=== PATIENT | female | born 1975 | race Caucasian/White ===

== ENCOUNTER 2017-12-19 16:06 | Emergency (ER) | payer OTHER ==
[~2017-12-19] VITALS: Ht 170.2 cm; Wt 167.8 kg
[2017-12-19] MEDS ORDERED: METF500C PO (17:10)
[2017-12-19] MEDS ORDERED: Humalog100 UNIT/3 SC (17:11)
[2017-12-19] MEDS ORDERED: PREG200 PO (17:14)
[2017-12-19] MEDS ORDERED: LORA.5 PO (17:15)
[2017-12-19] MEDS ORDERED: DULO30 PO (17:15)
[2017-12-19] MEDS ORDERED: METO100ER PO (17:15)
[2017-12-19] MEDS ORDERED: ONDA8 PO (17:16)
[2017-12-19] MEDS ORDERED: METO5A PO (17:16)
[2017-12-19] MEDS ORDERED: BASAGLAR K100 UNIT/1 SC (17:18)
[2017-12-19] MEDS ORDERED: ABAT250V (17:18)
[2017-12-19] MEDS ORDERED: Percocet 7.5-31 EACH PO (18:53)
[2017-12-19 19:36] LABS: BASOPHILS ABSOLUTE AUTO 0.06 K/mm3 (0.00-0.23); BASOPHILS PERCENT AUTO 1 % (0-2); EOSINOPHILS ABSOLUTE AUTO 0.08 K/mm3 (0.00-0.68); EOSINOPHILS PERCENT AUTO 1 % (0-6); Hematocrit 40.4 % (33.0-51.0); Hemoglobin 12.8 g/dL (11.5-16.0); IMMATURE GRAN ABSOLUTE AUTO 0.04 K/mm3 (0.00-0.10); IMMATURE GRAN PERCENT AUTO 1 % (0-1); LYMPHOCYTES ABSOLUTE AUTO 1.74 K/mm3 (0.84-5.20); LYMPHOCYTES PERCENT AUTO 22 % (21-46); MONOCYTES ABSOLUTE AUTO 0.41 K/mm3 (0.16-1.47); MONOCYTES PERCENT AUTO 5 % (4-13); Mean Corpuscular HGB 23.7 pg (26.0-34.0); Mean Corpuscular HGB Conc 31.7 g/dL (31.5-36.5); Mean Corpuscular Volume 75 fL (80-100); NEUTROPHILS ABSOLUTE AUTO 5.65 K/mm3 (1.96-9.15); NEUTROPHILS PERCENT AUTO 71 % (41-73); Platelet Count 294 K/mm3 (150-400); RDW Coefficient Variation 16.3 % (11.7-14.2); RDW Standard Deviation 43.8 fL (35.1-46.3); White Blood Cell Count 7.98 K/mm3 (4.00-11.30)
[2017-12-19 19:50] LABS: International Normalized Ratio 0.97
[2017-12-19 19:58] LABS: Anion Gap 10 mmol/L (6-16); Blood Urea Nitrogen 12 mg/dL (8-24); Bun/Creatinine Ratio 22.2 (12.0-20.0); CO2, Blood 26 mmol/L (21-32); Calcium, Blood 8.8 mg/dL (8.5-10.1); Chloride, Blood 100 mmol/L (98-108); Creatinine, Blood 0.54 mg/dL (0.40-1.00); Glomerular Filtration Rate >60 (60-); Glucose, Blood 407 mg/dL (70-99); Potassium, Blood 4.2 mmol/L (3.5-5.5); Sodium, Blood 136 mmol/L (136-145)
== END 2017-12-19 21:15 | disposition home or self-care (01) ==
LOC: ER 16:06
PROVIDERS: Emergency Medicine
DX: I82.411 Acute embolism and thrombosis of right femoral vein (principal); I82.431 Acute embolism and thrombosis of right popliteal vein; I82.441 Acute embolism and thrombosis of right tibial vein; E11.9 Type 2 diabetes mellitus without complications; F41.9 Anxiety disorder, unspecified; F32.9 Major depressive disorder, single episode, unspecified; Z88.8 Allergy status to other drugs, medicaments and biological substances; Z88.5 Allergy status to narcotic agent; Z88.2 Allergy status to sulfonamides; Z88.1 Allergy status to other antibiotic agents; Z79.4 Long term (current) use of insulin; Z79.899 Other long term (current) drug therapy; Z86.711 Personal history of pulmonary embolism
CPT/HCPCS: 36415; 80048; 85025; 85610; 85730; 93971; 96372; 99284-25; J1170

== ENCOUNTER → 2018-02-28 | Outpatient (CLI) | payer OTHER ==
[~2018-02-28] MED LIST: ABAT250V; BASAGLAR K100 UNIT/1 SC; DULO30 PO; ELIQUIS5 MG PO; Humalog100 UNIT/3 SC; LORA.5 PO; METF500C PO; METO100ER PO; METO5A PO; ONDA8 PO; PREG200 PO; Percocet 7.5-31 EACH PO; Roxicodone5 MG PO
[2018-02-28 15:06] LABS: BASOPHILS ABSOLUTE AUTO 0.04 K/mm3 (0.00-0.23); BASOPHILS PERCENT AUTO 1 % (0-2); EOSINOPHILS PERCENT AUTO 0 % (0-6); Hematocrit 43.5 % (33.0-51.0); Hemoglobin 13.7 g/dL (11.5-16.0); IMMATURE GRAN ABSOLUTE AUTO 0.03 K/mm3 (0.00-0.10); IMMATURE GRAN PERCENT AUTO 1 % (0-1); LYMPHOCYTES ABSOLUTE AUTO 0.63 K/mm3 (0.84-5.20); LYMPHOCYTES PERCENT AUTO 14 % (21-46); MONOCYTES ABSOLUTE AUTO 0.21 K/mm3 (0.16-1.47); MONOCYTES PERCENT AUTO 5 % (4-13); Mean Corpuscular HGB Conc 31.5 g/dL (31.5-36.5); Mean Corpuscular Volume 76 fL (80-100); Mean Platelet Volume 10.4 fL (9.1-12.4); NEUTROPHILS PERCENT AUTO 79 % (41-73); Platelet Count 247 K/mm3 (150-400); RDW Coefficient Variation 14.3 % (11.7-14.2); RDW Standard Deviation 38.5 fL (35.1-46.3); Red Blood Cell Count 5.71 M/mm3 (3.80-5.20); White Blood Cell Count 4.41 K/mm3 (4.00-11.30)
[2018-02-28 15:22] LABS: Alanine Aminotransfer (ALT/SGP 26 U/L (12-78); Albumin, Blood 2.9 g/dL (3.4-5.0); Albumin/Globulin Ratio 0.6 (0.8-1.8); Alk Phos 91 U/L (40-126); Anion Gap 7 mmol/L (6-16); Aspartate Aminotrans (AST/SGOT 24 U/L (12-37); Bilirubin, Total 0.4 mg/dL (0.1-1.0); Blood Urea Nitrogen 10 mg/dL (8-24); Bun/Creatinine Ratio 11.8 (12.0-20.0); CO2, Blood 27 mmol/L (21-32); Calcium, Blood 8.6 mg/dL (8.5-10.1); Chloride, Blood 98 mmol/L (98-108); Creatinine, Blood 0.85 mg/dL (0.40-1.00); Globulin, Blood 4.9 g/dL (2.2-4.0); Glomerular Filtration Rate >60 (60-); Glucose, Blood 297 mg/dL (70-99); Potassium, Blood 4.5 mmol/L (3.5-5.5); Sodium, Blood 132 mmol/L (136-145); Total Protein, Blood 7.8 g/dL (6.4-8.2)
== END | disposition home or self-care (01) ==
LOC: LAB SHORT 15:02 → LAB EV 15:02
PROVIDERS: General Practice
DX: E11.65 Type 2 diabetes mellitus with hyperglycemia (principal); A41.9 Sepsis, unspecified organism; N39.0 Urinary tract infection, site not specified
CPT/HCPCS: 80053; 85025; 87077; 87086; 87186

== ENCOUNTER → 2018-04-16 | Outpatient (CLI) | payer OTHER ==
[2018-04-16 13:13] LABS: BASOPHILS ABSOLUTE AUTO 0.04 K/mm3 (0.00-0.23); BASOPHILS PERCENT AUTO 1 % (0-2); EOSINOPHILS ABSOLUTE AUTO 0.11 K/mm3 (0.00-0.68); EOSINOPHILS PERCENT AUTO 2 % (0-6); Hematocrit 40.9 % (33.0-51.0); Hemoglobin 13.1 g/dL (11.5-16.0); IMMATURE GRAN ABSOLUTE AUTO 0.02 K/mm3 (0.00-0.10); IMMATURE GRAN PERCENT AUTO 0 % (0-1); LYMPHOCYTES ABSOLUTE AUTO 1.82 K/mm3 (0.84-5.20); LYMPHOCYTES PERCENT AUTO 31 % (21-46); MONOCYTES ABSOLUTE AUTO 0.33 K/mm3 (0.16-1.47); MONOCYTES PERCENT AUTO 6 % (4-13); Mean Corpuscular HGB 23.9 pg (26.0-34.0); Mean Corpuscular Volume 75 fL (80-100); Mean Platelet Volume 10.7 fL (9.1-12.4); NEUTROPHILS ABSOLUTE AUTO 3.54 K/mm3 (1.96-9.15); NEUTROPHILS PERCENT AUTO 60 % (41-73); Platelet Count 280 K/mm3 (150-400); RDW Coefficient Variation 15.9 % (11.7-14.2); RDW Standard Deviation 42.5 fL (35.1-46.3); Red Blood Cell Count 5.48 M/mm3 (3.80-5.20); White Blood Cell Count 5.86 K/mm3 (4.00-11.30)
[2018-04-16 13:16] LABS: Anion Gap 9 mmol/L (6-16); Blood Urea Nitrogen 11 mg/dL (8-24); Bun/Creatinine Ratio 13.4 (12.0-20.0); CO2, Blood 28 mmol/L (21-32); Calcium, Blood 8.7 mg/dL (8.5-10.1); Chloride, Blood 99 mmol/L (98-108); Creatinine, Blood 0.82 mg/dL (0.40-1.00); Glomerular Filtration Rate >60 (60-); Glucose, Blood 332 mg/dL (70-99); Potassium, Blood 4.2 mmol/L (3.5-5.5); Sodium, Blood 136 mmol/L (136-145)
== END | disposition home or self-care (01) ==
LOC: LAB EV 13:07 → LAB SHORT 13:07
PROVIDERS: Physician Assistant Surgical
DX: L03.115 Cellulitis of right lower limb (principal)
CPT/HCPCS: 80048; 85025

== ENCOUNTER → 2018-06-04 | Outpatient (CLI) | payer OTHER ==
[2018-06-04 13:07] LABS: BASOPHILS ABSOLUTE AUTO 0.05 K/mm3 (0.00-0.23); BASOPHILS PERCENT AUTO 1 % (0-2); EOSINOPHILS ABSOLUTE AUTO 0.13 K/mm3 (0.00-0.68); EOSINOPHILS PERCENT AUTO 2 % (0-6); IMMATURE GRAN ABSOLUTE AUTO 0.04 K/mm3 (0.00-0.10); IMMATURE GRAN PERCENT AUTO 1 % (0-1); LYMPHOCYTES ABSOLUTE AUTO 2.38 K/mm3 (0.84-5.20); LYMPHOCYTES PERCENT AUTO 37 % (21-46); MONOCYTES ABSOLUTE AUTO 0.29 K/mm3 (0.16-1.47); MONOCYTES PERCENT AUTO 5 % (4-13); Mean Corpuscular HGB 24.4 pg (26.0-34.0); Mean Corpuscular HGB Conc 32.5 g/dL (31.5-36.5); Mean Corpuscular Volume 75 fL (80-100); Mean Platelet Volume 10.3 fL (9.1-12.4); NEUTROPHILS ABSOLUTE AUTO 3.59 K/mm3 (1.96-9.15); NEUTROPHILS PERCENT AUTO 55 % (41-73); Platelet Count 320 K/mm3 (150-400); RDW Coefficient Variation 15.9 % (11.7-14.2); RDW Standard Deviation 42.9 fL (35.1-46.3); Red Blood Cell Count 5.32 M/mm3 (3.80-5.20); White Blood Cell Count 6.48 K/mm3 (4.00-11.30)
[2018-06-04 13:20] LABS: Anion Gap 9 mmol/L (6-16); Blood Urea Nitrogen 16 mg/dL (8-24); Bun/Creatinine Ratio 21.1 (12.0-20.0); CO2, Blood 27 mmol/L (21-32); Calcium, Blood 9.2 mg/dL (8.5-10.1); Chloride, Blood 100 mmol/L (98-108); Creatinine, Blood 0.76 mg/dL (0.40-1.00); Glomerular Filtration Rate >60 (60-); Glucose, Blood 258 mg/dL (70-99); Potassium, Blood 4.5 mmol/L (3.5-5.5); Sodium, Blood 136 mmol/L (136-145); Thyroid Stimulating Hormone 2.803 uIU/mL (0.360-4.800)
== END | disposition home or self-care (01) ==
LOC: LAB SHORT 12:56 → LAB EV 12:56
PROVIDERS: Physician Assistant Surgical
DX: I10 Essential (primary) hypertension (principal); R53.83 Other fatigue
CPT/HCPCS: 80048; 84443; 85025

== ENCOUNTER → 2018-06-16 | Outpatient (CLI) | payer OTHER ==
[2018-06-17 15:06] LABS: HPV 16 Negative (Negative); HPV 18 Negative (Negative); HPV OTHER HR TYPES Negative (Negative)
== END | disposition home or self-care (01) ==
LOC: LAB 11:07 → LAB SHORT 11:07
PROVIDERS: Obstetrics & Gynecology
DX: Z01.419 Encounter for gynecological examination (general) (routine) without abnormal findings (principal)
CPT/HCPCS: 87624; G0123

== ENCOUNTER → 2018-10-12 | Outpatient (CLI) | payer OTHER ==
[~2018-10-12] MED LIST changes: +CEPH500 PO
== END ==
LOC: LAB SHORT 08:01 → LAB EV 08:01
DX: R35.0 Frequency of micturition (principal)
CPT/HCPCS: 87077; 87086; 87186

== ENCOUNTER → 2018-11-25 | Outpatient (CLI) | payer OTHER | END | disposition home or self-care (01) | LOC: LAB EV 16:59 → LAB SHORT 16:59 | DX: R30.9 Painful micturition, unspecified (principal) | CPT/HCPCS: 87077; 87086; 87186 ==

== ENCOUNTER 2019-01-13 20:30 | Inpatient (IN) | payer OTHER ==
[~2019-01-13] VITALS: Ht 170.2 cm; Wt 169.2 kg
[~2019-01-13 20:30] MED LIST changes: -ATORVASTATIN CA20 MG PO; -CLON.1 PO; -Chewable-Vite1 EAC1 PO; -Cipro500 MG PO; -DULO60 PO; -FUROSEMIDE20 MG PO; -OMEPRAZOLE20 MG PO; -SENN187 PO; -Tylenol325 MG PO
[2019-01-13 21:08] LABS: Source, Urine Clean Catch
[2019-01-13 21:12] LABS: BASOPHILS ABSOLUTE AUTO 0.03 K/mm3 (0.00-0.23); BASOPHILS PERCENT AUTO 1 % (0-2); EOSINOPHILS ABSOLUTE AUTO 0.06 K/mm3 (0.00-0.68); EOSINOPHILS PERCENT AUTO 1 % (0-6); Hematocrit 43.2 % (33.0-51.0); Hemoglobin 13.6 g/dL (11.5-16.0); IMMATURE GRAN ABSOLUTE AUTO 0.03 K/mm3 (0.00-0.10); IMMATURE GRAN PERCENT AUTO 1 % (0-1); LYMPHOCYTES ABSOLUTE AUTO 1.25 K/mm3 (0.84-5.20); LYMPHOCYTES PERCENT AUTO 21 % (21-46); MONOCYTES ABSOLUTE AUTO 0.56 K/mm3 (0.16-1.47); MONOCYTES PERCENT AUTO 10 % (4-13); Mean Corpuscular HGB 25.5 pg (26.0-34.0); Mean Corpuscular HGB Conc 31.5 g/dL (31.5-36.5); Mean Corpuscular Volume 81 fL (80-100); Mean Platelet Volume 9.8 fL (9.1-12.4); NEUTROPHILS ABSOLUTE AUTO 3.96 K/mm3 (1.96-9.15); NEUTROPHILS PERCENT AUTO 67 % (41-73); Platelet Count 229 K/mm3 (150-400); RDW Coefficient Variation 13.7 % (11.7-14.2); Red Blood Cell Count 5.33 M/mm3 (3.80-5.20); White Blood Cell Count 5.89 K/mm3 (4.00-11.30)
[2019-01-13 21:12] LABS: Bilirubin, Urine Neg (Neg); Blood, Urine 1+ (Neg); Glucose Qualitative, Urine 3+ (Neg); Ketones, Urine Neg (Neg); Leukocyte Esterase, Urine 1+ (Neg); Nitrite, Urine Neg (Neg); Protein, Urine Neg (Neg); Specific Gravity, Urine 1.005 (1.003-1.022); Urobilinogen, Urine NORM (Normal)
[2019-01-13 21:13] LABS: Appearance, Urine Clear (Clear); Color, Urine Pale Yellow (P-Yellow)
[2019-01-13 21:18] LABS: Red Blood Cells, Urine 0-2 /hpf (0-2); Squamous Epithelial Cells Few /hpf (Few)
[2019-01-13 21:19] LABS: Bacteria Rare /hpf
[2019-01-13 21:37] LABS: Alanine Aminotransfer (ALT/SGP 40 U/L (12-78); Albumin, Blood 3.3 g/dL (3.4-5.0); Albumin/Globulin Ratio 0.8 (0.8-1.8); Alk Phos 83 U/L (50-136); Anion Gap 8 mmol/L (6-16); Aspartate Aminotrans (AST/SGOT 27 U/L (12-37); Bilirubin, Total 0.4 mg/dL (0.1-1.0); Blood Urea Nitrogen 14 mg/dL (8-24); Bun/Creatinine Ratio 14.8 (12.0-20.0); CO2, Blood 28 mmol/L (21-32); Chloride, Blood 103 mmol/L (98-108); Creatinine, Blood 0.95 mg/dL (0.40-1.00); Globulin, Blood 4.2 g/dL (2.2-4.0); Glomerular Filtration Rate >60 (60-); Glucose, Blood 312 mg/dL (70-99); Potassium, Blood 3.9 mmol/L (3.5-5.5); Sodium, Blood 139 mmol/L (136-145); Total Protein, Blood 7.5 g/dL (6.4-8.2)
[2019-01-13] MEDS ORDERED: Cipro500 MG PO (21:42)
[2019-01-13] MEDS ORDERED: CLON.1 PO (21:43)
[2019-01-13] MEDS ORDERED: ATORVASTATIN CA20 MG PO (21:45)
[2019-01-13] MEDS ORDERED: DULO60 PO (21:45)
[2019-01-13] MEDS ORDERED: FUROSEMIDE20 MG PO (21:45)
[2019-01-14] MEDS ORDERED: Chewable-Vite1 EAC1 PO (01:08)
[2019-01-14] MEDS ORDERED: OMEPRAZOLE20 MG PO (01:09)
[2019-01-14] MEDS ORDERED: Tylenol325 MG PO (01:10)
--- NOTE | 2019-01-14 01:56 | NUR ---
IV L AC 18G PATENT, SITE WNL
--- NOTE | 2019-01-14 01:57 | NUR ---
0030 PT ARRIVED TO ROOM FROM ER VIA GURNEY IN STABLE CONDTITION. PT REPORTS SLIGHT NAUSEA, PAIN IN THE L FLANK OF 6/10 THAT IS SHARP AND STABBING. N/T IN LE'S THAT IS NOT NEW, HISTORY OF NEUROPATHY. NO OTHER APPARENT SIGNS OF DISTRESS. WILL MEDICATE AND EVAL PER ORDERS. CALL LIGHT IS IN REACH.
--- NOTE | 2019-01-14 03:08 | NUR ---
0230 PT LYING IN BED, USING PHONE, REPORTS PAIN WENT DOWN TO A 2/10 WITH THE PAIN MEDICATION. THE NAUSEA IS GONE. NO OTHER APPARENT SIGNS OF DISTRESS. CALL LIGHT IS IN REACH.
--- NOTE | 2019-01-14 04:50 | NUR ---
PT IS AAO, INDEPENDANT, ON RA. LAST BS WAS 285. TELE NSR. PT REPORTS L FLANK PAIN, GOT DILAUDED IN ER AND X 1 SINCE ARRIVING TO ROOM. PT REPORTED SLIGHT NAUSEA, GOT ZOFRAN X 1.
--- NOTE | 2019-01-14 04:50 | NUR ---
PT LYING IN BED, EYES CLOSED, APPEARS TO BE RESTING. BREATHING IS EVEN, UNLABORED. NO APPARENT SIGNS OF DISTRESS. CALL LIGHT IS IN REACH.
[2019-01-14 05:22] LABS: BASOPHILS ABSOLUTE AUTO 0.04 K/mm3 (0.00-0.23); BASOPHILS PERCENT AUTO 1 % (0-2); EOSINOPHILS ABSOLUTE AUTO 0.04 K/mm3 (0.00-0.68); EOSINOPHILS PERCENT AUTO 1 % (0-6); Hematocrit 38.4 % (33.0-51.0); Hemoglobin 12.2 g/dL (11.5-16.0); IMMATURE GRAN ABSOLUTE AUTO 0.02 K/mm3 (0.00-0.10); IMMATURE GRAN PERCENT AUTO 0 % (0-1); LYMPHOCYTES ABSOLUTE AUTO 1.56 K/mm3 (0.84-5.20); LYMPHOCYTES PERCENT AUTO 32 % (21-46); MONOCYTES ABSOLUTE AUTO 0.65 K/mm3 (0.16-1.47); MONOCYTES PERCENT AUTO 13 % (4-13); Mean Corpuscular HGB 25.6 pg (26.0-34.0); Mean Corpuscular HGB Conc 31.8 g/dL (31.5-36.5); Mean Corpuscular Volume 81 fL (80-100); Mean Platelet Volume 10.1 fL (9.1-12.4); NEUTROPHILS ABSOLUTE AUTO 2.57 K/mm3 (1.96-9.15); NEUTROPHILS PERCENT AUTO 53 % (41-73); Platelet Count 189 K/mm3 (150-400); RDW Coefficient Variation 13.8 % (11.7-14.2); RDW Standard Deviation 40.5 fL (35.1-46.3); Red Blood Cell Count 4.77 M/mm3 (3.80-5.20); White Blood Cell Count 4.88 K/mm3 (4.00-11.30)
[2019-01-14 05:41] LABS: Anion Gap 6 mmol/L (6-16); Blood Urea Nitrogen 14 mg/dL (8-24); Bun/Creatinine Ratio 15.1 (12.0-20.0); CO2, Blood 27 mmol/L (21-32); Calcium, Blood 8.4 mg/dL (8.5-10.1); Chloride, Blood 107 mmol/L (98-108); Creatinine, Blood 0.93 mg/dL (0.40-1.00); Glomerular Filtration Rate >60 (60-); Glucose, Blood 266 mg/dL (70-99); Potassium, Blood 4.2 mmol/L (3.5-5.5); Sodium, Blood 140 mmol/L (136-145)
--- NOTE | 2019-01-14 06:01 | NUR ---
PT LYING IN BED, EYES CLOSED, APPEARS TO BE RESTING. BREATHING IS EVEN, UNLABORED. NO APPARENT SIGNS OF DISTRESS. CALL LIGHT IS IN REACH. NO OTHER CHANGES THIS SHIFT.
[2019-01-14 11:38] LABS: U Amphetamine Screen Not Detected; U Barbituate Screen Not Detected; U Benzodiazapine Screen Not Detected; U Buprenorphine Screen Not Detected; U Cannabinoids Screen DETECTED; U Cocaine Screen Not Detected; U Methadone Screen Not Detected; U Methamphetamine Screen Not Detected; U Opiates Screen DETECTED; U Oxycodone Screen Not Detected; U Phencyclidine Screen Not Detected; U Propoxyphene Screen Not Detected
--- NOTE | 2019-01-14 17:47 | NUR ---
SHIFT SUMMARY PT AXO, PLEASANT AND COOPERATIVE WITH CARE. PT COMPLAINED OF RIGHT LOWER BACK PAIN, MEDICATED PER EMAR. PT STATES THAT SHE IS IN PAIN NOW BUT WANTS TO "HOLD OFF ON MEDICATION FOR NOW." PT HAS HAD POOR APPETITE, REFUSING EACH MEAL TRAY THROUGHOUT THE DAY STATING THAT SHE "CAN'T STAND FOOD RIGHT NOW." FLUID INTAKE FOR TODAY HAS BEEN 380ML ORALLY. VSS. PT UP INDEPENDENTLY THIS SHIFT TO BATHROOM. BED IN LOW POSITION, CALL LIGHT WITHIN REACH.
--- NOTE | 2019-01-14 21:00 | NUR ---
BLOOD SUGARS PT'S BLOOD SUGAR AT HS WAS 134. PT HAS 85 UNITS OF LANTUS ORDERED AT BEDTIME. BLOOD SUGARS HAVE BEEN TRENDING DOWN DURING THE DAY, FROM 237 TO 151 TO 134. PT HAS HAD NO APPETITE THROUGHOUT THE DAY, DENIED ANY SNACKS, JUICE OR SODA. SPOKE TO HOSPITALIST CHRISTIE NINO, AND SHE ORDERED A ONE TIME DOSE OF LANTUS AT 40 UNITS INSTEAD OF 85 UNITS.
[2019-01-15 05:18] LABS: BASOPHILS ABSOLUTE AUTO 0.03 K/mm3 (0.00-0.23); BASOPHILS PERCENT AUTO 1 % (0-2); EOSINOPHILS ABSOLUTE AUTO 0.14 K/mm3 (0.00-0.68); EOSINOPHILS PERCENT AUTO 3 % (0-6); Hematocrit 37.4 % (33.0-51.0); Hemoglobin 11.7 g/dL (11.5-16.0); IMMATURE GRAN ABSOLUTE AUTO 0.03 K/mm3 (0.00-0.10); IMMATURE GRAN PERCENT AUTO 1 % (0-1); LYMPHOCYTES ABSOLUTE AUTO 2.06 K/mm3 (0.84-5.20); LYMPHOCYTES PERCENT AUTO 39 % (21-46); MONOCYTES ABSOLUTE AUTO 0.49 K/mm3 (0.16-1.47); MONOCYTES PERCENT AUTO 9 % (4-13); Mean Corpuscular HGB 25.5 pg (26.0-34.0); Mean Corpuscular HGB Conc 31.3 g/dL (31.5-36.5); Mean Corpuscular Volume 82 fL (80-100); NEUTROPHILS PERCENT AUTO 48 % (41-73); Platelet Count 204 K/mm3 (150-400); RDW Coefficient Variation 14.1 % (11.7-14.2); RDW Standard Deviation 41.1 fL (35.1-46.3); Red Blood Cell Count 4.59 M/mm3 (3.80-5.20); White Blood Cell Count 5.25 K/mm3 (4.00-11.30)
[2019-01-15 05:52] LABS: Anion Gap 7 mmol/L (6-16); Blood Urea Nitrogen 13 mg/dL (8-24); Bun/Creatinine Ratio 16.1 (12.0-20.0); CO2, Blood 30 mmol/L (21-32); Calcium, Blood 8.7 mg/dL (8.5-10.1); Chloride, Blood 106 mmol/L (98-108); Creatinine, Blood 0.81 mg/dL (0.40-1.00); Glomerular Filtration Rate >60 (60-); Glucose, Blood 107 mg/dL (70-99); Potassium, Blood 3.6 mmol/L (3.5-5.5); Sodium, Blood 143 mmol/L (136-145)
--- NOTE | 2019-01-15 06:20 | NUR ---
SHIFT SUMMARY PT IS A 43 Y/O FEMALE, ADMITTED FOR PYELONEPHRITIS. SHE IS A&O X 4, AND INDEPENDENT IN THE ROOM. SHE WAS MEDICATED X2 WITH PRN OXYCODONE FOR BACK PAIN. SHE WAS ALSO MEDICATED ONCE WITH TYLENOL PER HER REQUEST DUE TO AN INCREASING TEMPERATURE AT 99.6 AND CHILLS. ALL OTHER VITALS REMAINED STABLE. PT'S EVENING LANTUS WAS DECREASED TO 40 DUE TO HER BLOOD SUGAR AND LACK OF APETITE (SEE PREVIOUS NOTE). NO OTHER ACUTE CHANGES IN PT CONDITION NOTED. WILL CONTINUE TO MONITOR AND TREAT PER EMAR UNTIL HAND OFF TO DAY SHIFT RN.
--- NOTE | 2019-01-15 12:25 | NUR ---
POOR APPETITE DR. MERIDA CALLED & UPDATED ON PT LACK OF APPETITE. PT STATES THE SMELL OF FOOD MAKES HER SICK. PT TOLERATING FLUIDS WELL. DR. MERIDA PLANS TO DC PT & MAKE CHANGES TO INSULINS DUE TO LACK OF PO INTAKE. WILL CONTINUE TO MONITOR.
[2019-01-15] MEDS ORDERED: SENN187 PO (13:47)
--- NOTE | 2019-01-15 14:29 | NUR ---
PT DISCHARGED PT DISCHARGED AT 1429. PT IN STABLE CONDITION WITH VSS. PT & SPOUSE EDUCATED ON DC INSTRUCTIONS & FOLLOW UP APPOINTMENTS. PT REFUSED WHEELCHAIR RIDE OUT OF HOSPITAL. PT ESCORTED OUT BY . DC INSTRUCTIONS SENT WITH PT.
== END 2019-01-15 14:30 | disposition home or self-care (01) | DRG 872 ==
LOC: ER 20:30 → MEDS 23:43
PROVIDERS: Family Medicine; Nurse Practitioner Acute Care; Physician Assistant; ADMIT Internal Medicine
DX: A41.9 Sepsis, unspecified organism (principal); N12 Tubulo-interstitial nephritis, not specified as acute or chronic; Z79.4 Long term (current) use of insulin; Z86.718 Personal history of other venous thrombosis and embolism; E11.40 Type 2 diabetes mellitus with diabetic neuropathy, unspecified; E66.01 Morbid (severe) obesity due to excess calories; I11.0 Hypertensive heart disease with heart failure; I50.9 Heart failure, unspecified; Z85.42 Personal history of malignant neoplasm of other parts of uterus; E11.65 Type 2 diabetes mellitus with hyperglycemia; G47.33 Obstructive sleep apnea (adult) (pediatric); Z87.440 Personal history of urinary (tract) infections; F39 Unspecified mood [affective] disorder
CPT/HCPCS: 36415; 74177; 80048; 80053; 81001; 82947; 83605; 83690; 83880; 85025; 87040; 87086; 93005; 93010; 96361; 96365-59; 96367; 96375; 99285-25; A9270; A9270-GY; G0480; J0696; J0744; J1170; J2405; J7120; Q9967

== ENCOUNTER → 2019-01-13 | Outpatient (CLI) | payer OTHER ==
[~2019-01-13] MED LIST changes: +ATORVASTATIN CA20 MG PO; +CLON.1 PO; +Chewable-Vite1 EAC1 PO; +Cipro500 MG PO; +DULO60 PO; +FUROSEMIDE20 MG PO; +Humalog Mi100 UNIT/4 SC; -Humalog100 UNIT/3 SC; +OMEPRAZOLE20 MG PO; +SENN187 PO; +Tylenol325 MG PO
== END | disposition home or self-care (01) ==
LOC: LAB SHORT 10:57 → LAB 10:57
DX: R30.0 Dysuria (principal); R10.84 Generalized abdominal pain
CPT/HCPCS: 87086

== ENCOUNTER → 2019-01-31 | Outpatient (CLI) | payer OTHER ==
[~2019-01-31] MED LIST changes: +ATORVASTATIN CA20 MG PO; +CLON.1 PO; +Chewable-Vite1 EAC1 PO; +Cipro500 MG PO; +DULO60 PO; +FUROSEMIDE20 MG PO; +OMEPRAZOLE20 MG PO; +SENN187 PO; +Tylenol325 MG PO
[2019-02-02 15:07] LABS: HPV 16 Negative (Negative); HPV 18 Negative (Negative); HPV OTHER HR TYPES Negative (Negative)
== END ==
LOC: LAB 16:28 → LAB SHORT 16:28
PROVIDERS: Advanced Practice Midwife
DX: N93.9 Abnormal uterine and vaginal bleeding, unspecified (principal)
CPT/HCPCS: 87624; G0123

== ENCOUNTER → 2019-02-21 | Outpatient (CLI) | payer OTHER | LOC: LAB EV 18:53 → LAB SHORT 18:53 | DX: N39.0 Urinary tract infection, site not specified (principal) | CPT/HCPCS: 87077; 87086; 87186 ==

== ENCOUNTER 2019-05-03 16:26 | Emergency (ER) | payer OTHER ==
[~2019-05-03] VITALS: Ht 170.2 cm; Wt 158.8 kg
[2019-05-03 17:42] LABS: BASOPHILS ABSOLUTE AUTO 0.07 K/mm3 (0.00-0.23); BASOPHILS PERCENT AUTO 1 % (0-2); EOSINOPHILS ABSOLUTE AUTO 0.06 K/mm3 (0.00-0.68); EOSINOPHILS PERCENT AUTO 1 % (0-6); Hematocrit 43.1 % (33.0-51.0); Hemoglobin 13.8 g/dL (11.5-16.0); IMMATURE GRAN ABSOLUTE AUTO 0.03 K/mm3 (0.00-0.10); IMMATURE GRAN PERCENT AUTO 0 % (0-1); LYMPHOCYTES PERCENT AUTO 20 % (21-46); MONOCYTES ABSOLUTE AUTO 0.37 K/mm3 (0.16-1.47); MONOCYTES PERCENT AUTO 5 % (4-13); Mean Corpuscular HGB 25.4 pg (26.0-34.0); Mean Corpuscular Volume 79 fL (80-100); Mean Platelet Volume 10.4 fL (9.1-12.4); NEUTROPHILS ABSOLUTE AUTO 5.09 K/mm3 (1.96-9.15); NEUTROPHILS PERCENT AUTO 73 % (41-73); Platelet Count 290 K/mm3 (150-400); RDW Coefficient Variation 14.3 % (11.7-14.2); RDW Standard Deviation 41.1 fL (35.1-46.3); Red Blood Cell Count 5.44 M/mm3 (3.80-5.20); White Blood Cell Count 7.02 K/mm3 (4.00-11.30)
[2019-05-03 18:03] LABS: Alanine Aminotransfer (ALT/SGP 57 U/L (12-78); Albumin, Blood 3.4 g/dL (3.4-5.0); Albumin/Globulin Ratio 0.8 (0.8-1.8); Alk Phos 86 U/L (50-136); Anion Gap 4 mmol/L (6-16); Aspartate Aminotrans (AST/SGOT 38 U/L (12-37); Bilirubin, Total 0.4 mg/dL (0.1-1.0); Blood Urea Nitrogen 15 mg/dL (8-24); CO2, Blood 30 mmol/L (21-32); Calcium, Blood 9.4 mg/dL (8.5-10.1); Chloride, Blood 104 mmol/L (98-108); Creatinine, Blood 0.54 mg/dL (0.40-1.00); Globulin, Blood 4.1 g/dL (2.2-4.0); Glomerular Filtration Rate >60 (60-); Glucose, Blood 251 mg/dL (70-99); Potassium, Blood 3.8 mmol/L (3.5-5.5); Sodium, Blood 138 mmol/L (136-145); Total Protein, Blood 7.5 g/dL (6.4-8.2); Troponin I <0.015 ng/mL (0.000-0.040)
== END 2019-05-03 19:08 | disposition home or self-care (01) ==
LOC: ER 16:26
PROVIDERS: Nurse Practitioner
DX: R07.9 Chest pain, unspecified (principal); Z95.1 Presence of aortocoronary bypass graft; Z88.2 Allergy status to sulfonamides; Z88.5 Allergy status to narcotic agent; Z88.8 Allergy status to other drugs, medicaments and biological substances; Z79.899 Other long term (current) drug therapy; Z79.4 Long term (current) use of insulin; E11.9 Type 2 diabetes mellitus without complications; F41.9 Anxiety disorder, unspecified; F32.9 Major depressive disorder, single episode, unspecified; I50.9 Heart failure, unspecified; Z86.711 Personal history of pulmonary embolism; Z86.718 Personal history of other venous thrombosis and embolism
CPT/HCPCS: 36415; 71046; 80053; 83880; 84484; 85025; 93005; 93010; 96374; 99285-25; J2405

== ENCOUNTER → 2019-05-27 | Outpatient (CLI) | payer OTHER | END | disposition home or self-care (01) | LOC: LAB 15:02 → LAB SHORT 15:02 | DX: R30.0 Dysuria (principal); R82.998 Other abnormal findings in urine; R30.9 Painful micturition, unspecified | CPT/HCPCS: 87077; 87086; 87186 ==

== ENCOUNTER → 2019-06-28 | Outpatient (CLI) | payer OTHER | END | disposition home or self-care (01) | LOC: LAB SHORT 18:25 → LAB 18:25 | DX: N39.0 Urinary tract infection, site not specified (principal) | CPT/HCPCS: 87086 ==

== ENCOUNTER → 2019-08-10 | Outpatient (CLI) | payer OTHER | END | disposition home or self-care (01) | LOC: LAB 18:33 → LAB SHORT 18:33 | DX: N30.01 Acute cystitis with hematuria (principal) | CPT/HCPCS: 87077; 87086; 87186 ==

== ENCOUNTER → 2019-11-22 | Outpatient (CLI) | payer OTHER ==
[~2019-11-22] MED LIST changes: +ANAS1 PO; +HUMALOG100 UNIT/1 SC; +LENVIMA1 EA10 PO; +LOSA50 PO; +PROC5 PO; +TRAM50 PO; +XARELTO15 MG PO
== END | disposition home or self-care (01) ==
LOC: LAB SHORT 18:50 → LAB 18:50
DX: R35.0 Frequency of micturition (principal)
CPT/HCPCS: 87077; 87086; 87186

== ENCOUNTER → 2019-12-15 | Outpatient (CLI) | payer OTHER | END | disposition home or self-care (01) | LOC: LAB 15:37 → LAB SHORT 15:37 | DX: R30.9 Painful micturition, unspecified (principal) | CPT/HCPCS: 87077; 87086; 87186 ==

== ENCOUNTER → 2019-12-27 | Outpatient (CLI) | payer OTHER | END | disposition home or self-care (01) | LOC: LAB 17:10 → LAB SHORT 17:10 | DX: R30.0 Dysuria (principal) | CPT/HCPCS: 87077; 87086; 87186 ==

== ENCOUNTER 2020-01-20 01:23 | Emergency (ER) | payer OTHER ==
[~2020-01-20] VITALS: Ht 170.2 cm; Wt 157.4 kg
[2020-01-20 02:07] LABS: BASOPHILS ABSOLUTE AUTO 0.07 K/mm3 (0.00-0.23); BASOPHILS PERCENT AUTO 1 % (0-2); EOSINOPHILS ABSOLUTE AUTO 0.17 K/mm3 (0.00-0.68); EOSINOPHILS PERCENT AUTO 2 % (0-6); Hematocrit 41.9 % (33.0-51.0); Hemoglobin 13.7 g/dL (11.5-16.0); IMMATURE GRAN ABSOLUTE AUTO 0.07 K/mm3 (0.00-0.10); IMMATURE GRAN PERCENT AUTO 1 % (0-1); LYMPHOCYTES ABSOLUTE AUTO 2.02 K/mm3 (0.84-5.20); LYMPHOCYTES PERCENT AUTO 26 % (21-46); MONOCYTES ABSOLUTE AUTO 0.55 K/mm3 (0.16-1.47); MONOCYTES PERCENT AUTO 7 % (4-13); Mean Corpuscular HGB 26.1 pg (26.0-34.0); Mean Corpuscular HGB Conc 32.7 g/dL (31.5-36.5); Mean Corpuscular Volume 80 fL (80-100); Mean Platelet Volume 10.6 fL (9.1-12.4); NEUTROPHILS ABSOLUTE AUTO 4.95 K/mm3 (1.96-9.15); NEUTROPHILS PERCENT AUTO 63 % (41-73); Platelet Count 240 K/mm3 (150-400); Red Blood Cell Count 5.25 M/mm3 (3.80-5.20); White Blood Cell Count 7.83 K/mm3 (4.00-11.30)
[2020-01-20 02:18] LABS: International Normalized Ratio 0.93
[2020-01-20 02:28] LABS: Alanine Aminotransfer (ALT/SGP 45 U/L (12-78); Albumin/Globulin Ratio 0.8 (0.8-1.8); Alk Phos 98 U/L (50-136); Anion Gap 7 mmol/L (6-16); Aspartate Aminotrans (AST/SGOT 21 U/L (12-37); Bilirubin, Total 0.2 mg/dL (0.1-1.0); Blood Urea Nitrogen 14 mg/dL (8-24); Bun/Creatinine Ratio 23.1 (12.0-20.0); CO2, Blood 27 mmol/L (21-32); Calcium, Blood 9.3 mg/dL (8.5-10.1); Chloride, Blood 102 mmol/L (98-108); Creatinine, Blood 0.61 mg/dL (0.40-1.00); Globulin, Blood 3.8 g/dL (2.2-4.0); Glomerular Filtration Rate >60 (60-); Glucose, Blood 419 mg/dL (70-99); Potassium, Blood 3.9 mmol/L (3.5-5.5); Sodium, Blood 136 mmol/L (136-145); Total Protein, Blood 6.8 g/dL (6.4-8.2); Troponin I <0.015 ng/mL (0.000-0.040)
[2020-01-20 02:44] LABS: Magnesium, Blood 1.6 mg/dL (1.6-2.4)
[2020-01-20 03:11] LABS: Free Thyroxine 1.02 ng/dL (0.70-1.60)
== END 2020-01-20 05:47 | disposition home or self-care (01) ==
LOC: ER 01:23
PROVIDERS: Emergency Medicine
DX: R07.9 Chest pain, unspecified (principal); R06.00 Dyspnea, unspecified; R00.0 Tachycardia, unspecified; I50.9 Heart failure, unspecified; E11.65 Type 2 diabetes mellitus with hyperglycemia; F32.9 Major depressive disorder, single episode, unspecified; Z86.718 Personal history of other venous thrombosis and embolism; Z88.8 Allergy status to other drugs, medicaments and biological substances; Z88.5 Allergy status to narcotic agent; Z88.2 Allergy status to sulfonamides; Z88.1 Allergy status to other antibiotic agents; Z79.4 Long term (current) use of insulin; Z95.1 Presence of aortocoronary bypass graft; Z79.899 Other long term (current) drug therapy
CPT/HCPCS: 71046; 80053; 83735; 84439; 84443; 84484; 85025; 85610; 85730; 93005; 93010; 96361; 96374; 99285-25; J1642; J2060; J7120

== ENCOUNTER → 2020-02-09 | Outpatient (CLI) | payer OTHER ==
[~2020-02-09] MED LIST changes: +ONDA4ODT MM; +PRED20 PO
== END | disposition home or self-care (01) ==
LOC: LAB SHORT 15:51
DX: N30.00 Acute cystitis without hematuria (principal)
CPT/HCPCS: 87077; 87086; 87186

== ENCOUNTER 2020-02-23 21:47 | Emergency (ER) | payer OTHER ==
[~2020-02-23] VITALS: Ht 170.2 cm; Wt 158.3 kg
[~2020-02-23 21:47] MED LIST changes: -ONDA4ODT MM; -PRED20 PO
[2020-02-23 22:20] LABS: BASOPHILS ABSOLUTE AUTO 0.04 K/mm3 (0.00-0.23); BASOPHILS PERCENT AUTO 0 % (0-2); EOSINOPHILS ABSOLUTE AUTO 0.09 K/mm3 (0.00-0.68); EOSINOPHILS PERCENT AUTO 1 % (0-6); Hematocrit 49.1 % (33.0-51.0); Hemoglobin 15.9 g/dL (11.5-16.0); IMMATURE GRAN ABSOLUTE AUTO 0.03 K/mm3 (0.00-0.10); IMMATURE GRAN PERCENT AUTO 0 % (0-1); LYMPHOCYTES ABSOLUTE AUTO 2.37 K/mm3 (0.84-5.20); LYMPHOCYTES PERCENT AUTO 25 % (21-46); MONOCYTES ABSOLUTE AUTO 0.39 K/mm3 (0.16-1.47); MONOCYTES PERCENT AUTO 4 % (4-13); Mean Corpuscular HGB 25.9 pg (26.0-34.0); Mean Corpuscular HGB Conc 32.4 g/dL (31.5-36.5); Mean Corpuscular Volume 80 fL (80-100); Mean Platelet Volume 10.2 fL (9.1-12.4); NEUTROPHILS ABSOLUTE AUTO 6.76 K/mm3 (1.96-9.15); NEUTROPHILS PERCENT AUTO 70 % (41-73); Platelet Count 262 K/mm3 (150-400); RDW Coefficient Variation 14.8 % (11.7-14.2); RDW Standard Deviation 42.4 fL (35.1-46.3); Red Blood Cell Count 6.13 M/mm3 (3.80-5.20); White Blood Cell Count 9.68 K/mm3 (4.00-11.30)
[2020-02-23 23:34] LABS: Alanine Aminotransfer (ALT/SGP 49 U/L (12-78); Albumin, Blood 3.5 g/dL (3.4-5.0); Albumin/Globulin Ratio 0.8 (0.8-1.8); Alk Phos 87 U/L (50-136); Anion Gap 10 mmol/L (6-16); Aspartate Aminotrans (AST/SGOT 32 U/L (12-37); Bilirubin, Total 0.4 mg/dL (0.1-1.0); Blood Urea Nitrogen 13 mg/dL (8-24); CO2, Blood 26 mmol/L (21-32); Calcium, Blood 9.6 mg/dL (8.5-10.1); Chloride, Blood 102 mmol/L (98-108); Creatinine, Blood 0.57 mg/dL (0.40-1.00); Globulin, Blood 4.4 g/dL (2.2-4.0); Glomerular Filtration Rate >60 (60-); Glucose, Blood 254 mg/dL (70-99); Potassium, Blood 4.1 mmol/L (3.5-5.5); Sodium, Blood 138 mmol/L (136-145); Total Protein, Blood 7.9 g/dL (6.4-8.2)
[2020-02-24] MEDS ORDERED: ONDA4ODT MM (03:20)
[2020-02-24 03:45] LABS: Source, Urine Clean Catch
[2020-02-24 03:47] LABS: Bilirubin, Urine Neg (Neg); Blood, Urine 2+ (Neg); Glucose Qualitative, Urine 4+ (Neg); Ketones, Urine Neg (Neg); Leukocyte Esterase, Urine 3+ (Neg); Nitrite, Urine Neg (Neg); Protein, Urine 3+ (Neg); Specific Gravity, Urine 1.025 (1.003-1.022); Urobilinogen, Urine NORM (Normal)
[2020-02-24 03:51] LABS: Appearance, Urine Hazy (Clear); Color, Urine Yellow (P-Yellow)
[2020-02-24 04:01] LABS: Amorphous Mod (0-Heavy); Bacteria Few /hpf; Mucus Light (0-Heavy); Red Blood Cells, Urine 0-2 /hpf (0-2); Squamous Epithelial Cells Few /hpf (Few)
[2020-02-24] MEDS ORDERED: Cipro500 MG PO (05:30)
== END 2020-02-24 04:15 | disposition home or self-care (01) ==
LOC: ER 21:47
PROVIDERS: Emergency Medicine
DX: N39.0 Urinary tract infection, site not specified (principal); E11.9 Type 2 diabetes mellitus without complications; I50.9 Heart failure, unspecified; Z86.718 Personal history of other venous thrombosis and embolism; Z79.899 Other long term (current) drug therapy; Z79.01 Long term (current) use of anticoagulants; Z79.4 Long term (current) use of insulin; Z88.8 Allergy status to other drugs, medicaments and biological substances; Z88.5 Allergy status to narcotic agent; Z88.1 Allergy status to other antibiotic agents
CPT/HCPCS: 36415; 71045; 74176; 80053; 81001; 83605; 83690; 85025; 87040; 87077; 87086; 87186; 93005; 93010; 96361; 96374; 96375; 99284-25; A9270; J1630; J2405; J2550; J3010; J7030

== ENCOUNTER → 2020-06-05 | Outpatient (CLI) | payer OTHER ==
[~2020-06-05] MED LIST changes: +ONDA4ODT MM
[2020-06-05 20:16] LABS: Candida species (DNA Probe) Negative (NEGATIVE); G. vaginalis (DNA Probe) Negative (NEGATIVE); T. vaginalis (DNA Probe) Negative (NEGATIVE)
== END | disposition home or self-care (01) ==
LOC: LAB 18:57 → LAB SHORT 18:57
PROVIDERS: Nurse Practitioner Family
DX: N89.8 Other specified noninflammatory disorders of vagina (principal); R30.0 Dysuria
CPT/HCPCS: 87070; 87086; 87205; 87480; 87510; 87660

== ENCOUNTER 2020-07-07 20:48 | Emergency (ER) | payer OTHER ==
[~2020-07-07] VITALS: Ht 170.2 cm; Wt 160.6 kg
[2020-07-07 21:22] LABS: BASOPHILS ABSOLUTE AUTO 0.07 K/mm3 (0.00-0.23); BASOPHILS PERCENT AUTO 1 % (0-2); EOSINOPHILS ABSOLUTE AUTO 0.16 K/mm3 (0.00-0.68); EOSINOPHILS PERCENT AUTO 2 % (0-6); Hematocrit 43.6 % (33.0-51.0); Hemoglobin 14.3 g/dL (11.5-16.0); IMMATURE GRAN ABSOLUTE AUTO 0.05 K/mm3 (0.00-0.10); IMMATURE GRAN PERCENT AUTO 1 % (0-1); LYMPHOCYTES ABSOLUTE AUTO 2.51 K/mm3 (0.84-5.20); LYMPHOCYTES PERCENT AUTO 34 % (21-46); MONOCYTES ABSOLUTE AUTO 0.37 K/mm3 (0.16-1.47); MONOCYTES PERCENT AUTO 5 % (4-13); Mean Corpuscular HGB 26.2 pg (26.0-34.0); Mean Corpuscular HGB Conc 32.8 g/dL (31.5-36.5); Mean Corpuscular Volume 80 fL (80-100); NEUTROPHILS ABSOLUTE AUTO 4.17 K/mm3 (1.96-9.15); NEUTROPHILS PERCENT AUTO 57 % (41-73); Platelet Count 272 K/mm3 (150-400); RDW Coefficient Variation 14.2 % (11.7-14.2); RDW Standard Deviation 41.1 fL (35.1-46.3); Red Blood Cell Count 5.46 M/mm3 (3.80-5.20); White Blood Cell Count 7.33 K/mm3 (4.00-11.30)
[2020-07-07 21:43] LABS: Alanine Aminotransfer (ALT/SGP 43 U/L (12-78); Albumin, Blood 3.3 g/dL (3.4-5.0); Albumin/Globulin Ratio 0.7 (0.8-1.8); Alk Phos 90 U/L (50-136); Anion Gap 4 mmol/L (6-16); Aspartate Aminotrans (AST/SGOT 29 U/L (12-37); Bilirubin, Total 0.3 mg/dL (0.1-1.0); Blood Urea Nitrogen 10 mg/dL (8-24); Bun/Creatinine Ratio 15.4 (12.0-20.0); CO2, Blood 31 mmol/L (21-32); Calcium, Blood 9.2 mg/dL (8.5-10.1); Chloride, Blood 101 mmol/L (98-108); Creatinine, Blood 0.65 mg/dL (0.40-1.00); Globulin, Blood 4.5 g/dL (2.2-4.0); Glomerular Filtration Rate >60 (60-); Glucose, Blood 286 mg/dL (70-99); Sodium, Blood 136 mmol/L (136-145); Total Protein, Blood 7.8 g/dL (6.4-8.2); Troponin I <0.015 ng/mL (0.000-0.040)
[2020-07-07] MEDS ORDERED: PRED20 PO (23:04)
== END 2020-07-08 00:35 | disposition home or self-care (01) ==
LOC: ER 20:48
PROVIDERS: Physician Assistant
DX: J18.9 Pneumonia, unspecified organism (principal); E11.9 Type 2 diabetes mellitus without complications; I11.0 Hypertensive heart disease with heart failure; I25.2 Old myocardial infarction; I50.9 Heart failure, unspecified; Z88.8 Allergy status to other drugs, medicaments and biological substances; Z88.5 Allergy status to narcotic agent; Z88.2 Allergy status to sulfonamides; Z79.899 Other long term (current) drug therapy
CPT/HCPCS: 71260; 80053; 83880; 84484; 85025; 93005; 93010; 99285-25; A9270; Q9967

== ENCOUNTER → 2020-07-28 | Outpatient (CLI) | payer OTHER ==
[~2020-07-28] MED LIST changes: +PRED20 PO
== END | disposition home or self-care (01) ==
LOC: LAB 11:30 → LAB SHORT 11:30
DX: N39.0 Urinary tract infection, site not specified (principal)
CPT/HCPCS: 87086

== ENCOUNTER → 2020-09-06 | Outpatient (CLI) | payer OTHER | END | disposition home or self-care (01) | LOC: LAB 18:21 → LAB SHORT 18:21 | DX: R30.9 Painful micturition, unspecified (principal) | CPT/HCPCS: 87086 ==

== ENCOUNTER → 2020-09-29 | Outpatient (CLI) | payer OTHER | END | disposition home or self-care (01) | LOC: LAB SHORT 12:45 → LAB 12:45 | DX: N39.0 Urinary tract infection, site not specified (principal) | CPT/HCPCS: 87077; 87086; 87186 ==

== ENCOUNTER 2020-10-30 02:21 | Day surgery (SDC) | payer OTHER | END 2020-10-30 22:50 | disposition home or self-care (01) | LOC: WOUND 02:21 | DX: E11.621 Type 2 diabetes mellitus with foot ulcer (principal); L97.512 Non-pressure chronic ulcer of other part of right foot with fat layer exposed; L97.422 Non-pressure chronic ulcer of left heel and midfoot with fat layer exposed; I87.2 Venous insufficiency (chronic) (peripheral); S81.809D Unspecified open wound, unspecified lower leg, subsequent encounter; E11.51 Type 2 diabetes mellitus with diabetic peripheral angiopathy without gangrene; C54.1 Malignant neoplasm of endometrium; I25.10 Atherosclerotic heart disease of native coronary artery without angina pectoris; I10 Essential (primary) hypertension; Z79.01 Long term (current) use of anticoagulants; Z86.718 Personal history of other venous thrombosis and embolism; Z88.2 Allergy status to sulfonamides; Z88.5 Allergy status to narcotic agent; Z88.8 Allergy status to other drugs, medicaments and biological substances; Z95.1 Presence of aortocoronary bypass graft; Z79.4 Long term (current) use of insulin | CPT/HCPCS: A9270; G0463 ==

== ENCOUNTER 2020-11-02 21:01 | Emergency (ER) | payer OTHER ==
[~2020-11-02] VITALS: Ht 170.2 cm; Wt 158.8 kg
[2020-11-02 22:06] LABS: BASOPHILS ABSOLUTE AUTO 0.06 K/mm3 (0.00-0.23); BASOPHILS PERCENT AUTO 1 % (0-2); EOSINOPHILS ABSOLUTE AUTO 0.14 K/mm3 (0.00-0.68); EOSINOPHILS PERCENT AUTO 1 % (0-6); Hematocrit 37.4 % (33.0-51.0); Hemoglobin 12.5 g/dL (11.5-16.0); IMMATURE GRAN ABSOLUTE AUTO 0.05 K/mm3 (0.00-0.10); IMMATURE GRAN PERCENT AUTO 1 % (0-1); LYMPHOCYTES ABSOLUTE AUTO 1.67 K/mm3 (0.84-5.20); LYMPHOCYTES PERCENT AUTO 17 % (21-46); MONOCYTES ABSOLUTE AUTO 0.63 K/mm3 (0.16-1.47); MONOCYTES PERCENT AUTO 6 % (4-13); Mean Corpuscular HGB 27.4 pg (26.0-34.0); Mean Corpuscular HGB Conc 33.4 g/dL (31.5-36.5); Mean Corpuscular Volume 82 fL (80-100); Mean Platelet Volume 10.6 fL (9.1-12.4); NEUTROPHILS ABSOLUTE AUTO 7.31 K/mm3 (1.96-9.15); NEUTROPHILS PERCENT AUTO 74 % (41-73); Platelet Count 350 K/mm3 (150-400); RDW Coefficient Variation 13.9 % (11.7-14.2); RDW Standard Deviation 41.1 fL (35.1-46.3); Red Blood Cell Count 4.57 M/mm3 (3.80-5.20); White Blood Cell Count 9.86 K/mm3 (4.00-11.30)
[2020-11-02 22:21] LABS: International Normalized Ratio 0.96; Prothrombin Time Results 10.4 Sec (9.7-11.5)
[2020-11-02 22:23] LABS: Alanine Aminotransfer (ALT/SGP 34 U/L (12-78); Albumin, Blood 3.3 g/dL (3.4-5.0); Albumin/Globulin Ratio 0.7 (0.8-1.8); Alk Phos 96 U/L (50-136); Anion Gap 8 mmol/L (6-16); Aspartate Aminotrans (AST/SGOT 21 U/L (12-37); Bilirubin, Total 0.3 mg/dL (0.1-1.0); Blood Urea Nitrogen 16 mg/dL (8-24); CO2, Blood 27 mmol/L (21-32); Calcium, Blood 9.2 mg/dL (8.5-10.1); Chloride, Blood 101 mmol/L (98-108); Creatinine, Blood 0.76 mg/dL (0.40-1.00); Globulin, Blood 4.8 g/dL (2.2-4.0); Glomerular Filtration Rate >60 (60-); Glucose, Blood 336 mg/dL (70-99); Potassium, Blood 4.1 mmol/L (3.5-5.5); Sodium, Blood 136 mmol/L (136-145); Total Protein, Blood 8.1 g/dL (6.4-8.2)
[2020-11-02 23:17] LABS: SARS-Cov-2 (COVID-19) PCR, MMC NEGATIVE (NEGATIVE)
[2020-11-02 23:40] LABS: Source, Urine Clean Catch
[2020-11-02 23:42] LABS: Bilirubin, Urine Neg (Neg); Blood, Urine 5+ (Neg); Glucose Qualitative, Urine 4+ (Neg); Ketones, Urine 1+ (Neg); Leukocyte Esterase, Urine Neg (Neg); Nitrite, Urine Neg (Neg); Protein, Urine 2+ (Neg); Urobilinogen, Urine NORM (Normal)
[2020-11-02 23:45] LABS: Appearance, Urine Clear (Clear); Color, Urine Yellow (P-Yellow)
[2020-11-02 23:52] LABS: Bacteria Mod /hpf; Red Blood Cells, Urine 50-100 /hpf (0-2); Squamous Epithelial Cells Few /hpf (Few)
[2020-11-03] MEDS ORDERED: Vibramycin100 MG PO (02:07)
== END 2020-11-03 02:24 | disposition home or self-care (01) ==
LOC: ER 21:01
PROVIDERS: Physician Assistant; Student in an Organized Health Care Education/Training Program
DX: A41.9 Sepsis, unspecified organism (principal); L03.116 Cellulitis of left lower limb; E11.621 Type 2 diabetes mellitus with foot ulcer; L97.529 Non-pressure chronic ulcer of other part of left foot with unspecified severity; E11.9 Type 2 diabetes mellitus without complications; I11.0 Hypertensive heart disease with heart failure; I50.9 Heart failure, unspecified; I25.2 Old myocardial infarction; Z88.8 Allergy status to other drugs, medicaments and biological substances; Z88.5 Allergy status to narcotic agent; Z88.2 Allergy status to sulfonamides; Z79.899 Other long term (current) drug therapy; Z79.4 Long term (current) use of insulin; Z79.01 Long term (current) use of anticoagulants; Z86.711 Personal history of pulmonary embolism; Z86.718 Personal history of other venous thrombosis and embolism
CPT/HCPCS: 36415; 80053; 81001; 83605; 84145; 85025; 85610; 85730; 93971; A9270; J1885; J7030; U0004

== ENCOUNTER 2020-11-05 02:35 | Day surgery (SDC) | payer OTHER ==
[~2020-11-05 02:35] MED LIST changes: +Vibramycin100 MG PO
[2020-11-06] MEDS ORDERED: METO50 PO (00:19)
[2020-11-06] MEDS ORDERED: ELIQUIS5 M2 PO (00:19)
[2020-11-06] MEDS ORDERED: CLON.1 PO (00:20)
[2020-11-06] MEDS ORDERED: DULO30 PO (00:21)
[2020-11-06] MEDS ORDERED: GLUCOPHAGE1000 M1 PO (00:21)
[2020-11-06] MEDS ORDERED: GABA300 PO (00:22)
[2020-11-06] MEDS ORDERED: LEVSOD137 PO (00:23)
[2020-11-06] MEDS ORDERED: BASAGLAR K100 UNIT/1 SC (00:24)
[2020-11-06] MEDS ORDERED: HUMALOG KW100 UNIT/1 SC (00:24)
[2020-11-06] MEDS ORDERED: Ondansetron4 MG/2 ML IV (00:28)
== END 2020-11-05 23:01 | disposition home or self-care (01) ==
LOC: WOUND 02:35
DX: E11.621 Type 2 diabetes mellitus with foot ulcer (principal); L97.422 Non-pressure chronic ulcer of left heel and midfoot with fat layer exposed; I87.2 Venous insufficiency (chronic) (peripheral); S81.809D Unspecified open wound, unspecified lower leg, subsequent encounter; X58.XXXD Exposure to other specified factors, subsequent encounter; E11.51 Type 2 diabetes mellitus with diabetic peripheral angiopathy without gangrene; C54.1 Malignant neoplasm of endometrium
CPT/HCPCS: A9270

== ENCOUNTER 2020-11-05 19:50 | Inpatient (IN) | payer OTHER ==
[~2020-11-05] VITALS: Ht 170.2 cm; Wt 171.1 kg
[2020-11-05 20:53] LABS: BASOPHILS ABSOLUTE AUTO 0.07 K/mm3 (0.00-0.23); BASOPHILS PERCENT AUTO 1 % (0-2); EOSINOPHILS ABSOLUTE AUTO 0.09 K/mm3 (0.00-0.68); EOSINOPHILS PERCENT AUTO 1 % (0-6); Hematocrit 34.2 % (33.0-51.0); Hemoglobin 11.2 g/dL (11.5-16.0); IMMATURE GRAN ABSOLUTE AUTO 0.07 K/mm3 (0.00-0.10); IMMATURE GRAN PERCENT AUTO 1 % (0-1); LYMPHOCYTES ABSOLUTE AUTO 2.14 K/mm3 (0.84-5.20); LYMPHOCYTES PERCENT AUTO 21 % (21-46); MONOCYTES ABSOLUTE AUTO 0.96 K/mm3 (0.16-1.47); MONOCYTES PERCENT AUTO 9 % (4-13); Mean Corpuscular HGB 27.3 pg (26.0-34.0); Mean Corpuscular HGB Conc 32.7 g/dL (31.5-36.5); Mean Corpuscular Volume 83 fL (80-100); Mean Platelet Volume 10.3 fL (9.1-12.4); NEUTROPHILS PERCENT AUTO 68 % (41-73); Platelet Count 367 K/mm3 (150-400); RDW Standard Deviation 42.8 fL (35.1-46.3); Red Blood Cell Count 4.11 M/mm3 (3.80-5.20); White Blood Cell Count 10.43 K/mm3 (4.00-11.30)
[2020-11-05 21:11] LABS: Alanine Aminotransfer (ALT/SGP 24 U/L (12-78); Albumin, Blood 2.8 g/dL (3.4-5.0); Albumin/Globulin Ratio 0.6 (0.8-1.8); Alk Phos 74 U/L (50-136); Anion Gap 9 mmol/L (6-16); Aspartate Aminotrans (AST/SGOT 13 U/L (12-37); Bilirubin, Total 0.5 mg/dL (0.1-1.0); Blood Urea Nitrogen 18 mg/dL (8-24); Bun/Creatinine Ratio 22.9 (12.0-20.0); CO2, Blood 27 mmol/L (21-32); Chloride, Blood 100 mmol/L (98-108); Creatinine, Blood 0.79 mg/dL (0.40-1.00); Globulin, Blood 4.5 g/dL (2.2-4.0); Glomerular Filtration Rate >60 (60-); Glucose, Blood 283 mg/dL (70-99); Potassium, Blood 4.1 mmol/L (3.5-5.5); Sodium, Blood 136 mmol/L (136-145); Total Protein, Blood 7.3 g/dL (6.4-8.2)
[2020-11-06] MEDS ORDERED: METO50 PO (00:19)
[2020-11-06] MEDS ORDERED: ELIQUIS5 M2 PO (00:19)
[2020-11-06] MEDS ORDERED: CLON.1 PO (00:20)
[2020-11-06] MEDS ORDERED: GLUCOPHAGE1000 M1 PO (00:21)
[2020-11-06] MEDS ORDERED: DULO30 PO (00:21)
[2020-11-06] MEDS ORDERED: GABA300 PO (00:22)
[2020-11-06] MEDS ORDERED: LEVSOD137 PO (00:23)
[2020-11-06] MEDS ORDERED: HUMALOG KW100 UNIT/1 SC (00:24)
[2020-11-06] MEDS ORDERED: BASAGLAR K100 UNIT/1 SC (00:24)
[2020-11-06] MEDS ORDERED: Ondansetron4 MG/2 ML IV (00:28)
[2020-11-06 04:36] LABS: BASOPHILS ABSOLUTE AUTO 0.07 K/mm3 (0.00-0.23); BASOPHILS PERCENT AUTO 1 % (0-2); EOSINOPHILS PERCENT AUTO 1 % (0-6); Hematocrit 35.7 % (33.0-51.0); Hemoglobin 11.3 g/dL (11.5-16.0); IMMATURE GRAN ABSOLUTE AUTO 0.05 K/mm3 (0.00-0.10); IMMATURE GRAN PERCENT AUTO 1 % (0-1); LYMPHOCYTES ABSOLUTE AUTO 2.02 K/mm3 (0.84-5.20); LYMPHOCYTES PERCENT AUTO 24 % (21-46); MONOCYTES PERCENT AUTO 12 % (4-13); Mean Corpuscular HGB 26.6 pg (26.0-34.0); Mean Corpuscular HGB Conc 31.7 g/dL (31.5-36.5); Mean Corpuscular Volume 84 fL (80-100); Mean Platelet Volume 10.3 fL (9.1-12.4); NEUTROPHILS ABSOLUTE AUTO 5.32 K/mm3 (1.96-9.15); NEUTROPHILS PERCENT AUTO 62 % (41-73); Platelet Count 342 K/mm3 (150-400); RDW Coefficient Variation 13.9 % (11.7-14.2); RDW Standard Deviation 42.8 fL (35.1-46.3); Red Blood Cell Count 4.25 M/mm3 (3.80-5.20); White Blood Cell Count 8.56 K/mm3 (4.00-11.30)
[2020-11-06 05:23] LABS: Alanine Aminotransfer (ALT/SGP 20 U/L (12-78); Albumin, Blood 2.7 g/dL (3.4-5.0); Albumin/Globulin Ratio 0.6 (0.8-1.8); Alk Phos 72 U/L (50-136); Anion Gap 8 mmol/L (6-16); Aspartate Aminotrans (AST/SGOT 17 U/L (12-37); Bilirubin, Total 0.6 mg/dL (0.1-1.0); Blood Urea Nitrogen 15 mg/dL (8-24); Bun/Creatinine Ratio 17.4 (12.0-20.0); CO2, Blood 28 mmol/L (21-32); Calcium, Blood 8.9 mg/dL (8.5-10.1); Chloride, Blood 103 mmol/L (98-108); Creatinine, Blood 0.86 mg/dL (0.40-1.00); Globulin, Blood 4.4 g/dL (2.2-4.0); Glomerular Filtration Rate >60 (60-); Glucose, Blood 172 mg/dL (70-99); Potassium, Blood 3.9 mmol/L (3.5-5.5); Sodium, Blood 139 mmol/L (136-145); Total Protein, Blood 7.1 g/dL (6.4-8.2)
--- NOTE | 2020-11-06 07:21 | NUR ---
SHIFT SUMMARY PT NEW ADMIT THIS SHIFT. AAOX4. DISCOMFORT TO LLE CONTROLLED WITH 50mcg FENTANYL X1 THIS AM. NO NAUSEA/EMESIS. ULCER TO LLE GRAZYNA, SMALL AMOUNT FOUL EXUDE, WOUND DOCUMENTATION ON CHART. PT ORIENTED TO ROOM + CALL LIGHT USE. IVF + ABX PER CHELSEY. ORESTESPORT ACCESSED VIA ED. PT UP TO RESTROOM SBA, TOLERATED WELL. CURRENTLY PT IS RESTING IN BED WITH CALL LIGHT IN REACH.
--- NOTE | 2020-11-06 17:48 | NUR ---
SHIFT SUMMARY CELLULITIS TO LLE, BEING TREATED WITH IV ANTIBIOTICS. LITTLE PAIN REPORTED TODAY. PT TREATED FOR NAUSEA THIS AM, DRY HEAVED BUT NO VOMITING. TREATED PER EMAR WITH ZOFRAN, NO IMPROVEMENT SO CALLED MD AND GOT ORDER FOR PHENERGAN, WHICH HELPED A LOT. PT REPORTED NO N/V REST OF THE SHIFT. PT INDEPENDENT IN THE ROOM. LLE ELEVATED ON TWO PILLOWS ALL DAY. PT DENIED SOME OF HER INSULIN TODAY DUE TO NOT WANTING TO EAT DUE TO NAUSEA. WILL REPORT TO ONCOMING RN.
--- NOTE | 2020-11-06 18:17 | NUR ---
NEW DRESSING APPLIED TO LEFT FOOT. CLEANSED WITH WOUND CLEANSER. NON ADHERANT DRESSING PLACED OVER WITH GAUZE. KERLEX AND COBAN PLACED OVER TO KEEP IN PLACE.
[2020-11-06 20:04] LABS: Vancomycin, Trough 15.4 ug/mL (5.0-10.0)
--- NOTE | 2020-11-07 09:06 | NUR ---
DR. COWAN'S OFFICE NOTIFIED OF CONSULT, OFFICE STATES THEY NEVER RECEIVED CONSULT THAT WAS CALLED IN 11/06 AT 0340.
--- NOTE | 2020-11-07 09:34 | NUR ---
CONSULT PHONE CALL FROM CONSULTED ORTHO REQUESTING CONSULT BE PLACED TO PODIATRY. MESSAGE SENT TO DR TORRES
--- NOTE | 2020-11-07 19:07 | NUR ---
PATIENT HAD A GOOD DAY TODAY. DEBRIDEMENT AT BEDSIDE WITH DR TORRES, TOLERATED WELL. CALL LIGHT IN REACH
--- NOTE | 2020-11-08 16:46 | NUR ---
CARE ASSUMED AT 1600. PT RESTING IN BED WAITING FOR DR. TORRES TO ROUND. WILL CONTINUE TO MONITOR.
--- NOTE | 2020-11-08 17:33 | NUR ---
SHIFT SUMMARY PT REMAINS IN THE HOSPITAL FOR L FOOT WOUND. PT HAS BEEN ALERT AND ORIENTED T/O THE DAY. BLOOD GLUCOSE LOW FOR MUCH OF THE SHIFT. THIS EVENING HER BLOOD GLUCOSE IS NORMAL. WILL MONITOR UNTIL REPORT TO YVES MOSER.
--- NOTE | 2020-11-09 06:17 | NUR ---
PATIENT WAS MEDICATED X1. PATIENT WAS PLACED ON CONTACT ISOLATION BECAUSE OF MRSA IN THE LEFT FOOT WOUND THAT WAS CULTURED. PATIENT CONTINUES ON IV VANCOMYCIN. WILL CONTINUE TO MONITOR PATIENT.
[2020-11-09] MEDS ORDERED: INSULANPEN SC (09:49)
[2020-11-09] MEDS ORDERED: HUMALOG KW100 UNIT/1 SC (09:50)
[2020-11-09] MEDS ORDERED: MULVITA PO (09:52)
[2020-11-09] MEDS ORDERED: LINE600 PO (09:54)
[2020-11-09 11:39] LABS: Vancomycin, Trough 19.7 ug/mL (5.0-10.0)
--- NOTE | 2020-11-09 17:17 | NUR ---
HYPOGLYCEMIA PT HYPOGLYCEMIC AT 66 THIS AM. CALLED PHYSICIAN AND OBTAINED NEW ORDERS. PT HAD A CRITICALLY LOW BLOOD GLUCOSE OF 46 AT AROUND 1440 AND WAS EXPERIENCING HOT FLASHES. GAVE PT ORANGE JUICE AND MARIBEL CRACKERS AND HER GLUCOSE CAME UP TO 67. GAVE PT ANOTHER SNACK AND HER LAST BLOOD GLUCOSE WAS IN THE 80'S. OBTAINED ORDERS AND INSULIN ADJUSTED PER PROVIDER.
--- NOTE | 2020-11-09 17:22 | NUR ---
SHIFT SUMMARY PT POD #1 FOR 1&D TO HER LEFT FOOT. PT WORKED WITH PHYSICAL THERAPY CHALLENGES REGARDING NON-WEIGHT BEARING STATUS ON THAT L FOOT WERE BROUGHT UP. PT'S HOME IS UNABLE TO ACCOMODATE A WHEEL CHAIR. IT WAS RECOMMENDED THAT THE PT USE A KNEE SCOOTER. PT TO ALSO USE POST OP SHOE. PT HAD INSTANCE OF HYPOGLYCEMIA (SEE NOTES). VSS. MEDIPORT DEACCESSED. WILL DC HOME TODAY.
--- NOTE | 2020-11-09 18:22 | NUR ---
DISCHARGE SUMMARY PT DC HOME WITH . GIVEN POST OP BOOT TO WEAR ON HER LEFT FOOT. PT STATED THAT THEY WOULD BE GETTING A KNEE SCOOTER IN ORDER TO AMBULATE AT HOME. EDUCATED PT ON WOUND CARE AND INSTRUCTED HER TO FOLLOW UP WITH HER PCP AND CAR CHASER. BLOOD GLUCOSE 85. VSS.
== END 2020-11-09 18:09 | disposition home or self-care (01) | DRG 854 ==
LOC: ER 19:50 → SURS 23:59
PROVIDERS: Physician Assistant; ADMIT Hospitalist
PROC: 0JBR0ZZ Excision of Left Foot Subcutaneous Tissue and Fascia, Open Approach (ICD-10-PCS; principal; 2020-11-07)
DX: A41.02 Sepsis due to Methicillin resistant Staphylococcus aureus (principal); Z68.43 Body mass index [BMI] 50.0-59.9, adult; L03.116 Cellulitis of left lower limb; E87.2 Acidosis; L02.612 Cutaneous abscess of left foot; R65.20 Severe sepsis without septic shock; I11.0 Hypertensive heart disease with heart failure; I50.9 Heart failure, unspecified; E11.621 Type 2 diabetes mellitus with foot ulcer; L97.529 Non-pressure chronic ulcer of other part of left foot with unspecified severity; F41.9 Anxiety disorder, unspecified; C54.1 Malignant neoplasm of endometrium; E03.9 Hypothyroidism, unspecified; I89.0 Lymphedema, not elsewhere classified; E66.01 Morbid (severe) obesity due to excess calories; Z88.5 Allergy status to narcotic agent; Z88.2 Allergy status to sulfonamides; Z88.1 Allergy status to other antibiotic agents; Z88.8 Allergy status to other drugs, medicaments and biological substances; Z86.718 Personal history of other venous thrombosis and embolism; Z86.711 Personal history of pulmonary embolism; I25.2 Old myocardial infarction; Z87.440 Personal history of urinary (tract) infections; Z95.1 Presence of aortocoronary bypass graft; Z90.710 Acquired absence of both cervix and uterus; Z98.890 Other specified postprocedural states; Z95.828 Presence of other vascular implants and grafts; Z92.21 Personal history of antineoplastic chemotherapy; Z79.52 Long term (current) use of systemic steroids; Z79.4 Long term (current) use of insulin; Z79.899 Other long term (current) drug therapy; Z79.01 Long term (current) use of anticoagulants
CPT/HCPCS: 36415; 73700; 80053; 80202; 82947; 83605; 84145; 85025; 87040; 87070; 87075; 87076; 87077; 87147; 87185; 87186; 87205; 96365; 96375; 97116; 97162; 97530; 99285-25; A9270; J1642; J1815; J2405; J2543; J2550; J3010; J3370; J7030; J7050

== ENCOUNTER 2020-11-13 02:45 | Day surgery (SDC) | payer OTHER ==
[~2020-11-13 02:45] MED LIST changes: +ELIQUIS5 M2 PO; +GABA300 PO; +GLUCOPHAGE1000 M1 PO; +HUMALOG KW100 UNIT/1 SC; +INSULANPEN SC; +LEVSOD137 PO; +LINE600 PO; +METO50 PO; +MULVITA PO; +Ondansetron4 MG/2 ML IV
== END 2020-11-13 22:44 | disposition home or self-care (01) ==
LOC: WOUND 02:45
DX: E11.621 Type 2 diabetes mellitus with foot ulcer (principal); L97.425 Non-pressure chronic ulcer of left heel and midfoot with muscle involvement without evidence of necrosis; I87.2 Venous insufficiency (chronic) (peripheral); S81.809A Unspecified open wound, unspecified lower leg, initial encounter; X58.XXXA Exposure to other specified factors, initial encounter; E11.51 Type 2 diabetes mellitus with diabetic peripheral angiopathy without gangrene; C54.1 Malignant neoplasm of endometrium
CPT/HCPCS: A9270; G0463

== ENCOUNTER → 2020-11-16 | Outpatient (CLI) | payer OTHER | END | disposition home or self-care (01) | LOC: LAB 17:31 → LAB SHORT 17:31 | DX: R31.9 Hematuria, unspecified (principal) | CPT/HCPCS: 87086 ==

== ENCOUNTER 2020-11-20 01:04 | Day surgery (SDC) | payer OTHER | END 2020-11-20 23:29 | disposition home or self-care (01) | LOC: WOUND 01:04 | DX: E11.621 Type 2 diabetes mellitus with foot ulcer (principal); L97.525 Non-pressure chronic ulcer of other part of left foot with muscle involvement without evidence of necrosis; I87.2 Venous insufficiency (chronic) (peripheral); C54.1 Malignant neoplasm of endometrium; Z88.1 Allergy status to other antibiotic agents; Z88.5 Allergy status to narcotic agent; Z88.8 Allergy status to other drugs, medicaments and biological substances | CPT/HCPCS: A9270 ==

== ENCOUNTER 2020-11-27 01:15 | Day surgery (SDC) | payer OTHER | END 2020-11-27 23:04 | disposition home or self-care (01) | LOC: WOUND 01:15 | DX: E11.621 Type 2 diabetes mellitus with foot ulcer (principal); L97.425 Non-pressure chronic ulcer of left heel and midfoot with muscle involvement without evidence of necrosis; I87.2 Venous insufficiency (chronic) (peripheral); C54.1 Malignant neoplasm of endometrium | CPT/HCPCS: A9270 ==

== ENCOUNTER 2020-12-04 02:51 | Day surgery (SDC) | payer OTHER | END 2020-12-04 12:00 | disposition home or self-care (01) | LOC: WOUND 02:51 | DX: E11.621 Type 2 diabetes mellitus with foot ulcer (principal); L97.525 Non-pressure chronic ulcer of other part of left foot with muscle involvement without evidence of necrosis; E11.40 Type 2 diabetes mellitus with diabetic neuropathy, unspecified; I87.2 Venous insufficiency (chronic) (peripheral) | CPT/HCPCS: A9270; G0463 ==

== ENCOUNTER → 2020-12-06 | Outpatient (CLI) | payer OTHER | END | disposition home or self-care (01) | LOC: LAB SHORT 15:14 → LAB 15:14 | DX: N39.9 Disorder of urinary system, unspecified (principal) | CPT/HCPCS: 87077; 87086; 87186 ==

== ENCOUNTER 2020-12-11 08:00 | Day surgery (SDC) | payer OTHER ==
[2020-12-12] MEDS ORDERED: CIPR500 PO (10:39)
[2020-12-12] MEDS ORDERED: NITR100CA PO (10:40)
== END 2020-12-11 23:59 | disposition home or self-care (01) ==
LOC: WOUND 08:00
DX: E11.621 Type 2 diabetes mellitus with foot ulcer (principal); L97.525 Non-pressure chronic ulcer of other part of left foot with muscle involvement without evidence of necrosis; E11.8 Type 2 diabetes mellitus with unspecified complications; I87.2 Venous insufficiency (chronic) (peripheral); C54.1 Malignant neoplasm of endometrium; L03.116 Cellulitis of left lower limb; Z88.5 Allergy status to narcotic agent; Z88.1 Allergy status to other antibiotic agents; Z88.8 Allergy status to other drugs, medicaments and biological substances
CPT/HCPCS: 87070; 87075; 87077; 87147; 87186; 87205; G0463

== ENCOUNTER 2020-12-13 00:35 | Day surgery (SDC) | payer OTHER ==
[~2020-12-13 00:35] MED LIST changes: +CIPR500 PO; +NITR100CA PO
== END 2020-12-13 09:11 | disposition home or self-care (01) ==
LOC: ATC 00:35
DX: E11.621 Type 2 diabetes mellitus with foot ulcer (principal); L97.522 Non-pressure chronic ulcer of other part of left foot with fat layer exposed; L03.116 Cellulitis of left lower limb; E11.8 Type 2 diabetes mellitus with unspecified complications; I87.2 Venous insufficiency (chronic) (peripheral); C54.1 Malignant neoplasm of endometrium
CPT/HCPCS: 96365; J0878; J1642

== ENCOUNTER 2020-12-14 05:10 | Day surgery (SDC) | payer OTHER | END 2020-12-14 10:52 | disposition home or self-care (01) | LOC: ATC 05:10 | DX: L03.116 Cellulitis of left lower limb (principal); E11.621 Type 2 diabetes mellitus with foot ulcer; L97.522 Non-pressure chronic ulcer of other part of left foot with fat layer exposed; E11.8 Type 2 diabetes mellitus with unspecified complications; I87.2 Venous insufficiency (chronic) (peripheral); C54.1 Malignant neoplasm of endometrium; Z88.5 Allergy status to narcotic agent; Z88.8 Allergy status to other drugs, medicaments and biological substances; Z79.4 Long term (current) use of insulin; Z79.899 Other long term (current) drug therapy | CPT/HCPCS: 96365; J0878; J1642 ==

== ENCOUNTER 2020-12-15 10:23 | Day surgery (SDC) | payer OTHER | END 2020-12-15 10:51 | disposition home or self-care (01) | LOC: ATC 10:23 | DX: L03.116 Cellulitis of left lower limb (principal); E11.621 Type 2 diabetes mellitus with foot ulcer; L97.522 Non-pressure chronic ulcer of other part of left foot with fat layer exposed; E11.8 Type 2 diabetes mellitus with unspecified complications; I87.2 Venous insufficiency (chronic) (peripheral); C54.1 Malignant neoplasm of endometrium; Z88.8 Allergy status to other drugs, medicaments and biological substances; Z88.5 Allergy status to narcotic agent; Z79.899 Other long term (current) drug therapy | CPT/HCPCS: 96365; J0878; J1642 ==

== ENCOUNTER 2020-12-16 10:20 | Day surgery (SDC) | payer OTHER | END 2020-12-16 10:46 | disposition home or self-care (01) | LOC: ATC 10:20 | DX: L03.116 Cellulitis of left lower limb (principal); E11.621 Type 2 diabetes mellitus with foot ulcer; L97.522 Non-pressure chronic ulcer of other part of left foot with fat layer exposed; E11.8 Type 2 diabetes mellitus with unspecified complications; I87.2 Venous insufficiency (chronic) (peripheral); C54.1 Malignant neoplasm of endometrium; Z88.5 Allergy status to narcotic agent; Z88.8 Allergy status to other drugs, medicaments and biological substances; Z79.899 Other long term (current) drug therapy | CPT/HCPCS: 96365; J0878; J1642 ==

== ENCOUNTER 2020-12-17 05:40 | Day surgery (SDC) | payer OTHER | END 2020-12-17 10:24 | disposition home or self-care (01) | LOC: ATC 05:40 | DX: L03.116 Cellulitis of left lower limb (principal); E11.621 Type 2 diabetes mellitus with foot ulcer; L97.522 Non-pressure chronic ulcer of other part of left foot with fat layer exposed; E11.8 Type 2 diabetes mellitus with unspecified complications; I87.2 Venous insufficiency (chronic) (peripheral); C54.1 Malignant neoplasm of endometrium; Z88.5 Allergy status to narcotic agent; Z88.8 Allergy status to other drugs, medicaments and biological substances; Z79.899 Other long term (current) drug therapy | CPT/HCPCS: 96365; J0878; J1642 ==

== ENCOUNTER 2020-12-18 01:28 | Day surgery (SDC) | payer OTHER | END 2020-12-18 23:00 | disposition home or self-care (01) | LOC: WOUND 01:28 | DX: E11.621 Type 2 diabetes mellitus with foot ulcer (principal); L97.522 Non-pressure chronic ulcer of other part of left foot with fat layer exposed; E11.8 Type 2 diabetes mellitus with unspecified complications; I87.2 Venous insufficiency (chronic) (peripheral); C54.1 Malignant neoplasm of endometrium; L03.116 Cellulitis of left lower limb; Z88.5 Allergy status to narcotic agent; Z88.1 Allergy status to other antibiotic agents; Z88.8 Allergy status to other drugs, medicaments and biological substances | CPT/HCPCS: A9270 ==

== ENCOUNTER 2020-12-18 01:56 | Day surgery (SDC) | payer OTHER ==
[2020-12-18 10:41] LABS: BASOPHILS ABSOLUTE AUTO 0.08 K/mm3 (0.00-0.23); BASOPHILS PERCENT AUTO 1 % (0-2); EOSINOPHILS ABSOLUTE AUTO 0.17 K/mm3 (0.00-0.68); EOSINOPHILS PERCENT AUTO 2 % (0-6); Hematocrit 36.4 % (33.0-51.0); Hemoglobin 11.6 g/dL (11.5-16.0); IMMATURE GRAN ABSOLUTE AUTO 0.06 K/mm3 (0.00-0.10); IMMATURE GRAN PERCENT AUTO 1 % (0-1); LYMPHOCYTES ABSOLUTE AUTO 1.78 K/mm3 (0.84-5.20); LYMPHOCYTES PERCENT AUTO 24 % (21-46); MONOCYTES ABSOLUTE AUTO 0.64 K/mm3 (0.16-1.47); MONOCYTES PERCENT AUTO 9 % (4-13); Mean Corpuscular HGB 25.5 pg (26.0-34.0); Mean Corpuscular HGB Conc 31.9 g/dL (31.5-36.5); Mean Corpuscular Volume 80 fL (80-100); Mean Platelet Volume 10.2 fL (9.1-12.4); NEUTROPHILS PERCENT AUTO 63 % (41-73); Platelet Count 385 K/mm3 (150-400); RDW Standard Deviation 43.7 fL (35.1-46.3); Red Blood Cell Count 4.55 M/mm3 (3.80-5.20); White Blood Cell Count 7.43 K/mm3 (4.00-11.30)
[2020-12-18 11:20] LABS: Alanine Aminotransfer (ALT/SGP 29 U/L (12-78); Albumin, Blood 2.8 g/dL (3.4-5.0); Albumin/Globulin Ratio 0.6 (0.8-1.8); Alk Phos 87 U/L (50-136); Anion Gap 5 mmol/L (6-16); Aspartate Aminotrans (AST/SGOT 20 U/L (12-37); Bilirubin, Total 0.4 mg/dL (0.1-1.0); Blood Urea Nitrogen 16 mg/dL (8-24); Bun/Creatinine Ratio 27.2 (12.0-20.0); CO2, Blood 29 mmol/L (21-32); Chloride, Blood 100 mmol/L (98-108); Creatinine, Blood 0.59 mg/dL (0.40-1.00); Globulin, Blood 4.4 g/dL (2.2-4.0); Glomerular Filtration Rate >60 (60-); Glucose, Blood 462 mg/dL (70-99); Potassium, Blood 4.3 mmol/L (3.5-5.5); Sodium, Blood 134 mmol/L (136-145); Total Protein, Blood 7.2 g/dL (6.4-8.2)
== END 2020-12-18 10:47 | disposition home or self-care (01) ==
LOC: ATC 01:56
PROVIDERS: Nurse Practitioner Family
DX: E11.621 Type 2 diabetes mellitus with foot ulcer (principal); L97.522 Non-pressure chronic ulcer of other part of left foot with fat layer exposed; L03.116 Cellulitis of left lower limb; E11.8 Type 2 diabetes mellitus with unspecified complications; I87.2 Venous insufficiency (chronic) (peripheral); C54.1 Malignant neoplasm of endometrium
CPT/HCPCS: 80053; 85025; 85651; 86140; 96365; J0878; J1642

== ENCOUNTER 2020-12-19 02:19 | Day surgery (SDC) | payer OTHER | END 2020-12-19 10:38 | disposition home or self-care (01) | LOC: ATC 02:19 | DX: L03.116 Cellulitis of left lower limb (principal); E11.621 Type 2 diabetes mellitus with foot ulcer; L97.522 Non-pressure chronic ulcer of other part of left foot with fat layer exposed; I87.2 Venous insufficiency (chronic) (peripheral); C54.1 Malignant neoplasm of endometrium | CPT/HCPCS: 96365; J0878; J1642 ==

== ENCOUNTER 2020-12-20 07:47 | Day surgery (SDC) | payer OTHER | END 2020-12-20 08:35 | disposition home or self-care (01) | LOC: ATC 07:47 | DX: L03.116 Cellulitis of left lower limb (principal); E11.621 Type 2 diabetes mellitus with foot ulcer; L97.522 Non-pressure chronic ulcer of other part of left foot with fat layer exposed; E11.8 Type 2 diabetes mellitus with unspecified complications; I87.2 Venous insufficiency (chronic) (peripheral); C54.1 Malignant neoplasm of endometrium | CPT/HCPCS: 96365; J0878; J1642 ==

== ENCOUNTER 2020-12-21 05:46 | Day surgery (SDC) | payer OTHER | END 2020-12-21 17:09 | disposition home or self-care (01) | LOC: ATC 05:46 | DX: L03.116 Cellulitis of left lower limb (principal); E11.621 Type 2 diabetes mellitus with foot ulcer; L97.522 Non-pressure chronic ulcer of other part of left foot with fat layer exposed; I87.2 Venous insufficiency (chronic) (peripheral); C54.1 Malignant neoplasm of endometrium | CPT/HCPCS: 96365; J0878; J1642 ==

== ENCOUNTER 2020-12-22 10:17 | Day surgery (SDC) | payer OTHER | END 2020-12-22 10:57 | disposition home or self-care (01) | LOC: ATC 10:17 | DX: L03.116 Cellulitis of left lower limb (principal); E11.621 Type 2 diabetes mellitus with foot ulcer; L97.522 Non-pressure chronic ulcer of other part of left foot with fat layer exposed; E11.8 Type 2 diabetes mellitus with unspecified complications; I87.2 Venous insufficiency (chronic) (peripheral); C54.1 Malignant neoplasm of endometrium | CPT/HCPCS: 96365; J0878; J1642 ==

== ENCOUNTER 2020-12-23 05:16 | Day surgery (SDC) | payer OTHER | END 2020-12-23 12:06 | disposition home or self-care (01) | LOC: ATC 05:16 | DX: L03.116 Cellulitis of left lower limb (principal); E11.621 Type 2 diabetes mellitus with foot ulcer; L97.522 Non-pressure chronic ulcer of other part of left foot with fat layer exposed; E11.8 Type 2 diabetes mellitus with unspecified complications; I87.2 Venous insufficiency (chronic) (peripheral); C54.1 Malignant neoplasm of endometrium | CPT/HCPCS: 96365; J0878; J1642 ==

== ENCOUNTER 2020-12-24 04:30 | Day surgery (SDC) | payer OTHER | END 2020-12-24 17:36 | disposition home or self-care (01) | LOC: ATC 04:30 | DX: L03.116 Cellulitis of left lower limb (principal); E11.621 Type 2 diabetes mellitus with foot ulcer; L97.522 Non-pressure chronic ulcer of other part of left foot with fat layer exposed; E11.8 Type 2 diabetes mellitus with unspecified complications; I87.2 Venous insufficiency (chronic) (peripheral); C54.1 Malignant neoplasm of endometrium; Z88.5 Allergy status to narcotic agent; Z88.8 Allergy status to other drugs, medicaments and biological substances; Z79.899 Other long term (current) drug therapy | CPT/HCPCS: 96365; J0878; J1642 ==

== ENCOUNTER 2020-12-25 01:09 | Day surgery (SDC) | payer OTHER | END 2020-12-25 09:57 | disposition home or self-care (01) | LOC: ATC 01:09 | DX: L03.116 Cellulitis of left lower limb (principal); E11.621 Type 2 diabetes mellitus with foot ulcer; L97.522 Non-pressure chronic ulcer of other part of left foot with fat layer exposed; E11.8 Type 2 diabetes mellitus with unspecified complications; I87.2 Venous insufficiency (chronic) (peripheral); C54.1 Malignant neoplasm of endometrium; Z88.5 Allergy status to narcotic agent; Z88.8 Allergy status to other drugs, medicaments and biological substances; Z79.899 Other long term (current) drug therapy | CPT/HCPCS: 96365; J0878; J1642 ==

== ENCOUNTER 2020-12-25 01:30 | Day surgery (SDC) | payer OTHER | END 2020-12-25 22:44 | disposition home or self-care (01) | LOC: WOUND 01:30 | DX: E11.621 Type 2 diabetes mellitus with foot ulcer (principal); L97.425 Non-pressure chronic ulcer of left heel and midfoot with muscle involvement without evidence of necrosis; I87.2 Venous insufficiency (chronic) (peripheral); C54.1 Malignant neoplasm of endometrium; L03.116 Cellulitis of left lower limb | CPT/HCPCS: A9270; G0463 ==

== ENCOUNTER 2021-01-01 03:19 | Day surgery (SDC) | payer OTHER | END 2021-01-01 23:38 | disposition home or self-care (01) | LOC: WOUND 03:19 | DX: E11.621 Type 2 diabetes mellitus with foot ulcer (principal); L97.425 Non-pressure chronic ulcer of left heel and midfoot with muscle involvement without evidence of necrosis; E11.69 Type 2 diabetes mellitus with other specified complication; M86.672 Other chronic osteomyelitis, left ankle and foot; I87.2 Venous insufficiency (chronic) (peripheral); L03.116 Cellulitis of left lower limb | CPT/HCPCS: A9270; G0463 ==

== ENCOUNTER 2021-01-08 04:33 | Day surgery (SDC) | payer OTHER | END 2021-01-08 22:49 | disposition home or self-care (01) | LOC: WOUND 04:33 | DX: E11.621 Type 2 diabetes mellitus with foot ulcer (principal); L97.528 Non-pressure chronic ulcer of other part of left foot with other specified severity; E11.8 Type 2 diabetes mellitus with unspecified complications; I87.2 Venous insufficiency (chronic) (peripheral); C54.1 Malignant neoplasm of endometrium; L03.116 Cellulitis of left lower limb; M86.672 Other chronic osteomyelitis, left ankle and foot; E11.51 Type 2 diabetes mellitus with diabetic peripheral angiopathy without gangrene | CPT/HCPCS: A9270; G0463 ==

== ENCOUNTER 2021-01-15 02:58 | Day surgery (SDC) | payer OTHER | END 2021-01-15 22:56 | disposition home or self-care (01) | LOC: WOUND 02:58 | DX: E11.621 Type 2 diabetes mellitus with foot ulcer (principal); L97.425 Non-pressure chronic ulcer of left heel and midfoot with muscle involvement without evidence of necrosis; I87.2 Venous insufficiency (chronic) (peripheral); E11.51 Type 2 diabetes mellitus with diabetic peripheral angiopathy without gangrene; C54.1 Malignant neoplasm of endometrium; L03.116 Cellulitis of left lower limb; M86.672 Other chronic osteomyelitis, left ankle and foot | CPT/HCPCS: A9270; G0463 ==

== ENCOUNTER 2021-01-21 04:10 | Day surgery (SDC) | payer OTHER | END 2021-01-21 12:00 | disposition home or self-care (01) | LOC: WOUND 04:10 | DX: E11.621 Type 2 diabetes mellitus with foot ulcer (principal); L97.528 Non-pressure chronic ulcer of other part of left foot with other specified severity; I87.2 Venous insufficiency (chronic) (peripheral); E11.51 Type 2 diabetes mellitus with diabetic peripheral angiopathy without gangrene; C54.1 Malignant neoplasm of endometrium; L03.116 Cellulitis of left lower limb; M86.672 Other chronic osteomyelitis, left ankle and foot | CPT/HCPCS: A9270 ==

== ENCOUNTER → 2021-01-28 | Outpatient (CLI) | payer OTHER | LOC: LAB SHORT 17:00 | DX: N13.0 Hydronephrosis with ureteropelvic junction obstruction (principal); Z87.440 Personal history of urinary (tract) infections | CPT/HCPCS: 87077; 87086; 87186 ==

== ENCOUNTER 2021-01-30 02:47 | Day surgery (SDC) | payer OTHER | END 2021-01-30 23:06 | disposition home or self-care (01) | LOC: WOUND 02:47 | DX: E11.621 Type 2 diabetes mellitus with foot ulcer (principal); L97.425 Non-pressure chronic ulcer of left heel and midfoot with muscle involvement without evidence of necrosis; E11.69 Type 2 diabetes mellitus with other specified complication; M86.672 Other chronic osteomyelitis, left ankle and foot; E11.51 Type 2 diabetes mellitus with diabetic peripheral angiopathy without gangrene; I87.2 Venous insufficiency (chronic) (peripheral); L03.116 Cellulitis of left lower limb; C54.1 Malignant neoplasm of endometrium | CPT/HCPCS: A9270; G0463 ==

== ENCOUNTER 2021-02-01 08:38 | Day surgery (SDC) | payer OTHER ==
[~2021-02-01] VITALS: Ht 170.2 cm; Wt 158.1 kg
--- NOTE | 2021-02-01 09:00 | NUR ---
Ambulatory in Day Surgery. FIRST THING WE DID WAS CHECK CBG BECAUSE LAB DRAW WAS 470'S AND IF IT WAS THAT HIGH THIS AM, WE MAY NOT DO SURGERY. BUT IT WAS 222, SO WE WILL PROCEED. History, Chart, Medications and Allergies reviewed before start of procedure. Lungs clear T/O to Auscultation. Patient confirms NPO status and agrees with scheduled surgery. Pre-Op teaching done. Pt verbalizes understanding. Patient States Post-Procedure ride home has been arranged.
--- NOTE | 2021-02-01 12:07 | NUR ---
Discharge instructions reviewed with patient. Patient verbalizes understanding. Copy given to patient to take home. Dressing to procedure site clean, dry, intact with no visible drainage, swelling, erythema or bruising noted. Patient States Post-Procedure ride home has been arranged. Discharged via wheelchair to private car for ride home. PT CIRCULATION REMAINS INTACT. HUSBANDF AT BEDSIDE HELPING PT GET DRESSED. PROTECTIVE BOOT PLACED PRIOR TO DISCHARGE.
--- NOTE | 2021-02-01 12:21 | NUR ---
PT GETTING DRESSED NOTICED RIGHT FOOT WAS BLEEDING ONTO FLOOR, REINFORCED DRESSING, RE ELEVATED. WILL REASSES IN 15 MINUTES.
--- NOTE | 2021-02-01 13:31 | NUR ---
LE KEPT PT FOR 30 MINUTES AFTER REINFORCED DRESSING TO L FOOT. NO FURTHER BLEEDING NOTED. PT CIRCULATION REMAINED INTACT. VERBALIZED IMPORTANCE OF MONITORING BLEEDING, ELEVATION, AND CIRCULATION TO AND PATIENT
== END 2021-02-01 13:00 | disposition home or self-care (01) ==
LOC: ORSCMMR 08:38 → ORD 10:00 → ORSCMMR 13:00
PROVIDERS: Podiatrist Foot & Ankle Surgery
PROC: 0Y6N0ZF Detachment at Left Foot, Partial 5th Ray, Open Approach (ICD-10-PCS; principal; 2021-02-01 10:00)
DX: M86.172 Other acute osteomyelitis, left ankle and foot (principal); I10 Essential (primary) hypertension; I25.10 Atherosclerotic heart disease of native coronary artery without angina pectoris; K21.9 Gastro-esophageal reflux disease without esophagitis; E11.9 Type 2 diabetes mellitus without complications; E66.01 Morbid (severe) obesity due to excess calories; Z68.43 Body mass index [BMI] 50.0-59.9, adult; E78.5 Hyperlipidemia, unspecified; Z79.01 Long term (current) use of anticoagulants; Z79.899 Other long term (current) drug therapy
CPT/HCPCS: 82947; 88305; 88311; A9270; J0690; J2001; J2250; J2370; J2405; J2550; J2704; J2765; J3010; J7120

== ENCOUNTER 2021-03-04 02:55 | Day surgery (SDC) | payer OTHER ==
[~2021-03-04 02:55] MED LIST changes: +ALOGLIPTIN25 M1 PO; +ANASPAZ0.125 MG PO; +ATOR40TA PO; +CATAPRES0.1 MG PO; +CLIN150 PO; +DICLOFENAC SOD100 G1; +FURO40 PO; +INSULANI SC; +KEYTRUDA100 MG/41 IV; +LEVSOD112 PO; +LINEZOLID PO; +METFORMIN ER1000 M2 PO; +METO100 PO; +NOVOLOG MI100 UNIT/2 SC; +Norco 10-325 T1 EACH PO; +OXAYDO5 M1 PO; +SILVADENE20 G1 TOP; +TIZA4 PO
== END 2021-03-04 22:43 | disposition home or self-care (01) ==
LOC: WOUND 02:55
DX: E11.621 Type 2 diabetes mellitus with foot ulcer (principal); L97.422 Non-pressure chronic ulcer of left heel and midfoot with fat layer exposed; L97.528 Non-pressure chronic ulcer of other part of left foot with other specified severity; I87.2 Venous insufficiency (chronic) (peripheral); E11.51 Type 2 diabetes mellitus with diabetic peripheral angiopathy without gangrene; C54.1 Malignant neoplasm of endometrium; L03.116 Cellulitis of left lower limb; E11.69 Type 2 diabetes mellitus with other specified complication; M86.672 Other chronic osteomyelitis, left ankle and foot
CPT/HCPCS: A9270

== ENCOUNTER 2021-03-11 03:17 | Day surgery (SDC) | payer OTHER | END 2021-03-11 23:30 | disposition home or self-care (01) | LOC: WOUND 03:17 | DX: E11.621 Type 2 diabetes mellitus with foot ulcer (principal); L97.422 Non-pressure chronic ulcer of left heel and midfoot with fat layer exposed; L97.522 Non-pressure chronic ulcer of other part of left foot with fat layer exposed; I87.2 Venous insufficiency (chronic) (peripheral); E11.51 Type 2 diabetes mellitus with diabetic peripheral angiopathy without gangrene; C54.1 Malignant neoplasm of endometrium; L03.116 Cellulitis of left lower limb; E11.69 Type 2 diabetes mellitus with other specified complication; M86.672 Other chronic osteomyelitis, left ankle and foot | CPT/HCPCS: A9270 ==

== ENCOUNTER 2021-03-25 03:00 | Day surgery (SDC) | payer OTHER | END 2021-03-25 23:27 | disposition home or self-care (01) | LOC: WOUND 03:00 | DX: E11.621 Type 2 diabetes mellitus with foot ulcer (principal); L97.528 Non-pressure chronic ulcer of other part of left foot with other specified severity; I87.2 Venous insufficiency (chronic) (peripheral); E11.51 Type 2 diabetes mellitus with diabetic peripheral angiopathy without gangrene; C54.1 Malignant neoplasm of endometrium; L03.116 Cellulitis of left lower limb; E11.69 Type 2 diabetes mellitus with other specified complication; M86.672 Other chronic osteomyelitis, left ankle and foot; Z79.01 Long term (current) use of anticoagulants; Z86.31 Personal history of diabetic foot ulcer | CPT/HCPCS: A9270; G0463 ==

== ENCOUNTER → 2021-05-18 | Outpatient (CLI) | payer OTHER | END | disposition home or self-care (01) | LOC: LAB 14:00 → LAB SHORT 14:00 | DX: R35.0 Frequency of micturition (principal) | CPT/HCPCS: 87086 ==

== ENCOUNTER 2021-06-09 21:50 | Inpatient (IN) | payer OTHER ==
[~2021-06-09] VITALS: Ht 170.2 cm; Wt 150.9 kg
[2021-06-10 00:47] LABS: BASOPHILS ABSOLUTE AUTO 0.03 K/mm3 (0.00-0.23); BASOPHILS PERCENT AUTO 1 % (0-2); EOSINOPHILS ABSOLUTE AUTO 0.11 K/mm3 (0.00-0.68); EOSINOPHILS PERCENT AUTO 3 % (0-6); Hematocrit 32.1 % (33.0-51.0); Hemoglobin 10.2 g/dL (11.5-16.0); IMMATURE GRAN ABSOLUTE AUTO 0.02 K/mm3 (0.00-0.10); IMMATURE GRAN PERCENT AUTO 1 % (0-1); LYMPHOCYTES ABSOLUTE AUTO 1.27 K/mm3 (0.84-5.20); LYMPHOCYTES PERCENT AUTO 37 % (21-46); MONOCYTES ABSOLUTE AUTO 0.17 K/mm3 (0.16-1.47); MONOCYTES PERCENT AUTO 5 % (4-13); Mean Corpuscular HGB 25.3 pg (26.0-34.0); Mean Corpuscular HGB Conc 31.8 g/dL (31.5-36.5); Mean Corpuscular Volume 80 fL (80-100); Mean Platelet Volume 9.7 fL (9.1-12.4); NEUTROPHILS ABSOLUTE AUTO 1.86 K/mm3 (1.96-9.15); NEUTROPHILS PERCENT AUTO 54 % (41-73); Platelet Count 268 K/mm3 (150-400); RDW Coefficient Variation 16.1 % (11.7-14.2); RDW Standard Deviation 45.2 fL (35.1-46.3); Red Blood Cell Count 4.03 M/mm3 (3.80-5.20); White Blood Cell Count 3.46 K/mm3 (4.00-11.30)
[2021-06-10 01:01] LABS: Source, Urine Clean Catch
[2021-06-10 01:03] LABS: Bilirubin, Urine Neg (Neg); Blood, Urine 3+ (Neg); Glucose Qualitative, Urine 4+ (Neg); Ketones, Urine Neg (Neg); Leukocyte Esterase, Urine 2+ (Neg); Nitrite, Urine Neg (Neg); Protein, Urine 1+ (Neg); Specific Gravity, Urine 1.015 (1.003-1.022); Urobilinogen, Urine NORM (Normal)
[2021-06-10 01:05] LABS: Alanine Aminotransfer (ALT/SGP 30 U/L (12-78); Albumin, Blood 2.9 g/dL (3.4-5.0); Albumin/Globulin Ratio 0.7 (0.8-1.8); Alk Phos 77 U/L (50-136); Anion Gap 8 mmol/L (6-16); Aspartate Aminotrans (AST/SGOT 21 U/L (12-37); Bilirubin, Total 0.4 mg/dL (0.1-1.0); Blood Urea Nitrogen 15 mg/dL (8-24); Bun/Creatinine Ratio 24.8 (12.0-20.0); CO2, Blood 28 mmol/L (21-32); Calcium, Blood 8.8 mg/dL (8.5-10.1); Chloride, Blood 97 mmol/L (98-108); Creatinine, Blood 0.61 mg/dL (0.40-1.00); Globulin, Blood 3.9 g/dL (2.2-4.0); Glomerular Filtration Rate >60 (60-); Glucose, Blood 386 mg/dL (70-99); Potassium, Blood 4.3 mmol/L (3.5-5.5); Sodium, Blood 133 mmol/L (136-145); Total Protein, Blood 6.8 g/dL (6.4-8.2)
[2021-06-10 01:16] LABS: Appearance, Urine Hazy (Clear); Color, Urine Yellow (P-Yellow)
[2021-06-10 01:39] LABS: Bacteria Mod /hpf; Squamous Epithelial Cells Few /hpf (Few); Yeast/Fungi Urine Few /hpf
[2021-06-10 02:42] LABS: Influenza A, PCR NEGATIVE (NEGATIVE); Influenza B, PCR NEGATIVE (NEGATIVE); Resp Syncytial Virus, PCR NEGATIVE (NEGATIVE); SARS-Cov-2 (COVID-19) PCR, MMC NEGATIVE (NEGATIVE)
--- NOTE | 2021-06-10 07:24 | NUR ---
SHIFT SUMMARY: SHERWIN IS A&OX4. VSS, NO ACUTE EVENTS SINCE ADMISSION THIS AM. SHE IS INDEPENDENT IN THE ROOM, TOLERATING PO INTAKE WELL, URINATING WITHOUT DIFFICULTY, AND USES THE CALL LIGHT APPROPRIATELY. IV TO LEFT AC PATENT. SHE IS LYING IN BED WITH THE CALL LIGHT IN REACH. WILL REPORT TO DAY SHIFT RN.
--- NOTE | 2021-06-10 18:03 | NUR ---
SHIFT SUMMARY: A&OX4. IND AMB. TEN PO INTAKE ON ADA DIET. VOIDING. EPISODE LOOSE STOOL X4 TODAY REPORTEDLY D/T CHEMO. C/O COUGH; SOME RELIEF WITH PRN BENZONATE. PRN ATIVAN AVAILABLE FOR DYSPNEA. IV L AC PATENT BUT OCCLUDES EASILY; ADVISED PROP ON PILLOW TO AVOID BEND IN ARM WHILE INFUSING. C/O PAIN R/T ENDOMETRIAL CANCER RELIEVED WITH PRN OXYCODONE. WILL REPORT TO ONCOMING NOC SHIFT RN.
--- NOTE | 2021-06-11 04:16 | NUR ---
SHIFT SUMMARY NO ACUTE CHANGES. PT INDEP IN ROOM. PT REPORTS HER PRIMARY COMPLAINT IS HER PRODUCTIVE COUGH. COUGH MEDICATION PER ORDERS HAS BEEN EFFECTIVE. 1 OXYCODONE FOR PELVIC PAIN PRN. USES CALL LIGHT APPROPRIATELY.
[2021-06-11 05:32] LABS: BASOPHILS ABSOLUTE AUTO 0.03 K/mm3 (0.00-0.23); BASOPHILS PERCENT AUTO 1 % (0-2); EOSINOPHILS PERCENT AUTO 4 % (0-6); IMMATURE GRAN ABSOLUTE AUTO 0.03 K/mm3 (0.00-0.10); IMMATURE GRAN PERCENT AUTO 1 % (0-1); LYMPHOCYTES PERCENT AUTO 56 % (21-46); MONOCYTES ABSOLUTE AUTO 0.26 K/mm3 (0.16-1.47); MONOCYTES PERCENT AUTO 10 % (4-13); Mean Corpuscular HGB Conc 31.3 g/dL (31.5-36.5); Mean Corpuscular Volume 80 fL (80-100); Mean Platelet Volume 9.9 fL (9.1-12.4); NEUTROPHILS PERCENT AUTO 28 % (41-73); Platelet Count 257 K/mm3 (150-400); RDW Coefficient Variation 16.2 % (11.7-14.2); RDW Standard Deviation 45.2 fL (35.1-46.3); White Blood Cell Count 2.52 K/mm3 (4.00-11.30)
[2021-06-11 06:05] LABS: Anion Gap 8 mmol/L (6-16); Blood Urea Nitrogen 16 mg/dL (8-24); Bun/Creatinine Ratio 27.4 (12.0-20.0); CO2, Blood 28 mmol/L (21-32); Calcium, Blood 8.8 mg/dL (8.5-10.1); Chloride, Blood 102 mmol/L (98-108); Creatinine, Blood 0.58 mg/dL (0.40-1.00); Glomerular Filtration Rate >60 (60-); Glucose, Blood 284 mg/dL (70-99); Potassium, Blood 3.4 mmol/L (3.5-5.5); Sodium, Blood 138 mmol/L (136-145)
--- NOTE | 2021-06-11 08:22 | NUR ---
TELEPHONE CALL TO HOSPITALIST DR HERNANDEZ REP BLOOD CULTURE GRAM POSITIVE COCCI CLUSTERS, NO NEW ORDERS RECEIVED. DR STATED HE WILL REVIEW CHART.
--- NOTE | 2021-06-11 14:10 | NUR ---
telephone call with roosevelt choudhury confirmed rate is acceptable to prevent rk syndrome in patient.
--- NOTE | 2021-06-11 16:03 | NUR ---
SHIFT SUMMARY: SLEEPY, BUT ALERT AND AROUSABLE. ORIENTED TO SELF AND FAMILY. WEAK GAIT REQUIRING 1-2 PERSON ASSIST W/GB. LOW PO INTAKE, ENC FLUIDS. VOIDING. NO BM REPORTED. PRN APAP GIVEN PER EMR C/O NECK PAIN. SISTER @ BEDSIDE MUCH OF DAY; OFFERED TO COME IN THIS EVENING TO SIT WITH PT IF SHE BECOMES DISORIENTED OR AGITATED. DAUGHTER WORKING ON PERMANENT PLACEMENT. REPORT GIVEN TO ONCOMING NOC NURSE.
--- NOTE | 2021-06-11 16:54 | NUR ---
SHIFT SUMMARY: A&Ox4. IND IN ADLS. VOIDING AND STOOLING W/O DIFFICULTY. TEN PO INTAKE. 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 IV L AC REMOVED AFTER ADMIN D/T LEAKING DURING FLUSH. C/O PAIN R/T CANCER TX PRN OXY PER EMR. CONT BENZONATE Q4H PER EMR. URVASHI @ 1600. SEEN BY RT, GIVEN BREATHING TX. TELE DC'D. REPORT RELAYED TO ONCOMING FINE JEWELRY SALES ASSOCIATE NURSE.
--- NOTE | 2021-06-12 04:44 | NUR ---
CO TEACHER SUMMARY NO ACUTE CHANGES THIS SHIFT. PT AAOX4 AND INDEPENDENT IN ROOM. MEDICATED FOR PAIN AT START OF SHIFT, PT ABLE TO SLEEP MOST OF THE NIGHT. DRY HACKING COUGH AT TIMES. CONTINUED IV ABX. VSS, WILL CONTINUE TO MONITOR.
[2021-06-12] MEDS ORDERED: Tessalon200 MG PO ×2 (12:19)
[2021-06-12] MEDS ORDERED: GABA300 PO ×2 (12:20)
[2021-06-12] MEDS ORDERED: LOSA50 PO ×2 (12:21)
[2021-06-12] MEDS ORDERED: DOXY100 PO ×2 (12:21)
[2021-06-12] MEDS ORDERED: GUAI600T33 PO ×2 (12:22)
--- NOTE | 2021-06-12 14:47 | NUR ---
DISCHARGE SUMMARY A/OX4, VSS, TOLERATING PO, INDEPENDENT IN HER ROOM THOUGH SHE REPORTS GETTING SOB c EXERTION. DISCUSSED DISCHARGE INFORMATION WITH HER INCLUDING CONTACT INFORMATION SHOULD QUESTIONS OR CONCERNS COME UP, MEDICATION CHANGES, HOME CARE, AND FOLLOW UP WITH HER PRIMARY CARE PROVIDER AT HER EARLIEST OPPORTUNITY. PATIENT REPORTS HAVING NO QUESTIONS AT THIS TIME. POWERGLIDE REMOVED FROM DHRUV WITH TIP INTACT. PT ESCORTED OUT TO HER TO GO HOME VIA PRIVATE AUTO.
== END 2021-06-12 14:00 | disposition home or self-care (01) | DRG 872 ==
LOC: ER 21:50 → SURS 06-10 02:50
PROVIDERS: Internal Medicine; Student in an Organized Health Care Education/Training Program; ADMIT Internal Medicine
DX: A41.9 Sepsis, unspecified organism (principal); N39.0 Urinary tract infection, site not specified; E87.1 Hypo-osmolality and hyponatremia; Z68.43 Body mass index [BMI] 50.0-59.9, adult; J20.9 Acute bronchitis, unspecified; J06.9 Acute upper respiratory infection, unspecified; Z20.822 Contact with and (suspected) exposure to COVID-19; R65.20 Severe sepsis without septic shock; E03.9 Hypothyroidism, unspecified; E66.01 Morbid (severe) obesity due to excess calories; E11.9 Type 2 diabetes mellitus without complications; E87.6 Hypokalemia; F41.9 Anxiety disorder, unspecified; I11.0 Hypertensive heart disease with heart failure; C54.1 Malignant neoplasm of endometrium; I50.9 Heart failure, unspecified; I25.10 Atherosclerotic heart disease of native coronary artery without angina pectoris; Z91.09 Other allergy status, other than to drugs and biological substances; Z86.14 Personal history of Methicillin resistant Staphylococcus aureus infection; Z79.890 Hormone replacement therapy; Z86.718 Personal history of other venous thrombosis and embolism; I25.2 Old myocardial infarction; Z95.1 Presence of aortocoronary bypass graft; Z90.710 Acquired absence of both cervix and uterus; Z89.432 Acquired absence of left foot; Z98.890 Other specified postprocedural states; Z87.440 Personal history of urinary (tract) infections; Z88.2 Allergy status to sulfonamides; Z88.5 Allergy status to narcotic agent; Z91.018 Allergy to other foods; Z79.4 Long term (current) use of insulin; Z79.899 Other long term (current) drug therapy
CPT/HCPCS: 0241U; 36415; 71046; 80048; 80053; 81001; 82947; 83605; 84145; 85025; 87040; 87086; 93005; 93010; 94640; 94664; 94760; 96374; 96375; 99284-25; A9270; J0696; J1650; J1815; J2405; J3370; J7030; J7060

== ENCOUNTER → 2021-06-28 | Outpatient (CLI) | payer OTHER ==
[~2021-06-28] MED LIST changes: +DOXY100 PO; +GUAI600T33 PO; +Tessalon200 MG PO
== END | disposition home or self-care (01) ==
LOC: LAB 15:31 → LAB SHORT 15:31
DX: R35.0 Frequency of micturition (principal)
CPT/HCPCS: 87077; 87086; 87186

== ENCOUNTER → 2021-07-25 | Outpatient (CLI) | payer OTHER | LOC: LAB SHORT 12:00 | DX: L97.509 Non-pressure chronic ulcer of other part of unspecified foot with unspecified severity (principal) | CPT/HCPCS: 87070; 87077; 87147; 87186; 87205 ==

== ENCOUNTER 2021-07-28 11:58 | Emergency (ER) | payer OTHER ==
[~2021-07-28] VITALS: Ht 170.2 cm; Wt 160.1 kg
[2021-07-28 14:16] LABS: BASOPHILS ABSOLUTE AUTO 0.05 K/mm3 (0.00-0.23); BASOPHILS PERCENT AUTO 1 % (0-2); EOSINOPHILS ABSOLUTE AUTO 0.12 K/mm3 (0.00-0.68); EOSINOPHILS PERCENT AUTO 2 % (0-6); Hematocrit 33.6 % (33.0-51.0); Hemoglobin 10.2 g/dL (11.5-16.0); IMMATURE GRAN ABSOLUTE AUTO 0.04 K/mm3 (0.00-0.10); IMMATURE GRAN PERCENT AUTO 1 % (0-1); LYMPHOCYTES ABSOLUTE AUTO 2.17 K/mm3 (0.84-5.20); LYMPHOCYTES PERCENT AUTO 39 % (21-46); MONOCYTES ABSOLUTE AUTO 0.49 K/mm3 (0.16-1.47); MONOCYTES PERCENT AUTO 9 % (4-13); Mean Corpuscular HGB 25.7 pg (26.0-34.0); Mean Corpuscular HGB Conc 30.4 g/dL (31.5-36.5); Mean Corpuscular Volume 85 fL (80-100); Mean Platelet Volume 9.5 fL (9.1-12.4); NEUTROPHILS ABSOLUTE AUTO 2.68 K/mm3 (1.96-9.15); NEUTROPHILS PERCENT AUTO 48 % (41-73); Platelet Count 378 K/mm3 (150-400); RDW Coefficient Variation 17.4 % (11.7-14.2); RDW Standard Deviation 54.2 fL (35.1-46.3); Red Blood Cell Count 3.97 M/mm3 (3.80-5.20); White Blood Cell Count 5.55 K/mm3 (4.00-11.30)
[2021-07-28 14:37] LABS: Albumin, Blood 2.9 g/dL (3.4-5.0); Albumin/Globulin Ratio 0.7 (0.8-1.8); Bilirubin, Total 0.4 mg/dL (0.1-1.0); Bun/Creatinine Ratio 33.9 (12.0-20.0); Calcium, Blood 9.1 mg/dL (8.5-10.1); Creatinine, Blood 0.56 mg/dL (0.40-1.00); Globulin, Blood 4.2 g/dL (2.2-4.0); Potassium, Blood 4.1 mmol/L (3.5-5.5); Total Protein, Blood 7.1 g/dL (6.4-8.2)
== END 2021-07-28 16:28 | disposition home or self-care (01) ==
LOC: ER 11:58
PROVIDERS: Physician Assistant
DX: I82.411 Acute embolism and thrombosis of right femoral vein (principal); I82.431 Acute embolism and thrombosis of right popliteal vein; G89.29 Other chronic pain; I11.0 Hypertensive heart disease with heart failure; I50.9 Heart failure, unspecified; I25.10 Atherosclerotic heart disease of native coronary artery without angina pectoris; E11.9 Type 2 diabetes mellitus without complications; Z79.4 Long term (current) use of insulin; Z79.01 Long term (current) use of anticoagulants; Z86.711 Personal history of pulmonary embolism; Z88.5 Allergy status to narcotic agent; Z88.2 Allergy status to sulfonamides; Z88.1 Allergy status to other antibiotic agents; Z88.8 Allergy status to other drugs, medicaments and biological substances; Z79.899 Other long term (current) drug therapy; Z95.1 Presence of aortocoronary bypass graft
CPT/HCPCS: 36415; 73630; 80053; 83690; 85025; 86141; 93971; A9270

== ENCOUNTER → 2021-07-29 | Outpatient (CLI) | payer OTHER | END | disposition home or self-care (01) | LOC: LAB SHORT 15:04 → LAB 15:04 | DX: N39.0 Urinary tract infection, site not specified (principal) | CPT/HCPCS: 87086 ==

== ENCOUNTER 2021-08-06 03:29 | Day surgery (SDC) | payer OTHER | END 2021-08-06 22:42 | disposition home or self-care (01) | LOC: WOUND 03:29 | DX: E11.621 Type 2 diabetes mellitus with foot ulcer (principal); L97.512 Non-pressure chronic ulcer of other part of right foot with fat layer exposed; E11.42 Type 2 diabetes mellitus with diabetic polyneuropathy; C54.1 Malignant neoplasm of endometrium; I80.203 Phlebitis and thrombophlebitis of unspecified deep vessels of lower extremities, bilateral; S91.104S Unspecified open wound of right lesser toe(s) without damage to nail, sequela; I11.0 Hypertensive heart disease with heart failure; I50.9 Heart failure, unspecified; I25.10 Atherosclerotic heart disease of native coronary artery without angina pectoris; E11.51 Type 2 diabetes mellitus with diabetic peripheral angiopathy without gangrene; Z95.1 Presence of aortocoronary bypass graft; Z88.1 Allergy status to other antibiotic agents | CPT/HCPCS: A9270; G0463 ==

== ENCOUNTER 2021-08-13 05:18 | Day surgery (SDC) | payer OTHER | END 2021-08-13 23:00 | disposition home or self-care (01) | LOC: WOUND 05:18 | DX: E11.621 Type 2 diabetes mellitus with foot ulcer (principal); L97.512 Non-pressure chronic ulcer of other part of right foot with fat layer exposed; L03.031 Cellulitis of right toe; E11.42 Type 2 diabetes mellitus with diabetic polyneuropathy; C54.1 Malignant neoplasm of endometrium; I80.203 Phlebitis and thrombophlebitis of unspecified deep vessels of lower extremities, bilateral; S91.104S Unspecified open wound of right lesser toe(s) without damage to nail, sequela; X58.XXXS Exposure to other specified factors, sequela | CPT/HCPCS: A9270; G0463 ==

== ENCOUNTER 2021-08-20 01:16 | Day surgery (SDC) | payer OTHER | END 2021-08-20 23:00 | disposition home or self-care (01) | LOC: WOUND 01:16 | DX: E11.621 Type 2 diabetes mellitus with foot ulcer (principal); L97.512 Non-pressure chronic ulcer of other part of right foot with fat layer exposed; E11.42 Type 2 diabetes mellitus with diabetic polyneuropathy; C54.1 Malignant neoplasm of endometrium; I80.203 Phlebitis and thrombophlebitis of unspecified deep vessels of lower extremities, bilateral; S91.104S Unspecified open wound of right lesser toe(s) without damage to nail, sequela; X58.XXXS Exposure to other specified factors, sequela; L03.031 Cellulitis of right toe | CPT/HCPCS: A9270; G0463 ==

== ENCOUNTER → 2021-09-02 | Outpatient (CLI) | payer OTHER | END | disposition home or self-care (01) | LOC: LAB SHORT 10:00 → LAB 10:00 | DX: R21 Rash and other nonspecific skin eruption (principal) | CPT/HCPCS: 87070; 87077; 87147; 87186; 87205 ==

== ENCOUNTER → 2021-09-03 | Day surgery (SDC) | payer OTHER | LOC: WOUND 03:12 | DX: E11.621 Type 2 diabetes mellitus with foot ulcer (principal); L97.512 Non-pressure chronic ulcer of other part of right foot with fat layer exposed; E11.42 Type 2 diabetes mellitus with diabetic polyneuropathy; C54.1 Malignant neoplasm of endometrium; I80.203 Phlebitis and thrombophlebitis of unspecified deep vessels of lower extremities, bilateral; S91.104S Unspecified open wound of right lesser toe(s) without damage to nail, sequela; L03.031 Cellulitis of right toe | CPT/HCPCS: A9270; G0463 ==

== ENCOUNTER 2021-09-04 01:25 | Emergency (ER) | payer OTHER ==
[~2021-09-04] VITALS: Ht 170.2 cm; Wt 154.2 kg
[2021-09-04 03:19] LABS: BASOPHILS ABSOLUTE AUTO 0.03 K/mm3 (0.00-0.23); BASOPHILS PERCENT AUTO 1 % (0-2); EOSINOPHILS ABSOLUTE AUTO 0.11 K/mm3 (0.00-0.68); EOSINOPHILS PERCENT AUTO 2 % (0-6); Hemoglobin 9.6 g/dL (11.5-16.0); IMMATURE GRAN ABSOLUTE AUTO 0.06 K/mm3 (0.00-0.10); IMMATURE GRAN PERCENT AUTO 1 % (0-1); LYMPHOCYTES PERCENT AUTO 38 % (21-46); MONOCYTES PERCENT AUTO 12 % (4-13); Mean Corpuscular HGB 26.2 pg (26.0-34.0); Mean Corpuscular Volume 82 fL (80-100); Mean Platelet Volume 9.7 fL (9.1-12.4); NEUTROPHILS ABSOLUTE AUTO 2.33 K/mm3 (1.96-9.15); NEUTROPHILS PERCENT AUTO 46 % (41-73); Platelet Count 337 K/mm3 (150-400); RDW Coefficient Variation 16.8 % (11.7-14.2); RDW Standard Deviation 50.2 fL (35.1-46.3); Red Blood Cell Count 3.66 M/mm3 (3.80-5.20); White Blood Cell Count 5.03 K/mm3 (4.00-11.30)
[2021-09-04 03:39] LABS: Albumin, Blood 2.8 g/dL (3.4-5.0); Albumin/Globulin Ratio 0.7 (0.8-1.8); Bilirubin, Total 0.2 mg/dL (0.1-1.0); Bun/Creatinine Ratio 34.1 (12.0-20.0); C-REACTIVE PROTEIN, EXT RANGE 13.6 mg/dL (0.000-0.300); Creatinine, Blood 0.73 mg/dL (0.40-1.00); Globulin, Blood 4.2 g/dL (2.2-4.0); Potassium, Blood 3.9 mmol/L (3.5-5.5)
== END 2021-09-04 06:15 | disposition home or self-care (01) ==
LOC: ER 01:25
PROVIDERS: Emergency Medicine
DX: L73.2 Hidradenitis suppurativa (principal); E11.9 Type 2 diabetes mellitus without complications; I25.2 Old myocardial infarction; I11.0 Hypertensive heart disease with heart failure; I50.9 Heart failure, unspecified; Z88.5 Allergy status to narcotic agent; Z88.8 Allergy status to other drugs, medicaments and biological substances; Z79.4 Long term (current) use of insulin; Z79.899 Other long term (current) drug therapy
CPT/HCPCS: 36415; 71260; 80053; 85025; 86140; 90714; A9270; J1642; Q9967

== ENCOUNTER 2021-09-09 05:09 | Day surgery (SDC) | payer OTHER | END 2021-09-09 23:30 | disposition home or self-care (01) | LOC: WOUND 05:09 | DX: L03.031 Cellulitis of right toe (principal); E11.621 Type 2 diabetes mellitus with foot ulcer; E11.42 Type 2 diabetes mellitus with diabetic polyneuropathy; L97.512 Non-pressure chronic ulcer of other part of right foot with fat layer exposed; C54.1 Malignant neoplasm of endometrium; I80.203 Phlebitis and thrombophlebitis of unspecified deep vessels of lower extremities, bilateral | CPT/HCPCS: A9270; G0463 ==

== ENCOUNTER 2021-09-23 01:07 | Day surgery (SDC) | payer OTHER | END 2021-09-23 23:51 | disposition home or self-care (01) | LOC: WOUND 01:07 | DX: E11.621 Type 2 diabetes mellitus with foot ulcer (principal); L97.512 Non-pressure chronic ulcer of other part of right foot with fat layer exposed; E11.42 Type 2 diabetes mellitus with diabetic polyneuropathy; C54.1 Malignant neoplasm of endometrium; L03.031 Cellulitis of right toe; I80.203 Phlebitis and thrombophlebitis of unspecified deep vessels of lower extremities, bilateral; L89.899 Pressure ulcer of other site, unspecified stage | CPT/HCPCS: G0463 ==

== ENCOUNTER 2021-10-07 00:19 | Day surgery (SDC) | payer OTHER | END 2021-10-08 00:50 | disposition home or self-care (01) | LOC: WOUND 00:19 | DX: E11.621 Type 2 diabetes mellitus with foot ulcer (principal); L97.512 Non-pressure chronic ulcer of other part of right foot with fat layer exposed; E11.42 Type 2 diabetes mellitus with diabetic polyneuropathy; L03.031 Cellulitis of right toe; I80.203 Phlebitis and thrombophlebitis of unspecified deep vessels of lower extremities, bilateral; C54.1 Malignant neoplasm of endometrium; Z79.01 Long term (current) use of anticoagulants; Z79.899 Other long term (current) drug therapy | CPT/HCPCS: G0463 ==

== ENCOUNTER 2021-10-16 06:02 | Inpatient (IN) | payer OTHER ==
[~2021-10-16] VITALS: Ht 170.2 cm; Wt 156.0 kg
[2021-10-16 06:55] LABS: Hematocrit 31.4 % (33.0-51.0); Hemoglobin 10.1 g/dL (11.5-16.0); Mean Corpuscular HGB 25.3 pg (26.0-34.0); Mean Corpuscular HGB Conc 32.2 g/dL (31.5-36.5); Mean Corpuscular Volume 79 fL (80-100); Mean Platelet Volume 9.7 fL (9.1-12.4); NRBC ABSOLUTE 0.02 K/mm3 (0.00-0.02); NRBC Auto 0.8 /100 WBC (0.0-0.2); Platelet Count 321 K/mm3 (150-400); RDW Coefficient Variation 17.9 % (11.7-14.2); RDW Standard Deviation 49.2 fL (35.1-46.3); Red Blood Cell Count 3.99 M/mm3 (3.80-5.20); White Blood Cell Count 2.64 K/mm3 (4.00-11.30)
[2021-10-16 07:15] LABS: Albumin, Blood 3.1 g/dL (3.4-5.0); Albumin/Globulin Ratio 0.7 (0.8-1.8); Bilirubin, Total 0.3 mg/dL (0.1-1.0); Bun/Creatinine Ratio 28.4 (12.0-20.0); Calcium, Blood 8.9 mg/dL (8.5-10.1); Creatinine, Blood 0.63 mg/dL (0.40-1.00); Globulin, Blood 4.2 g/dL (2.2-4.0); Potassium, Blood 4.2 mmol/L (3.5-5.5); Total Protein, Blood 7.3 g/dL (6.4-8.2)
[2021-10-16 07:32] LABS: Source, Urine Clean Catch
[2021-10-16 07:40] LABS: Bilirubin, Urine Neg (Neg); Blood, Urine 5+ (Neg); Glucose Qualitative, Urine 4+ (Neg); Ketones, Urine 1+ (Neg); Leukocyte Esterase, Urine Neg (Neg); Nitrite, Urine Neg (Neg); Protein, Urine 2+ (Neg); Urobilinogen, Urine NORM (Normal)
[2021-10-16 07:42] LABS: BAND PERCENT MAN 9 % (0-8); BASOPHILS ABSOLUTE MAN 0.02 K/mm3 (0.00-0.23); BASOPHILS PERCENT MAN 1 % (0-2); EOSINOPHILS ABSOLUTE MAN 0.02 K/mm3 (0.00-0.68); EOSINOPHILS PERCENT MAN 1 % (0-6); LYMPHOCYTES ABSOLUTE MAN 0.87 K/mm3 (0.84-5.20); LYMPHOCYTES PERCENT MAN 33 % (21-46); MONOCYTES ABSOLUTE MAN 0.21 K/mm3 (0.16-1.47); MONOCYTES PERCENT MAN 8 % (4-13); MYELOCYTE ABSOLUTE MAN 0.02 K/mm3 (0.00-0.00); MYELOCYTE PERCENT MAN 1 % (0-0); NEUTROPHILS ABSOLUTE MAN 1.47 K/mm3 (1.96-9.15); SEG NEUTROPHILS PERCENT MAN 47 % (41-73); TOTAL CELLS COUNTED 100
[2021-10-16 07:48] LABS: Appearance, Urine Hazy (Clear); Color, Urine Yellow (P-Yellow)
[2021-10-16 07:53] LABS: Influenza A, PCR NEGATIVE (NEGATIVE); Influenza B, PCR NEGATIVE (NEGATIVE); Resp Syncytial Virus, PCR NEGATIVE (NEGATIVE); SARS-Cov-2 (COVID-19) PCR, MMC NEGATIVE (NEGATIVE)
[2021-10-16 07:53] LABS: Squamous Epithelial Cells Rare /hpf (Few); White Blood Cells, Urine 0-2 /hpf (0-5)
[2021-10-16 07:54] LABS: Bacteria Mod /hpf
[2021-10-16 07:55] LABS: Hyaline Casts 0-2 /lpf (0-2)
[2021-10-16] MEDS ORDERED: Lovenox120 MG/0.8 SC (15:17)
[2021-10-16 15:25] LABS: Adenovirus F 40/41 Not Detected (NOT DETECT); Astrovirus Not Detected (NOT DETECT); Campylobacter Sp Not Detected (NOT DETECT); Cryptosporidium Not Detected (NOT DETECT); Cyclospora Cayetanensis Not Detected (NOT DETECT); E. Coli O157 Not Detected (NOT DETECT); Entamoeba Histolytica Not Detected (NOT DETECT); Enteroaggregative E. coli-EAEC Not Detected (NOT DETECT); Enteropathogenic E. coli-EPEC Not Detected (NOT DETECT); Enterotoxigenic E. coli-ETEC Not Detected (NOT DETECT); Giardia Lamblia Not Detected (NOT DETECT); Norovirus GI/GII Not Detected (NOT DETECT); Plesiomonas Shigelloides Not Detected (NOT DETECT); Rotavirus A Not Detected (NOT DETECT); Salmonella Sp Not Detected (NOT DETECT); Sapovirus Not Detected (NOT DETECT); Shiga Toxin-prod E. coli-STEC Not Detected (NOT DETECT); Shigella/Enteroin E. coli-EIEC Not Detected (NOT DETECT); Vibrio Cholerae Not Detected (NOT DETECT); Vibrio Sp Not Detected (NOT DETECT); Yersinia Enterocolitica Not Detected (NOT DETECT)
--- NOTE | 2021-10-16 18:27 | NUR ---
SHIFT SUMMARY PT A&OX 4 AND IN PLEASENT MOOD SINCE ARRIVAL FROM ED. PT IND. NS @ 100 ML/HR VIA MEDIPORT. NAUSEA MEDICATED PER EMAR, REPORTS WATERY STOOL CONTINUING. CALL LIGHT W/IN REACH. VSS.
--- NOTE | 2021-10-17 03:46 | NUR ---
WATER PUMP ASSEMBLER SUMMARY HAS BEEN RESTING QUIETLY WITH FEW INTERRUPTIONS SINCE HS. AFFECT CHEERFUL. NO C/O EMESIS, BUT VOICED SOME NAUSEA AND "DIARRHEA" AT THIS TIME. SEE MAR FOR MEDICATIONS GIVEN. CALL LIGHT IN REACH. ISOLATION PRECAUTIONS MAINTAINED. VSS OTHERWISE.
[2021-10-17 05:27] LABS: Hematocrit 30.3 % (33.0-51.0); Hemoglobin 9.6 g/dL (11.5-16.0); Mean Corpuscular HGB 25.2 pg (26.0-34.0); Mean Corpuscular HGB Conc 31.7 g/dL (31.5-36.5); Mean Corpuscular Volume 80 fL (80-100); Mean Platelet Volume 9.8 fL (9.1-12.4); NRBC ABSOLUTE 0.02 K/mm3 (0.00-0.02); NRBC Auto 0.5 /100 WBC (0.0-0.2); Platelet Count 316 K/mm3 (150-400); RDW Coefficient Variation 18.2 % (11.7-14.2); RDW Standard Deviation 51.7 fL (35.1-46.3); Red Blood Cell Count 3.81 M/mm3 (3.80-5.20); White Blood Cell Count 4.44 K/mm3 (4.00-11.30)
[2021-10-17 05:57] LABS: Bun/Creatinine Ratio 18.7 (12.0-20.0); Creatinine, Blood 0.7 mg/dL (0.40-1.00); Magnesium, Blood 1.4 mg/dL (1.6-2.4); Potassium, Blood 3.4 mmol/L (3.5-5.5)
--- NOTE | 2021-10-17 17:25 | NUR ---
SHIFT SUMMARY NO ACUTE CHANGES DURING SHIFT. PT ALERT AND ORIENTED, INDEPENDENT IN ROOM. IV FLUIDS INFUSING, ELECTROLYTE REPLACEMENT COMPLETED. PRN PAIN MEDICATION ADMINISTERED X 1. - CDIFF RESULTS, DIARRHEA IMPROVING. CALL LIGHT WITHIN REACH.
--- NOTE | 2021-10-18 03:38 | NUR ---
RADIO FREQUENCY TECHNICIAN SUMMARY HAS BEEN RESTING QUIETLY WITH FEW INTERRUPTIONS SINCE HS. VSS. IVF OF NS INFUSING AT 100 ML/HR. REQUESTED AND RECEIVED ANLAGESICS AND ANTIEMETICS FOR COMFORT. SEE MAR FOR DETAILS. CALL LIGHT IN REACH. UP AD ADITHYA. ISOLATION PRECAUTIONS MAINTAINED.
[2021-10-18 08:24] LABS: Albumin, Blood 2.6 g/dL (3.4-5.0); Anion Gap 5 mmol/L (6-16); Blood Urea Nitrogen 10 mg/dL (8-24); Bun/Creatinine Ratio 13.8 (12.0-20.0); CO2, Blood 25 mmol/L (21-32); Calcium, Blood 7.8 mg/dL (8.5-10.1); Chloride, Blood 114 mmol/L (98-108); Creatinine, Blood 0.72 mg/dL (0.40-1.00); Glomerular Filtration Rate 105 (60-); Glucose, Blood 165 mg/dL (70-99); Magnesium, Blood 2.1 mg/dL (1.6-2.4); Phosphorus, Blood 4.1 mg/dL (2.5-4.9); Potassium, Blood 3.7 mmol/L (3.5-5.5); Sodium, Blood 144 mmol/L (136-145)
[2021-10-18] MEDS ORDERED: LOPERAMIDE2 M3 PO (12:26)
[2021-10-18] MEDS ORDERED: ONDA4ODT MM (12:26)
== END 2021-10-18 17:20 | disposition home or self-care (01) | DRG 392 ==
LOC: ER 06:02 → MEDS 06:03 → ICUW 06:03 → MEDS 14:50
PROVIDERS: Emergency Medicine; Internal Medicine; Nurse Practitioner Acute Care; ADMIT Internal Medicine
DX: R11.2 Nausea with vomiting, unspecified (principal); Z68.43 Body mass index [BMI] 50.0-59.9, adult; E11.9 Type 2 diabetes mellitus without complications; Z20.822 Contact with and (suspected) exposure to COVID-19; E86.0 Dehydration; D70.1 Agranulocytosis secondary to cancer chemotherapy; T45.1X5A Adverse effect of antineoplastic and immunosuppressive drugs, initial encounter; E66.01 Morbid (severe) obesity due to excess calories; I89.0 Lymphedema, not elsewhere classified; I50.9 Heart failure, unspecified; I11.0 Hypertensive heart disease with heart failure; L73.2 Hidradenitis suppurativa; C54.1 Malignant neoplasm of endometrium; E03.9 Hypothyroidism, unspecified; E87.6 Hypokalemia; E83.42 Hypomagnesemia; F41.9 Anxiety disorder, unspecified; Z86.711 Personal history of pulmonary embolism; Z87.440 Personal history of urinary (tract) infections; I25.2 Old myocardial infarction; Z86.14 Personal history of Methicillin resistant Staphylococcus aureus infection; Z95.1 Presence of aortocoronary bypass graft; Z90.710 Acquired absence of both cervix and uterus; Z89.432 Acquired absence of left foot; Z98.890 Other specified postprocedural states; Z86.718 Personal history of other venous thrombosis and embolism; Z88.2 Allergy status to sulfonamides; Z88.6 Allergy status to analgesic agent; Z88.8 Allergy status to other drugs, medicaments and biological substances; Z79.4 Long term (current) use of insulin; Z79.891 Long term (current) use of opiate analgesic; Z79.899 Other long term (current) drug therapy
CPT/HCPCS: 0241U; 36415; 80048; 80053; 80069; 81001; 82947; 83690; 83735; 85025; 85027; 87086; 87507; 93005; 93010; 96361; 96365; 96366; 96372; 96374; 96375; 96376; 99285-25; A9270; G0378; J1642; J1650; J1790; J1815; J2405; J2550; J2765; J3475; J3480; J7030

== ENCOUNTER 2021-10-28 01:13 | Day surgery (SDC) | payer OTHER ==
[~2021-10-28 01:13] MED LIST changes: +LOPERAMIDE2 M3 PO; +Lovenox120 MG/0.8 SC
[2021-10-29] MEDS ORDERED: NOVOLOG FL100 UNIT/3 SC (15:37)
[2021-10-29] MEDS ORDERED: PROC5 PO (15:40)
== END 2021-10-28 22:00 | disposition home or self-care (01) ==
LOC: WOUND 01:13
DX: E11.621 Type 2 diabetes mellitus with foot ulcer (principal); E11.42 Type 2 diabetes mellitus with diabetic polyneuropathy; L97.512 Non-pressure chronic ulcer of other part of right foot with fat layer exposed; C54.1 Malignant neoplasm of endometrium; I80.203 Phlebitis and thrombophlebitis of unspecified deep vessels of lower extremities, bilateral; S91.104S Unspecified open wound of right lesser toe(s) without damage to nail, sequela; L03.031 Cellulitis of right toe
CPT/HCPCS: G0463

== ENCOUNTER 2021-11-18 00:54 | Day surgery (SDC) | payer OTHER ==
[~2021-11-18 00:54] MED LIST changes: +Acetaminophen650 M1 PO; +BASAGLAR K100 UNIT/8 SC; +FAMO20 PO; +HUMULIN R100 UNIT/2 SC; +LOVENOX150 MG/1 M SC; +NOVOLOG FL100 UNIT/3 SC; +POTA20LUD PO; +Senna-Extra17.2 MG PO; +VISBIOME 112.51 EACH PO
[2021-11-29] MEDS ORDERED: NOVOLOG FL100 UNIT/3 SC (15:38)
[2021-11-29] MEDS ORDERED: CEFD300 PO (15:45)
== END 2021-11-18 23:01 | disposition home or self-care (01) ==
LOC: WOUND 00:54
DX: E11.621 Type 2 diabetes mellitus with foot ulcer (principal); L97.512 Non-pressure chronic ulcer of other part of right foot with fat layer exposed; L03.031 Cellulitis of right toe; E11.42 Type 2 diabetes mellitus with diabetic polyneuropathy; C54.1 Malignant neoplasm of endometrium; I80.203 Phlebitis and thrombophlebitis of unspecified deep vessels of lower extremities, bilateral; S91.104S Unspecified open wound of right lesser toe(s) without damage to nail, sequela; I82.409 Acute embolism and thrombosis of unspecified deep veins of unspecified lower extremity; Z79.01 Long term (current) use of anticoagulants
CPT/HCPCS: A9270

== ENCOUNTER 2021-11-27 18:34 | Inpatient (IN) | payer OTHER ==
[~2021-11-27] VITALS: Ht 170.2 cm; Wt 158.5 kg
[2021-11-27 19:48] LABS: BASOPHILS ABSOLUTE AUTO 0.01 K/mm3 (0.00-0.23); BASOPHILS PERCENT AUTO 0 % (0-2); EOSINOPHILS ABSOLUTE AUTO 0.12 K/mm3 (0.00-0.68); EOSINOPHILS PERCENT AUTO 5 % (0-6); Hematocrit 27.7 % (33.0-51.0); Hemoglobin 8.8 g/dL (11.5-16.0); IMMATURE GRAN ABSOLUTE AUTO 0.02 K/mm3 (0.00-0.10); IMMATURE GRAN PERCENT AUTO 1 % (0-1); LYMPHOCYTES ABSOLUTE AUTO 1.19 K/mm3 (0.84-5.20); LYMPHOCYTES PERCENT AUTO 48 % (21-46); MONOCYTES ABSOLUTE AUTO 0.25 K/mm3 (0.16-1.47); MONOCYTES PERCENT AUTO 10 % (4-13); Mean Corpuscular HGB 25.1 pg (26.0-34.0); Mean Corpuscular HGB Conc 31.8 g/dL (31.5-36.5); Mean Corpuscular Volume 79 fL (80-100); Mean Platelet Volume 9.6 fL (9.1-12.4); NEUTROPHILS ABSOLUTE AUTO 0.89 K/mm3 (1.96-9.15); NEUTROPHILS PERCENT AUTO 36 % (41-73); NRBC ABSOLUTE 0.02 K/mm3 (0.00-0.02); NRBC Auto 0.8 /100 WBC (0.0-0.2); Platelet Count 317 K/mm3 (150-400); RDW Coefficient Variation 18.8 % (11.7-14.2); RDW Standard Deviation 53.2 fL (35.1-46.3); Red Blood Cell Count 3.51 M/mm3 (3.80-5.20); White Blood Cell Count 2.48 K/mm3 (4.00-11.30)
[2021-11-27 20:14] LABS: Albumin, Blood 3.1 g/dL (3.4-5.0); Albumin/Globulin Ratio 0.8 (0.8-1.8); Bilirubin, Total 0.8 mg/dL (0.1-1.0); Bun/Creatinine Ratio 20.9 (12.0-20.0); Calcium, Blood 8.8 mg/dL (8.5-10.1); Creatinine, Blood 0.58 mg/dL (0.40-1.00); Globulin, Blood 3.8 g/dL (2.2-4.0); Potassium, Blood 3.8 mmol/L (3.5-5.5); Total Protein, Blood 6.9 g/dL (6.4-8.2)
[2021-11-27 21:38] LABS: Source, Urine Clean Catch
[2021-11-27 21:42] LABS: Appearance, Urine Hazy (Clear); Bilirubin, Urine Neg (Neg); Blood, Urine 4+ (Neg); Color, Urine Yellow (P-Yellow); Glucose Qualitative, Urine 2+ (Neg); Ketones, Urine Neg (Neg); Leukocyte Esterase, Urine 3+ (Neg); Nitrite, Urine Pos (Neg); Protein, Urine 3+ (Neg); Specific Gravity, Urine 1.015 (1.003-1.022); Urobilinogen, Urine NORM (Normal)
[2021-11-27 21:50] LABS: White Blood Cells, Urine 50-100 /hpf (0-5)
[2021-11-27 21:51] LABS: Bacteria Many /hpf
[2021-11-27 21:52] LABS: Renal Epithelial Few /hpf (0-Rare)
[2021-11-27 21:53] LABS: Squamous Epithelial Cells Few /hpf (Few)
[2021-11-27 22:26] LABS: Influenza A, PCR NEGATIVE (NEGATIVE); Influenza B, PCR NEGATIVE (NEGATIVE); Resp Syncytial Virus, PCR NEGATIVE (NEGATIVE); SARS-Cov-2 (COVID-19) PCR, MMC NEGATIVE (NEGATIVE)
--- NOTE | 2021-11-28 04:29 | NUR ---
SUMMARY: PATIENT ADMITTED FROM ER [facility] FOR UTI, RT TOE INFECTION. LACTIC ELEVATED TRENDING DOWN, PATIENT STARTED ON CONT FLUIDS. ADMISSION MED REC COMPLETED. CALLED PROVIDER TO NOTIFY HIM AND GET PATIENT PAIN MEDS AND NAUSEA MEDS RESTARTED. PATIENT BP ELEVATED. GAVE IV APRESOLINE ALONG WITH PAIN AND NAUSEA MEDS. PROVIDED PATIENT WITH HEATING PAD FOR BACK PAIN. TOOK PICTURE OF PATIENT WOUND AND PLACED IN CHART. CLEANSED WOUND AND APPLIED CLEAN DRESSING. PLAN FOR CT THIS MORINING PER MD. PATIENT PALCED ON TELE RUNNING NORMAL SINUS. PATIENT NOW RESTING COMFORTABLY IN BED.
[2021-11-28 05:25] LABS: BASOPHILS ABSOLUTE AUTO 0.01 K/mm3 (0.00-0.23); BASOPHILS PERCENT AUTO 1 % (0-2); EOSINOPHILS ABSOLUTE AUTO 0.05 K/mm3 (0.00-0.68); EOSINOPHILS PERCENT AUTO 3 % (0-6); Hematocrit 25.9 % (33.0-51.0); Hemoglobin 8.5 g/dL (11.5-16.0); IMMATURE GRAN ABSOLUTE AUTO 0.01 K/mm3 (0.00-0.10); IMMATURE GRAN PERCENT AUTO 1 % (0-1); LYMPHOCYTES ABSOLUTE AUTO 0.87 K/mm3 (0.84-5.20); LYMPHOCYTES PERCENT AUTO 58 % (21-46); MONOCYTES ABSOLUTE AUTO 0.23 K/mm3 (0.16-1.47); MONOCYTES PERCENT AUTO 15 % (4-13); Mean Corpuscular HGB 25.6 pg (26.0-34.0); Mean Corpuscular HGB Conc 32.8 g/dL (31.5-36.5); Mean Corpuscular Volume 78 fL (80-100); Mean Platelet Volume 9.9 fL (9.1-12.4); NEUTROPHILS ABSOLUTE AUTO 0.34 K/mm3 (1.96-9.15); NEUTROPHILS PERCENT AUTO 23 % (41-73); Platelet Count 331 K/mm3 (150-400); RDW Coefficient Variation 18.8 % (11.7-14.2); RDW Standard Deviation 52.8 fL (35.1-46.3); Red Blood Cell Count 3.32 M/mm3 (3.80-5.20); White Blood Cell Count 1.51 K/mm3 (4.00-11.30)
[2021-11-28 05:56] LABS: Albumin, Blood 2.9 g/dL (3.4-5.0); Albumin/Globulin Ratio 0.8 (0.8-1.8); Bilirubin, Total 1.5 mg/dL (0.1-1.0); Bun/Creatinine Ratio 15.4 (12.0-20.0); Calcium, Blood 8.6 mg/dL (8.5-10.1); Creatinine, Blood 0.58 mg/dL (0.40-1.00); Globulin, Blood 3.5 g/dL (2.2-4.0); Potassium, Blood 3.4 mmol/L (3.5-5.5); Total Protein, Blood 6.4 g/dL (6.4-8.2)
--- NOTE | 2021-11-28 13:52 | NUR ---
Upon receiving a referral for spiritual care, I visit pt. Pt is tearful when I walk in the . [facility] is established from prior hospitalizations, so pt immediately shares her concerns. She tells me about how emotionally exhausted she is from feeling so sick and tired for so long and now to be in the hospital again. She states that her and her Pedro moved out of her [id number]'s house last week and that took a toll on her as well for several different reasons but she feels like having their own place will be very good for her peace of mind. I encourage self-care, remind her of all that she has accomplished so far, listen empathically and provide anxiety containment, gentle dormitory counselor and prayer. Pt responds well and shows signs of a decrease in stress and new resolve for her new challenges. listening
--- NOTE | 2021-11-28 16:33 | NUR ---
SHIFT SUMMARY; PATIENT REMAINS ON BEDREST TODAY ONLY GETTING UP TO USE RESTROOM. PER PATIENT SHE IS INCONTINENT OF URINE. SHE IS ABLE TO CHANGE HER OWN ATTENDS PULLUPS. SHE USES HER CALL LIGHT APPROPRIATELY AND IS ABLE TO MAKE HER NEEDS KNOWN. ETHAN IS HYPERTENSIVE DURING DAY AND RECEIVED HER NORMAL HOME DOSE OF CATAPRESS AND METORPROLOL FOR HTN. HER CHEM BG ARE ELEVATED AT LUNCH AND DINNER AT >300 AND RECEIVED APPROPRIATE INSULIN. HAND OFF TO MAGO MOSER
--- NOTE | 2021-11-28 17:01 | NUR ---
ASSUME CARE OF PATIENT AROUND 1620 FROM LAMAR DIEZ RN. PATIENT BS TAKEN AROUND AT 1621 WAS 315. RECIEVED BS COVERAGE PER EMAR. AMBULATES IN ROOM INDEPENDENTLY. USES CALL LIGHT APPROPRIATELY AND ABLE TO ADVOCATE FO HER NEEDS. PATIENT DANGLING ON THE EOB AT THIS TIME. BED IN LOWEST POSITION, LOCKED, ICE WATER AND CALL LIGHT WITHIN PATIENT REACH.
--- NOTE | 2021-11-29 04:36 | NUR ---
SHIFT SUMMARY 46 YR F ADMITTED ON 11/28/21 FOR SEPSIS. FULL CODE. NO ACUTE CHANGES THIS SHIFT. PT IS INDEPENDANT IN THE ROOM AND KEEPS HERSELF ENTERTAINED BY WATCHING HER PHONE OR TALKING ON THE PHONE. SHE IS PLEASANT AND COOPERATIVE WITH CARE. SHE C/O BACK PAIN AND WAS GIVEN PAIN MEDS PER EMAR. SHE CALLS APPROPRIATELY BUT HAS KEPT TO HERSELF FOR MOST OF THIS SHIFT. EVENING GLUCODE WAS 282 AND 50 UNITS OF LANTIS WAS GIVEN PER EMAR.
[2021-11-29 05:32] LABS: BASOPHILS ABSOLUTE AUTO 0.03 K/mm3 (0.00-0.23); BASOPHILS PERCENT AUTO 1 % (0-2); EOSINOPHILS ABSOLUTE AUTO 0.13 K/mm3 (0.00-0.68); EOSINOPHILS PERCENT AUTO 4 % (0-6); Hematocrit 28.3 % (33.0-51.0); Hemoglobin 8.6 g/dL (11.5-16.0); IMMATURE GRAN ABSOLUTE AUTO 0.03 K/mm3 (0.00-0.10); IMMATURE GRAN PERCENT AUTO 1 % (0-1); LYMPHOCYTES ABSOLUTE AUTO 1.68 K/mm3 (0.84-5.20); LYMPHOCYTES PERCENT AUTO 49 % (21-46); MONOCYTES ABSOLUTE AUTO 0.31 K/mm3 (0.16-1.47); MONOCYTES PERCENT AUTO 9 % (4-13); Mean Corpuscular HGB 24.4 pg (26.0-34.0); Mean Corpuscular HGB Conc 30.4 g/dL (31.5-36.5); Mean Corpuscular Volume 80 fL (80-100); Mean Platelet Volume 9.7 fL (9.1-12.4); NEUTROPHILS ABSOLUTE AUTO 1.22 K/mm3 (1.96-9.15); NEUTROPHILS PERCENT AUTO 36 % (41-73); NRBC ABSOLUTE 0.02 K/mm3 (0.00-0.02); NRBC Auto 0.6 /100 WBC (0.0-0.2); Platelet Count 327 K/mm3 (150-400); RDW Coefficient Variation 19.3 % (11.7-14.2); RDW Standard Deviation 55.4 fL (35.1-46.3); Red Blood Cell Count 3.52 M/mm3 (3.80-5.20)
[2021-11-29 06:01] LABS: Albumin, Blood 2.8 g/dL (3.4-5.0); Albumin/Globulin Ratio 0.7 (0.8-1.8); Bilirubin, Total 0.5 mg/dL (0.1-1.0); Bun/Creatinine Ratio 11.5 (12.0-20.0); Calcium, Blood 8.6 mg/dL (8.5-10.1); Creatinine, Blood 0.78 mg/dL (0.40-1.00); Magnesium, Blood 1.8 mg/dL (1.6-2.4); Phosphorus, Blood 4.2 mg/dL (2.5-4.9); Potassium, Blood 3.5 mmol/L (3.5-5.5); Total Protein, Blood 6.8 g/dL (6.4-8.2)
[2021-11-29] MEDS ORDERED: NOVOLOG FL100 UNIT/3 SC ×2 (15:38)
[2021-11-29] MEDS ORDERED: CEFD300 PO ×2 (15:45)
== END 2021-11-29 17:32 | disposition home or self-care (01) | DRG 872 ==
LOC: ER 18:34 → MEDS 11-28 00:15
PROVIDERS: Family Medicine; Physician Assistant; ADMIT Internal Medicine
DX: A41.4 Sepsis due to anaerobes (principal); N39.0 Urinary tract infection, site not specified; I50.32 Chronic diastolic (congestive) heart failure; Z68.43 Body mass index [BMI] 50.0-59.9, adult; E87.20 Acidosis, unspecified; Z20.822 Contact with and (suspected) exposure to COVID-19; E66.9 Obesity, unspecified; R65.20 Severe sepsis without septic shock; C54.1 Malignant neoplasm of endometrium; E11.65 Type 2 diabetes mellitus with hyperglycemia; I11.0 Hypertensive heart disease with heart failure; B96.1 Klebsiella pneumoniae [K. pneumoniae] as the cause of diseases classified elsewhere; K76.0 Fatty (change of) liver, not elsewhere classified; Z86.711 Personal history of pulmonary embolism; Z86.718 Personal history of other venous thrombosis and embolism; Z87.440 Personal history of urinary (tract) infections; I25.2 Old myocardial infarction; Z88.2 Allergy status to sulfonamides; Z88.6 Allergy status to analgesic agent; Z88.8 Allergy status to other drugs, medicaments and biological substances; Z95.1 Presence of aortocoronary bypass graft; Z90.710 Acquired absence of both cervix and uterus; Z98.890 Other specified postprocedural states
CPT/HCPCS: 0241U; 36415; 71046; 74176; 76700; 76857; 80053; 81001; 82947; 83605; 83690; 83735; 84100; 85025; 87040; 87077; 87086; 87186; 93005; 93010; 96365; 96366; 96375; 99285-25; A9270; J0360; J0696; J1650; J1815; J2405; J2543; J2765; J3010; J7030

== ENCOUNTER 2021-12-02 02:07 | Day surgery (SDC) | payer OTHER ==
[~2021-12-02 02:07] MED LIST changes: +CEFD300 PO
== END 2021-12-02 23:26 | disposition home or self-care (01) ==
LOC: WOUND 02:07
DX: E11.621 Type 2 diabetes mellitus with foot ulcer (principal); E11.42 Type 2 diabetes mellitus with diabetic polyneuropathy; L97.512 Non-pressure chronic ulcer of other part of right foot with fat layer exposed; L97.522 Non-pressure chronic ulcer of other part of left foot with fat layer exposed; C54.1 Malignant neoplasm of endometrium; I80.203 Phlebitis and thrombophlebitis of unspecified deep vessels of lower extremities, bilateral; L03.031 Cellulitis of right toe; S91.104S Unspecified open wound of right lesser toe(s) without damage to nail, sequela
CPT/HCPCS: A9270; G0463

== ENCOUNTER 2021-12-09 02:39 | Day surgery (SDC) | payer OTHER | END 2021-12-09 23:16 | disposition home or self-care (01) | LOC: WOUND 02:39 | DX: E11.621 Type 2 diabetes mellitus with foot ulcer (principal); L97.512 Non-pressure chronic ulcer of other part of right foot with fat layer exposed; L97.522 Non-pressure chronic ulcer of other part of left foot with fat layer exposed; L97.412 Non-pressure chronic ulcer of right heel and midfoot with fat layer exposed; E11.42 Type 2 diabetes mellitus with diabetic polyneuropathy; C54.1 Malignant neoplasm of endometrium; I80.203 Phlebitis and thrombophlebitis of unspecified deep vessels of lower extremities, bilateral; S91.104S Unspecified open wound of right lesser toe(s) without damage to nail, sequela; L03.031 Cellulitis of right toe; Z86.718 Personal history of other venous thrombosis and embolism; Z79.01 Long term (current) use of anticoagulants | CPT/HCPCS: A9270; G0463 ==

== ENCOUNTER 2021-12-16 00:18 | Day surgery (SDC) | payer OTHER | END 2021-12-16 22:50 | disposition home or self-care (01) | LOC: WOUND 00:18 | DX: E11.621 Type 2 diabetes mellitus with foot ulcer (principal); L97.512 Non-pressure chronic ulcer of other part of right foot with fat layer exposed; L97.522 Non-pressure chronic ulcer of other part of left foot with fat layer exposed; E11.42 Type 2 diabetes mellitus with diabetic polyneuropathy; C54.1 Malignant neoplasm of endometrium; I80.203 Phlebitis and thrombophlebitis of unspecified deep vessels of lower extremities, bilateral; S91.104S Unspecified open wound of right lesser toe(s) without damage to nail, sequela; L03.031 Cellulitis of right toe; Z86.718 Personal history of other venous thrombosis and embolism; Z79.01 Long term (current) use of anticoagulants | CPT/HCPCS: G0463 ==

== ENCOUNTER → 2021-12-17 | Outpatient (CLI) | payer OTHER | END | disposition home or self-care (01) | LOC: LAB 13:35 → LAB SHORT 13:35 | DX: B95.62 Methicillin resistant Staphylococcus aureus infection as the cause of diseases classified elsewhere (principal) | CPT/HCPCS: 87070; 87077; 87186; 87205 ==

== ENCOUNTER 2021-12-23 02:58 | Day surgery (SDC) | payer OTHER | END 2021-12-23 23:36 | disposition home or self-care (01) | LOC: WOUND 02:58 | DX: E11.621 Type 2 diabetes mellitus with foot ulcer (principal); L97.512 Non-pressure chronic ulcer of other part of right foot with fat layer exposed; L97.522 Non-pressure chronic ulcer of other part of left foot with fat layer exposed; E11.42 Type 2 diabetes mellitus with diabetic polyneuropathy; C54.1 Malignant neoplasm of endometrium; I80.203 Phlebitis and thrombophlebitis of unspecified deep vessels of lower extremities, bilateral; S91.104S Unspecified open wound of right lesser toe(s) without damage to nail, sequela; L03.031 Cellulitis of right toe; E11.69 Type 2 diabetes mellitus with other specified complication; M86.671 Other chronic osteomyelitis, right ankle and foot; Z86.718 Personal history of other venous thrombosis and embolism; Z79.01 Long term (current) use of anticoagulants | CPT/HCPCS: G0463 ==

== ENCOUNTER 2021-12-30 01:40 | Day surgery (SDC) | payer OTHER | END 2021-12-30 23:38 | disposition home or self-care (01) | LOC: WOUND 01:40 | DX: E11.621 Type 2 diabetes mellitus with foot ulcer (principal); L97.512 Non-pressure chronic ulcer of other part of right foot with fat layer exposed; L97.522 Non-pressure chronic ulcer of other part of left foot with fat layer exposed; E11.42 Type 2 diabetes mellitus with diabetic polyneuropathy; C54.1 Malignant neoplasm of endometrium; I80.203 Phlebitis and thrombophlebitis of unspecified deep vessels of lower extremities, bilateral; L03.031 Cellulitis of right toe | CPT/HCPCS: G0463 ==

== ENCOUNTER → 2022-01-02 | Outpatient (CLI) | payer OTHER | LOC: LAB 11:30 → LAB SHORT 11:30 | DX: N39.0 Urinary tract infection, site not specified (principal) | CPT/HCPCS: 87077; 87086; 87186 ==

== ENCOUNTER 2022-01-06 01:47 | Day surgery (SDC) | payer OTHER | END 2022-01-06 23:30 | disposition home or self-care (01) | LOC: WOUND 01:47 | DX: E11.621 Type 2 diabetes mellitus with foot ulcer (principal); L97.512 Non-pressure chronic ulcer of other part of right foot with fat layer exposed; L03.031 Cellulitis of right toe; E11.42 Type 2 diabetes mellitus with diabetic polyneuropathy; C54.1 Malignant neoplasm of endometrium; I80.203 Phlebitis and thrombophlebitis of unspecified deep vessels of lower extremities, bilateral; M86.671 Other chronic osteomyelitis, right ankle and foot | CPT/HCPCS: A9270; G0463 ==

== ENCOUNTER 2022-01-13 01:16 | Day surgery (SDC) | payer OTHER | END 2022-01-13 23:37 | disposition home or self-care (01) | DX: E11.621 Type 2 diabetes mellitus with foot ulcer (principal); L97.512 Non-pressure chronic ulcer of other part of right foot with fat layer exposed; L97.522 Non-pressure chronic ulcer of other part of left foot with fat layer exposed; C54.1 Malignant neoplasm of endometrium; Z79.01 Long term (current) use of anticoagulants; E11.42 Type 2 diabetes mellitus with diabetic polyneuropathy; I80.203 Phlebitis and thrombophlebitis of unspecified deep vessels of lower extremities, bilateral; L03.031 Cellulitis of right toe; M86.671 Other chronic osteomyelitis, right ankle and foot; E11.69 Type 2 diabetes mellitus with other specified complication ==

== ENCOUNTER 2022-01-20 01:07 | Day surgery (SDC) | payer OTHER | END 2022-01-20 23:01 | disposition home or self-care (01) | LOC: WOUND 01:07 | DX: E11.622 Type 2 diabetes mellitus with other skin ulcer (principal); L97.522 Non-pressure chronic ulcer of other part of left foot with fat layer exposed; E11.42 Type 2 diabetes mellitus with diabetic polyneuropathy; C54.1 Malignant neoplasm of endometrium; I80.203 Phlebitis and thrombophlebitis of unspecified deep vessels of lower extremities, bilateral; L03.031 Cellulitis of right toe; M86.671 Other chronic osteomyelitis, right ankle and foot; E11.69 Type 2 diabetes mellitus with other specified complication | CPT/HCPCS: A9270; G0463 ==

== ENCOUNTER → 2022-01-28 | Outpatient (CLI) | payer OTHER | END | disposition home or self-care (01) | LOC: LAB SHORT 10:00 → LAB 10:00 | DX: R35.0 Frequency of micturition (principal); R30.0 Dysuria | CPT/HCPCS: 87077; 87086; 87186 ==

== ENCOUNTER 2022-02-03 01:13 | Day surgery (SDC) | payer OTHER | END 2022-02-03 22:59 | disposition home or self-care (01) | LOC: WOUND 01:13 | DX: E11.621 Type 2 diabetes mellitus with foot ulcer (principal); L97.512 Non-pressure chronic ulcer of other part of right foot with fat layer exposed; E11.69 Type 2 diabetes mellitus with other specified complication; M86.671 Other chronic osteomyelitis, right ankle and foot; L03.031 Cellulitis of right toe; E11.42 Type 2 diabetes mellitus with diabetic polyneuropathy; C54.1 Malignant neoplasm of endometrium; I80.203 Phlebitis and thrombophlebitis of unspecified deep vessels of lower extremities, bilateral; L97.522 Non-pressure chronic ulcer of other part of left foot with fat layer exposed | CPT/HCPCS: A9270; G0463 ==

== ENCOUNTER → 2022-02-03 | Outpatient (CLI) | payer OTHER ==
[2022-02-03 16:37] LABS: Influenza A, PCR NEGATIVE (NEGATIVE); Influenza B, PCR NEGATIVE (NEGATIVE); Resp Syncytial Virus, PCR NEGATIVE (NEGATIVE)
[2022-02-03 16:47] LABS: SARS-Cov-2 (COVID-19) PCR, MMC POSITIVE (NEGATIVE)
== END | disposition home or self-care (01) ==
LOC: LAB 15:13 → LAB SHORT 15:13
PROVIDERS: Family Medicine
DX: U07.1 COVID-19 (principal)
CPT/HCPCS: 0241U

== ENCOUNTER → 2022-03-03 | Outpatient (CLI) | payer OTHER | LOC: LAB SHORT 09:30 → LAB 09:30 | DX: C54.1 Malignant neoplasm of endometrium (principal); C79.11 Secondary malignant neoplasm of bladder; R31.9 Hematuria, unspecified; Z87.440 Personal history of urinary (tract) infections | CPT/HCPCS: 87077; 87086; 87186 ==

== ENCOUNTER → 2022-03-19 | Outpatient (CLI) | payer OTHER | END | disposition home or self-care (01) | LOC: LAB SHORT 14:00 → LAB 14:00 | DX: R35.0 Frequency of micturition (principal); R30.9 Painful micturition, unspecified | CPT/HCPCS: 87086 ==

== ENCOUNTER → 2022-05-09 | Outpatient (CLI) | payer OTHER | END | disposition home or self-care (01) | LOC: LAB 15:48 → LAB SHORT 15:48 | DX: M54.50 Low back pain, unspecified (principal); R31.0 Gross hematuria | CPT/HCPCS: 87086 ==

== ENCOUNTER 2022-10-21 08:48 | Day surgery (SDC) | payer OTHER ==
[~2022-10-21] VITALS: Ht 170.2 cm; Wt 160.0 kg
[~2022-10-21 08:48] MED LIST changes: +AMOCLA500 PO; +CEFP200 PO; +FLUC200 PO; +LACT10SY PO; +METO10 PO; +NOVOLIN N100 UNIT/2 SQ; +OLAN2.5 PO; +PROM25 PO; +TAMS.4ER PO; +[UNRECOGNIZED DRUG - OTHER]
[2022-10-21 09:16] VITALS: BP 149/64
[2022-10-21] MEDS ORDERED: INSULANI (09:18)
[2022-10-21 11:21] VITALS: BP 132/70
[2022-10-21 11:30] VITALS: BP 154/85
[2022-10-21 11:45] VITALS: BP 130/63
[2022-10-21 12:00] VITALS: BP 148/90
[2022-10-21 12:30] VITALS: BP 112/70
--- NOTE | 2022-10-21 13:23 | NUR ---
PT AND VERBALIZED UNDERSTANDING OF WRITTEN AND VERBAL D/C INST. 200ML CLEAR REDISH URINE OUT OF R NEPHROSTOMY TUBE. R FLANK PAIN 3/10 ON D/C. MEDAPORT D/C AND FLUSHED /C 5ML 1OO UNITS PER ML. PT TAKEN OUT OF THE HRT CENTER VIA W/C.
== END 2022-10-21 13:30 | disposition home or self-care (01) ==
LOC: MHTC 08:48
DX: N13.30 Unspecified hydronephrosis (principal); I87.1 Compression of vein; C54.1 Malignant neoplasm of endometrium; F41.9 Anxiety disorder, unspecified; K21.9 Gastro-esophageal reflux disease without esophagitis; I25.2 Old myocardial infarction; E11.40 Type 2 diabetes mellitus with diabetic neuropathy, unspecified; I10 Essential (primary) hypertension; Z88.5 Allergy status to narcotic agent; Z88.2 Allergy status to sulfonamides; Z88.8 Allergy status to other drugs, medicaments and biological substances; Z79.4 Long term (current) use of insulin; I82.723 Chronic embolism and thrombosis of deep veins of upper extremity, bilateral; Z79.01 Long term (current) use of anticoagulants
CPT/HCPCS: 50432; 76937; 99152; 99153; A9270; C1769; C1894; J1642; J2250; J3010; J7030; J7050; Q9967

== ENCOUNTER → 2022-10-28 | Outpatient (CLI) | payer OTHER ==
[~2022-10-28] MED LIST changes: +INSULANI
== END ==
LOC: LAB SHORT 15:39 → LAB 15:39
DX: N39.0 Urinary tract infection, site not specified (principal)
CPT/HCPCS: 87086

== ENCOUNTER 2022-10-31 08:56 | Day surgery (SDC) | payer OTHER | END 2022-10-31 22:45 | disposition home or self-care (01) | LOC: WOUND 08:56 | DX: E11.621 Type 2 diabetes mellitus with foot ulcer (principal); L97.512 Non-pressure chronic ulcer of other part of right foot with fat layer exposed; E11.42 Type 2 diabetes mellitus with diabetic polyneuropathy; Z79.4 Long term (current) use of insulin | CPT/HCPCS: G0463 ==

== ENCOUNTER 2022-11-05 04:46 | Day surgery (SDC) | payer OTHER | END 2022-11-05 22:58 | disposition home or self-care (01) | LOC: WOUND 04:46 | DX: E11.621 Type 2 diabetes mellitus with foot ulcer (principal); L97.412 Non-pressure chronic ulcer of right heel and midfoot with fat layer exposed; E11.42 Type 2 diabetes mellitus with diabetic polyneuropathy; Z79.4 Long term (current) use of insulin; Z89.422 Acquired absence of other left toe(s) | CPT/HCPCS: G0463 ==

== ENCOUNTER 2022-11-20 08:00 | Day surgery (SDC) | payer OTHER | END 2022-11-20 23:59 | disposition home or self-care (01) | LOC: WOUND 08:00 | DX: Z09 Encounter for follow-up examination after completed treatment for conditions other than malignant neoplasm (principal); E11.42 Type 2 diabetes mellitus with diabetic polyneuropathy; Z79.4 Long term (current) use of insulin | CPT/HCPCS: G0463 ==

== ENCOUNTER 2022-12-06 06:31 | Inpatient (IN) | payer OTHER ==
[~2022-12-06] VITALS: Ht 170.2 cm; Wt 158.1 kg
[2022-12-06 07:47] LABS: BASOPHILS ABSOLUTE AUTO 0.07 K/mm3 (0.00-0.23); BASOPHILS PERCENT AUTO 1 % (0-2); EOSINOPHILS ABSOLUTE AUTO 0.04 K/mm3 (0.00-0.68); EOSINOPHILS PERCENT AUTO 0 % (0-6); Hematocrit 32.6 % (33.0-51.0); Hemoglobin 10.4 g/dL (11.5-16.0); IMMATURE GRAN ABSOLUTE AUTO 0.06 K/mm3 (0.00-0.10); IMMATURE GRAN PERCENT AUTO 1 % (0-1); LYMPHOCYTES ABSOLUTE AUTO 1.59 K/mm3 (0.84-5.20); LYMPHOCYTES PERCENT AUTO 12 % (21-46); MONOCYTES ABSOLUTE AUTO 0.51 K/mm3 (0.16-1.47); MONOCYTES PERCENT AUTO 4 % (4-13); Mean Corpuscular HGB 24.1 pg (26.0-34.0); Mean Corpuscular HGB Conc 31.9 g/dL (31.5-36.5); Mean Corpuscular Volume 76 fL (80-100); Mean Platelet Volume 10.2 fL (9.1-12.4); NEUTROPHILS PERCENT AUTO 82 % (41-73); Platelet Count 342 K/mm3 (150-400); RDW Coefficient Variation 17.4 % (11.7-14.2); RDW Standard Deviation 46.7 fL (35.1-46.3); Red Blood Cell Count 4.32 M/mm3 (3.80-5.20); White Blood Cell Count 12.87 K/mm3 (4.00-11.30)
[2022-12-06 08:07] LABS: Albumin, Blood 2.9 g/dL (3.4-5.0); Albumin/Globulin Ratio 0.7 (0.8-1.8); Bilirubin, Total 0.4 mg/dL (0.1-1.0); Bun/Creatinine Ratio 23.9 (12.0-20.0); Calcium, Blood 8.7 mg/dL (8.5-10.1); Creatinine, Blood 0.92 mg/dL (0.40-1.00); Globulin, Blood 4.1 g/dL (2.2-4.0); Magnesium, Blood 1.5 mg/dL (1.6-2.4); Potassium, Blood 4.3 mmol/L (3.5-5.5)
[2022-12-06 08:52] LABS: Source, Urine Voided
[2022-12-06 09:06] LABS: Appearance, Urine Turbid (Clear); Bilirubin, Urine Neg (Neg); Blood, Urine 4+ (Neg); Color, Urine Yellow (P-Yellow); Glucose Qualitative, Urine Neg (Neg); Ketones, Urine Neg (Neg); Leukocyte Esterase, Urine 3+ (Neg); Nitrite, Urine Pos (Neg); Protein, Urine 3+ (Neg); Urobilinogen, Urine NORM (Normal); pH, Urine 6.5 (5.0-8.0)
[2022-12-06 09:13] LABS: Bacteria Many /hpf; White Blood Cells, Urine TNTC /hpf (0-5)
[2022-12-06 09:16] LABS: Squamous Epithelial Cells Rare /hpf (Few)
[2022-12-06 12:00] VITALS: BP 154/77
[2022-12-06] MEDS ORDERED: OXYC10TA19 PO (12:33)
[2022-12-06] MEDS ORDERED: MIRALAX1714 PO (12:34)
--- NOTE | 2022-12-06 15:31 | NUR ---
Spoke with Primary RN Kaye prior to visiting with Pt. Kaye reports discussing AD/POLST and code status with Pt when she arrived to her room. Pt is still wanting to be a full code. Pt resting in bed and is A&OX4. Pt reports pain is managed with current pain regimen. She also reports nausea is managed with current regimen. Pt reports living at home with her . She reports no biological children but did foster a couple children and was guardian for some additional, all whom live in [place]. She reports moving to [place] with her to be closer to 's family. Pt reports her parents are and has no sibblings. Pt reports adequate support from . Pt reports her oncologist team has spoken several times regarding "". Pt confirms understanding her cancer is spreading and current treatment isn't as beneficial as she hoped. She reports currently being on a "clinical trial" and is hopefull there may be aditional treatment options. Continued supportive visit. Pt is agreeable for continued PC visits. Palliative Care will remain available
[2022-12-06 15:46] VITALS: BP 143/88
--- NOTE | 2022-12-06 16:09 | NUR ---
SHIFT SUMMARY PATIENT ADMITTED TO FLOOR THIS SHIFT, PORT ACCESSED IN ED. DRAWS RED BLOOD, FLUSHES EASILY. C/O NAUSEA AND PAIN THIS SHIFT, CONTACTED DR VILLALPANDO TO INCREASE OXY DOSE TO STATED HOME DOSE, HE STATED HE WOULD CHANGE THE ORDER. PATIENT NOT TOLERATING SOLID FOOD BUT ABLE TO CONSUME WATER. C/O CHILLS, PRESENTING WITH LOW GRADE ELEVATED TEMP. SKIN IN GOOD CONDITION. NEPHROSTOMY TUBE IN PLACE DRAINING NAOMI URINE, DRESSING CHANGED. C/O BURNING AND PAIN WHEN URINATING. STATED LAST CHEMO TREATMENT TO HAVE BEEN 12/03 WITH ONE MORE DOSE TO COME BEFORE RESPITE WEEK. ABLE TO AMBULATE INDEPENDENTLY IN ROOM, AO X4. WILL CONTINUE TO MONITOR
[2022-12-06 20:27] VITALS: BP 146/76
[2022-12-07 04:28] VITALS: BP 143/76
[2022-12-07 06:05] LABS: BASOPHILS ABSOLUTE AUTO 0.07 K/mm3 (0.00-0.23); BASOPHILS PERCENT AUTO 1 % (0-2); EOSINOPHILS PERCENT AUTO 0 % (0-6); Hematocrit 30.3 % (33.0-51.0); Hemoglobin 9.9 g/dL (11.5-16.0); IMMATURE GRAN ABSOLUTE AUTO 0.08 K/mm3 (0.00-0.10); IMMATURE GRAN PERCENT AUTO 1 % (0-1); LYMPHOCYTES ABSOLUTE AUTO 1.68 K/mm3 (0.84-5.20); LYMPHOCYTES PERCENT AUTO 16 % (21-46); MONOCYTES ABSOLUTE AUTO 0.43 K/mm3 (0.16-1.47); MONOCYTES PERCENT AUTO 4 % (4-13); Mean Corpuscular HGB 24.3 pg (26.0-34.0); Mean Corpuscular HGB Conc 32.7 g/dL (31.5-36.5); Mean Corpuscular Volume 74 fL (80-100); Mean Platelet Volume 9.9 fL (9.1-12.4); NEUTROPHILS ABSOLUTE AUTO 8.14 K/mm3 (1.96-9.15); NEUTROPHILS PERCENT AUTO 78 % (41-73); Platelet Count 267 K/mm3 (150-400); RDW Coefficient Variation 17.2 % (11.7-14.2); RDW Standard Deviation 46.1 fL (35.1-46.3); Red Blood Cell Count 4.08 M/mm3 (3.80-5.20)
[2022-12-07 06:35] LABS: Albumin, Blood 2.6 g/dL (3.4-5.0); Albumin/Globulin Ratio 0.6 (0.8-1.8); Bilirubin, Total 0.5 mg/dL (0.1-1.0); Calcium, Blood 8.1 mg/dL (8.5-10.1); Creatinine, Blood 1.1 mg/dL (0.40-1.00); Globulin, Blood 4.2 g/dL (2.2-4.0); Potassium, Blood 3.8 mmol/L (3.5-5.5); Total Protein, Blood 6.8 g/dL (6.4-8.2)
[2022-12-07 07:21] VITALS: BP 132/64
--- NOTE | 2022-12-07 07:27 | NUR ---
END OF SHIFT SUMMARY PT A&O x4, VSS, AFEBRILE. PT CALM AND COOPERATIVE WITH CARE PROVIDED. PT SLEPT ON AND OFF THROUGHOUT THE NIGHT. PT C/O PAIN TO LOWER BACK THAT RADIATED TOWARDS BUTTOCKS. PAIN MANAGED WITH PRN OXYCODONE, NAUSEA CONTROLLED WITH PRN ZOFRAN AND REGLAN. BLOOD SUGAR ON NOC SHIFT WAS 275, FOLLOWING ORDERS PER EMAR FOR COVERAGE. BLOOD CULTURE CAME BACK POSITIVE FOR GRAM (-) BACILLI. PT ABLE TO MAKE NEEDS KNOWN. CALL LIGHT WITHIN REACH, WCTM.
[2022-12-07 16:08] VITALS: BP 140/51
--- NOTE | 2022-12-07 18:41 | NUR ---
ASSUMED CARE OF PT @ 1700.
[2022-12-07 19:36] VITALS: BP 132/88
[2022-12-08 03:15] VITALS: BP 136/71
[2022-12-08 07:10] VITALS: BP 136/67
[2022-12-08 07:55] LABS: Hematocrit 28.3 % (33.0-51.0)
[2022-12-08 08:21] LABS: Bun/Creatinine Ratio 16.7 (12.0-20.0); Calcium, Blood 8.1 mg/dL (8.5-10.1); Creatinine, Blood 1.14 mg/dL (0.40-1.00); Potassium, Blood 3.7 mmol/L (3.5-5.5)
--- NOTE | 2022-12-08 08:40 | NUR ---
END OF SHIFT SUMMARY PT UP ALL NIGHT, DIDN'T GET MUCH SLEEP. PT RAN A TEMP OF 102.1 AT 0315. APAP WAS GIVEN AND EFFECTIVE, TEMP RE-CHECK WAS 99.5 AT 0655. PT A&O x4. PT CALM AND COOPERATIVE WITH CARE PROVIDED. PAIN AND NAUSEA MANAGED THROUGHOUT THE SHIFT. PT ABLE TO MAKE NEEDS KNOWN. CALL LIGHT WITHIN REACH, WCTM.
[2022-12-08 20:24] VITALS: BP 143/79
--- NOTE | 2022-12-09 03:34 | NUR ---
SHIFT SUMMARY. SHIFT HAS BEEN MOSTLY UNREMARKABLE THUS FAR. PT AOX4, PLEASANT, COOPERATIVE WITH CARE. INDEPENDENT WITHIN ROOM, CALLS APPROPRIATELY FOR ASSISTANCE. PT HAD A MILD TEMP EARLY IN SHIFT WHICH HAS BEEN MANAGED VIA PRN TYLENOL. PAIN MANAGED VIA EMAR. NAUSEA MANAGED VIA EMAR. PT COMPLAINED OF FEELING OF URINARY RETENTION EARLY THIS MORNING. BLADDER SCAN PERFORMED AFTER VOIDING AND REVEALED <30ML OF URINE LEFT IN BLADDER. NEPH TUBE DRAINING WITHOUT DIFFICULTY, OUTPUT CHARTED. TKO RUNNING THROUGH CENTRAL PORT THROUGHOUT SHIFT. BED LOCKED IN LOWEST POSITION. CALL LIGHT LEFT WITHIN REACH.
[2022-12-09 04:19] VITALS: BP 147/67
[2022-12-09 04:53] LABS: BASOPHILS ABSOLUTE AUTO 0.05 K/mm3 (0.00-0.23); BASOPHILS PERCENT AUTO 1 % (0-2); EOSINOPHILS ABSOLUTE AUTO 0.02 K/mm3 (0.00-0.68); EOSINOPHILS PERCENT AUTO 1 % (0-6); Hematocrit 27.7 % (33.0-51.0); Hemoglobin 8.9 g/dL (11.5-16.0); IMMATURE GRAN ABSOLUTE AUTO 0.17 K/mm3 (0.00-0.10); IMMATURE GRAN PERCENT AUTO 4 % (0-1); LYMPHOCYTES PERCENT AUTO 28 % (21-46); MONOCYTES ABSOLUTE AUTO 0.51 K/mm3 (0.16-1.47); MONOCYTES PERCENT AUTO 12 % (4-13); Mean Corpuscular HGB 24.1 pg (26.0-34.0); Mean Corpuscular HGB Conc 32.1 g/dL (31.5-36.5); Mean Corpuscular Volume 75 fL (80-100); Mean Platelet Volume 10.4 fL (9.1-12.4); NEUTROPHILS ABSOLUTE AUTO 2.29 K/mm3 (1.96-9.15); NEUTROPHILS PERCENT AUTO 54 % (41-73); Platelet Count 288 K/mm3 (150-400); RDW Coefficient Variation 17.1 % (11.7-14.2); Red Blood Cell Count 3.69 M/mm3 (3.80-5.20); White Blood Cell Count 4.24 K/mm3 (4.00-11.30)
[2022-12-09 05:22] LABS: Albumin, Blood 2.3 g/dL (3.4-5.0); Albumin/Globulin Ratio 0.6 (0.8-1.8); Bilirubin, Total 0.3 mg/dL (0.1-1.0); Bun/Creatinine Ratio 18.3 (12.0-20.0); Calcium, Blood 7.7 mg/dL (8.5-10.1); Creatinine, Blood 1.15 mg/dL (0.40-1.00); Globulin, Blood 4.1 g/dL (2.2-4.0); Potassium, Blood 3.7 mmol/L (3.5-5.5); Total Protein, Blood 6.4 g/dL (6.4-8.2)
[2022-12-09 07:08] VITALS: BP 123/59
[2022-12-09 15:27] VITALS: BP 125/60
--- NOTE | 2022-12-09 16:41 | NUR ---
SUMMARY- PT A/O X4, INDEPENDANT IN ROOM. TOLERATING 25-50% OF MEALS. INTERMITTANT NAUSEA CONTROLLED WITH ORAL PHENERGAN AND IV ZOFRAN ALTERNATING. LOW BACK CONTROLLED WITH OXYCODONE. GIVING IVF TODAY NS AT 100ML/HR VIA MEDIPORT. PT VOIDING VERY LITTLE, MOST OF URINE COMING OUT FROM R NEPHROSTOMY. MED YELLOW, A BIT CONCENTRATED, BUT LIGHTENING UP SINCE FLUIDS. NO BM FOR 3 DAYS. STARTED ON MIRILAX AND SENAKOT THIS PM 1600. NEPH TUBE DRESSING CHANGED TODAY 1330 BECAUSE GAUZE WAS SATRUATED, PT STATES SHE WAS SWEATY ON/OFF. SITE APPEARS WITHOUT SS OF INFECTION. ABD GROIN REDNESS, CLEANSED APPLIED MICONAZOLE POWDER. WILL REPORT TO YVSE MOSER
[2022-12-09 19:33] VITALS: BP 118/71
--- NOTE | 2022-12-10 04:29 | NUR ---
SHIFT SUMMARY. SHIFT HAS BEEN MOSTLY UNREMARKABLE. PT IS AOX4, PLEASANT, COOPERATIVE WITH CARE. INDEPENDENT WITHIN ROOM. PT HAS BEEN EMPTYING NEPH TUBE ON HER OWN AND REPORTING OUTPUT. MINIMAL URINE OUTPUT MOST OUTPUT IS THROUGH NEPH TUBE. SOME PAIN REPORTED EARLY IN SHIFT THAT HAS BEEN WELL MANAGED VIA PRN PAIN MEDICATIONS. PT HAS SLEPT THROUGH MOST OF THIS MORNING. CALLS APPROPRIATELY FOR ASSISTANCE AND IS ABLE TO MAKE NEEDS KNOWN. BED LOCKED IN LOWEST POSITION. CALL LIGHT LEFT WITHIN REACH.
[2022-12-10 04:35] VITALS: BP 115/61
[2022-12-10 05:21] LABS: BASOPHILS ABSOLUTE AUTO 0.05 K/mm3 (0.00-0.23); BASOPHILS PERCENT AUTO 1 % (0-2); EOSINOPHILS ABSOLUTE AUTO 0.19 K/mm3 (0.00-0.68); EOSINOPHILS PERCENT AUTO 4 % (0-6); Hematocrit 27.1 % (33.0-51.0); Hemoglobin 8.6 g/dL (11.5-16.0); IMMATURE GRAN ABSOLUTE AUTO 0.14 K/mm3 (0.00-0.10); IMMATURE GRAN PERCENT AUTO 3 % (0-1); LYMPHOCYTES ABSOLUTE AUTO 1.98 K/mm3 (0.84-5.20); LYMPHOCYTES PERCENT AUTO 38 % (21-46); MONOCYTES PERCENT AUTO 15 % (4-13); Mean Corpuscular HGB 24.1 pg (26.0-34.0); Mean Corpuscular HGB Conc 31.7 g/dL (31.5-36.5); Mean Corpuscular Volume 76 fL (80-100); Mean Platelet Volume 10.9 fL (9.1-12.4); NEUTROPHILS ABSOLUTE AUTO 2.07 K/mm3 (1.96-9.15); NEUTROPHILS PERCENT AUTO 40 % (41-73); Platelet Count 317 K/mm3 (150-400); RDW Coefficient Variation 17.3 % (11.7-14.2); RDW Standard Deviation 47.5 fL (35.1-46.3); Red Blood Cell Count 3.57 M/mm3 (3.80-5.20); White Blood Cell Count 5.23 K/mm3 (4.00-11.30)
[2022-12-10 05:58] LABS: Albumin, Blood 2.2 g/dL (3.4-5.0); Albumin/Globulin Ratio 0.6 (0.8-1.8); Bilirubin, Total 0.2 mg/dL (0.1-1.0); Bun/Creatinine Ratio 21.3 (12.0-20.0); Calcium, Blood 8.2 mg/dL (8.5-10.1); Creatinine, Blood 0.94 mg/dL (0.40-1.00); Potassium, Blood 3.6 mmol/L (3.5-5.5); Total Protein, Blood 6.2 g/dL (6.4-8.2)
[2022-12-10 07:42] VITALS: BP 114/62
[2022-12-10] MEDS ORDERED: CEFP200 PO (14:16)
[2022-12-10] MEDS ORDERED: VISBIOME 112.51 EACH PO (14:18)
[2022-12-10] MEDS ORDERED: MICONAZOLE NITR85 GM TOP (14:21)
--- NOTE | 2022-12-10 15:56 | NUR ---
SHIFT SUMMARY PT VSS. NO ACUTE EVENTS AT THIS TIME. PT CLEARED FOR DISCHARGE. MEDICATIONS SENT TO PHARMACY. MEDIPORT DEACCESSED PER GUIDELINES. PT LEFT VIA W/C WITH SIGNIFICANT OTHER TO HOME. ALL BELONGINGS OUT OF ROOM AND WITH PT.
== END 2022-12-10 15:43 | disposition home or self-care (01) | DRG 872 ==
LOC: ER 06:31 → MEDS 10:05 → ENPENDDIS 12-10 13:26 → MEDS 12-10 15:43
PROVIDERS: Family Medicine; Student in an Organized Health Care Education/Training Program; ADMIT Hospitalist
DX: A41.9 Sepsis, unspecified organism (principal); N39.0 Urinary tract infection, site not specified; D84.9 Immunodeficiency, unspecified; I50.32 Chronic diastolic (congestive) heart failure; N17.9 Acute kidney failure, unspecified; Z68.43 Body mass index [BMI] 50.0-59.9, adult; E11.9 Type 2 diabetes mellitus without complications; E66.9 Obesity, unspecified; C54.1 Malignant neoplasm of endometrium; E03.9 Hypothyroidism, unspecified; K59.00 Constipation, unspecified; B37.2 Candidiasis of skin and nail; E83.42 Hypomagnesemia; R65.20 Severe sepsis without septic shock; D63.8 Anemia in other chronic diseases classified elsewhere; B96.20 Unspecified Escherichia coli [E. coli] as the cause of diseases classified elsewhere; B96.89 Other specified bacterial agents as the cause of diseases classified elsewhere; Z95.1 Presence of aortocoronary bypass graft; Z86.711 Personal history of pulmonary embolism; Z90.710 Acquired absence of both cervix and uterus; I25.2 Old myocardial infarction; Z86.718 Personal history of other venous thrombosis and embolism; Z87.440 Personal history of urinary (tract) infections; Z98.890 Other specified postprocedural states; Z88.2 Allergy status to sulfonamides; Z88.8 Allergy status to other drugs, medicaments and biological substances; Z88.5 Allergy status to narcotic agent; Z79.899 Other long term (current) drug therapy; Z79.2 Long term (current) use of antibiotics; Z79.01 Long term (current) use of anticoagulants; Z79.4 Long term (current) use of insulin; Z79.890 Hormone replacement therapy; Z79.891 Long term (current) use of opiate analgesic
CPT/HCPCS: 36415; 74177; 80048; 80053; 81001; 82947; 83605; 83735; 84145; 85014; 85018; 85025; 87040; 87077; 87086; 87186; 96365; 96366; 96367; 96375; 99284-25; A9270; J0692; J0696; J1642; J1650; J1815; J1885; J1956; J2185; J2405; J2765; J3010; J3370; J3475; J7030; J7050; J7120; Q9967

== ENCOUNTER 2022-12-19 18:41 | Emergency (ER) | payer OTHER ==
[~2022-12-19] VITALS: Ht 170.2 cm; Wt 158.8 kg
[~2022-12-19 18:41] MED LIST changes: +MICONAZOLE NITR85 GM TOP; +MIRALAX1714 PO; +OXYC10TA19 PO
[2022-12-19 18:46] VITALS: BP 155/84
== END 2022-12-19 20:07 | disposition home or self-care (01) ==
LOC: ER 18:41
DX: S01.01XA Laceration without foreign body of scalp, initial encounter (principal); E11.9 Type 2 diabetes mellitus without complications; I25.2 Old myocardial infarction; I50.32 Chronic diastolic (congestive) heart failure; W18.09XA Striking against other object with subsequent fall, initial encounter; Z88.5 Allergy status to narcotic agent; Z88.8 Allergy status to other drugs, medicaments and biological substances; Z79.890 Hormone replacement therapy; Z79.899 Other long term (current) drug therapy; Z79.4 Long term (current) use of insulin; Z95.1 Presence of aortocoronary bypass graft; Z93.6 Other artificial openings of urinary tract status
CPT/HCPCS: 12002; 70450; 99283-25

== ENCOUNTER 2022-12-28 05:07 | Inpatient (IN) | payer OTHER ==
[~2022-12-28] VITALS: Ht 170.2 cm; Wt 157.8 kg
[2022-12-28] MEDS ORDERED: LORAZEPAM0.5 MG PO (05:47)
[2022-12-28] MEDS ORDERED: AMOX-CLAV 500-1 EAC5 (05:47)
[2022-12-28] MEDS ORDERED: Phenergan25 M1 (05:48)
[2022-12-28 06:14] LABS: Source, Urine Nephrostomy
[2022-12-28 06:27] LABS: BASOPHILS ABSOLUTE AUTO 0.05 K/mm3 (0.00-0.23); BASOPHILS PERCENT AUTO 1 % (0-2); EOSINOPHILS ABSOLUTE AUTO 0.07 K/mm3 (0.00-0.68); EOSINOPHILS PERCENT AUTO 1 % (0-6); Hematocrit 30.8 % (33.0-51.0); Hemoglobin 9.9 g/dL (11.5-16.0); IMMATURE GRAN ABSOLUTE AUTO 0.04 K/mm3 (0.00-0.10); IMMATURE GRAN PERCENT AUTO 0 % (0-1); LYMPHOCYTES ABSOLUTE AUTO 1.59 K/mm3 (0.84-5.20); LYMPHOCYTES PERCENT AUTO 17 % (21-46); MONOCYTES ABSOLUTE AUTO 0.24 K/mm3 (0.16-1.47); MONOCYTES PERCENT AUTO 3 % (4-13); Mean Corpuscular HGB 24.3 pg (26.0-34.0); Mean Corpuscular HGB Conc 32.1 g/dL (31.5-36.5); Mean Corpuscular Volume 76 fL (80-100); Mean Platelet Volume 10.2 fL (9.1-12.4); NEUTROPHILS ABSOLUTE AUTO 7.33 K/mm3 (1.96-9.15); NEUTROPHILS PERCENT AUTO 79 % (41-73); Platelet Count 360 K/mm3 (150-400); RDW Coefficient Variation 16.9 % (11.7-14.2); RDW Standard Deviation 45.6 fL (35.1-46.3); Red Blood Cell Count 4.08 M/mm3 (3.80-5.20); White Blood Cell Count 9.32 K/mm3 (4.00-11.30)
[2022-12-28 06:29] LABS: Bilirubin, Urine Neg (Neg); Blood, Urine 5+ (Neg); Glucose Qualitative, Urine 4+ (Neg); Ketones, Urine Neg (Neg); Leukocyte Esterase, Urine 3+ (Neg); Nitrite, Urine Pos (Neg); Protein, Urine 4+ (Neg); Specific Gravity, Urine 1.015 (1.003-1.022); Urobilinogen, Urine NORM (Normal)
[2022-12-28 06:34] LABS: Appearance, Urine Turbid (Clear); Color, Urine Pale Yellow (P-Yellow)
[2022-12-28 06:35] LABS: Bacteria Many /hpf; Squamous Epithelial Cells Not Seen /hpf (Few); White Blood Cells, Urine TNTC /hpf (0-5)
[2022-12-28 06:54] LABS: Albumin/Globulin Ratio 0.7 (0.8-1.8); Bilirubin, Total 0.4 mg/dL (0.1-1.0); Bun/Creatinine Ratio 27.1 (12.0-20.0); Calcium, Blood 8.9 mg/dL (8.5-10.1); Creatinine, Blood 0.78 mg/dL (0.40-1.00); Globulin, Blood 4.4 g/dL (2.2-4.0); Potassium, Blood 4.4 mmol/L (3.5-5.5); Total Protein, Blood 7.4 g/dL (6.4-8.2)
--- NOTE | 2022-12-28 09:19 | NUR ---
CALLED ER FOR REPORT AWAITING A CALL BACK.
[2022-12-28 10:00] LABS: Influenza A, PCR NEGATIVE (NEGATIVE); Influenza B, PCR NEGATIVE (NEGATIVE); Resp Syncytial Virus, PCR NEGATIVE (NEGATIVE); SARS-Cov-2 (COVID-19) PCR, MMC NEGATIVE (NEGATIVE)
[2022-12-28 11:19] VITALS: BP 174/98
--- NOTE | 2022-12-28 15:09 | NUR ---
SPOKE TO DR PICHARDO- PT MEDIPORT WAS ACCESSED IN THE ED AND FLUID BOLUS RAN THERE. DR MAIRA SAVAGE THE PT HAD A PERIPHERAL IV, PERIPHERAL WAS PLACED WITH THE USE OF ULTRASOUND, BUT NOT ABLE TO BE FULLY ADVANCED. THE PERIPHERAL WAS DIFFICULT TO GET AND MAY NOT LAST VERY LONG. PER PT AND HER SPOUSE THEIR ONCOLOGIST (DR Gramajo IN [place]) HAS TOLD THEM IN THE PAST TO JUST HAVE THE HOSPITAL USE THE PORT. WITH THE PT PREFERENCE AND THE NEED FOR ACCESS RECIEVED AN ORDER, OK TO ACCESS MEDIPORT AND USE FOR ABX AND FLUID INFUSION.
[2022-12-28 15:24] VITALS: BP 178/83
--- NOTE | 2022-12-28 18:25 | NUR ---
SHIFT SUMMARY- PT ALERT AD ORIENTED. D/T PERIPHERAL NEUROPATHY AND RECENT Hx OF FALLS PT IS A 1P ASSIST WITH TRANSFERS AND AMBULATION. PT IS AWARE OF THE NEED TO CALL, SHE CAN USE THE CALL LIGHT APPROPRIATELY. PT HAS CHRONIC PAIN MANAGEMENT MEDS ORDERED. AT HOME SHE TAKES 10MG OXY Q4-6 HOWEVER HER STATES SHE GETS "LOOPY" IF SHE RECIEVES IT EVERY 4 HOURS. MEDICATING EVERY SIX HOURS USUALLY MANAGES HER PAIN. PT STATES SHE HAS A BASELINE PAIN 5/10 THAT IS MANAGEABLE. PAIN WAS 10/10 WHEN SHE ARRIVED ON THE UNIT. MEDICATED TWICE SINCE ADMIT WITH PO OXY. SPOKE TO PALLIATIVE CARE RN MARKUS WHO RECOMENDED MEDICATING WITH PHENEGREN REGULARLY, SHE HAS IT ORDERED PO Q6. MEDICATED 2 TIMES WITH THAT FOR NAUSEA. PT HAS A MEDIPORT THAT DOES NOT DRAW, IT WAS ACCESSED IN THE ED, WHERE THEY TRIED AT LENGTH TO GET IT TO DRAW. PT STATES THIS IS A CHRONIC PROBLEM ALTHOUGH IT WAS ABLE TO BE DRAWN FROM LAST WEEK FOR SOME REASON. SHE HAD AN IV PLACED IN THE [facility] THAT WAS ABLE TO BE DRAWN FROM, IT IS A LONGER CATHETER IV THAT WAS PLACED WITH ULTRASOUND. SPOKE TO DIGITAL FORENSICS EXAMINER WE USUALLY DO NOT DRAW FROM A PERIPHERAL IV, WHEN THE THIRD MUNITIONS WORKER ARRIVED TO ATTEMPT TO DRAW BLOOD, IT WAS OK'D TO ATTEMPT THE DRAW FROM THE IV. IT BOBBY WELL, CAP WAS CHANGED AND THE LINE FLUSHED AND SL AT THAT TIME. TKO FLUIDS CONNECTED TO MEDIPORT AT 20ML/HR. PT HAS A RIGHT NEPHROSTOMY TUBE DRAINING DARK YELLOW URINE WITH SEDIMENT. IN GOOD VOLUME. PT HAD HER LAST CHEMO Tx ON THURSDAY OF LAST WEEK, SPOUSE STATES THURSDAY IS HER WORST DAY POST TREATMENT. PT IS CURRENTLY IN BED, CALL LIGHT IN REACH NO S&S OF DISTRESS, MEDICATED FOR PAIN PRIOR TO SHIFT CHANGE. IV VANCO INFUSING INTO MEDIPORT. STARTED AT 1830 THE PT RECIEVED HER LOADING DOSE LATER THAN SCANNED D/T ACCESS ISSUES.
--- NOTE | 2022-12-28 19:11 | NUR ---
Pt resting between bouts of nausea. they are having diffculty with access for labs. pt states on clincial trial. asked who is oncolgist and what is the medication. Reviewed with pharmacy. there are certain medication she cannot take during trial. Will get list from oncology. Review of medication details printed and put on chart. Faluvaccine held for now discussed with pharmacy and physican. brief theraputic visit with patient will have chaplian see her and will spend time on her eight domains.
[2022-12-28 20:16] VITALS: BP 140/58
[2022-12-29 01:32] LABS: BASOPHILS ABSOLUTE AUTO 0.06 K/mm3 (0.00-0.23); BASOPHILS PERCENT AUTO 1 % (0-2); EOSINOPHILS PERCENT AUTO 3 % (0-6); Hematocrit 26.6 % (33.0-51.0); Hemoglobin 8.4 g/dL (11.5-16.0); IMMATURE GRAN ABSOLUTE AUTO 0.03 K/mm3 (0.00-0.10); IMMATURE GRAN PERCENT AUTO 0 % (0-1); LYMPHOCYTES ABSOLUTE AUTO 2.66 K/mm3 (0.84-5.20); LYMPHOCYTES PERCENT AUTO 34 % (21-46); MONOCYTES ABSOLUTE AUTO 0.43 K/mm3 (0.16-1.47); MONOCYTES PERCENT AUTO 5 % (4-13); Mean Corpuscular HGB 24.1 pg (26.0-34.0); Mean Corpuscular HGB Conc 31.6 g/dL (31.5-36.5); Mean Corpuscular Volume 76 fL (80-100); NEUTROPHILS ABSOLUTE AUTO 4.51 K/mm3 (1.96-9.15); NEUTROPHILS PERCENT AUTO 57 % (41-73); Platelet Count 299 K/mm3 (150-400); RDW Coefficient Variation 16.8 % (11.7-14.2); RDW Standard Deviation 46.5 fL (35.1-46.3); Red Blood Cell Count 3.49 M/mm3 (3.80-5.20); White Blood Cell Count 7.89 K/mm3 (4.00-11.30)
[2022-12-29 01:52] LABS: Albumin, Blood 2.5 g/dL (3.4-5.0); Albumin/Globulin Ratio 0.6 (0.8-1.8); Bilirubin, Total 0.3 mg/dL (0.1-1.0); Bun/Creatinine Ratio 18.4 (12.0-20.0); Calcium, Blood 8.2 mg/dL (8.5-10.1); Creatinine, Blood 1.03 mg/dL (0.40-1.00); Potassium, Blood 3.9 mmol/L (3.5-5.5); Total Protein, Blood 6.5 g/dL (6.4-8.2)
[2022-12-29 03:04] VITALS: BP 132/65
--- NOTE | 2022-12-29 04:30 | NUR ---
SHIFT SUMMARY PATIENT HAD NO ACUTE CHANGES. AXO X 4 AND BEDREST. PIVS REMAIN INTACT. MEDIPORT INFUSING 20 mL/HR KVO. IV ABX INFUSED. REPORTED BACK PAIN X ONE AND OXYCODONE 10 MG GIVEN PER EMAR. PO PHENERGAN 25 MG GIVEN X ONE FOR NAUSEA. RIGHT NEPHROSTOMY TUBE DRAINING CLOUDY YELLOW URINE WITH SEDIMENT. CBG 242. DENIES CHEST PAIN, SOB, AND N/V. VSS/AFEBRILE. BANDAID COVERING RUY ON HEAD FROM PREVIOUS GLF. CALL LIGHT IN REACH. BED IN LOWEST POSITION. WILL CONTINUE TO MONITOR UNTIL DAY SHIFT NURSE ASSUMES CARE.
[2022-12-29 08:17] VITALS: BP 119/61
[2022-12-29 08:54] LABS: Vancomycin, Trough 22.3 ug/mL (5.0-10.0)
[2022-12-29 15:37] VITALS: BP 145/86
--- NOTE | 2022-12-29 18:24 | NUR ---
SHIFT SUMMARY- PT IS A/O, PLESANT AND COOPERATIVE. SHE HAD A SHOWER THIS SHIFT. SHE IS EATING AND DRINKING WELL. NEPHROSTOMY IS PATIENT AND DRAINING. HER BED IS IN THE LOW POSITION AND CALL LIGHT IS WITIN REACH.
[2022-12-29 20:50] VITALS: BP 158/85
[2022-12-30 04:37] VITALS: BP 137/66
[2022-12-30 06:00] LABS: BASOPHILS ABSOLUTE AUTO 0.05 K/mm3 (0.00-0.23); BASOPHILS PERCENT AUTO 1 % (0-2); EOSINOPHILS ABSOLUTE AUTO 0.24 K/mm3 (0.00-0.68); EOSINOPHILS PERCENT AUTO 5 % (0-6); Hematocrit 26.9 % (33.0-51.0); Hemoglobin 8.6 g/dL (11.5-16.0); IMMATURE GRAN ABSOLUTE AUTO 0.06 K/mm3 (0.00-0.10); IMMATURE GRAN PERCENT AUTO 1 % (0-1); LYMPHOCYTES ABSOLUTE AUTO 1.97 K/mm3 (0.84-5.20); LYMPHOCYTES PERCENT AUTO 38 % (21-46); MONOCYTES ABSOLUTE AUTO 0.42 K/mm3 (0.16-1.47); MONOCYTES PERCENT AUTO 8 % (4-13); Mean Corpuscular HGB 24.3 pg (26.0-34.0); Mean Corpuscular Volume 76 fL (80-100); Mean Platelet Volume 10.1 fL (9.1-12.4); NEUTROPHILS ABSOLUTE AUTO 2.39 K/mm3 (1.96-9.15); NEUTROPHILS PERCENT AUTO 47 % (41-73); Platelet Count 307 K/mm3 (150-400); RDW Coefficient Variation 16.5 % (11.7-14.2); RDW Standard Deviation 45.4 fL (35.1-46.3); Red Blood Cell Count 3.54 M/mm3 (3.80-5.20); White Blood Cell Count 5.13 K/mm3 (4.00-11.30)
[2022-12-30 06:30] LABS: Albumin, Blood 2.3 g/dL (3.4-5.0); Albumin/Globulin Ratio 0.5 (0.8-1.8); Bilirubin, Total 0.2 mg/dL (0.1-1.0); Bun/Creatinine Ratio 23.6 (12.0-20.0); Calcium, Blood 8.3 mg/dL (8.5-10.1); Creatinine, Blood 0.97 mg/dL (0.40-1.00); Globulin, Blood 4.3 g/dL (2.2-4.0); Potassium, Blood 3.7 mmol/L (3.5-5.5); Total Protein, Blood 6.6 g/dL (6.4-8.2)
--- NOTE | 2022-12-30 07:20 | NUR ---
ASSUMED CARE: PT RESTING QUIETLY AT THIS TIME. NO ACUTE DISTRESS OR CONCERNS IDENTIFIED.
[2022-12-30 08:24] VITALS: BP 124/70
--- NOTE | 2022-12-30 10:36 | NUR ---
RECORDS FAXED TO ONCOLOGY OFFICE REQUESTED AND WITH PT'S APPROVAL
--- NOTE | 2022-12-30 13:38 | NUR ---
DR INSTRUCTED FOR RUY TO BE REMOVED FROM FOREHEAD. WOUND SITE LEFT OPEN TO AIR. DRESSING CHANGED TO UROSTOMY SITE WELL. PT DENIES FURTHER NEEDS OR CONCERNS AT THIS TIME
--- NOTE | 2022-12-30 16:05 | NUR ---
Spiritual care visit conducted. Patient is sitting on a chair and alert. She talks her disappointment about the growth of her cancer and the challenges of infections and falls in the setting of the cancer. She is tearful at times as she shares about and dying and feelings of defeat. We explore sources hope, meaning and purpose. She shares about her foster children and their struggles. I reinforce her helpful attitudes and perspectives, normalize her feelings and fears and provide therapeutic listening and prayer. Patient responded well and stated that the conversation was very uplifting. I will continue to remain available to patient and family.
--- NOTE | 2022-12-30 17:40 | NUR ---
DISCHARGE: [facility] PT GIVEN INSTRUCTIONS IN REGARDS TO FOLLOW UP APPOINTMENTS, MEDICATIONS AND PHONE NUMBERS IF SHE HAS FURTHER QUESTIONS. DRESSING TO UROSTOMY CHANGED AND RUY TO FOREHEAD REMOVED PRIOR TO DC. ESCORTED OUT VIA WHEEL CHAIR BY HOSPITAL STAFF.
[2022-12-31] MEDS ORDERED: ONDA4 PO (15:17)
== END 2022-12-30 17:37 | disposition home or self-care (01) | DRG 872 ==
LOC: ER 05:07 → MEDS 07:46
PROVIDERS: Emergency Medicine; Student in an Organized Health Care Education/Training Program; ADMIT Hospitalist
DX: A41.50 Gram-negative sepsis, unspecified (principal); I50.32 Chronic diastolic (congestive) heart failure; D84.9 Immunodeficiency, unspecified; Z68.43 Body mass index [BMI] 50.0-59.9, adult; N13.6 Pyonephrosis; E87.20 Acidosis, unspecified; C79.9 Secondary malignant neoplasm of unspecified site; R65.20 Severe sepsis without septic shock; D63.8 Anemia in other chronic diseases classified elsewhere; E11.9 Type 2 diabetes mellitus without complications; E03.9 Hypothyroidism, unspecified; E66.01 Morbid (severe) obesity due to excess calories; C54.1 Malignant neoplasm of endometrium; Z86.718 Personal history of other venous thrombosis and embolism; I25.2 Old myocardial infarction; Z86.711 Personal history of pulmonary embolism; Z93.6 Other artificial openings of urinary tract status; Z95.1 Presence of aortocoronary bypass graft; Z88.5 Allergy status to narcotic agent; Z88.8 Allergy status to other drugs, medicaments and biological substances; Z79.2 Long term (current) use of antibiotics; Z79.4 Long term (current) use of insulin; Z79.891 Long term (current) use of opiate analgesic; Z79.899 Other long term (current) drug therapy; Z86.14 Personal history of Methicillin resistant Staphylococcus aureus infection; Z86.19 Personal history of other infectious and parasitic diseases; Z11.52 Encounter for screening for COVID-19
CPT/HCPCS: 0241U; 36415; 76770; 80053; 80202; 81001; 82947; 83605; 85025; 87040; 87077; 87086; 87186; 96361; 96365; 96366; 96368; 96375; 99284-25; A9270; J0696; J1170; J1642; J1650; J1815; J2405; J3370; J7030; J7040; J7050

== ENCOUNTER 2023-01-01 14:30 | Day surgery (SDC) | payer OTHER ==
[~2023-01-01] VITALS: Ht 170.2 cm; Wt 164.2 kg
[~2023-01-01 14:30] MED LIST changes: +AMOX-CLAV 500-1 EAC5; +LORAZEPAM0.5 MG PO; +ONDA4 PO; +Phenergan25 M1
[2023-01-01 17:17] VITALS: BP 128/74
--- NOTE | 2023-01-01 17:18 | NUR ---
PT ARRIVES BACK FROM LAB. NEW NEPHTUBE IN PLACE WITH NEW BAG. PT PROVIDED WITH EXTRA BAG PER REQUEST. DRAINING CLEAR PINK URINE. VSS UPON ARRIVAL NADN AT THIS TIME. CALL LIGHT IN REACH.
[2023-01-01 17:30] VITALS: BP 116/71
[2023-01-01 17:45] VITALS: BP 131/71
--- NOTE | 2023-01-01 17:57 | NUR ---
DR. DOMINGUEZ IN TO TALK [place] PT. PLANS TO DC TO HOME AT THIS TIME. MEDIPORT DEACCESSED, HEP LOCKED PRIOR TO DC PER DR. BAY. PT. VSS UPON DISCHARGE.
--- NOTE | 2023-01-01 18:03 | NUR ---
DISCHARGE INSTRUCTIONS REVIEWED, NO QUESTIONS. PT DISCHARGE TO HOME VIA WHEEL CHAIR, PT TO DRIVE PT HOME.
== END 2023-01-01 18:04 | disposition home or self-care (01) ==
LOC: MHTC 14:30
DX: Z43.6 Encounter for attention to other artificial openings of urinary tract (principal); N13.5 Crossing vessel and stricture of ureter without hydronephrosis; C54.1 Malignant neoplasm of endometrium; I11.0 Hypertensive heart disease with heart failure; I50.9 Heart failure, unspecified; K21.9 Gastro-esophageal reflux disease without esophagitis; E11.40 Type 2 diabetes mellitus with diabetic neuropathy, unspecified; Z88.5 Allergy status to narcotic agent; Z88.8 Allergy status to other drugs, medicaments and biological substances; Z88.1 Allergy status to other antibiotic agents; Z79.890 Hormone replacement therapy; Z79.4 Long term (current) use of insulin; Z79.899 Other long term (current) drug therapy
CPT/HCPCS: 50384; 50435; 99152; 99153; C1729; C1769; C1773; C1887; C1894; J1642; J2250; J3010; J7040; Q9967

== ENCOUNTER 2023-01-07 02:12 | Day surgery (SDC) | payer OTHER ==
[2023-01-07 15:31] VITALS: BP 157/90
== END 2023-01-07 15:35 | disposition home or self-care (01) ==
LOC: ATC 02:12
DX: Z43.6 Encounter for attention to other artificial openings of urinary tract (principal); E11.9 Type 2 diabetes mellitus without complications; I25.2 Old myocardial infarction; I50.32 Chronic diastolic (congestive) heart failure; E03.9 Hypothyroidism, unspecified; Z88.5 Allergy status to narcotic agent; E66.01 Morbid (severe) obesity due to excess calories; Z68.43 Body mass index [BMI] 50.0-59.9, adult; C54.1 Malignant neoplasm of endometrium
CPT/HCPCS: 99212

== ENCOUNTER 2023-01-09 10:51 | Day surgery (SDC) | payer OTHER ==
[2023-01-09 14:30] VITALS: BP 163/75
== END 2023-01-09 14:45 | disposition home or self-care (01) ==
LOC: ATC 10:51
DX: Z43.6 Encounter for attention to other artificial openings of urinary tract (principal); C54.1 Malignant neoplasm of endometrium; D63.8 Anemia in other chronic diseases classified elsewhere; E11.9 Type 2 diabetes mellitus without complications; I50.32 Chronic diastolic (congestive) heart failure; E03.9 Hypothyroidism, unspecified; E66.01 Morbid (severe) obesity due to excess calories; Z68.43 Body mass index [BMI] 50.0-59.9, adult
CPT/HCPCS: 99212

== ENCOUNTER 2023-01-12 02:27 | Day surgery (SDC) | payer OTHER ==
[2023-01-12 14:00] VITALS: BP 163/85
== END 2023-01-12 15:00 | disposition home or self-care (01) ==
LOC: ATC 02:27
DX: Z43.6 Encounter for attention to other artificial openings of urinary tract (principal); A41.9 Sepsis, unspecified organism; N13.30 Unspecified hydronephrosis; C54.1 Malignant neoplasm of endometrium; E11.9 Type 2 diabetes mellitus without complications; I25.2 Old myocardial infarction; E03.9 Hypothyroidism, unspecified; I50.32 Chronic diastolic (congestive) heart failure; E66.01 Morbid (severe) obesity due to excess calories
CPT/HCPCS: 99211

== ENCOUNTER 2023-01-20 03:02 | Day surgery (SDC) | payer OTHER ==
[2023-01-20 12:01] VITALS: BP 128/98
[2023-01-20] MEDS ORDERED: Cipro500 MG PO (12:11)
== END 2023-01-20 11:55 | disposition home or self-care (01) ==
LOC: ATC 03:02
DX: Z43.6 Encounter for attention to other artificial openings of urinary tract (principal); N13.30 Unspecified hydronephrosis; E66.01 Morbid (severe) obesity due to excess calories; I25.2 Old myocardial infarction; I50.32 Chronic diastolic (congestive) heart failure; E03.9 Hypothyroidism, unspecified; E11.9 Type 2 diabetes mellitus without complications; Z95.1 Presence of aortocoronary bypass graft; Z88.8 Allergy status to other drugs, medicaments and biological substances; Z88.2 Allergy status to sulfonamides; Z79.4 Long term (current) use of insulin; Z79.899 Other long term (current) drug therapy
CPT/HCPCS: 99211

== ENCOUNTER 2023-01-22 00:58 | Day surgery (SDC) | payer OTHER ==
[2023-01-22 10:50] VITALS: BP 158/97
== END 2023-01-22 11:03 | disposition home or self-care (01) ==
LOC: ATC 00:58
DX: Z43.6 Encounter for attention to other artificial openings of urinary tract (principal); N13.30 Unspecified hydronephrosis; E66.01 Morbid (severe) obesity due to excess calories; I25.2 Old myocardial infarction; E03.9 Hypothyroidism, unspecified; I50.32 Chronic diastolic (congestive) heart failure; E11.9 Type 2 diabetes mellitus without complications; Z79.4 Long term (current) use of insulin; Z79.899 Other long term (current) drug therapy
CPT/HCPCS: 99212

== ENCOUNTER 2023-01-24 02:33 | Day surgery (SDC) | payer OTHER ==
[2023-01-24 09:05] VITALS: BP 156/87
== END 2023-01-24 09:15 | disposition home or self-care (01) ==
LOC: ATC 02:33
DX: Z43.6 Encounter for attention to other artificial openings of urinary tract (principal); N13.30 Unspecified hydronephrosis; E66.01 Morbid (severe) obesity due to excess calories; I50.32 Chronic diastolic (congestive) heart failure; I25.2 Old myocardial infarction; E03.9 Hypothyroidism, unspecified; E11.9 Type 2 diabetes mellitus without complications; Z79.899 Other long term (current) drug therapy; Z79.4 Long term (current) use of insulin; Z88.8 Allergy status to other drugs, medicaments and biological substances; Z88.2 Allergy status to sulfonamides
CPT/HCPCS: 99211

== ENCOUNTER 2023-01-27 04:07 | Day surgery (SDC) | payer OTHER ==
[2023-01-27 16:10] VITALS: BP 123/83
== END 2023-01-27 16:45 | disposition home or self-care (01) ==
LOC: ATC 04:07
DX: Z43.6 Encounter for attention to other artificial openings of urinary tract (principal); N13.30 Unspecified hydronephrosis; I50.32 Chronic diastolic (congestive) heart failure; I25.2 Old myocardial infarction; C54.1 Malignant neoplasm of endometrium; E11.9 Type 2 diabetes mellitus without complications; D63.8 Anemia in other chronic diseases classified elsewhere; E03.9 Hypothyroidism, unspecified; E66.01 Morbid (severe) obesity due to excess calories; Z68.43 Body mass index [BMI] 50.0-59.9, adult; Z95.1 Presence of aortocoronary bypass graft; Z88.5 Allergy status to narcotic agent; Z88.8 Allergy status to other drugs, medicaments and biological substances; Z79.890 Hormone replacement therapy; Z79.4 Long term (current) use of insulin; Z79.899 Other long term (current) drug therapy
CPT/HCPCS: 99211

== ENCOUNTER 2023-01-29 09:42 | Emergency (ER) | payer OTHER ==
[~2023-01-29] VITALS: Ht 170.2 cm; Wt 113.4 kg
[2023-01-29 13:09] LABS: Source, Urine Clean Catch
[2023-01-29 13:29] LABS: BASOPHILS PERCENT AUTO 1 % (0-2); EOSINOPHILS ABSOLUTE AUTO 0.27 K/mm3 (0.00-0.68); EOSINOPHILS PERCENT AUTO 3 % (0-6); Hematocrit 29.7 % (33.0-51.0); Hemoglobin 9.1 g/dL (11.5-16.0); IMMATURE GRAN ABSOLUTE AUTO 0.04 K/mm3 (0.00-0.10); IMMATURE GRAN PERCENT AUTO 0 % (0-1); LYMPHOCYTES ABSOLUTE AUTO 2.68 K/mm3 (0.84-5.20); LYMPHOCYTES PERCENT AUTO 29 % (21-46); MONOCYTES ABSOLUTE AUTO 0.61 K/mm3 (0.16-1.47); MONOCYTES PERCENT AUTO 7 % (4-13); Mean Corpuscular HGB 23.7 pg (26.0-34.0); Mean Corpuscular HGB Conc 30.6 g/dL (31.5-36.5); Mean Corpuscular Volume 77 fL (80-100); Mean Platelet Volume 10.4 fL (9.1-12.4); NEUTROPHILS ABSOLUTE AUTO 5.66 K/mm3 (1.96-9.15); NEUTROPHILS PERCENT AUTO 61 % (41-73); Platelet Count 343 K/mm3 (150-400); RDW Coefficient Variation 17.1 % (11.7-14.2); RDW Standard Deviation 47.3 fL (35.1-46.3); Red Blood Cell Count 3.84 M/mm3 (3.80-5.20); White Blood Cell Count 9.36 K/mm3 (4.00-11.30)
[2023-01-29 13:43] LABS: Appearance, Urine Hazy (Clear); Bilirubin, Urine Neg (Neg); Blood, Urine 5+ (Neg); Glucose Qualitative, Urine Neg (Neg); Ketones, Urine Neg (Neg); Leukocyte Esterase, Urine 3+ (Neg); Nitrite, Urine Neg (Neg); Protein, Urine 3+ (Neg); Specific Gravity, Urine 1.015 (1.003-1.022); Urobilinogen, Urine NORM (Normal)
[2023-01-29 13:47] LABS: Albumin, Blood 3.1 g/dL (3.4-5.0); Albumin/Globulin Ratio 0.7 (0.8-1.8); Bilirubin, Total 0.2 mg/dL (0.1-1.0); Bun/Creatinine Ratio 24.7 (12.0-20.0); Calcium, Blood 8.7 mg/dL (8.5-10.1); Creatinine, Blood 1.58 mg/dL (0.40-1.00); Globulin, Blood 4.3 g/dL (2.2-4.0); Potassium, Blood 4.3 mmol/L (3.5-5.5); Total Protein, Blood 7.4 g/dL (6.4-8.2)
[2023-01-29 14:05] LABS: Color, Urine Pale Yellow (P-Yellow)
[2023-01-29 14:06] LABS: Red Blood Cells, Urine TNTC /hpf (0-2); Squamous Epithelial Cells Mod /hpf (Few); White Blood Cells, Urine 25-50 /hpf (0-5)
[2023-01-29 14:07] LABS: Amorphous Light (0-Heavy); Bacteria Many /hpf; Mucus Light (0-Heavy); Transitional Epithelial Cells Rare /hpf (0-Rare)
[2023-01-29 16:48] VITALS: BP 136/74
[2023-01-29 17:00] VITALS: BP 125/67
[2023-01-29 17:13] VITALS: BP 127/87
--- NOTE | 2023-01-29 17:20 | NUR ---
PT VERBALIZE D/C INSTRUCTIONS. MEDIPORT FLUSHED WITH HEPARINIZED SALINE AND DEACCESSED. PT TOLERATED WELL. PT GETTING DRESSED AND SPOUSE WAITING OUTSIDE. PT TO BE WHEELED OUT TO .
== END 2023-01-29 16:03 | disposition home or self-care (01) ==
LOC: ER 09:42
PROVIDERS: Student in an Organized Health Care Education/Training Program
DX: N99.528 Other complication of incontinent external stoma of urinary tract (principal); N13.30 Unspecified hydronephrosis; N17.9 Acute kidney failure, unspecified; C54.1 Malignant neoplasm of endometrium; E11.9 Type 2 diabetes mellitus without complications; I25.2 Old myocardial infarction; I50.32 Chronic diastolic (congestive) heart failure; Z95.1 Presence of aortocoronary bypass graft; Z79.899 Other long term (current) drug therapy; Z79.4 Long term (current) use of insulin; Z88.8 Allergy status to other drugs, medicaments and biological substances; Z88.5 Allergy status to narcotic agent; Z88.2 Allergy status to sulfonamides; Z79.01 Long term (current) use of anticoagulants; Z86.718 Personal history of other venous thrombosis and embolism; Z86.711 Personal history of pulmonary embolism; Z87.440 Personal history of urinary (tract) infections
CPT/HCPCS: 50435; 74177; 80053; 81001; 85025; 87077; 87086; 87186; 96361; 96374-59; 99152; 99284-25; C1729; C1769; J1170; J1642; J2250; J3010; J7030; J7050; Q9967

== ENCOUNTER 2023-02-02 00:28 | Day surgery (SDC) | payer OTHER ==
[2023-02-02 15:44] VITALS: BP 173/82
[2023-02-02] MEDS ORDERED: Amoxicillin875 MG PO (16:07)
== END 2023-02-02 15:52 | disposition home or self-care (01) ==
LOC: ATC 00:28
DX: N13.30 Unspecified hydronephrosis (principal); I25.2 Old myocardial infarction; E03.9 Hypothyroidism, unspecified; C54.1 Malignant neoplasm of endometrium; E11.9 Type 2 diabetes mellitus without complications; E66.01 Morbid (severe) obesity due to excess calories; I50.32 Chronic diastolic (congestive) heart failure; Z88.2 Allergy status to sulfonamides; Z88.8 Allergy status to other drugs, medicaments and biological substances; Z79.899 Other long term (current) drug therapy
CPT/HCPCS: 99211

== ENCOUNTER 2023-02-05 04:09 | Day surgery (SDC) | payer OTHER ==
[~2023-02-05 04:09] MED LIST changes: +Amoxicillin875 MG PO
[2023-02-05 15:30] VITALS: BP 131/84
== END 2023-02-05 15:38 | disposition home or self-care (01) ==
LOC: ATC 04:09
DX: N13.30 Unspecified hydronephrosis (principal); E11.9 Type 2 diabetes mellitus without complications; I25.2 Old myocardial infarction; I50.32 Chronic diastolic (congestive) heart failure; E03.9 Hypothyroidism, unspecified; C54.1 Malignant neoplasm of endometrium; E66.01 Morbid (severe) obesity due to excess calories; Z68.43 Body mass index [BMI] 50.0-59.9, adult
CPT/HCPCS: 99211

== ENCOUNTER 2023-02-08 04:45 | Day surgery (SDC) | payer OTHER ==
[2023-02-08 09:45] VITALS: BP 149/69
== END 2023-02-08 09:57 | disposition home or self-care (01) ==
LOC: ATC 04:45
DX: N13.30 Unspecified hydronephrosis (principal); E11.9 Type 2 diabetes mellitus without complications; I25.2 Old myocardial infarction; I50.32 Chronic diastolic (congestive) heart failure; E03.9 Hypothyroidism, unspecified; Z72.0 Tobacco use; Z88.2 Allergy status to sulfonamides; C54.1 Malignant neoplasm of endometrium
CPT/HCPCS: 99212

== ENCOUNTER 2023-02-12 14:49 | Day surgery (SDC) | payer OTHER ==
[2023-02-12 14:53] VITALS: BP 155/70
[2023-02-12] MEDS ORDERED: NITR100CA PO (16:06)
== END 2023-02-12 15:07 | disposition home or self-care (01) ==
LOC: ATC 14:49
DX: Z43.6 Encounter for attention to other artificial openings of urinary tract (principal); N13.30 Unspecified hydronephrosis; E66.01 Morbid (severe) obesity due to excess calories; C54.1 Malignant neoplasm of endometrium; I50.32 Chronic diastolic (congestive) heart failure; E11.9 Type 2 diabetes mellitus without complications; E03.9 Hypothyroidism, unspecified; I25.2 Old myocardial infarction; Z95.1 Presence of aortocoronary bypass graft; Z88.2 Allergy status to sulfonamides; Z88.8 Allergy status to other drugs, medicaments and biological substances; Z79.4 Long term (current) use of insulin; Z79.899 Other long term (current) drug therapy
CPT/HCPCS: 99212

== ENCOUNTER 2023-02-17 02:45 | Day surgery (SDC) | payer OTHER ==
[2023-02-17 14:45] VITALS: BP 127/86
[2023-02-17] MEDS ORDERED: Nitrofurantoin100 M1 PO (16:53)
== END 2023-02-17 14:48 | disposition home or self-care (01) ==
LOC: ATC 02:45
DX: Z43.6 Encounter for attention to other artificial openings of urinary tract (principal); N13.30 Unspecified hydronephrosis; Z86.19 Personal history of other infectious and parasitic diseases; C54.1 Malignant neoplasm of endometrium; D63.8 Anemia in other chronic diseases classified elsewhere; I50.32 Chronic diastolic (congestive) heart failure; E11.9 Type 2 diabetes mellitus without complications; E03.9 Hypothyroidism, unspecified; I25.2 Old myocardial infarction; E66.01 Morbid (severe) obesity due to excess calories; Z68.43 Body mass index [BMI] 50.0-59.9, adult; Z86.718 Personal history of other venous thrombosis and embolism; Z86.711 Personal history of pulmonary embolism; Z88.5 Allergy status to narcotic agent; Z88.2 Allergy status to sulfonamides; Z88.8 Allergy status to other drugs, medicaments and biological substances; Z79.4 Long term (current) use of insulin; Z79.890 Hormone replacement therapy; Z79.899 Other long term (current) drug therapy
CPT/HCPCS: 99211

== ENCOUNTER 2023-02-20 03:12 | Day surgery (SDC) | payer OTHER ==
[~2023-02-20 03:12] MED LIST changes: +Nitrofurantoin100 M1 PO
[2023-02-20 14:35] VITALS: BP 147/68
== END 2023-02-20 14:46 | disposition home or self-care (01) ==
LOC: ATC 03:12
DX: N13.30 Unspecified hydronephrosis (principal); A41.9 Sepsis, unspecified organism; E11.9 Type 2 diabetes mellitus without complications; I25.2 Old myocardial infarction; I50.32 Chronic diastolic (congestive) heart failure; E03.9 Hypothyroidism, unspecified; Z88.2 Allergy status to sulfonamides; Z88.8 Allergy status to other drugs, medicaments and biological substances; Z79.899 Other long term (current) drug therapy; Z79.4 Long term (current) use of insulin; E66.01 Morbid (severe) obesity due to excess calories
CPT/HCPCS: 99211

== ENCOUNTER 2023-02-22 20:38 | Inpatient (IN) | payer OTHER ==
[~2023-02-22] VITALS: Ht 170.2 cm; Wt 167.5 kg
[2023-02-22 22:32] LABS: Source, Urine Urostomy Bag
[2023-02-22 22:34] LABS: BASOPHILS ABSOLUTE AUTO 0.05 K/mm3 (0.00-0.23); BASOPHILS PERCENT AUTO 1 % (0-2); EOSINOPHILS PERCENT AUTO 1 % (0-6); Hematocrit 29.6 % (33.0-51.0); Hemoglobin 9.2 g/dL (11.5-16.0); IMMATURE GRAN ABSOLUTE AUTO 0.16 K/mm3 (0.00-0.10); IMMATURE GRAN PERCENT AUTO 2 % (0-1); LYMPHOCYTES ABSOLUTE AUTO 1.46 K/mm3 (0.84-5.20); LYMPHOCYTES PERCENT AUTO 17 % (21-46); MONOCYTES ABSOLUTE AUTO 0.63 K/mm3 (0.16-1.47); MONOCYTES PERCENT AUTO 7 % (4-13); Mean Corpuscular HGB 23.6 pg (26.0-34.0); Mean Corpuscular HGB Conc 31.1 g/dL (31.5-36.5); Mean Corpuscular Volume 76 fL (80-100); NEUTROPHILS ABSOLUTE AUTO 6.38 K/mm3 (1.96-9.15); NEUTROPHILS PERCENT AUTO 73 % (41-73); NRBC ABSOLUTE 0.02 K/mm3 (0.00-0.02); NRBC Auto 0.2 /100 WBC (0.0-0.2); Platelet Count 343 K/mm3 (150-400); RDW Coefficient Variation 16.2 % (11.7-14.2); RDW Standard Deviation 43.8 fL (35.1-46.3); White Blood Cell Count 8.78 K/mm3 (4.00-11.30)
[2023-02-22 22:53] LABS: Albumin, Blood 2.8 g/dL (3.4-5.0); Albumin/Globulin Ratio 0.7 (0.8-1.8); Bilirubin, Total 0.2 mg/dL (0.1-1.0); Calcium, Blood 8.4 mg/dL (8.5-10.1); Globulin, Blood 4.3 g/dL (2.2-4.0); Potassium, Blood 4.3 mmol/L (3.5-5.5); Total Protein, Blood 7.1 g/dL (6.4-8.2)
[2023-02-22 22:55] LABS: Bilirubin, Urine Neg (Neg); Blood, Urine 5+ (Neg); Glucose Qualitative, Urine Neg (Neg); Ketones, Urine Neg (Neg); Leukocyte Esterase, Urine 3+ (Neg); Nitrite, Urine Neg (Neg); Protein, Urine 3+ (Neg); Urobilinogen, Urine NORM (Normal)
[2023-02-22 23:04] LABS: Appearance, Urine Cloudy (Clear); Color, Urine Yellow (P-Yellow)
[2023-02-22 23:05] LABS: Amorphous Heavy (0-Heavy); Bacteria Mod /hpf; Red Blood Cells, Urine TNTC /hpf (0-2); Squamous Epithelial Cells Rare /hpf (Few); White Blood Cells, Urine 25-50 /hpf (0-5)
[2023-02-23 00:14] LABS: Influenza A, PCR NEGATIVE (NEGATIVE); Influenza B, PCR NEGATIVE (NEGATIVE); Resp Syncytial Virus, PCR NEGATIVE (NEGATIVE); SARS-Cov-2 (COVID-19) PCR, MMC NEGATIVE (NEGATIVE)
[2023-02-23] MEDS ORDERED: AMLODIPINE BESYL5 MG PO (01:30)
[2023-02-23] MEDS ORDERED: CONSTULOSE10 GM/155 PO (01:31)
[2023-02-23 07:33] LABS: BASOPHILS ABSOLUTE AUTO 0.03 K/mm3 (0.00-0.23); BASOPHILS PERCENT AUTO 0 % (0-2); EOSINOPHILS ABSOLUTE AUTO 0.07 K/mm3 (0.00-0.68); EOSINOPHILS PERCENT AUTO 1 % (0-6); Hematocrit 26.6 % (33.0-51.0); Hemoglobin 8.3 g/dL (11.5-16.0); IMMATURE GRAN ABSOLUTE AUTO 0.13 K/mm3 (0.00-0.10); IMMATURE GRAN PERCENT AUTO 2 % (0-1); LYMPHOCYTES ABSOLUTE AUTO 2.09 K/mm3 (0.84-5.20); LYMPHOCYTES PERCENT AUTO 26 % (21-46); MONOCYTES ABSOLUTE AUTO 0.81 K/mm3 (0.16-1.47); MONOCYTES PERCENT AUTO 10 % (4-13); Mean Corpuscular HGB 23.9 pg (26.0-34.0); Mean Corpuscular HGB Conc 31.2 g/dL (31.5-36.5); Mean Corpuscular Volume 76 fL (80-100); Mean Platelet Volume 9.9 fL (9.1-12.4); NEUTROPHILS ABSOLUTE AUTO 4.99 K/mm3 (1.96-9.15); NEUTROPHILS PERCENT AUTO 61 % (41-73); Platelet Count 288 K/mm3 (150-400); RDW Coefficient Variation 16.1 % (11.7-14.2); RDW Standard Deviation 44.1 fL (35.1-46.3); Red Blood Cell Count 3.48 M/mm3 (3.80-5.20); White Blood Cell Count 8.12 K/mm3 (4.00-11.30)
[2023-02-23 07:48] VITALS: BP 150/71
[2023-02-23 08:04] LABS: Bun/Creatinine Ratio 16.9 (12.0-20.0); Calcium, Blood 8.1 mg/dL (8.5-10.1); Creatinine, Blood 0.89 mg/dL (0.40-1.00); Potassium, Blood 4.1 mmol/L (3.5-5.5)
--- NOTE | 2023-02-23 09:04 | NUR ---
SHIFT SUMMARY NOC. PT ARRIVED FROM ER TO SURGICAL ROOM 209 AT 0410. VSS. PT ABLE TO AMBULATE TO BED WITH SBA. PT MEDICATED FOR NAUSEA X1, DENIES VOMITING. PT DENIES SOB/CP. PT HAS AN ACCESSED MEDIPORT IN HER RIGHT UPPER CHEST. PT RESTED WITH EYES CLOSED AND CALL LIGHT IN REACH.
--- NOTE | 2023-02-23 13:02 | NUR ---
Spiritual care visit conducted. Patient is lying in bed and alert. We have an extensive conversation about the ups and downs of going through therapies and and their side effects. We discuss and dying and her absolute resolve to live while she is alive and as long as she is managing symptoms with a degree of success she wants ever medication, technology or therapy available to fight and to live another day. We also discuss the emotional and mental aspects of living in her body. We discuss the power of how we frame things and the advantages of having her sanjuana. She speaks about her foster dtr Kaye, who lives in [place] but with whom she talks to daily. I provide therapeutic listening, emotional support, gentle drug and alcohol counsellor and prayer. Patient responded well and showed signs of increased peace. I will continue to remain available to patient and family. ans sjhowed signs of
[2023-02-23 14:17] VITALS: BP 156/94
--- NOTE | 2023-02-23 18:51 | NUR ---
SHIFT SUMMARY S/P FEVER WITH SEPSIS, A/OX4, VSS, TOLERATING PO, AMBULATING INDEPENDENTLY IN THE ROOM. WOUND ON L LATERAL FOOT NEAR PREVIOUSLY AMPUTATED TOE DRAINING AND WAS DRESSED WITH A MEDIPORE THEN CHANGED 1X TODAY, MD AWARE. PT HAS VOICED CONCERN RELATING TO THE WOUND ON HER FOOT STATING SHE HAS A HX OF MRSA, MD UPDATED WITH NO ADDITIONAL ORDERS AT THIS TIME. NEPHROSTOMY DRAINING INTO COLLECTION BAG, PT REPORTS IT HAS BEEN IN PLACE SINCE . NO ACUTE EVENTS THIS SHIFT, CALL LIGHT IN REACH.
[2023-02-23 19:18] VITALS: BP 110/78
--- NOTE | 2023-02-24 04:00 | NUR ---
SHIFT SUMMARY NO ACUTE CHANGES. PT COMPLAINS OF LEFT FOOT PAIN AND SWELLING. DRESSING TO LEFT FOOT REMAINS CDI. PEDAL PULSES PRESENT AND STRONG. ENCOURAGING ELEVATION ON PILLOWS. ORAL OXYCODONE FOR PAIN MANAGEMENT. PT INDEP EMPTYING NEPHROSTOMY BAG. ATTENDS CHANGED PRN FOR URINARY INCONTINENCE. IVF INFUSING PER ORDERS. PT INDEP IN ROOM. VSS. USES CALL LIGHT APPROPRIATELY.
[2023-02-24 04:29] VITALS: BP 146/59
[2023-02-24 07:14] VITALS: BP 141/63
[2023-02-24 14:37] VITALS: BP 143/68
--- NOTE | 2023-02-24 18:47 | NUR ---
SHIFT SUMMARY S/P SEPSIS, A/OX4, VSS, TOLERATING PO, INDEPENDENT IN THE ROOM, PODIETRY CONSULTED AND ASSESSED HER WOUND ON HER FOOT (SEE CONSULT NOTE), PAIN MANAGED PER EMAR. PT BECAME NAUSEATED AFTER STARTING ANCEF ORDERED TO START TODAY, MD UPDATED AND CHANGED BACK TO ROCEPHIN. NO OTHER EVENTS THIS SHIFT, CALL LIGHT IN REACH.
[2023-02-24 19:25] VITALS: BP 171/74
[2023-02-24 22:07] LABS: HEMOGLOBIN A1C 11.1 % (4.8-5.6)
[2023-02-25 04:08] VITALS: BP 149/76
--- NOTE | 2023-02-25 04:40 | NUR ---
SHIFT SUMMARY NO ACUTE CHANGES THIS SHIFT. DRESSING TO LEFT FOOT REMAINS CDI. PT REPORTS MINIMAL PAIN. 2 OXYCODONE FOR CHRONIC PAIN MANAGEMENT. IV ABX PER ORDERS. INDEP TO RESTROOM. EMPTIES NEPHROSTOMY INDEP. HAS RESTED WELL T/O NOC. USES CALL LIGHT APPROPRIATELY.
[2023-02-25 05:18] LABS: BASOPHILS ABSOLUTE AUTO 0.05 K/mm3 (0.00-0.23); BASOPHILS PERCENT AUTO 1 % (0-2); EOSINOPHILS ABSOLUTE AUTO 0.17 K/mm3 (0.00-0.68); EOSINOPHILS PERCENT AUTO 2 % (0-6); Hematocrit 23.6 % (33.0-51.0); Hemoglobin 7.5 g/dL (11.5-16.0); IMMATURE GRAN ABSOLUTE AUTO 0.08 K/mm3 (0.00-0.10); IMMATURE GRAN PERCENT AUTO 1 % (0-1); LYMPHOCYTES PERCENT AUTO 31 % (21-46); MONOCYTES ABSOLUTE AUTO 0.59 K/mm3 (0.16-1.47); MONOCYTES PERCENT AUTO 8 % (4-13); Mean Corpuscular HGB Conc 31.8 g/dL (31.5-36.5); Mean Corpuscular Volume 75 fL (80-100); Mean Platelet Volume 10.2 fL (9.1-12.4); NEUTROPHILS ABSOLUTE AUTO 4.09 K/mm3 (1.96-9.15); NEUTROPHILS PERCENT AUTO 57 % (41-73); Platelet Count 278 K/mm3 (150-400); RDW Standard Deviation 43.8 fL (35.1-46.3); Red Blood Cell Count 3.13 M/mm3 (3.80-5.20); White Blood Cell Count 7.18 K/mm3 (4.00-11.30)
[2023-02-25 05:52] LABS: Bun/Creatinine Ratio 17.5 (12.0-20.0); Calcium, Blood 8.5 mg/dL (8.5-10.1); Creatinine, Blood 0.86 mg/dL (0.40-1.00); Potassium, Blood 3.5 mmol/L (3.5-5.5)
[2023-02-25 07:09] VITALS: BP 146/74
[2023-02-25] MEDS ORDERED: AMLO5 PO (10:39)
[2023-02-25] MEDS ORDERED: CLIN300 PO (10:41)
[2023-02-25] MEDS ORDERED: LINE600 PO (10:42)
[2023-02-25] MEDS ORDERED: VISBIOME 112.51 EACH PO (10:43)
--- NOTE | 2023-02-25 14:32 | NUR ---
PATIENT TO BE DISCHARGED, PODIATRY ROUNDED, NEW BANDAGE TO LEFT FOOT, FOLLOW UP WITH WOUND CARE ALREADY SET UP, DEACCESSED MEDIPORT, PATIENT TOLERATED WITH EASE. DISCHARGE INSTRUCTIONS TO PATIENT AND SPOUSE, BOTH STATED UNDERSTANDING AND DENIED FURTHER QUESTIONS
--- NOTE | 2023-02-25 15:08 | NUR ---
Spiritual care visit conducted. Patient is sitting on the EOB and alert. Spouse, Ramos is bedside. Patient tells me that they yoana D/C home and are in the process of gathering her belongings. Ramos tells me again about his belief in the pegan [place] gods and about the patient's Gnosticist beliefs and how they co-exist together. Lora voices her excitement about going home and about and appreciation for the care received. I provide blessings as they go.
== END 2023-02-25 15:15 | disposition home or self-care (01) | DRG 872 ==
LOC: ER 20:38 → MEDS 02-23 02:51 → SURS 02-23 02:51
PROVIDERS: Emergency Medicine; Internal Medicine; Student in an Organized Health Care Education/Training Program; ADMIT Internal Medicine
PROC: 3E03329 Introduction of Other Anti-infective into Peripheral Vein, Percutaneous Approach (ICD-10-PCS; principal; 2023-02-23)
PROC: 0HDNXZZ Extraction of Left Foot Skin, External Approach (ICD-10-PCS; 2023-02-24)
DX: A41.9 Sepsis, unspecified organism (principal); I50.32 Chronic diastolic (congestive) heart failure; Z68.43 Body mass index [BMI] 50.0-59.9, adult; L02.612 Cutaneous abscess of left foot; C54.1 Malignant neoplasm of endometrium; E11.40 Type 2 diabetes mellitus with diabetic neuropathy, unspecified; I89.0 Lymphedema, not elsewhere classified; I11.0 Hypertensive heart disease with heart failure; E03.9 Hypothyroidism, unspecified; E66.01 Morbid (severe) obesity due to excess calories; Z93.6 Other artificial openings of urinary tract status; Z11.52 Encounter for screening for COVID-19; Z79.4 Long term (current) use of insulin; Z86.718 Personal history of other venous thrombosis and embolism; Z86.711 Personal history of pulmonary embolism; Z79.01 Long term (current) use of anticoagulants; Z86.14 Personal history of Methicillin resistant Staphylococcus aureus infection; I25.2 Old myocardial infarction; Z95.1 Presence of aortocoronary bypass graft; Z79.890 Hormone replacement therapy; Z87.440 Personal history of urinary (tract) infections
CPT/HCPCS: 0241U; 36415; 71045; 80048; 80053; 81001; 82947; 83036; 83605; 83690; 84145; 85025; 87040; 87086; 96361; 96365; 96375; 96376; 99284-25; A9270; J0690; J0696; J1170; J1642; J1650; J1815; J2405; J7030; Q2036

== ENCOUNTER 2023-02-27 02:05 | Day surgery (SDC) | payer OTHER ==
[~2023-02-27 02:05] MED LIST changes: +AMLO5 PO; +AMLODIPINE BESYL5 MG PO; +CLIN300 PO; +CONSTULOSE10 GM/155 PO
[2023-02-27 15:40] VITALS: BP 145/95
== END 2023-02-27 16:00 | disposition home or self-care (01) ==
LOC: ATC 02:05
DX: N13.30 Unspecified hydronephrosis (principal); Z72.0 Tobacco use; Z88.2 Allergy status to sulfonamides; Z88.5 Allergy status to narcotic agent; E11.9 Type 2 diabetes mellitus without complications; I50.32 Chronic diastolic (congestive) heart failure; E66.01 Morbid (severe) obesity due to excess calories; Z68.43 Body mass index [BMI] 50.0-59.9, adult
CPT/HCPCS: 99211

== ENCOUNTER 2023-03-03 03:35 | Day surgery (SDC) | payer OTHER ==
[2023-03-03 15:30] VITALS: BP 182/97
== END 2023-03-03 15:40 | disposition home or self-care (01) ==
LOC: ATC 03:35
DX: N13.30 Unspecified hydronephrosis (principal); I50.32 Chronic diastolic (congestive) heart failure; E11.9 Type 2 diabetes mellitus without complications; E03.9 Hypothyroidism, unspecified; E66.01 Morbid (severe) obesity due to excess calories; I25.2 Old myocardial infarction; Z86.718 Personal history of other venous thrombosis and embolism; Z86.711 Personal history of pulmonary embolism; Z95.1 Presence of aortocoronary bypass graft; Z88.8 Allergy status to other drugs, medicaments and biological substances; Z88.5 Allergy status to narcotic agent; Z88.2 Allergy status to sulfonamides; Z79.4 Long term (current) use of insulin; Z79.890 Hormone replacement therapy; Z79.899 Other long term (current) drug therapy; Z68.43 Body mass index [BMI] 50.0-59.9, adult
CPT/HCPCS: 99211

== ENCOUNTER 2023-03-05 00:06 | Day surgery (SDC) | payer OTHER ==
[2023-03-05 12:00] VITALS: BP 179/83
== END 2023-03-05 12:00 | disposition home or self-care (01) ==
LOC: ATC 00:06
DX: Z43.6 Encounter for attention to other artificial openings of urinary tract (principal); N13.30 Unspecified hydronephrosis; A41.9 Sepsis, unspecified organism; C54.1 Malignant neoplasm of endometrium; I25.2 Old myocardial infarction; I50.32 Chronic diastolic (congestive) heart failure; E03.9 Hypothyroidism, unspecified; E11.9 Type 2 diabetes mellitus without complications; E66.01 Morbid (severe) obesity due to excess calories; Z95.1 Presence of aortocoronary bypass graft; Z88.2 Allergy status to sulfonamides; Z88.8 Allergy status to other drugs, medicaments and biological substances; Z79.4 Long term (current) use of insulin; Z79.899 Other long term (current) drug therapy
CPT/HCPCS: 99211

== ENCOUNTER 2023-03-05 02:09 | Day surgery (SDC) | payer OTHER | END 2023-03-05 23:00 | disposition home or self-care (01) | LOC: WOUND 02:09 | DX: E11.621 Type 2 diabetes mellitus with foot ulcer (principal); L97.529 Non-pressure chronic ulcer of other part of left foot with unspecified severity; Z86.31 Personal history of diabetic foot ulcer; Z88.1 Allergy status to other antibiotic agents; Z88.5 Allergy status to narcotic agent; Z88.8 Allergy status to other drugs, medicaments and biological substances | CPT/HCPCS: G0463 ==

== ENCOUNTER 2023-03-10 02:28 | Day surgery (SDC) | payer OTHER ==
[2023-03-10 15:00] VITALS: BP 139/87
== END 2023-03-10 15:08 | disposition home or self-care (01) ==
LOC: ATC 02:28
DX: Z43.6 Encounter for attention to other artificial openings of urinary tract (principal); N13.30 Unspecified hydronephrosis; E66.01 Morbid (severe) obesity due to excess calories; C54.1 Malignant neoplasm of endometrium; I50.32 Chronic diastolic (congestive) heart failure; I25.2 Old myocardial infarction; E03.9 Hypothyroidism, unspecified; E11.9 Type 2 diabetes mellitus without complications; Z95.1 Presence of aortocoronary bypass graft; Z88.2 Allergy status to sulfonamides; Z88.5 Allergy status to narcotic agent; Z88.8 Allergy status to other drugs, medicaments and biological substances; Z79.4 Long term (current) use of insulin; Z79.899 Other long term (current) drug therapy
CPT/HCPCS: 99211

== ENCOUNTER 2023-03-13 04:00 | Day surgery (SDC) | payer OTHER | END 2023-03-14 00:05 | disposition home or self-care (01) | LOC: WOUND 04:00 | DX: E11.621 Type 2 diabetes mellitus with foot ulcer (principal); L97.522 Non-pressure chronic ulcer of other part of left foot with fat layer exposed; I87.2 Venous insufficiency (chronic) (peripheral); E11.65 Type 2 diabetes mellitus with hyperglycemia; Z79.01 Long term (current) use of anticoagulants; C54.1 Malignant neoplasm of endometrium | CPT/HCPCS: G0463 ==

== ENCOUNTER 2023-03-16 02:41 | Day surgery (SDC) | payer OTHER ==
[2023-03-16 14:21] VITALS: BP 153/76
== END 2023-03-16 14:33 | disposition home or self-care (01) ==
LOC: ATC 02:41
DX: Z43.6 Encounter for attention to other artificial openings of urinary tract (principal); N13.30 Unspecified hydronephrosis; A41.9 Sepsis, unspecified organism; C54.1 Malignant neoplasm of endometrium; E11.9 Type 2 diabetes mellitus without complications; I25.2 Old myocardial infarction; E03.9 Hypothyroidism, unspecified; I50.32 Chronic diastolic (congestive) heart failure; E66.01 Morbid (severe) obesity due to excess calories; Z79.899 Other long term (current) drug therapy; Z79.4 Long term (current) use of insulin; Z88.2 Allergy status to sulfonamides; Z88.5 Allergy status to narcotic agent; Z88.8 Allergy status to other drugs, medicaments and biological substances; Z95.1 Presence of aortocoronary bypass graft
CPT/HCPCS: 99211

== ENCOUNTER → 2023-03-16 | Outpatient (CLI) | payer OTHER ==
[2023-03-16 15:49] LABS: Source, Urine Voided
[2023-03-16 16:34] LABS: Appearance, Urine Bloody (Clear); Bilirubin, Urine Neg (Neg); Blood, Urine 5+ (Neg); Color, Urine Red (P-Yellow); Glucose Qualitative, Urine 2+ (Neg); Ketones, Urine 1+ (Neg); Leukocyte Esterase, Urine 3+ (Neg); Nitrite, Urine Neg (Neg); Protein, Urine 4+ (Neg); Urobilinogen, Urine NORM (Normal); pH, Urine 6.5 (5.0-8.0)
[2023-03-16 16:48] LABS: Red Blood Cells, Urine TNTC /hpf (0-2); White Blood Cells, Urine TNTC /hpf (0-5)
[2023-03-16 16:49] LABS: Bacteria Many /hpf; Granular Casts 0-2 /lpf (0); Squamous Epithelial Cells Few /hpf (Few); Transitional Epithelial Cells Few /hpf (0-Rare)
== END | disposition home or self-care (01) ==
LOC: LAB SHORT 15:47
PROVIDERS: Physician Assistant
DX: N39.0 Urinary tract infection, site not specified (principal); R10.2 Pelvic and perineal pain
CPT/HCPCS: 81001; 87077; 87086; 87186

== ENCOUNTER 2023-03-20 01:27 | Day surgery (SDC) | payer OTHER | END 2023-03-20 22:54 | disposition home or self-care (01) | LOC: WOUND 01:27 | DX: E11.621 Type 2 diabetes mellitus with foot ulcer (principal); L97.522 Non-pressure chronic ulcer of other part of left foot with fat layer exposed; E11.65 Type 2 diabetes mellitus with hyperglycemia; C54.1 Malignant neoplasm of endometrium; Z86.31 Personal history of diabetic foot ulcer | CPT/HCPCS: G0463 ==

== ENCOUNTER 2023-03-24 01:39 | Day surgery (SDC) | payer OTHER ==
--- NOTE | 2023-03-19 14:23 | NUR ---
PATIENT CALLED AND CANCELLED
[2023-03-24 16:48] VITALS: BP 143/77
[2023-03-24] MEDS ORDERED: Nitrofurantoin100 M1 PO (16:51)
== END 2023-03-24 16:52 | disposition home or self-care (01) ==
LOC: ATC 01:39
DX: N13.30 Unspecified hydronephrosis (principal); E11.9 Type 2 diabetes mellitus without complications; I25.2 Old myocardial infarction; I50.32 Chronic diastolic (congestive) heart failure; E03.9 Hypothyroidism, unspecified; Z88.5 Allergy status to narcotic agent; Z88.2 Allergy status to sulfonamides; E66.01 Morbid (severe) obesity due to excess calories; Z68.43 Body mass index [BMI] 50.0-59.9, adult
CPT/HCPCS: 99211

== ENCOUNTER 2023-03-25 00:24 | Inpatient (IN) | payer OTHER ==
[~2023-03-25] VITALS: Ht 170.2 cm; Wt 165.4 kg
[2023-03-25] MEDS ORDERED: NS 1,000 ML IV SCH ×2 (01:15→03:55)
[2023-03-25 01:16] LABS: BASOPHILS ABSOLUTE AUTO 0.03 K/mm3 (0.00-0.23); BASOPHILS PERCENT AUTO 1 % (0-2); EOSINOPHILS ABSOLUTE AUTO 0.19 K/mm3 (0.00-0.68); EOSINOPHILS PERCENT AUTO 4 % (0-6); Hematocrit 25.4 % (33.0-51.0); IMMATURE GRAN ABSOLUTE AUTO 0.03 K/mm3 (0.00-0.10); IMMATURE GRAN PERCENT AUTO 1 % (0-1); LYMPHOCYTES ABSOLUTE AUTO 1.79 K/mm3 (0.84-5.20); LYMPHOCYTES PERCENT AUTO 41 % (21-46); MONOCYTES ABSOLUTE AUTO 0.54 K/mm3 (0.16-1.47); MONOCYTES PERCENT AUTO 12 % (4-13); Mean Corpuscular HGB 23.3 pg (26.0-34.0); Mean Corpuscular HGB Conc 31.5 g/dL (31.5-36.5); Mean Corpuscular Volume 74 fL (80-100); Mean Platelet Volume 9.8 fL (9.1-12.4); NEUTROPHILS ABSOLUTE AUTO 1.79 K/mm3 (1.96-9.15); NEUTROPHILS PERCENT AUTO 41 % (41-73); Platelet Count 376 K/mm3 (150-400); RDW Coefficient Variation 16.6 % (11.7-14.2); Red Blood Cell Count 3.44 M/mm3 (3.80-5.20); White Blood Cell Count 4.37 K/mm3 (4.00-11.30)
[2023-03-25 01:36] LABS: Source, Urine Clean Catch
[2023-03-25 01:37] LABS: Magnesium, Blood 1.5 mg/dL (1.6-2.4); Thyroid Stimulating Hormone 6.38 uIU/mL (0.360-4.800)
[2023-03-25 01:38] LABS: Albumin, Blood 2.8 g/dL (3.4-5.0); Albumin/Globulin Ratio 0.7 (0.8-1.8); Bilirubin, Total 0.2 mg/dL (0.1-1.0); Bun/Creatinine Ratio 22.5 (12.0-20.0); Calcium, Blood 8.5 mg/dL (8.5-10.1); Creatinine, Blood 1.02 mg/dL (0.40-1.00); Globulin, Blood 4.1 g/dL (2.2-4.0); Potassium, Blood 3.9 mmol/L (3.5-5.5); Total Protein, Blood 6.9 g/dL (6.4-8.2)
[2023-03-25 01:40] LABS: Bilirubin, Urine Neg (Neg); Blood, Urine 5+ (Neg); Glucose Qualitative, Urine 3+ (Neg); Ketones, Urine Neg (Neg); Leukocyte Esterase, Urine 3+ (Neg); Nitrite, Urine Neg (Neg); Protein, Urine 3+ (Neg); Specific Gravity, Urine 1.005 (1.003-1.022); Urobilinogen, Urine NORM (Normal)
[2023-03-25 01:56] LABS: Appearance, Urine Hazy (Clear); Color, Urine Yellow (P-Yellow)
[2023-03-25 01:58] LABS: Bacteria Many /hpf; Red Blood Cells, Urine TNTC /hpf (0-2); Squamous Epithelial Cells Not Seen /hpf (Few); White Blood Cells, Urine TNTC /hpf (0-5)
[2023-03-25 02:04] LABS: Influenza A, PCR NEGATIVE (NEGATIVE); Influenza B, PCR NEGATIVE (NEGATIVE); Resp Syncytial Virus, PCR NEGATIVE (NEGATIVE); SARS-Cov-2 (COVID-19) PCR, MMC NEGATIVE (NEGATIVE)
[2023-03-25] MEDS ORDERED: Magnesium Sulf 2 GM/Water 50ML 50 ML IV ONE (02:05)
[2023-03-25] MEDS ORDERED: FentaNYL Citrate 50 MCG/ML 2 ML Injection IV ONE (02:45)
[2023-03-25] MEDS ORDERED: Clindamycin HCl 150 MG Cap PO ONE (02:50)
[2023-03-25] MEDS ORDERED: Ondansetron HCl 2 MG / ML 2ML Vial IV ONE (02:55)
[2023-03-25] MEDS ORDERED: Acetaminophen 325 MG TABLET PO PRN (03:30)
[2023-03-25] MEDS ORDERED: FentaNYL Citrate 50 MCG/ML 2 ML Injection IV PRN (03:30)
[2023-03-25] MEDS ORDERED: FLU VACC QS2023-24(6MOS UP)/PF 60 MCG/0.5 ML SYRINGE IM ONE (03:35)
[2023-03-25] MEDS ORDERED: Ondansetron HCl 2 MG / ML 2ML Vial IV PRN (03:35)
[2023-03-25] MEDS ORDERED: Docusate Sodium 100 MG Cap PO SCH (04:00)
[2023-03-25] MEDS ORDERED: OxyCODONE HCL 5 MG TAB PO PRN (04:00)
[2023-03-25] MEDS ORDERED: Polyethylene Glycol 3350 17 gm PO PRN (04:00)
[2023-03-25] MEDS ORDERED: Vancomycin HCL 2,500 MG in NS 250 ML IV ONE (04:20)
[2023-03-25] MEDS ORDERED: Aztreonam 1,000 MG in NS 50 ML IV SCH (04:30)
[2023-03-25 04:48] VITALS: BP 153/101
--- NOTE | 2023-03-25 06:10 | NUR ---
ADMIT ER ADMIT FOR SEPSIS R/T UTI. PT ALERT, ORIENTED, AMBULATORY. REPORTS LOWER BACK PAIN. FENTANYL + ROXICODONE GIVEN AND KPAD TO LOWER BACK FOR COMFORT. IVF + ABX INFUSING PER ORDERS. PT REPORTS CONSTANT NAUSEA. NO EMESIS AT THIS TIME. MEDIPORT ACCESSED IN ER. PT INDEPENDENTLY MANAGES R NEPHROSTOMY AND IS INDEP TO THE BATHROOM TO VOID. ORIENTED TO ROOM AND CALL LIGHT.
[2023-03-25] MEDS ORDERED: Mag Sulfate 1 GM/D5% 100ML 100 ML IV STA (06:56)
[2023-03-25 07:22] VITALS: BP 120/60
[2023-03-25] MEDS ORDERED: Insulin Human Lispro 100 Units/ML 3ML Syringe SC SCH (07:30)
[2023-03-25] MEDS ORDERED: Lactobacil 2-S.Thermo-Bifido 1 1 Cap PO SCH (09:00)
[2023-03-25 15:40] VITALS: BP 156/70
--- NOTE | 2023-03-25 17:06 | NUR ---
SUMMARY NO ACUTE CHANGES T/O SHIFT. PT GETS UP INDEPENDENTLY TO RESTROOM. EMPTIES NEPHROSTOMY AND REPORTS AMOUNT TO STAFF. VOIDING IN HAT. MEDICATED PER ORDERS FOR PAIN. PT PLEASANT AND COOPERATIVE. CALL LIGHT IN REACH.
[2023-03-25 19:04] VITALS: BP 147/68
[2023-03-25] MEDS ORDERED: Insulin Glargine-Yfgn 100 Unit/mL 3 ML SYR SC SCH (21:00)
[2023-03-25] MEDS ORDERED: Famotidine 20 MG Tab PO SCH (21:00)
[2023-03-26] MEDS ORDERED: NS 250 ML IV PRN (03:30)
[2023-03-26 03:38] VITALS: BP 158/81
--- NOTE | 2023-03-26 04:26 | NUR ---
SHIFT SUMMARY VSS. PT SLEPT ON AND OFF T/O THE NIGHT. MEDICATED FOR PAIN WITH ORAL AND IV MEDICATION. PT AMBULATING TO THE BATHROOM INDEP TO VOID, MANAGE NEPHROSTOMY, AND CHANGE BRIEF NEEDED. PT TOLLERATING PO INTAKE W/O N/V. MEDICATED FOR NAUSEA ONCE AFTER PT AMBULATED TO BATHROOM, NO EMESIS NOTED. OVERALL NO ACUTE EVENTS NOTED. PLAN TO CONTINUE IV ABX AND PAIN MANAGEMENT
[2023-03-26 05:26] LABS: BASOPHILS ABSOLUTE AUTO 0.04 K/mm3 (0.00-0.23); BASOPHILS PERCENT AUTO 1 % (0-2); EOSINOPHILS ABSOLUTE AUTO 0.24 K/mm3 (0.00-0.68); EOSINOPHILS PERCENT AUTO 5 % (0-6); Hematocrit 23.4 % (33.0-51.0); Hemoglobin 7.3 g/dL (11.5-16.0); IMMATURE GRAN ABSOLUTE AUTO 0.03 K/mm3 (0.00-0.10); IMMATURE GRAN PERCENT AUTO 1 % (0-1); LYMPHOCYTES ABSOLUTE AUTO 1.86 K/mm3 (0.84-5.20); LYMPHOCYTES PERCENT AUTO 37 % (21-46); MONOCYTES ABSOLUTE AUTO 0.63 K/mm3 (0.16-1.47); MONOCYTES PERCENT AUTO 13 % (4-13); Mean Corpuscular HGB 23.5 pg (26.0-34.0); Mean Corpuscular HGB Conc 31.2 g/dL (31.5-36.5); Mean Corpuscular Volume 76 fL (80-100); Mean Platelet Volume 10.2 fL (9.1-12.4); NEUTROPHILS ABSOLUTE AUTO 2.26 K/mm3 (1.96-9.15); NEUTROPHILS PERCENT AUTO 45 % (41-73); Platelet Count 329 K/mm3 (150-400); RDW Coefficient Variation 16.9 % (11.7-14.2); White Blood Cell Count 5.06 K/mm3 (4.00-11.30)
[2023-03-26 05:54] LABS: Anion Gap 4 mmol/L (6-16); Blood Urea Nitrogen 22 mg/dL (8-24); Bun/Creatinine Ratio 21.6 (12.0-20.0); CO2, Blood 25 mmol/L (21-32); Calcium, Blood 8.3 mg/dL (8.5-10.1); Chloride, Blood 109 mmol/L (98-108); Creatinine, Blood 1.02 mg/dL (0.40-1.00); Glomerular Filtration Rate 69 (60-); Glucose, Blood 222 mg/dL (70-99); Potassium, Blood 3.9 mmol/L (3.5-5.5); Sodium, Blood 138 mmol/L (136-145)
[2023-03-26 07:22] VITALS: BP 134/60
[2023-03-26] MEDS ORDERED: Vancomycin HCL 1,500 MG in NS 250 ML IV SCH (09:00)
[2023-03-26] MEDS ORDERED: CEFP200 PO (14:38)
--- NOTE | 2023-03-26 17:11 | NUR ---
summary NO ACUTE CHANGES T/O SHIFT. PT'S NEPHROSTOMY DRESSING AND BAG CHANGED THIS AFTERNOON. PT TOLERATED WELL. VSS. PT DISCHARGING, AWAITING SPOUSE'S ARRIVAL AFTER HE FINISHES WORK. PT DENIES ANY NEEDS AT THIS TIME, CALL LIGHT IN REACH. PT INDEPENDENT IN ROOM.
[2023-03-26 19:15] VITALS: BP 158/79
--- NOTE | 2023-03-26 19:23 | NUR ---
discharging REVIEWED DC INSTRUCTIONS W/PT; VERBALIZED UNDERSTANDING. MEDIPORT DEACCESSED PER PROTOCOL BY REY Byrd RN. PT GETTING DRESSED, SPOUSE BEDSIDE.
== END 2023-03-26 19:25 | disposition home or self-care (01) | DRG 872 ==
LOC: ER 00:24 → SURS 03:29
PROVIDERS: Emergency Medicine; Internal Medicine; ADMIT Internal Medicine
DX: A41.59 Other Gram-negative sepsis (principal); N13.6 Pyonephrosis; E87.20 Acidosis, unspecified; I13.0 Hypertensive heart and chronic kidney disease with heart failure and stage 1 through stage 4 chronic kidney disease, or unspecified chronic kidney disease; I50.32 Chronic diastolic (congestive) heart failure; Z68.43 Body mass index [BMI] 50.0-59.9, adult; R65.20 Severe sepsis without septic shock; E83.42 Hypomagnesemia; E11.69 Type 2 diabetes mellitus with other specified complication; F41.9 Anxiety disorder, unspecified; E03.9 Hypothyroidism, unspecified; C54.1 Malignant neoplasm of endometrium; E66.01 Morbid (severe) obesity due to excess calories; E11.22 Type 2 diabetes mellitus with diabetic chronic kidney disease; N18.30 Chronic kidney disease, stage 3 unspecified; E86.0 Dehydration; D63.1 Anemia in chronic kidney disease; Z95.1 Presence of aortocoronary bypass graft; Z86.718 Personal history of other venous thrombosis and embolism; Z86.711 Personal history of pulmonary embolism; Z79.01 Long term (current) use of anticoagulants; Z79.4 Long term (current) use of insulin; Z79.899 Other long term (current) drug therapy; Z79.890 Hormone replacement therapy; Z79.891 Long term (current) use of opiate analgesic; Z93.6 Other artificial openings of urinary tract status; I25.2 Old myocardial infarction; Z90.710 Acquired absence of both cervix and uterus; Z98.890 Other specified postprocedural states; Z88.8 Allergy status to other drugs, medicaments and biological substances; Z88.2 Allergy status to sulfonamides; Z88.5 Allergy status to narcotic agent; Z11.52 Encounter for screening for COVID-19
CPT/HCPCS: 0241U; 36415; 71046; 74177; 80048; 80053; 80202; 81001; 82947; 83605; 83735; 84100; 84443; 85025; 87077; 87086; 87186; 93005; 93010; 94762; 96365-59; 96366; 96375; 99285-25; A9270; J1642; J1815; J2405; J3010; J3370; J3475; J7030; J7050; Q9967

== ENCOUNTER 2023-03-31 02:05 | Day surgery (SDC) | payer OTHER ==
[2023-03-31 14:39] VITALS: BP 147/91
== END 2023-03-31 14:50 | disposition home or self-care (01) ==
LOC: ATC 02:05
DX: Z43.6 Encounter for attention to other artificial openings of urinary tract (principal); N13.30 Unspecified hydronephrosis; A41.9 Sepsis, unspecified organism; E66.01 Morbid (severe) obesity due to excess calories; I25.2 Old myocardial infarction; I50.32 Chronic diastolic (congestive) heart failure; E11.9 Type 2 diabetes mellitus without complications; E03.9 Hypothyroidism, unspecified
CPT/HCPCS: 99211

== ENCOUNTER 2023-04-02 00:49 | Day surgery (SDC) | payer OTHER ==
[2023-04-02 10:47] VITALS: BP 149/69
== END 2023-04-02 10:58 | disposition home or self-care (01) ==
LOC: ATC 00:49
DX: Z43.6 Encounter for attention to other artificial openings of urinary tract (principal); N13.30 Unspecified hydronephrosis; I25.2 Old myocardial infarction; C54.1 Malignant neoplasm of endometrium; E03.9 Hypothyroidism, unspecified; Z79.4 Long term (current) use of insulin; D63.0 Anemia in neoplastic disease; E66.01 Morbid (severe) obesity due to excess calories; Z72.0 Tobacco use; Z88.5 Allergy status to narcotic agent; Z88.2 Allergy status to sulfonamides; Z88.8 Allergy status to other drugs, medicaments and biological substances; Z68.43 Body mass index [BMI] 50.0-59.9, adult
CPT/HCPCS: 99212

== ENCOUNTER 2023-04-02 01:28 | Day surgery (SDC) | payer OTHER ==
[2023-04-02] MEDS ORDERED: Lidocaine HCl 4% Cream 5 GM ONE (11:38)
== END 2023-04-03 23:08 | disposition home or self-care (01) ==
LOC: WOUND 01:28
PROC: 0JBR0ZZ Excision of Left Foot Subcutaneous Tissue and Fascia, Open Approach (ICD-10-PCS; principal; 2023-04-02)
DX: E11.621 Type 2 diabetes mellitus with foot ulcer (principal); L97.522 Non-pressure chronic ulcer of other part of left foot with fat layer exposed; E11.65 Type 2 diabetes mellitus with hyperglycemia; Z86.31 Personal history of diabetic foot ulcer
CPT/HCPCS: A9270

== ENCOUNTER 2023-04-05 21:59 | Emergency (ER) | payer OTHER ==
[~2023-04-05] VITALS: Ht 170.2 cm; Wt 158.8 kg
[2023-04-06 00:01] LABS: Source, Urine Clean Catch
[2023-04-06 00:07] LABS: Bilirubin, Urine Neg (Neg); Blood, Urine 5+ (Neg); Glucose Qualitative, Urine Neg (Neg); Ketones, Urine Neg (Neg); Leukocyte Esterase, Urine 3+ (Neg); Nitrite, Urine Neg (Neg); Protein, Urine 3+ (Neg); Urobilinogen, Urine NORM (Normal)
[2023-04-06 00:09] LABS: Appearance, Urine Cloudy (Clear); Color, Urine Pale Yellow (P-Yellow)
[2023-04-06 00:17] LABS: BASOPHILS ABSOLUTE AUTO 0.05 K/mm3 (0.00-0.23); BASOPHILS PERCENT AUTO 1 % (0-2); EOSINOPHILS ABSOLUTE AUTO 0.05 K/mm3 (0.00-0.68); EOSINOPHILS PERCENT AUTO 1 % (0-6); Hematocrit 28.2 % (33.0-51.0); Hemoglobin 8.8 g/dL (11.5-16.0); IMMATURE GRAN ABSOLUTE AUTO 0.04 K/mm3 (0.00-0.10); IMMATURE GRAN PERCENT AUTO 0 % (0-1); LYMPHOCYTES ABSOLUTE AUTO 2.13 K/mm3 (0.84-5.20); LYMPHOCYTES PERCENT AUTO 23 % (21-46); MONOCYTES ABSOLUTE AUTO 0.29 K/mm3 (0.16-1.47); MONOCYTES PERCENT AUTO 3 % (4-13); Mean Corpuscular HGB 23.3 pg (26.0-34.0); Mean Corpuscular HGB Conc 31.2 g/dL (31.5-36.5); Mean Corpuscular Volume 75 fL (80-100); Mean Platelet Volume 9.7 fL (9.1-12.4); NEUTROPHILS ABSOLUTE AUTO 6.77 K/mm3 (1.96-9.15); NEUTROPHILS PERCENT AUTO 73 % (41-73); Platelet Count 409 K/mm3 (150-400); RDW Standard Deviation 47.7 fL (35.1-46.3); Red Blood Cell Count 3.77 M/mm3 (3.80-5.20); White Blood Cell Count 9.33 K/mm3 (4.00-11.30)
[2023-04-06 00:18] LABS: Bacteria Many /hpf; Squamous Epithelial Cells Not Seen /hpf (Few); White Blood Cells, Urine TNTC /hpf (0-5)
[2023-04-06] MEDS ORDERED: Droperidol 5 mg/2 ml Vial IV ONE (00:35)
[2023-04-06] MEDS ORDERED: Lactated Ringer's 1,000 ML IV ONE (00:35)
[2023-04-06] MEDS ORDERED: Famotidine 10 MG/ML 2ML Vial IV ONE (00:35)
[2023-04-06] MEDS ORDERED: Methocarbamol 500 MG Tab PO ONE (00:35)
[2023-04-06] MEDS ORDERED: OxyCODONE HCL 10 MG TABCR PO ONE (00:35)
[2023-04-06] MEDS ORDERED: Acetaminophen 500 MG Tab PO ONE (00:35)
[2023-04-06 00:42] LABS: Albumin/Globulin Ratio 0.7 (0.8-1.8); Bilirubin, Total 0.3 mg/dL (0.1-1.0); Bun/Creatinine Ratio 25.2 (12.0-20.0); Calcium, Blood 8.7 mg/dL (8.5-10.1); Creatinine, Blood 1.15 mg/dL (0.40-1.00); Globulin, Blood 4.2 g/dL (2.2-4.0); Potassium, Blood 3.7 mmol/L (3.5-5.5); Total Protein, Blood 7.2 g/dL (6.4-8.2)
[2023-04-06] MEDS ORDERED: Potassium Chlo20 ME1 PO (02:40)
[2023-04-06] MEDS ORDERED: Phenergan25 M1 PO (02:40)
[2023-04-06 02:42] LABS: Influenza A Negative (NEGATIVE); Influenza B Negative (NEGATIVE)
[2023-04-06 02:51] LABS: SARS-Cov-2 (COVID-19) PCR, MMC NEGATIVE (NEGATIVE)
[2023-04-06 04:00] VITALS: BP 139/64
[2023-04-06] MEDS ORDERED: Cefdinir 300 MG Cap PO ONE (04:05)
[2023-04-06] MEDS ORDERED: CEFD300 PO (04:06)
[2023-04-06] MEDS ORDERED: Robaxin750 MG PO (04:07)
== END 2023-04-06 04:19 | disposition home or self-care (01) ==
LOC: ER 21:59
PROVIDERS: Emergency Medicine; Physician Assistant
DX: N39.0 Urinary tract infection, site not specified (principal); Z93.6 Other artificial openings of urinary tract status; Z87.440 Personal history of urinary (tract) infections; Z87.448 Personal history of other diseases of urinary system; I50.32 Chronic diastolic (congestive) heart failure; E11.9 Type 2 diabetes mellitus without complications; Z86.711 Personal history of pulmonary embolism; Z86.718 Personal history of other venous thrombosis and embolism; I25.2 Old myocardial infarction; C54.1 Malignant neoplasm of endometrium; Z79.630 Long term (current) use of alkylating agent; Z95.1 Presence of aortocoronary bypass graft
CPT/HCPCS: 36415; 74177; 80053; 81001; 83605; 84145; 85025; 87040; 87086; 87804; 87807; 96361; 96374; 96375; 99284-25; A9270; J1790; J7120; Q9967; U0002

== ENCOUNTER 2023-04-06 09:10 | Day surgery (SDC) | payer OTHER ==
[~2023-04-06 09:10] MED LIST changes: +Phenergan25 M1 PO; +Potassium Chlo20 ME1 PO; +Robaxin750 MG PO
[2023-04-06] MEDS ORDERED: Lidocaine HCl 4% Cream 5 GM ONE (15:20)
== END 2023-04-06 22:46 | disposition home or self-care (01) ==
LOC: WOUND 09:10
DX: E11.621 Type 2 diabetes mellitus with foot ulcer (principal); L97.522 Non-pressure chronic ulcer of other part of left foot with fat layer exposed; E11.65 Type 2 diabetes mellitus with hyperglycemia
CPT/HCPCS: A9270; G0463

== ENCOUNTER 2023-04-07 03:32 | Day surgery (SDC) | payer OTHER ==
[2023-04-07 10:55] VITALS: BP 156/97
== END 2023-04-07 10:55 | disposition home or self-care (01) ==
LOC: ATC 03:32
DX: Z43.6 Encounter for attention to other artificial openings of urinary tract (principal); N13.30 Unspecified hydronephrosis; C54.1 Malignant neoplasm of endometrium; I25.2 Old myocardial infarction; I50.32 Chronic diastolic (congestive) heart failure; E03.9 Hypothyroidism, unspecified
CPT/HCPCS: 99211

== ENCOUNTER 2023-04-13 11:22 | Day surgery (SDC) | payer OTHER ==
[2023-04-13 13:29] VITALS: BP 137/95
== END 2023-04-13 12:05 | disposition home or self-care (01) ==
LOC: ATC 11:22
DX: Z43.6 Encounter for attention to other artificial openings of urinary tract (principal); N13.30 Unspecified hydronephrosis; E11.9 Type 2 diabetes mellitus without complications; C54.1 Malignant neoplasm of endometrium; I25.2 Old myocardial infarction; E03.9 Hypothyroidism, unspecified; I50.32 Chronic diastolic (congestive) heart failure; Z72.0 Tobacco use; Z88.5 Allergy status to narcotic agent; Z88.2 Allergy status to sulfonamides; Z79.4 Long term (current) use of insulin; E66.01 Morbid (severe) obesity due to excess calories; Z68.43 Body mass index [BMI] 50.0-59.9, adult
CPT/HCPCS: 99211

== ENCOUNTER 2023-06-01 00:25 | Day surgery (SDC) | payer OTHER ==
[~2023-06-01 00:25] MED LIST changes: +AMOCLA875 PO; +Diflucan100 MG PO; +PROBIOTIC1 EA14 PO; +TRODELVY180 MG IV; +ZYPREXA2.5 MG PO
== END 2023-06-01 22:38 | disposition home or self-care (01) ==
LOC: WOUND 00:25
DX: E11.621 Type 2 diabetes mellitus with foot ulcer (principal); L97.522 Non-pressure chronic ulcer of other part of left foot with fat layer exposed; E11.65 Type 2 diabetes mellitus with hyperglycemia; C54.1 Malignant neoplasm of endometrium; Z79.899 Other long term (current) drug therapy

== ENCOUNTER 2023-06-11 04:22 | Day surgery (SDC) | payer OTHER ==
[2023-06-11 11:00] VITALS: BP 125/85
== END 2023-06-11 11:13 | disposition home or self-care (01) ==
LOC: ATC 04:22
DX: Z43.6 Encounter for attention to other artificial openings of urinary tract (principal); C54.1 Malignant neoplasm of endometrium; E66.01 Morbid (severe) obesity due to excess calories; E03.9 Hypothyroidism, unspecified; E11.9 Type 2 diabetes mellitus without complications; I25.2 Old myocardial infarction; I50.32 Chronic diastolic (congestive) heart failure; Z88.8 Allergy status to other drugs, medicaments and biological substances; Z88.2 Allergy status to sulfonamides; Z88.5 Allergy status to narcotic agent; Z79.4 Long term (current) use of insulin
CPT/HCPCS: 99212

== ENCOUNTER 2023-06-15 04:21 | Day surgery (SDC) | payer OTHER | END 2023-06-15 23:16 | disposition home or self-care (01) | LOC: WOUND 04:21 | DX: E11.621 Type 2 diabetes mellitus with foot ulcer (principal); L97.422 Non-pressure chronic ulcer of left heel and midfoot with fat layer exposed; E11.65 Type 2 diabetes mellitus with hyperglycemia; Z86.31 Personal history of diabetic foot ulcer ==

== ENCOUNTER 2023-06-15 04:40 | Day surgery (SDC) | payer OTHER ==
[2023-06-15 11:16] VITALS: BP 113/65
== END 2023-06-15 11:16 | disposition home or self-care (01) ==
LOC: ATC 04:40
DX: Z43.6 Encounter for attention to other artificial openings of urinary tract (principal); A41.9 Sepsis, unspecified organism; C54.1 Malignant neoplasm of endometrium; E11.9 Type 2 diabetes mellitus without complications; I50.32 Chronic diastolic (congestive) heart failure; I25.2 Old myocardial infarction; E03.9 Hypothyroidism, unspecified; E66.9 Obesity, unspecified; Z79.890 Hormone replacement therapy; Z79.899 Other long term (current) drug therapy; Z79.4 Long term (current) use of insulin; Z88.1 Allergy status to other antibiotic agents; Z88.5 Allergy status to narcotic agent; Z88.8 Allergy status to other drugs, medicaments and biological substances
CPT/HCPCS: 99211

== ENCOUNTER 2023-06-18 07:17 | Day surgery (SDC) | payer OTHER ==
[2023-06-18] MEDS ORDERED: NS 1,000 ML IV SCH ×2 (07:20→16:20)
[2023-06-18 16:26] VITALS: BP 139/87
== END 2023-06-18 17:58 | disposition home or self-care (01) ==
LOC: ATC 07:17
DX: Z43.6 Encounter for attention to other artificial openings of urinary tract (principal); C54.1 Malignant neoplasm of endometrium; E11.9 Type 2 diabetes mellitus without complications; Z86.718 Personal history of other venous thrombosis and embolism; Z86.711 Personal history of pulmonary embolism; Z88.1 Allergy status to other antibiotic agents; Z88.5 Allergy status to narcotic agent; Z88.8 Allergy status to other drugs, medicaments and biological substances; Z79.01 Long term (current) use of anticoagulants; Z79.4 Long term (current) use of insulin; Z79.899 Other long term (current) drug therapy
CPT/HCPCS: 96360; 99211; J1642; J7030

== ENCOUNTER 2023-06-22 00:14 | Day surgery (SDC) | payer OTHER ==
[2023-06-22 13:59] VITALS: BP 157/86
[2023-06-22] MEDS ORDERED: FENTANYL1 EA10 TOP (14:10)
== END 2023-06-22 13:51 | disposition home or self-care (01) ==
LOC: ATC 00:14
DX: Z43.6 Encounter for attention to other artificial openings of urinary tract (principal); C54.1 Malignant neoplasm of endometrium; Z88.8 Allergy status to other drugs, medicaments and biological substances; Z88.5 Allergy status to narcotic agent
CPT/HCPCS: 99211

== ENCOUNTER 2023-06-25 03:26 | Day surgery (SDC) | payer OTHER | END 2023-06-25 14:35 | disposition home or self-care (01) | LOC: ATC 03:26 | DX: Z43.6 Encounter for attention to other artificial openings of urinary tract (principal); C54.1 Malignant neoplasm of endometrium; Z88.5 Allergy status to narcotic agent; Z88.1 Allergy status to other antibiotic agents; Z79.4 Long term (current) use of insulin; Z79.899 Other long term (current) drug therapy ==

== ENCOUNTER 2023-06-29 04:26 | Day surgery (SDC) | payer OTHER | END 2023-06-29 22:52 | disposition home or self-care (01) | LOC: WOUND 04:26 | DX: E11.621 Type 2 diabetes mellitus with foot ulcer (principal); Z68.31 Body mass index [BMI] 31.0-31.9, adult; E11.65 Type 2 diabetes mellitus with hyperglycemia ==

== ENCOUNTER 2023-07-27 20:11 | Inpatient (IN) | payer OTHER ==
[~2023-07-27] VITALS: Ht 170.2 cm; Wt 177.6 kg
[~2023-07-27 20:11] MED LIST changes: +FENTANYL1 EA10 TOP
[2023-07-27] MEDS ORDERED: CIPRO250 MG/5 M PO (20:58)
[2023-07-27] MEDS ORDERED: NITROFURANTOIN5012 PO (20:58)
[2023-07-27] MEDS ORDERED: Potassium Chlo20 ME1 PO (20:58)
[2023-07-27 21:06] LABS: BASOPHILS ABSOLUTE AUTO 0.08 K/mm3 (0.00-0.23); BASOPHILS PERCENT AUTO 1 % (0-2); EOSINOPHILS ABSOLUTE AUTO 0.36 K/mm3 (0.00-0.68); EOSINOPHILS PERCENT AUTO 5 % (0-6); Hematocrit 28.7 % (33.0-51.0); Hemoglobin 8.6 g/dL (11.5-16.0); IMMATURE GRAN ABSOLUTE AUTO 0.05 K/mm3 (0.00-0.10); IMMATURE GRAN PERCENT AUTO 1 % (0-1); LYMPHOCYTES ABSOLUTE AUTO 1.94 K/mm3 (0.84-5.20); LYMPHOCYTES PERCENT AUTO 25 % (21-46); MONOCYTES PERCENT AUTO 8 % (4-13); Mean Corpuscular HGB 22.5 pg (26.0-34.0); Mean Corpuscular Volume 75 fL (80-100); Mean Platelet Volume 10.2 fL (9.1-12.4); NEUTROPHILS ABSOLUTE AUTO 4.83 K/mm3 (1.96-9.15); NEUTROPHILS PERCENT AUTO 62 % (41-73); Platelet Count 362 K/mm3 (150-400); RDW Coefficient Variation 19.7 % (11.7-14.2); RDW Standard Deviation 53.3 fL (35.1-46.3); Red Blood Cell Count 3.82 M/mm3 (3.80-5.20); White Blood Cell Count 7.86 K/mm3 (4.00-11.30)
[2023-07-27 21:27] LABS: Albumin, Blood 2.9 g/dL (3.4-5.0); Albumin/Globulin Ratio 0.7 (0.8-1.8); Bilirubin, Total 0.2 mg/dL (0.1-1.0); Bun/Creatinine Ratio 26.6 (12.0-20.0); Calcium, Blood 8.9 mg/dL (8.5-10.1); Creatinine, Blood 0.79 mg/dL (0.40-1.00); Globulin, Blood 4.1 g/dL (2.2-4.0)
[2023-07-27] MEDS ORDERED: Piperacillin/Tazobactam Sod 4.5 GM in NS 100 ML IV ONE (21:35)
[2023-07-27] MEDS ORDERED: NS 1,000 ML IV SCH (22:05)
[2023-07-27] MEDS ORDERED: HYDROmorphone HCl/Pf 1MG SYR IV ONE (22:05)
[2023-07-27] MEDS ORDERED: NS 1,000 ML IV ONE (23:45)
[2023-07-27] MEDS ORDERED: FentaNYL Citrate 50 MCG/ML 2 ML Injection IV PRN (23:55)
[2023-07-27] MEDS ORDERED: Ondansetron HCl 2 MG / ML 2ML Vial IV PRN (23:55)
[2023-07-27] MEDS ORDERED: Acetaminophen 325 MG TABLET PO PRN (23:55)
[2023-07-28] MEDS ORDERED: Enoxaparin 40 MG/0.4 ML SYR SC SCH (00:33)
[2023-07-28 00:42] LABS: Source, Urine Nephrostomy
[2023-07-28] MEDS ORDERED: NS 1,000 ML IV ONE (00:48)
[2023-07-28 00:53] LABS: Bilirubin, Urine Neg (Neg); Blood, Urine 4+ (Neg); Glucose Qualitative, Urine Neg (Neg); Ketones, Urine Neg (Neg); Leukocyte Esterase, Urine 3+ (Neg); Nitrite, Urine Neg (Neg); Protein, Urine 3+ (Neg); Urobilinogen, Urine NORM (Normal)
[2023-07-28 01:32] LABS: Appearance, Urine Cloudy (Clear); Bacteria Mod /hpf; Color, Urine Yellow (P-Yellow); Squamous Epithelial Cells Not Seen /hpf (Few); White Blood Cells, Urine TNTC /hpf (0-5)
[2023-07-28 01:38] VITALS: BP 160/85
[2023-07-28] MEDS ORDERED: HYDROmorphone HCl/Pf 1MG SYR IV PRN ×2 (02:35→14:55)
[2023-07-28] MEDS ORDERED: Ketorolac Tromethamine 15mg Vial IV ONE ×2 (02:35→06:05)
[2023-07-28] MEDS ORDERED: [UNRECOGNIZED DRUG - CODE] PO (02:52)
--- NOTE | 2023-07-28 03:35 | NUR ---
AT 01:17 THIS NURSE RECEIVED A SBAR REPORT FROM ED RN ISIDRO. AT 0130, PT. ARRIVED TO MEDICAL FLOOR ROOM 325 VIA [facility]. PT.'S BY THE BEDSIDE. PT. TRANSFERRED FROM [facility] TO HOSPITAL BED WITHOUT ASSISTANCE. INITIAL ASSESSMENT COMPLETED BY SHANTI ROSALESINSTRUMENTATION AND CONTROLS TECHNICIAN. SKIN ASSESSMENT WAS COMPLETED WITH THIS NURSE AND SHANTI ROSALESINSTRUMENTATION AND CONTROLS TECHNICIAN. PICTURE WAS TAKEN OF AN OPEN AREA ON THE BOTTOM OF THE LEFT FOOT/OUTER EDGE, AND MEPILEX WAS APPLIED TO COVER THE AREA. NO OTHER SKIN ISSUES. PT.C/O 7/10WORST LOW BACK PAIN, AND RIGHT FLANK PAIN. NEW ORDER FOR DIULADID 1MG Q6 IV PRN, AND TORADOL 15MG IV (ONCE) FROM THE HOSPITALIST OVER THE TELEPHONE. PER PT.REPORT: PT HAS A PAIN CONTRACT FOR FETANYL 25MCG PATCH AND THE NEW PATCH WAS APPLIED TODAY. PT.REPORTS HAVING HOME MED ORDER OXYCODONE 10MG Q4HRS PO PRN, WHICH PT.REPORTS EFFECTIVE FOR PAIN. @02:38 BG 234- INSULIN ADMINISTERED ORDERED. NS INFUSING ORDERED 100MLS/HR. PT.HAS NEPHROSTOMY BAGS BILATERALLY. PER GRAIN INSPECTOR'S REPORT; LEFT BAG OUTPUT 325ML, "MILKY LIKE", WHITISH IN COLOR AND FOUL ODOR. RIGHT SIDE NEPHR.BAG- NO OUTPUT. PER PT.REPORT THE NEPHR.BAGS WERE CHANGED >3MONTHS AGO. PT. WAS EDUCATED SALES CORRESPONDENCE CLERK LIGHT, BED AT THE LOWEST POSITION, CALL LIGHT IN REACH. WILL HANDOFF TO THE INCOMING SHIFT NURSE.
[2023-07-28 05:29] LABS: BASOPHILS ABSOLUTE AUTO 0.07 K/mm3 (0.00-0.23); BASOPHILS PERCENT AUTO 1 % (0-2); EOSINOPHILS ABSOLUTE AUTO 0.36 K/mm3 (0.00-0.68); EOSINOPHILS PERCENT AUTO 5 % (0-6); Hematocrit 26.6 % (33.0-51.0); IMMATURE GRAN ABSOLUTE AUTO 0.08 K/mm3 (0.00-0.10); IMMATURE GRAN PERCENT AUTO 1 % (0-1); LYMPHOCYTES ABSOLUTE AUTO 2.17 K/mm3 (0.84-5.20); LYMPHOCYTES PERCENT AUTO 29 % (21-46); MONOCYTES ABSOLUTE AUTO 0.59 K/mm3 (0.16-1.47); MONOCYTES PERCENT AUTO 8 % (4-13); Mean Corpuscular HGB 22.5 pg (26.0-34.0); Mean Corpuscular HGB Conc 30.1 g/dL (31.5-36.5); Mean Corpuscular Volume 75 fL (80-100); Mean Platelet Volume 9.6 fL (9.1-12.4); NEUTROPHILS ABSOLUTE AUTO 4.22 K/mm3 (1.96-9.15); NEUTROPHILS PERCENT AUTO 56 % (41-73); Platelet Count 326 K/mm3 (150-400); RDW Coefficient Variation 19.7 % (11.7-14.2); RDW Standard Deviation 53.1 fL (35.1-46.3); Red Blood Cell Count 3.56 M/mm3 (3.80-5.20); White Blood Cell Count 7.49 K/mm3 (4.00-11.30)
[2023-07-28 05:43] LABS: International Normalized Ratio 0.98; Prothrombin Time Results 10.5 Sec (9.7-11.5)
[2023-07-28] MEDS ORDERED: Piperacillin/Tazobactam Sod 4.5 GM in NS 100 ML IV SCH (06:00)
[2023-07-28 06:01] LABS: Albumin, Blood 2.6 g/dL (3.4-5.0); Albumin/Globulin Ratio 0.7 (0.8-1.8); Bilirubin, Total 0.3 mg/dL (0.1-1.0); Calcium, Blood 8.6 mg/dL (8.5-10.1); Creatinine, Blood 0.82 mg/dL (0.40-1.00); Globulin, Blood 3.8 g/dL (2.2-4.0); Potassium, Blood 3.8 mmol/L (3.5-5.5); Total Protein, Blood 6.4 g/dL (6.4-8.2)
[2023-07-28] MEDS ORDERED: Furosemide 40 MG Tab PO PRN (06:15)
[2023-07-28] MEDS ORDERED: Diazepam 5 MG / ML 2ML SYR IV PRN (06:20)
[2023-07-28] MEDS ORDERED: Lactulose 20 GM/30 ML UDC PO PRN ×2 (06:25)
[2023-07-28] MEDS ORDERED: Levothyroxine Sodium 0.112 MG Tab PO SCH (06:26)
[2023-07-28 07:46] VITALS: BP 126/59
[2023-07-28] MEDS ORDERED: Insulin Glargine-Yfgn 100 Unit/mL 3 ML SYR SC SCH ×2 (09:00)
[2023-07-28] MEDS ORDERED: Enoxaparin 150 MG/ML 1ML SYR SC SCH (09:00)
[2023-07-28] MEDS ORDERED: Metoprolol Tartrate 50 MG Tab PO SCH (09:00)
[2023-07-28] MEDS ORDERED: NS 250 ML IV PRN (11:20)
[2023-07-28] MEDS ORDERED: Phenergan25 M1 PO (14:22)
[2023-07-28] MEDS ORDERED: FEROSUL325 M1 PO (14:23)
[2023-07-28 16:03] VITALS: BP 119/57
[2023-07-28] MEDS ORDERED: Insulin Human Lispro 100 Units/ML 3ML Syringe SC SCH (16:30)
--- NOTE | 2023-07-28 18:12 | NUR ---
SHIFT SUMMARY PT UP TO BATHROOM INDEPENDENTLY. REPORTS VOIDING 2-3 TIMES PER DAY NORMALLY BUT HADN'T VOIDED SINCE DAY BEFORE YESTERDAY WITH ONLY NEPHROSTOMY OUTPUT. KPAD HELPS WITH PAIN. DILAUDID INCREASED TO Q4P DUE TO NOT LASING LONG ENOUGH. MEDICATED FOR NAUSEA ONCE. POOR APPETITE WITH DECLINING 2 MEALS TODAY INCLUDING SUPPLEMENTS BUT EATING DINNER.
[2023-07-28 20:32] VITALS: BP 146/89
[2023-07-28] MEDS ORDERED: Docusate Sodium/Senna 1 Tab PO SCH (21:00)
[2023-07-29 03:00] VITALS: BP 135/70
--- NOTE | 2023-07-29 04:10 | NUR ---
SHIFT SUMMARY ADMITTED FOR PYELEONEPHRITIS. FULL CODE. IV ANTIB RX ARE SCHEDULED. PAIN MEDICATION GIVEN THIS SHIFT. TELEMETRY: NSR @ 80 BPM. ACHS CBG'S - MEDIUM SS. INDEPENDENT IN ROOM. ON RA. BILATERAL NEPHROSTOMYS: PURULENT DRAINAGE FROM RIGHT, LEFT HAS MINIMAL DRAINAGE. ADA DIET. LEFT FOOT ULCER. A&O X4. FENTANYL PATCH APPLIED ON 07/26. HX OF ENDOMETRIAL CANCER W/METS AND CHEMO.
[2023-07-29 05:57] LABS: Hematocrit 26.5 % (33.0-51.0); Hemoglobin 8.1 g/dL (11.5-16.0); Mean Corpuscular HGB 23.1 pg (26.0-34.0); Mean Corpuscular HGB Conc 30.6 g/dL (31.5-36.5); Mean Corpuscular Volume 76 fL (80-100); Mean Platelet Volume 10.2 fL (9.1-12.4); Platelet Count 340 K/mm3 (150-400); RDW Coefficient Variation 19.9 % (11.7-14.2); RDW Standard Deviation 53.3 fL (35.1-46.3); Red Blood Cell Count 3.51 M/mm3 (3.80-5.20); White Blood Cell Count 7.44 K/mm3 (4.00-11.30)
[2023-07-29 06:21] LABS: Albumin, Blood 2.6 g/dL (3.4-5.0); Anion Gap 8 mmol/L (3-11); Blood Urea Nitrogen 22 mg/dL (8-24); Bun/Creatinine Ratio 23.1 (12.0-20.0); CO2, Blood 28 mmol/L (21-32); Calcium, Blood 8.5 mg/dL (8.5-10.1); Chloride, Blood 109 mmol/L (98-108); Creatinine, Blood 0.95 mg/dL (0.40-1.00); Glomerular Filtration Rate 74 (60-); Glucose, Blood 203 mg/dL (70-99); Phosphorus, Blood 4.9 mg/dL (2.5-4.9); Sodium, Blood 141 mmol/L (136-145)
[2023-07-29 08:02] VITALS: BP 136/68
[2023-07-29] MEDS ORDERED: Cholecalciferol 1000 Unit Tablet (=25MCG) PO SCH (09:00)
[2023-07-29 15:35] VITALS: BP 131/66
--- NOTE | 2023-07-29 19:28 | NUR ---
SHIFT SUMMARY: PT IS A/O X 4, IND IN ROOM, PLEASANT AND COOPERATIVE WITH CARE. PT CONTINUES TO HAVE PAIN TO LOWER BACK ALONG WITH NAUSEA. ZOFRAN AND DILAUDID GIVEN AND EFFECTIVELY MANAGED SYMPTOMS. UNABLE TO FLUSH LEFT NEPHROSTOMY TUBE DUE TO THE TUBE NOT HAVING A FLUSH PORT. HAD A VERY SMALL AMOUNT OF URINE OUTPUT ABOUT 10CC WHICH WAS VERY CLOUDY. R NEPHROSTOMY DRAINING CLEAR YELLOW URINE. DRESSING TO L FOOT CHANGED. R MIDDLE TOE CONTINUES TO BE RED WITHOUT DRAINAGE.
[2023-07-29 19:34] VITALS: BP 164/74
[2023-07-29] MEDS ORDERED: OxyCODONE HCL 5 MG TAB PO PRN (23:45)
[2023-07-30 04:17] VITALS: BP 153/78
--- NOTE | 2023-07-30 06:15 | NUR ---
Shift summary: Patient reported IV dilaudid does not last as long as her home dose of oxycodone. call center receptionist PA was notified and IV diluadid was DC'd and home pain medications were ordered. Patient reports, pain is still intense but the oral pain medication lasted longer.
[2023-07-30 07:56] VITALS: BP 141/70
[2023-07-30] MEDS ORDERED: FentaNYL 25 MCG Patch TOP SCH (08:10)
[2023-07-30] MEDS ORDERED: OxyCODONE HCL 5 MG TAB PO PRN (11:40)
[2023-07-30 15:35] VITALS: BP 153/66
[2023-07-30] MEDS ORDERED: NS 1,000 ML IV ONE (16:21)
[2023-07-30] MEDS ORDERED: FentaNYL Citrate 50 MCG/ML 2 ML Injection ONE ×2 (16:24→16:53)
[2023-07-30] MEDS ORDERED: Midazolam HCl 1MG / ML 2ML Vial ONE (16:24)
[2023-07-30 17:14] VITALS: BP 135/60
--- NOTE | 2023-07-30 17:27 | NUR ---
PT ARRIVED BACK FROM PROCEDURE TO REPLACE NEPHROSTOMY TUBES. PT IS A/O X 4, ARRIVED BACK BY WHEELCHAIR. DENIES PAIN/NAUSEA. BEDSIDE REPORT TAKEN. PT ABLE TO SELF TX TO CHAIR.SITES ARE CDI, NO REDNESS OR SWELLING OBSERVED AT BOTH SITES. R NEPHROSTOMY IS DRAINING LIGHT PINK COLORED URINE WITH APPROX 20CC IN BAG, LEFT NRPHROSTOMY TUBE IS DRAINING CLEAR YELLOW LIGHT URINE WITH ABOUT 10CC IN BAG. PROVIDED PT WITH WATER, DIET SODA AND SNACKS PER HER REQUEST. NO S/S OF DISTRESS. VITALS TAKEN. RESTARTED TKO IV THROUGH MEDIPORT.
[2023-07-30 17:42] VITALS: BP 164/86
--- NOTE | 2023-07-30 18:48 | NUR ---
SHIFT SUMMARY: PT IS A/O X4, IND IN ROOM PLEASANT AND COOPERATIVE. PT HAD PROCEDURE THIS AFTERNOON TO REPLACE NEPHROSTOMY TUBES, PT HAS LESS PAIN POST PROCEDURE AND BOTH ARE DRAINING AT THIS TIME. INSERTION SITE DRESSINGS CDI. PT WAS NPO ALL DAY AND ATE DINNER WELL POST PROCEDURE. BLOOD SUGARS MANAGED WITH CURRENT REGIMEN. HELD AM GLARGINE DOSE DUE TO ANTICIPATED PROCEDURE AND NPO STATUS. PT UP TO CHAIR MOST OF THE DAY, ABLE TO SELF REPOSITION.
[2023-07-30 19:16] VITALS: BP 133/61
[2023-07-31 03:18] VITALS: BP 128/61
--- NOTE | 2023-07-31 05:59 | NUR ---
SHIFT SUMMARY: Pt is admitted for pyelonephritis and is a full code. Is alert and able to make needs known. ADLs have been independent. was given PRN pain management x2. Bi lat Nephrostomy tubes have been draining clear yellow urine.
[2023-07-31 07:27] VITALS: BP 160/76
[2023-07-31] MEDS ORDERED: FT SENNA-S 8.61 EACH PO (11:48)
[2023-07-31 15:44] VITALS: BP 158/95
--- NOTE | 2023-07-31 18:27 | NUR ---
DISCHARGE: PT D/C @1815 VIA WHEELCHAIR WITH . MEDICATIONS FAXED TO [facility]. PICKED UP ABX PRIOR TO PT D/C. MEDIPORT DEACCESSED BY SHANTI KAYE W/O COMPLICATIONS. TELE SENT BACK. PT HAS FOLLOW-UP APT WITH PCP NEXT Thursday08/06/23. NO QUESTIONS AT TIME OF D/C.
== END 2023-07-31 18:00 | disposition home or self-care (01) | DRG 698 ==
LOC: ER 20:11 → MEDS 23:52 → ENPENDDIS 07-31 10:47 → MEDS 07-31 18:00
PROVIDERS: Emergency Medicine; Internal Medicine; Student in an Organized Health Care Education/Training Program; ADMIT Internal Medicine
PROC: 3E03329 Introduction of Other Anti-infective into Peripheral Vein, Percutaneous Approach (ICD-10-PCS; 2023-07-27)
PROC: 0T25X0Z Change Drainage Device in Kidney, External Approach (ICD-10-PCS; principal; 2023-07-30)
DX: T83.512A Infection and inflammatory reaction due to nephrostomy catheter, initial encounter (principal); A41.9 Sepsis, unspecified organism; I50.32 Chronic diastolic (congestive) heart failure; N39.0 Urinary tract infection, site not specified; Z68.43 Body mass index [BMI] 50.0-59.9, adult; D84.9 Immunodeficiency, unspecified; D64.9 Anemia, unspecified; E11.9 Type 2 diabetes mellitus without complications; C54.1 Malignant neoplasm of endometrium; I25.10 Atherosclerotic heart disease of native coronary artery without angina pectoris; Y84.6 Urinary catheterization as the cause of abnormal reaction of the patient, or of later complication, without mention of misadventure at the time of the procedure; Z88.8 Allergy status to other drugs, medicaments and biological substances; Z88.2 Allergy status to sulfonamides; Z79.899 Other long term (current) drug therapy; Z79.890 Hormone replacement therapy; Z79.01 Long term (current) use of anticoagulants; Z86.718 Personal history of other venous thrombosis and embolism; Z86.711 Personal history of pulmonary embolism; I25.2 Old myocardial infarction; Z90.710 Acquired absence of both cervix and uterus; Z98.890 Other specified postprocedural states; Z95.1 Presence of aortocoronary bypass graft
CPT/HCPCS: 36415; 76770; 80053; 80069; 81001; 82947; 83605; 83880; 85025; 85027; 85610; 87040; 87086; 96365; 96375; 97116; 97162; 99152; 99284-25; A9270; C1729; C1769; J1170; J1642; J1650; J1815; J1885; J2250; J2405; J2543; J3010; J7030; J7050; Q9967

== ENCOUNTER 2023-08-04 05:27 | Day surgery (SDC) | payer OTHER ==
[~2023-08-04 05:27] MED LIST changes: +CIPRO250 MG/5 M PO; +FEROSUL325 M1 PO; +FT SENNA-S 8.61 EACH PO; +NITROFURANTOIN5012 PO; +[UNRECOGNIZED DRUG - CODE] PO
[2023-08-04 11:45] VITALS: BP 160/99
== END 2023-08-04 11:55 | disposition home or self-care (01) ==
LOC: ATC 05:27
DX: C54.1 Malignant neoplasm of endometrium (principal); Z88.1 Allergy status to other antibiotic agents; Z88.5 Allergy status to narcotic agent; Z79.4 Long term (current) use of insulin; Z79.890 Hormone replacement therapy; Z79.899 Other long term (current) drug therapy
CPT/HCPCS: 99211

== ENCOUNTER 2023-08-11 00:44 | Day surgery (SDC) | payer OTHER ==
[2023-08-11 11:47] VITALS: BP 146/84
== END 2023-08-11 12:14 | disposition home or self-care (01) ==
LOC: ATC 00:44
DX: C54.1 Malignant neoplasm of endometrium (principal); E11.9 Type 2 diabetes mellitus without complications; Z86.718 Personal history of other venous thrombosis and embolism; Z86.711 Personal history of pulmonary embolism; Z88.5 Allergy status to narcotic agent; Z88.1 Allergy status to other antibiotic agents; Z88.8 Allergy status to other drugs, medicaments and biological substances; Z79.01 Long term (current) use of anticoagulants; Z79.4 Long term (current) use of insulin; Z79.899 Other long term (current) drug therapy
CPT/HCPCS: 99212

== ENCOUNTER 2023-08-12 04:03 | Day surgery (SDC) | payer OTHER | END 2023-08-12 22:45 | disposition home or self-care (01) | LOC: WOUND 04:03 | DX: E11.621 Type 2 diabetes mellitus with foot ulcer (principal); L97.422 Non-pressure chronic ulcer of left heel and midfoot with fat layer exposed; C54.1 Malignant neoplasm of endometrium; E11.65 Type 2 diabetes mellitus with hyperglycemia | CPT/HCPCS: A6213; G0463 ==

== ENCOUNTER 2023-08-14 03:09 | Day surgery (SDC) | payer OTHER ==
[2023-08-14 10:40] VITALS: BP 156/79
== END 2023-08-14 10:53 | disposition home or self-care (01) ==
LOC: ATC 03:09
DX: Z43.6 Encounter for attention to other artificial openings of urinary tract (principal); C54.1 Malignant neoplasm of endometrium; Z88.8 Allergy status to other drugs, medicaments and biological substances
CPT/HCPCS: 99212

== ENCOUNTER 2023-08-17 16:40 | Day surgery (SDC) | payer OTHER ==
[2023-08-17 16:43] VITALS: BP 140/103
== END 2023-08-17 16:58 | disposition home or self-care (01) ==
LOC: ATC 16:40
DX: C54.1 Malignant neoplasm of endometrium (principal); Z88.5 Allergy status to narcotic agent; Z88.1 Allergy status to other antibiotic agents; Z88.8 Allergy status to other drugs, medicaments and biological substances; Z79.899 Other long term (current) drug therapy
CPT/HCPCS: 99211

== ENCOUNTER 2023-08-21 02:08 | Day surgery (SDC) | payer OTHER ==
[2023-08-21 11:18] VITALS: BP 109/67
[2023-08-21] MEDS ORDERED: CIPR250 (11:20)
[2023-08-21] MEDS ORDERED: HUMULIN R500 UNIT/1 SC (11:20)
[2023-08-21] MEDS ORDERED: NITR100CA PO (11:21)
== END 2023-08-21 11:28 | disposition home or self-care (01) ==
LOC: ATC 02:08
DX: Z43.6 Encounter for attention to other artificial openings of urinary tract (principal); C54.1 Malignant neoplasm of endometrium; Z86.19 Personal history of other infectious and parasitic diseases; Z88.1 Allergy status to other antibiotic agents; Z88.2 Allergy status to sulfonamides; Z88.5 Allergy status to narcotic agent; Z88.8 Allergy status to other drugs, medicaments and biological substances; Z79.899 Other long term (current) drug therapy
CPT/HCPCS: 99212

== ENCOUNTER 2023-08-21 02:29 | Day surgery (SDC) | payer OTHER ==
[2023-08-21] MEDS ORDERED: CIPR250 (11:20)
[2023-08-21] MEDS ORDERED: HUMULIN R500 UNIT/1 SC (11:20)
[2023-08-21] MEDS ORDERED: NITR100CA PO (11:21)
== END 2023-08-21 23:16 | disposition home or self-care (01) ==
LOC: WOUND 02:29
DX: E11.621 Type 2 diabetes mellitus with foot ulcer (principal); L97.422 Non-pressure chronic ulcer of left heel and midfoot with fat layer exposed; L97.412 Non-pressure chronic ulcer of right heel and midfoot with fat layer exposed; E11.65 Type 2 diabetes mellitus with hyperglycemia; Z86.31 Personal history of diabetic foot ulcer
CPT/HCPCS: A6196; A6213; G0463

== ENCOUNTER 2023-08-24 01:43 | Day surgery (SDC) | payer OTHER ==
[~2023-08-24 01:43] MED LIST changes: +CIPR250; +HUMULIN R500 UNIT/1 SC
[2023-08-24 13:30] VITALS: BP 166/82
== END 2023-08-24 13:55 | disposition home or self-care (01) ==
LOC: ATC 01:43
DX: Z43.6 Encounter for attention to other artificial openings of urinary tract (principal); C54.1 Malignant neoplasm of endometrium
CPT/HCPCS: 99212

== ENCOUNTER 2023-08-24 01:45 | Day surgery (SDC) | payer OTHER | END 2023-08-24 04:38 | disposition home or self-care (01) | LOC: WOUND 01:45 | DX: E11.621 Type 2 diabetes mellitus with foot ulcer (principal); L97.422 Non-pressure chronic ulcer of left heel and midfoot with fat layer exposed; L97.412 Non-pressure chronic ulcer of right heel and midfoot with fat layer exposed; E11.65 Type 2 diabetes mellitus with hyperglycemia ==

== ENCOUNTER 2023-08-26 02:18 | Day surgery (SDC) | payer OTHER | END 2023-08-26 22:59 | disposition home or self-care (01) | LOC: WOUND 02:18 | DX: E11.621 Type 2 diabetes mellitus with foot ulcer (principal); L97.522 Non-pressure chronic ulcer of other part of left foot with fat layer exposed; L97.412 Non-pressure chronic ulcer of right heel and midfoot with fat layer exposed; I82.409 Acute embolism and thrombosis of unspecified deep veins of unspecified lower extremity; C54.1 Malignant neoplasm of endometrium; Z79.01 Long term (current) use of anticoagulants ==

== ENCOUNTER 2023-08-27 02:48 | Day surgery (SDC) | payer OTHER ==
[2023-08-27 12:10] VITALS: BP 151/98
== END 2023-08-27 12:21 | disposition home or self-care (01) ==
LOC: ATC 02:48
DX: Z43.6 Encounter for attention to other artificial openings of urinary tract (principal); C54.1 Malignant neoplasm of endometrium; Z88.1 Allergy status to other antibiotic agents; Z88.2 Allergy status to sulfonamides; Z88.5 Allergy status to narcotic agent; Z88.8 Allergy status to other drugs, medicaments and biological substances
CPT/HCPCS: 99211

== ENCOUNTER 2023-09-02 03:22 | Day surgery (SDC) | payer OTHER ==
[2023-09-02] MEDS ORDERED: Lidocaine HCl 4% Cream 5 GM ONE (13:16)
== END 2023-09-04 22:55 | disposition home or self-care (01) ==
LOC: WOUND 03:22
DX: E11.621 Type 2 diabetes mellitus with foot ulcer (principal); L97.422 Non-pressure chronic ulcer of left heel and midfoot with fat layer exposed; L97.512 Non-pressure chronic ulcer of other part of right foot with fat layer exposed; E11.65 Type 2 diabetes mellitus with hyperglycemia; Z86.31 Personal history of diabetic foot ulcer
CPT/HCPCS: A9270

== ENCOUNTER 2023-09-04 05:33 | Day surgery (SDC) | payer OTHER ==
[~2023-09-04 05:33] MED LIST changes: -CIPR250; +CIPR250 PO
== END 2023-09-04 11:48 | disposition home or self-care (01) ==
LOC: ATC 05:33
DX: Z43.6 Encounter for attention to other artificial openings of urinary tract (principal); C54.1 Malignant neoplasm of endometrium; A41.9 Sepsis, unspecified organism; E11.9 Type 2 diabetes mellitus without complications; Z88.8 Allergy status to other drugs, medicaments and biological substances; Z88.5 Allergy status to narcotic agent; Z79.899 Other long term (current) drug therapy; Z79.4 Long term (current) use of insulin
CPT/HCPCS: 99212

== ENCOUNTER 2023-09-08 03:25 | Day surgery (SDC) | payer OTHER ==
[2023-09-08 10:49] VITALS: BP 160/70
== END 2023-09-08 11:03 | disposition home or self-care (01) ==
LOC: ATC 03:25
DX: Z43.6 Encounter for attention to other artificial openings of urinary tract (principal); C54.1 Malignant neoplasm of endometrium; Z88.1 Allergy status to other antibiotic agents; Z88.2 Allergy status to sulfonamides; Z88.5 Allergy status to narcotic agent; Z88.8 Allergy status to other drugs, medicaments and biological substances
CPT/HCPCS: 99211

== ENCOUNTER 2023-09-09 08:46 | Day surgery (SDC) | payer OTHER ==
[~2023-09-09 08:46] MED LIST changes: +CIPR250; -CIPR250 PO; -Pyridium200 MG PO
== END 2023-09-10 05:21 | disposition home or self-care (01) ==
LOC: WOUND 08:46
DX: E11.621 Type 2 diabetes mellitus with foot ulcer (principal); L97.522 Non-pressure chronic ulcer of other part of left foot with fat layer exposed; E11.65 Type 2 diabetes mellitus with hyperglycemia
CPT/HCPCS: A6213; G0463

== ENCOUNTER → 2023-09-09 | Outpatient (CLI) | payer OTHER, MEDICARE ==
[~2023-09-09] MED LIST changes: +Pyridium200 MG PO
[2023-09-10 16:13] LABS: Source, Urine Clean Catch
[2023-09-10 17:28] LABS: Bacteria Many /hpf; Red Blood Cells, Urine 25-50 /hpf (0-2); Squamous Epithelial Cells Few /hpf (Few); White Blood Cells, Urine TNTC /hpf (0-5)
[2023-09-10 17:29] LABS: Transitional Epithelial Cells Rare /hpf (0-Rare)
== END | disposition home or self-care (01) ==
LOC: LAB SHORT 16:00 → LAB 16:00
PROVIDERS: Nurse Practitioner Family
DX: N39.0 Urinary tract infection, site not specified (principal); R30.0 Dysuria
CPT/HCPCS: 81015; 87077; 87086; 87186

== ENCOUNTER 2023-09-11 01:48 | Day surgery (SDC) | payer OTHER ==
[~2023-09-11 01:48] MED LIST changes: -CIPR250; +CIPR250 PO
[2023-09-11 15:00] VITALS: BP 156/81
[2023-09-11] MEDS ORDERED: Pyridium200 MG PO (16:32)
== END 2023-09-11 15:12 | disposition home or self-care (01) ==
LOC: ATC 01:48
DX: Z43.6 Encounter for attention to other artificial openings of urinary tract (principal); C54.1 Malignant neoplasm of endometrium; Z79.899 Other long term (current) drug therapy; Z88.5 Allergy status to narcotic agent; Z88.8 Allergy status to other drugs, medicaments and biological substances
CPT/HCPCS: 99211

== ENCOUNTER 2023-09-15 01:38 | Day surgery (SDC) | payer OTHER ==
[~2023-09-15 01:38] MED LIST changes: +Pyridium200 MG PO
[2023-09-15 10:49] VITALS: BP 183/89
== END 2023-09-15 11:12 | disposition home or self-care (01) ==
LOC: ATC 01:38
DX: Z43.6 Encounter for attention to other artificial openings of urinary tract (principal); C54.1 Malignant neoplasm of endometrium; Z88.5 Allergy status to narcotic agent; Z88.8 Allergy status to other drugs, medicaments and biological substances; Z79.899 Other long term (current) drug therapy
CPT/HCPCS: 99212

== ENCOUNTER 2023-10-06 03:36 | Day surgery (SDC) | payer OTHER ==
[2023-10-06 11:55] VITALS: BP 129/92
== END 2023-10-06 12:08 | disposition home or self-care (01) ==
LOC: ATC 03:36
DX: Z43.6 Encounter for attention to other artificial openings of urinary tract (principal); C54.1 Malignant neoplasm of endometrium; Z88.1 Allergy status to other antibiotic agents; Z88.2 Allergy status to sulfonamides; Z88.5 Allergy status to narcotic agent; Z88.8 Allergy status to other drugs, medicaments and biological substances; Z79.899 Other long term (current) drug therapy
CPT/HCPCS: 99211

== ENCOUNTER 2023-10-07 05:40 | Day surgery (SDC) | payer OTHER ==
[2023-10-07] MEDS ORDERED: Lidocaine HCl 4% Cream 5 GM ONE (13:08)
== END 2023-10-07 23:12 | disposition home or self-care (01) ==
LOC: WOUND 05:40
DX: E11.621 Type 2 diabetes mellitus with foot ulcer (principal); L97.522 Non-pressure chronic ulcer of other part of left foot with fat layer exposed; E11.65 Type 2 diabetes mellitus with hyperglycemia
CPT/HCPCS: A6213; A9270

== ENCOUNTER 2023-10-09 03:17 | Day surgery (SDC) | payer OTHER ==
[2023-10-09 11:50] VITALS: BP 159/70
== END 2023-10-09 12:06 | disposition home or self-care (01) ==
LOC: ATC 03:17
DX: Z43.6 Encounter for attention to other artificial openings of urinary tract (principal); C54.1 Malignant neoplasm of endometrium; Z79.899 Other long term (current) drug therapy; Z88.5 Allergy status to narcotic agent; Z88.8 Allergy status to other drugs, medicaments and biological substances
CPT/HCPCS: 99212

== ENCOUNTER 2023-10-09 12:23 | Emergency (ER) | payer OTHER ==
[~2023-10-09] VITALS: Ht 170.2 cm; Wt 161.0 kg
[2023-10-09 12:28] VITALS: BP 203/78
== END 2023-10-09 13:17 | disposition left against medical advice (07) ==
LOC: ER 12:23
DX: R10.84 Generalized abdominal pain (principal); T83.89XA Other specified complication of genitourinary prosthetic devices, implants and grafts, initial encounter; Z53.29 Procedure and treatment not carried out because of patient's decision for other reasons
CPT/HCPCS: 99281

== ENCOUNTER 2023-10-12 13:04 | Day surgery (SDC) | payer OTHER ==
[2023-10-12] MEDS ORDERED: AMOCLA500 PO (13:26)
[2023-10-12 13:27] VITALS: BP 184/91
[2023-10-12] MEDS ORDERED: ACET500 PO (14:00)
[2023-10-12] MEDS ORDERED: ALEVAZOL56.7 G1 TOP (14:01)
[2023-10-12] MEDS ORDERED: LOVENOX150 MG/1 M SC (14:03)
[2023-10-12] MEDS ORDERED: COMPAZINE10 MG PO (14:04)
[2023-10-12] MEDS ORDERED: [UNRECOGNIZED DRUG - OTHER] IA (14:08)
== END 2023-10-12 13:48 | disposition home or self-care (01) ==
LOC: ATC 13:04
DX: Z43.6 Encounter for attention to other artificial openings of urinary tract (principal); C54.1 Malignant neoplasm of endometrium; Z88.5 Allergy status to narcotic agent; Z88.8 Allergy status to other drugs, medicaments and biological substances; Z79.899 Other long term (current) drug therapy
CPT/HCPCS: 99212

== ENCOUNTER 2023-10-12 13:18 | Day surgery (SDC) | payer OTHER ==
[2023-10-12] MEDS ORDERED: AMOCLA500 PO (13:26)
[2023-10-12] MEDS ORDERED: Miconazole Nitrate 2% 85 GM PWD ONE (13:57)
[2023-10-12] MEDS ORDERED: ACET500 PO (14:00)
[2023-10-12] MEDS ORDERED: ALEVAZOL56.7 G1 TOP (14:01)
[2023-10-12] MEDS ORDERED: LOVENOX150 MG/1 M SC (14:03)
[2023-10-12] MEDS ORDERED: COMPAZINE10 MG PO (14:04)
[2023-10-12] MEDS ORDERED: [UNRECOGNIZED DRUG - OTHER] IA (14:08)
== END 2023-10-13 22:47 | disposition home or self-care (01) ==
LOC: WOUND 13:18
DX: E11.621 Type 2 diabetes mellitus with foot ulcer (principal); E11.65 Type 2 diabetes mellitus with hyperglycemia; Z86.31 Personal history of diabetic foot ulcer
CPT/HCPCS: A9270; G0463

== ENCOUNTER 2023-10-13 10:16 | Day surgery (SDC) | payer OTHER ==
[~2023-10-13] VITALS: Ht 170.2 cm; Wt 159.0 kg
[~2023-10-13 10:16] MED LIST changes: +ACET500 PO; +ALEVAZOL56.7 G1 TOP; +COMPAZINE10 MG PO; +[UNRECOGNIZED DRUG - OTHER] IA
[2023-10-13 10:33] VITALS: BP 164/92
[2023-10-13] MEDS ORDERED: NS 500 ML IV ONE (10:36)
[2023-10-13 10:45] VITALS: BP 135/76
[2023-10-13 10:48] VITALS: BP 135/76
[2023-10-13] MEDS ORDERED: NS 1,000 ML IV ONE (15:57)
[2023-10-13] MEDS ORDERED: Midazolam HCl 1MG / ML 2ML Vial ONE (15:57)
[2023-10-13] MEDS ORDERED: FentaNYL Citrate 50 MCG/ML 2 ML Injection ONE (15:57)
--- NOTE | 2023-10-13 16:25 | NUR ---
patient returned to recovery room post procedure. A7O, denies pain bilateral neph tubes in place, dressings D&I.no hematoma.
[2023-10-13 16:32] VITALS: BP 145/70
[2023-10-13 16:45] VITALS: BP 137/73
--- NOTE | 2023-10-13 17:20 | NUR ---
patient verbalized understanding of discharge instructions and precautions, no further questions, iv site dce with catheter intact. patient discharged via wheelchair with driving .
== END 2023-10-13 14:00 | disposition home or self-care (01) ==
LOC: MHTC 10:16
DX: Z43.6 Encounter for attention to other artificial openings of urinary tract (principal); N13.5 Crossing vessel and stricture of ureter without hydronephrosis; E11.40 Type 2 diabetes mellitus with diabetic neuropathy, unspecified; I11.0 Hypertensive heart disease with heart failure; I50.9 Heart failure, unspecified; E78.00 Pure hypercholesterolemia, unspecified; E66.9 Obesity, unspecified; Z68.43 Body mass index [BMI] 50.0-59.9, adult; Z88.1 Allergy status to other antibiotic agents; Z88.2 Allergy status to sulfonamides; Z88.5 Allergy status to narcotic agent; Z88.8 Allergy status to other drugs, medicaments and biological substances; Z79.4 Long term (current) use of insulin; Z79.899 Other long term (current) drug therapy
CPT/HCPCS: 99152; C1729; C1769; J2250; J3010; J7030; J7040; Q9967

== ENCOUNTER 2023-10-16 01:14 | Day surgery (SDC) | payer OTHER ==
[2023-10-16 09:35] VITALS: BP 143/88
== END 2023-10-16 09:51 | disposition home or self-care (01) ==
LOC: ATC 01:14
DX: Z43.6 Encounter for attention to other artificial openings of urinary tract (principal); C54.1 Malignant neoplasm of endometrium; Z79.899 Other long term (current) drug therapy; Z88.5 Allergy status to narcotic agent; Z88.8 Allergy status to other drugs, medicaments and biological substances
CPT/HCPCS: 99211

== ENCOUNTER 2023-10-20 01:07 | Day surgery (SDC) | payer OTHER ==
[2023-10-20 10:30] VITALS: BP 165/77
== END 2023-10-20 10:52 | disposition home or self-care (01) ==
LOC: ATC 01:07
DX: Z43.6 Encounter for attention to other artificial openings of urinary tract (principal); C54.1 Malignant neoplasm of endometrium; Z88.5 Allergy status to narcotic agent; Z88.8 Allergy status to other drugs, medicaments and biological substances; Z79.899 Other long term (current) drug therapy
CPT/HCPCS: 99211

== ENCOUNTER 2023-10-20 10:45 | Day surgery (SDC) | payer OTHER ==
[2023-10-20] MEDS ORDERED: Lidocaine HCl 4% Cream 5 GM ONE (15:17)
== END 2023-10-20 23:00 | disposition home or self-care (01) ==
LOC: WOUND 10:45
DX: E11.621 Type 2 diabetes mellitus with foot ulcer (principal); L97.522 Non-pressure chronic ulcer of other part of left foot with fat layer exposed; E11.65 Type 2 diabetes mellitus with hyperglycemia
CPT/HCPCS: A9270; G0463

== ENCOUNTER 2023-10-23 16:15 | Day surgery (SDC) | payer OTHER ==
[2023-10-23 16:40] VITALS: BP 120/91
== END 2023-10-23 16:37 | disposition home or self-care (01) ==
LOC: ATC 16:15
DX: Z43.6 Encounter for attention to other artificial openings of urinary tract (principal); C54.1 Malignant neoplasm of endometrium; Z79.899 Other long term (current) drug therapy; Z88.5 Allergy status to narcotic agent; Z88.8 Allergy status to other drugs, medicaments and biological substances
CPT/HCPCS: 99212

== ENCOUNTER 2023-11-03 03:07 | Day surgery (SDC) | payer OTHER, MEDICARE ==
[~2023-11-03 03:07] MED LIST changes: +CEFTRIAXON1 GM/50 M1 IV
[2023-11-03 14:31] VITALS: BP 164/72
== END 2023-11-03 14:50 | disposition home or self-care (01) ==
LOC: ATC 03:07
DX: Z43.6 Encounter for attention to other artificial openings of urinary tract (principal); C54.1 Malignant neoplasm of endometrium; E11.9 Type 2 diabetes mellitus without complications; Z88.1 Allergy status to other antibiotic agents; Z88.2 Allergy status to sulfonamides; Z88.8 Allergy status to other drugs, medicaments and biological substances; Z88.5 Allergy status to narcotic agent; Z79.4 Long term (current) use of insulin; Z79.01 Long term (current) use of anticoagulants; Z79.899 Other long term (current) drug therapy; Z86.19 Personal history of other infectious and parasitic diseases; Z86.718 Personal history of other venous thrombosis and embolism
CPT/HCPCS: 99212

== ENCOUNTER 2023-11-06 04:51 | Day surgery (SDC) | payer OTHER, MEDICARE | END 2023-11-07 01:41 | disposition home or self-care (01) | LOC: WOUND 04:51 | DX: E11.621 Type 2 diabetes mellitus with foot ulcer (principal); L97.422 Non-pressure chronic ulcer of left heel and midfoot with fat layer exposed; E11.65 Type 2 diabetes mellitus with hyperglycemia; Z86.31 Personal history of diabetic foot ulcer | CPT/HCPCS: A6196; G0463 ==

== ENCOUNTER 2023-11-13 01:19 | Day surgery (SDC) | payer OTHER, MEDICARE ==
[2023-11-13 11:41] VITALS: BP 133/76
== END 2023-11-13 11:59 | disposition home or self-care (01) ==
LOC: ATC 01:19
DX: C54.1 Malignant neoplasm of endometrium (principal); Z86.711 Personal history of pulmonary embolism; Z86.718 Personal history of other venous thrombosis and embolism; Z88.5 Allergy status to narcotic agent; Z88.1 Allergy status to other antibiotic agents; Z88.8 Allergy status to other drugs, medicaments and biological substances; Z79.4 Long term (current) use of insulin; Z79.890 Hormone replacement therapy; Z79.899 Other long term (current) drug therapy
CPT/HCPCS: 99211

== ENCOUNTER 2023-11-13 01:37 | Day surgery (SDC) | payer OTHER, MEDICARE ==
[2023-11-13] MEDS ORDERED: Lidocaine HCl 4% Cream 5 GM ONE (10:59)
== END 2023-11-13 22:55 | disposition home or self-care (01) ==
LOC: WOUND 01:37
DX: E11.621 Type 2 diabetes mellitus with foot ulcer (principal); L97.522 Non-pressure chronic ulcer of other part of left foot with fat layer exposed; E11.40 Type 2 diabetes mellitus with diabetic neuropathy, unspecified
CPT/HCPCS: A9270

== ENCOUNTER 2023-11-17 01:49 | Day surgery (SDC) | payer OTHER, MEDICARE ==
--- NOTE | 2023-11-16 09:26 | NUR ---
PT RESCHEDULED HER APPOINTMENT FOR TOMORROW.
[2023-11-17 08:46] VITALS: BP 158/81
== END 2023-11-17 09:10 | disposition home or self-care (01) ==
LOC: ATC 01:49
DX: C54.1 Malignant neoplasm of endometrium (principal); E11.9 Type 2 diabetes mellitus without complications; Z88.1 Allergy status to other antibiotic agents; Z88.5 Allergy status to narcotic agent; Z88.8 Allergy status to other drugs, medicaments and biological substances; Z79.4 Long term (current) use of insulin; Z79.899 Other long term (current) drug therapy
CPT/HCPCS: 99212

== ENCOUNTER 2023-11-20 03:31 | Day surgery (SDC) | payer OTHER, MEDICARE ==
[2023-11-20] MEDS ORDERED: Lidocaine HCl 4% Cream 5 GM ONE (10:34)
== END 2023-11-21 03:01 | disposition home or self-care (01) ==
LOC: WOUND 03:31
DX: E11.621 Type 2 diabetes mellitus with foot ulcer (principal); L97.522 Non-pressure chronic ulcer of other part of left foot with fat layer exposed
CPT/HCPCS: A9270

== ENCOUNTER 2023-11-20 04:00 | Day surgery (SDC) | payer OTHER, MEDICARE ==
[2023-11-20 11:21] VITALS: BP 163/116
== END 2023-11-20 11:39 | disposition home or self-care (01) ==
LOC: ATC 04:00
DX: Z48.01 Encounter for change or removal of surgical wound dressing (principal); C54.1 Malignant neoplasm of endometrium; E11.9 Type 2 diabetes mellitus without complications; Z93.6 Other artificial openings of urinary tract status; Z79.4 Long term (current) use of insulin; Z79.899 Other long term (current) drug therapy; Z88.5 Allergy status to narcotic agent; Z88.1 Allergy status to other antibiotic agents; Z88.2 Allergy status to sulfonamides; Z88.8 Allergy status to other drugs, medicaments and biological substances; Z87.440 Personal history of urinary (tract) infections; Z86.19 Personal history of other infectious and parasitic diseases; Z90.710 Acquired absence of both cervix and uterus
CPT/HCPCS: 99212

== ENCOUNTER 2023-11-24 03:36 | Day surgery (SDC) | payer OTHER, MEDICARE ==
[2023-11-24 11:45] VITALS: BP 162/88
== END 2023-11-24 12:06 | disposition home or self-care (01) ==
LOC: ATC 03:36
DX: Z43.6 Encounter for attention to other artificial openings of urinary tract (principal); C54.1 Malignant neoplasm of endometrium; E11.9 Type 2 diabetes mellitus without complications; Z79.4 Long term (current) use of insulin; Z79.899 Other long term (current) drug therapy; Z88.2 Allergy status to sulfonamides; Z88.1 Allergy status to other antibiotic agents; Z88.5 Allergy status to narcotic agent; Z88.8 Allergy status to other drugs, medicaments and biological substances; Z86.19 Personal history of other infectious and parasitic diseases; Z86.711 Personal history of pulmonary embolism; Z86.718 Personal history of other venous thrombosis and embolism
CPT/HCPCS: 99212

== ENCOUNTER 2023-11-27 03:25 | Day surgery (SDC) | payer OTHER, MEDICARE ==
[2023-11-27 10:33] VITALS: BP 124/74
== END 2023-11-27 10:50 | disposition home or self-care (01) ==
LOC: ATC 03:25
DX: Z43.6 Encounter for attention to other artificial openings of urinary tract (principal); C54.1 Malignant neoplasm of endometrium; E11.9 Type 2 diabetes mellitus without complications; Z88.5 Allergy status to narcotic agent; Z88.2 Allergy status to sulfonamides; Z88.8 Allergy status to other drugs, medicaments and biological substances; Z79.4 Long term (current) use of insulin; Z79.899 Other long term (current) drug therapy; Z86.19 Personal history of other infectious and parasitic diseases; Z86.718 Personal history of other venous thrombosis and embolism
CPT/HCPCS: 99212

== ENCOUNTER 2023-11-27 03:44 | Day surgery (SDC) | payer OTHER, MEDICARE ==
[2023-11-27] MEDS ORDERED: Lidocaine HCl 4% Cream 5 GM ONE (09:58)
== END 2023-11-28 01:25 | disposition home or self-care (01) ==
LOC: WOUND 03:44
DX: E11.621 Type 2 diabetes mellitus with foot ulcer (principal); L97.522 Non-pressure chronic ulcer of other part of left foot with fat layer exposed; E11.65 Type 2 diabetes mellitus with hyperglycemia; I11.0 Hypertensive heart disease with heart failure; I50.9 Heart failure, unspecified; I25.10 Atherosclerotic heart disease of native coronary artery without angina pectoris; I25.2 Old myocardial infarction
CPT/HCPCS: A9270

== ENCOUNTER 2023-12-01 02:11 | Day surgery (SDC) | payer OTHER, MEDICARE ==
[2023-12-01 10:49] VITALS: BP 137/56
== END 2023-12-01 11:00 | disposition home or self-care (01) ==
LOC: ATC 02:11
DX: Z43.6 Encounter for attention to other artificial openings of urinary tract (principal); C54.1 Malignant neoplasm of endometrium; E11.9 Type 2 diabetes mellitus without complications; Z79.4 Long term (current) use of insulin; Z79.899 Other long term (current) drug therapy; Z88.1 Allergy status to other antibiotic agents; Z88.2 Allergy status to sulfonamides; Z88.5 Allergy status to narcotic agent; Z88.8 Allergy status to other drugs, medicaments and biological substances; Z86.718 Personal history of other venous thrombosis and embolism
CPT/HCPCS: 99212

== ENCOUNTER 2023-12-01 02:40 | Day surgery (SDC) | payer OTHER, MEDICARE ==
[2023-12-01] MEDS ORDERED: Lidocaine HCl 4% Cream 5 GM ONE (10:14)
== END 2023-12-01 23:00 | disposition home or self-care (01) ==
LOC: WOUND 02:40
DX: E11.621 Type 2 diabetes mellitus with foot ulcer (principal); L97.422 Non-pressure chronic ulcer of left heel and midfoot with fat layer exposed; E11.65 Type 2 diabetes mellitus with hyperglycemia; Z86.31 Personal history of diabetic foot ulcer
CPT/HCPCS: 87071; 87075; 87077; 87186; 87205; A9270

== ENCOUNTER 2023-12-04 00:41 | Day surgery (SDC) | payer OTHER, MEDICARE ==
[2023-12-04 11:45] VITALS: BP 139/74
== END 2023-12-04 12:00 | disposition home or self-care (01) ==
LOC: ATC 00:41
DX: Z43.6 Encounter for attention to other artificial openings of urinary tract (principal); C54.1 Malignant neoplasm of endometrium; Z88.5 Allergy status to narcotic agent; Z88.8 Allergy status to other drugs, medicaments and biological substances
CPT/HCPCS: 99212

== ENCOUNTER 2023-12-08 04:46 | Day surgery (SDC) | payer OTHER, MEDICARE ==
[2023-12-08 11:59] VITALS: BP 136/93
== END 2023-12-08 12:00 | disposition home or self-care (01) ==
LOC: ATC 04:46
DX: Z43.6 Encounter for attention to other artificial openings of urinary tract (principal); C54.1 Malignant neoplasm of endometrium; Z88.5 Allergy status to narcotic agent; Z88.8 Allergy status to other drugs, medicaments and biological substances; Z23 Encounter for immunization
CPT/HCPCS: 99212

== ENCOUNTER 2023-12-10 03:35 | Day surgery (SDC) | payer OTHER, MEDICARE ==
[2023-12-10] MEDS ORDERED: Lidocaine HCl 4% Cream 5 GM ONE (07:47)
== END 2023-12-10 23:27 | disposition home or self-care (01) ==
LOC: WOUND 03:35
DX: E11.621 Type 2 diabetes mellitus with foot ulcer (principal); L97.522 Non-pressure chronic ulcer of other part of left foot with fat layer exposed; E11.65 Type 2 diabetes mellitus with hyperglycemia; E11.51 Type 2 diabetes mellitus with diabetic peripheral angiopathy without gangrene; I25.10 Atherosclerotic heart disease of native coronary artery without angina pectoris; I25.2 Old myocardial infarction; Z89.422 Acquired absence of other left toe(s)
CPT/HCPCS: A6214; A9270; G0463

== ENCOUNTER 2023-12-11 02:46 | Day surgery (SDC) | payer OTHER, MEDICARE ==
[2023-12-11 15:20] VITALS: BP 153/69
== END 2023-12-11 15:37 | disposition home or self-care (01) ==
LOC: ATC 02:46
DX: Z43.6 Encounter for attention to other artificial openings of urinary tract (principal); C54.1 Malignant neoplasm of endometrium; Z86.19 Personal history of other infectious and parasitic diseases; Z88.2 Allergy status to sulfonamides; Z88.5 Allergy status to narcotic agent; Z88.8 Allergy status to other drugs, medicaments and biological substances
CPT/HCPCS: 99212

== ENCOUNTER 2023-12-15 01:53 | Day surgery (SDC) | payer OTHER, MEDICARE ==
[2023-12-15 11:31] VITALS: BP 143/75
== END 2023-12-15 11:57 | disposition home or self-care (01) ==
LOC: ATC 01:53
DX: Z43.6 Encounter for attention to other artificial openings of urinary tract (principal); C54.1 Malignant neoplasm of endometrium; E11.9 Type 2 diabetes mellitus without complications; Z79.4 Long term (current) use of insulin; Z79.899 Other long term (current) drug therapy; Z88.1 Allergy status to other antibiotic agents; Z88.2 Allergy status to sulfonamides; Z88.5 Allergy status to narcotic agent; Z86.718 Personal history of other venous thrombosis and embolism
CPT/HCPCS: 99212

== ENCOUNTER 2023-12-18 03:47 | Day surgery (SDC) | payer OTHER, MEDICARE ==
[2023-12-18] MEDS ORDERED: Lidocaine HCl 4% Cream 5 GM ONE (11:24)
== END 2023-12-18 23:59 | disposition home or self-care (01) ==
LOC: WOUND 03:47
DX: E11.621 Type 2 diabetes mellitus with foot ulcer (principal); L97.522 Non-pressure chronic ulcer of other part of left foot with fat layer exposed; L89.621 Pressure ulcer of left heel, stage 1; L89.890 Pressure ulcer of other site, unstageable; E11.65 Type 2 diabetes mellitus with hyperglycemia; E11.51 Type 2 diabetes mellitus with diabetic peripheral angiopathy without gangrene; I25.10 Atherosclerotic heart disease of native coronary artery without angina pectoris; I25.2 Old myocardial infarction; I11.0 Hypertensive heart disease with heart failure; I50.9 Heart failure, unspecified; Z89.422 Acquired absence of other left toe(s)
CPT/HCPCS: A6213; A9270

== ENCOUNTER 2023-12-18 04:25 | Day surgery (SDC) | payer OTHER, MEDICARE ==
[2023-12-18 12:13] VITALS: BP 160/81
== END 2023-12-18 12:21 | disposition home or self-care (01) ==
LOC: ATC 04:25
DX: Z43.6 Encounter for attention to other artificial openings of urinary tract (principal); C54.1 Malignant neoplasm of endometrium; E11.9 Type 2 diabetes mellitus without complications; Z79.4 Long term (current) use of insulin; Z79.899 Other long term (current) drug therapy; Z88.2 Allergy status to sulfonamides; Z88.5 Allergy status to narcotic agent; Z88.8 Allergy status to other drugs, medicaments and biological substances; Z86.718 Personal history of other venous thrombosis and embolism; Z86.19 Personal history of other infectious and parasitic diseases
CPT/HCPCS: 99212

== ENCOUNTER 2023-12-22 03:06 | Day surgery (SDC) | payer OTHER, MEDICARE ==
[2023-12-22 10:53] VITALS: BP 156/82
== END 2023-12-22 10:55 | disposition home or self-care (01) ==
LOC: ATC 03:06
DX: Z43.6 Encounter for attention to other artificial openings of urinary tract (principal); C54.1 Malignant neoplasm of endometrium; Z79.899 Other long term (current) drug therapy; Z88.5 Allergy status to narcotic agent; Z88.8 Allergy status to other drugs, medicaments and biological substances
CPT/HCPCS: 99212

== ENCOUNTER 2023-12-22 03:31 | Day surgery (SDC) | payer OTHER, MEDICARE ==
[2023-12-22] MEDS ORDERED: Lidocaine HCl 4% Cream 5 GM ONE (09:41)
== END 2023-12-22 23:00 | disposition home or self-care (01) ==
LOC: WOUND 03:31
DX: E11.621 Type 2 diabetes mellitus with foot ulcer (principal); L97.422 Non-pressure chronic ulcer of left heel and midfoot with fat layer exposed; L89.621 Pressure ulcer of left heel, stage 1; E11.65 Type 2 diabetes mellitus with hyperglycemia; Z86.31 Personal history of diabetic foot ulcer
CPT/HCPCS: A6196; A6213; A9270

== ENCOUNTER 2023-12-25 03:30 | Day surgery (SDC) | payer OTHER, MEDICARE ==
[2023-12-25 11:45] VITALS: BP 143/78
== END 2023-12-25 11:58 | disposition home or self-care (01) ==
LOC: ATC 03:30
DX: Z43.6 Encounter for attention to other artificial openings of urinary tract (principal); C54.1 Malignant neoplasm of endometrium; Z88.5 Allergy status to narcotic agent; Z88.8 Allergy status to other drugs, medicaments and biological substances
CPT/HCPCS: 99212

== ENCOUNTER 2023-12-29 02:34 | Day surgery (SDC) | payer OTHER, MEDICARE ==
[~2023-12-29 02:34] MED LIST changes: +Ativan1 MG PO; -FENTANYL1 EA10 TOP; +FENTANYL1 EAC7 TOP; -LEVSOD112 PO; +LEVSOD75 PO
[2023-12-29 11:32] VITALS: BP 151/76
[2023-12-30] MEDS ORDERED: [UNRECOGNIZED DRUG - CODE] PO (11:01)
[2023-12-31] MEDS ORDERED: Prilosec Otc20 MG PO (16:44)
[2023-12-31] MEDS ORDERED: [UNRECOGNIZED DRUG - CODE] PO (16:55)
[2023-12-31] MEDS ORDERED: HUMULIN R500 UNIT/1 SC (17:00)
[2023-12-31] MEDS ORDERED: ALBU90OI INH (17:02)
[2023-12-31] MEDS ORDERED: SENN187 PO (17:51)
[2023-12-31] MEDS ORDERED: MIRALAX17 GM PO (17:51)
== END 2023-12-29 11:47 | disposition home or self-care (01) ==
LOC: ATC 02:34
DX: Z43.6 Encounter for attention to other artificial openings of urinary tract (principal); E11.9 Type 2 diabetes mellitus without complications; Z79.4 Long term (current) use of insulin; Z79.899 Other long term (current) drug therapy; Z88.2 Allergy status to sulfonamides; Z88.5 Allergy status to narcotic agent; Z88.8 Allergy status to other drugs, medicaments and biological substances; Z86.718 Personal history of other venous thrombosis and embolism
CPT/HCPCS: 99212

== ENCOUNTER 2024-01-08 00:32 | Day surgery (SDC) | payer OTHER, MEDICARE ==
[~2024-01-08 00:32] MED LIST changes: +ALBU90OI INH; +MIRALAX17 GM PO; +Prilosec Otc20 MG PO; +[UNRECOGNIZED DRUG - CODE] PO
[2024-01-08 11:20] VITALS: BP 139/93
== END 2024-01-08 11:35 | disposition home or self-care (01) ==
LOC: ATC 00:32
DX: Z43.6 Encounter for attention to other artificial openings of urinary tract (principal); E11.9 Type 2 diabetes mellitus without complications; Z79.01 Long term (current) use of anticoagulants; Z88.5 Allergy status to narcotic agent; Z88.1 Allergy status to other antibiotic agents; Z88.8 Allergy status to other drugs, medicaments and biological substances; Z85.42 Personal history of malignant neoplasm of other parts of uterus; Z86.19 Personal history of other infectious and parasitic diseases; Z86.718 Personal history of other venous thrombosis and embolism; Z90.710 Acquired absence of both cervix and uterus
CPT/HCPCS: 99212

== ENCOUNTER 2024-01-12 00:47 | Day surgery (SDC) | payer OTHER, MEDICARE ==
[2024-01-12 16:39] VITALS: BP 142/80
== END 2024-01-12 16:57 | disposition home or self-care (01) ==
LOC: ATC 00:47
DX: Z43.6 Encounter for attention to other artificial openings of urinary tract (principal); C54.1 Malignant neoplasm of endometrium; E11.9 Type 2 diabetes mellitus without complications; Z79.4 Long term (current) use of insulin; Z88.5 Allergy status to narcotic agent; Z88.8 Allergy status to other drugs, medicaments and biological substances
CPT/HCPCS: 99212

== ENCOUNTER 2024-01-19 04:04 | Day surgery (SDC) | payer OTHER, MEDICARE ==
[2024-01-19 09:50] VITALS: BP 130/87
== END 2024-01-19 10:06 | disposition home or self-care (01) ==
LOC: ATC 04:04
DX: Z43.6 Encounter for attention to other artificial openings of urinary tract (principal); C54.1 Malignant neoplasm of endometrium; Z79.899 Other long term (current) drug therapy; Z88.5 Allergy status to narcotic agent; Z88.8 Allergy status to other drugs, medicaments and biological substances
CPT/HCPCS: 99212

== ENCOUNTER 2024-01-22 03:49 | Day surgery (SDC) | payer OTHER, MEDICARE ==
[2024-01-22] MEDS ORDERED: Lidocaine HCl 4% Cream 5 GM ONE (10:36)
[2024-01-22] MEDS ORDERED: Silver Nitr/Potassium Nitrate 1 EA APPL ONE (10:45)
== END 2024-01-22 23:00 | disposition home or self-care (01) ==
LOC: WOUND 03:49
DX: E11.621 Type 2 diabetes mellitus with foot ulcer (principal); L97.522 Non-pressure chronic ulcer of other part of left foot with fat layer exposed; L89.621 Pressure ulcer of left heel, stage 1; Z89.422 Acquired absence of other left toe(s)
CPT/HCPCS: A6213; A9270

== ENCOUNTER 2024-01-22 05:15 | Day surgery (SDC) | payer OTHER, MEDICARE ==
[2024-01-22 11:07] VITALS: BP 158/72
== END 2024-01-22 11:18 | disposition home or self-care (01) ==
LOC: ATC 05:15
DX: Z43.6 Encounter for attention to other artificial openings of urinary tract (principal); C54.1 Malignant neoplasm of endometrium; Z88.5 Allergy status to narcotic agent; Z88.8 Allergy status to other drugs, medicaments and biological substances; Z79.899 Other long term (current) drug therapy
CPT/HCPCS: 99211

== ENCOUNTER 2024-01-27 03:23 | Day surgery (SDC) | payer OTHER, MEDICARE ==
[2024-01-27 09:37] VITALS: BP 151/94
== END 2024-01-27 09:51 | disposition home or self-care (01) ==
LOC: ATC 03:23
DX: Z43.6 Encounter for attention to other artificial openings of urinary tract (principal); C54.1 Malignant neoplasm of endometrium; Z88.5 Allergy status to narcotic agent; Z88.8 Allergy status to other drugs, medicaments and biological substances; Z79.899 Other long term (current) drug therapy
CPT/HCPCS: 99211

== ENCOUNTER 2024-01-29 00:50 | Day surgery (SDC) | payer OTHER, MEDICARE ==
[2024-01-29 11:17] VITALS: BP 133/92
== END 2024-01-29 11:33 | disposition home or self-care (01) ==
LOC: ATC 00:50
DX: Z43.6 Encounter for attention to other artificial openings of urinary tract (principal); C54.1 Malignant neoplasm of endometrium; Z88.5 Allergy status to narcotic agent; Z88.8 Allergy status to other drugs, medicaments and biological substances
CPT/HCPCS: 99211

== ENCOUNTER 2024-01-29 03:36 | Day surgery (SDC) | payer OTHER, MEDICARE | END 2024-01-29 23:00 | disposition home or self-care (01) | LOC: WOUND 03:36 | DX: E11.621 Type 2 diabetes mellitus with foot ulcer (principal); L97.422 Non-pressure chronic ulcer of left heel and midfoot with fat layer exposed; L89.621 Pressure ulcer of left heel, stage 1; Z86.31 Personal history of diabetic foot ulcer | CPT/HCPCS: G0463 ==

== ENCOUNTER 2024-02-02 04:45 | Day surgery (SDC) | payer OTHER, MEDICARE ==
[2024-02-02 07:35] VITALS: BP 156/80
== END 2024-02-02 07:53 | disposition home or self-care (01) ==
LOC: ATC 04:45
DX: Z43.6 Encounter for attention to other artificial openings of urinary tract (principal); C54.1 Malignant neoplasm of endometrium; E11.9 Type 2 diabetes mellitus without complications; Z86.718 Personal history of other venous thrombosis and embolism; Z79.899 Other long term (current) drug therapy; Z88.5 Allergy status to narcotic agent; Z88.8 Allergy status to other drugs, medicaments and biological substances; Z90.710 Acquired absence of both cervix and uterus
CPT/HCPCS: 99211

== ENCOUNTER 2024-02-05 05:58 | Day surgery (SDC) | payer OTHER, MEDICARE ==
[2024-02-05] MEDS ORDERED: Lidocaine HCl 4% Cream 5 GM ONE (10:36)
[2024-02-05] MEDS ORDERED: Silver Nitr/Potassium Nitrate 1 EA APPL ONE (10:46)
== END 2024-02-05 23:00 | disposition home or self-care (01) ==
LOC: WOUND 05:58
DX: E11.621 Type 2 diabetes mellitus with foot ulcer (principal); L97.822 Non-pressure chronic ulcer of other part of left lower leg with fat layer exposed; L89.621 Pressure ulcer of left heel, stage 1; E11.65 Type 2 diabetes mellitus with hyperglycemia
CPT/HCPCS: A6213; A9270

== ENCOUNTER 2024-02-05 06:10 | Day surgery (SDC) | payer OTHER, MEDICARE ==
[2024-02-05 11:35] VITALS: BP 135/70
== END 2024-02-05 11:48 | disposition home or self-care (01) ==
LOC: ATC 06:10
DX: Z43.6 Encounter for attention to other artificial openings of urinary tract (principal); C54.1 Malignant neoplasm of endometrium; Z88.5 Allergy status to narcotic agent; Z88.8 Allergy status to other drugs, medicaments and biological substances
CPT/HCPCS: 99211

== ENCOUNTER 2024-02-09 03:54 | Day surgery (SDC) | payer OTHER, MEDICARE ==
[2024-02-09 14:30] VITALS: BP 137/55
== END 2024-02-09 14:33 | disposition home or self-care (01) ==
LOC: ATC 03:54
DX: Z43.6 Encounter for attention to other artificial openings of urinary tract (principal); C54.1 Malignant neoplasm of endometrium; E11.9 Type 2 diabetes mellitus without complications; Z86.718 Personal history of other venous thrombosis and embolism; Z79.01 Long term (current) use of anticoagulants; Z79.899 Other long term (current) drug therapy; Z88.5 Allergy status to narcotic agent; Z88.2 Allergy status to sulfonamides; Z88.8 Allergy status to other drugs, medicaments and biological substances
CPT/HCPCS: 99211

== ENCOUNTER 2024-02-12 06:49 | Day surgery (SDC) | payer OTHER, MEDICARE ==
[2024-02-12 09:15] VITALS: BP 165/56
== END 2024-02-12 09:15 | disposition home or self-care (01) ==
LOC: ATC 06:49
DX: C54.1 Malignant neoplasm of endometrium (principal); Z88.1 Allergy status to other antibiotic agents; Z88.5 Allergy status to narcotic agent; Z79.899 Other long term (current) drug therapy
CPT/HCPCS: 99211

== ENCOUNTER 2024-02-16 01:08 | Day surgery (SDC) | payer OTHER, MEDICARE ==
[2024-02-16 11:41] VITALS: BP 150/75
== END 2024-02-16 11:58 | disposition home or self-care (01) ==
LOC: ATC 01:08
DX: Z45.2 Encounter for adjustment and management of vascular access device (principal); C54.1 Malignant neoplasm of endometrium; E11.9 Type 2 diabetes mellitus without complications; Z79.01 Long term (current) use of anticoagulants; Z79.4 Long term (current) use of insulin; Z79.899 Other long term (current) drug therapy; Z88.5 Allergy status to narcotic agent; Z88.2 Allergy status to sulfonamides; Z86.711 Personal history of pulmonary embolism; Z86.718 Personal history of other venous thrombosis and embolism
CPT/HCPCS: 99211

== ENCOUNTER 2024-02-19 04:29 | Day surgery (SDC) | payer OTHER, MEDICARE | END 2024-02-19 23:00 | disposition home or self-care (01) | LOC: WOUND 04:29 | DX: E11.621 Type 2 diabetes mellitus with foot ulcer (principal); L97.522 Non-pressure chronic ulcer of other part of left foot with fat layer exposed | CPT/HCPCS: A6213; G0463 ==

== ENCOUNTER 2024-02-19 05:08 | Day surgery (SDC) | payer OTHER, MEDICARE | END 2024-02-19 08:58 | disposition home or self-care (01) | LOC: ATC 05:08 | DX: Z43.6 Encounter for attention to other artificial openings of urinary tract (principal); C54.1 Malignant neoplasm of endometrium; Z88.5 Allergy status to narcotic agent; Z88.8 Allergy status to other drugs, medicaments and biological substances | CPT/HCPCS: 99211 ==

== ENCOUNTER 2024-02-23 07:08 | Day surgery (SDC) | payer OTHER, MEDICARE ==
[2024-02-23 12:05] VITALS: BP 133/76
== END 2024-02-23 12:05 | disposition home or self-care (01) ==
LOC: ATC 07:08
DX: Z43.6 Encounter for attention to other artificial openings of urinary tract (principal); C54.1 Malignant neoplasm of endometrium; Z79.899 Other long term (current) drug therapy; Z88.2 Allergy status to sulfonamides; Z88.5 Allergy status to narcotic agent; Z88.1 Allergy status to other antibiotic agents; Z88.8 Allergy status to other drugs, medicaments and biological substances
CPT/HCPCS: 99211

== ENCOUNTER 2024-02-26 06:09 | Day surgery (SDC) | payer OTHER, MEDICARE | END 2024-02-26 23:00 | disposition home or self-care (01) | LOC: WOUND 06:09 | DX: E11.621 Type 2 diabetes mellitus with foot ulcer (principal); L97.522 Non-pressure chronic ulcer of other part of left foot with fat layer exposed; Z89.422 Acquired absence of other left toe(s) | CPT/HCPCS: A6213 ==

== ENCOUNTER 2024-02-26 07:34 | Day surgery (SDC) | payer OTHER, MEDICARE ==
[2024-02-26 08:30] VITALS: BP 121/82
--- NOTE | 2024-02-26 08:30 | NUR ---
Lora reports she has recently signed paperwork for a DNR code status. Told her to bring in a copy for the chart. She states she will bring a copy in.
== END 2024-02-26 08:48 | disposition home or self-care (01) ==
LOC: ATC 07:34
DX: Z43.6 Encounter for attention to other artificial openings of urinary tract (principal); C54.1 Malignant neoplasm of endometrium; E11.9 Type 2 diabetes mellitus without complications; Z86.19 Personal history of other infectious and parasitic diseases; Z86.718 Personal history of other venous thrombosis and embolism; Z79.01 Long term (current) use of anticoagulants; Z79.4 Long term (current) use of insulin; Z88.5 Allergy status to narcotic agent; Z88.2 Allergy status to sulfonamides; Z88.8 Allergy status to other drugs, medicaments and biological substances
CPT/HCPCS: 99211

== ENCOUNTER 2024-02-29 12:09 | Observation (INO) | payer OTHER, MEDICARE ==
[~2024-02-29] VITALS: Ht 170.2 cm; Wt 156.4 kg
[2024-02-29] MEDS ORDERED: NS 1,000 ML IV SCH (16:15)
[2024-02-29] MEDS ORDERED: HYDROmorphone HCl/Pf 1MG SYR IV ONE (16:25)
[2024-02-29] MEDS ORDERED: Ondansetron HCl 2 MG / ML 2ML Vial IV ONE (16:25)
[2024-02-29 16:59] LABS: BASOPHILS ABSOLUTE AUTO 0.09 K/mm3 (0.00-0.23); BASOPHILS PERCENT AUTO 1 % (0-2); EOSINOPHILS PERCENT AUTO 2 % (0-6); IMMATURE GRAN ABSOLUTE AUTO 0.08 K/mm3 (0.00-0.10); IMMATURE GRAN PERCENT AUTO 1 % (0-1); LYMPHOCYTES ABSOLUTE AUTO 2.47 K/mm3 (0.84-5.20); LYMPHOCYTES PERCENT AUTO 18 % (21-46); MONOCYTES ABSOLUTE AUTO 0.66 K/mm3 (0.16-1.47); MONOCYTES PERCENT AUTO 5 % (4-13); Mean Corpuscular HGB Conc 30.3 g/dL (31.5-36.5); Mean Corpuscular Volume 73 fL (80-100); Mean Platelet Volume 10.1 fL (9.1-12.4); NEUTROPHILS ABSOLUTE AUTO 10.37 K/mm3 (1.96-9.15); NEUTROPHILS PERCENT AUTO 74 % (41-73); Platelet Count 416 K/mm3 (150-400); RDW Coefficient Variation 18.9 % (11.7-14.2); RDW Standard Deviation 48.4 fL (35.1-46.3); Red Blood Cell Count 4.54 M/mm3 (3.80-5.20); White Blood Cell Count 13.97 K/mm3 (4.00-11.30)
[2024-02-29] MEDS ORDERED: Ondansetron HCl 2 MG / ML 2ML Vial IV PRN (17:35)
[2024-02-29] MEDS ORDERED: FLU VACC TS2024-25(6MOS UP)/PF 45 MCG/0.5 ML SYRINGE IM ONE (17:35)
[2024-02-29] MEDS ORDERED: FentaNYL Citrate 50 MCG/ML 2 ML Injection IV PRN (17:40)
[2024-02-29] MEDS ORDERED: LORazepam 1 MG Tab PO PRN (17:40)
[2024-02-29] MEDS ORDERED: Albuterol 2.5 MG/3 ML VIAL INH PRN (17:40)
[2024-02-29] MEDS ORDERED: OxyCODONE HCL 5 MG TAB PO PRN (17:40)
[2024-02-29 17:56] LABS: Albumin, Blood 3.1 g/dL (3.4-5.0); Albumin/Globulin Ratio 0.7 (0.8-1.8); Bilirubin, Total 0.4 mg/dL (0.1-1.0); Bun/Creatinine Ratio 17.7 (12.0-20.0); Calcium, Blood 9.6 mg/dL (8.5-10.1); Creatinine, Blood 0.9 mg/dL (0.40-1.00); Globulin, Blood 4.3 g/dL (2.2-4.0); Total Protein, Blood 7.4 g/dL (6.4-8.2)
[2024-02-29] MEDS ORDERED: Insulin Regular, Human 500 UNIT/ML 3ML SYR SC SCH (18:00)
[2024-02-29] MEDS ORDERED: Insulin Human Lispro 100 Units/ML 3ML Syringe SC SCH (18:00)
[2024-02-29] MEDS ORDERED: CefTRIAXone Sodium 1,000 MG in NS 100 ML IV SCH (18:00)
[2024-02-29] MEDS ORDERED: Metoprolol Tartrate 50 MG Tab PO SCH (21:00)
[2024-02-29] MEDS ORDERED: Lactobacil 2-S.Thermo-Bifido 1 1 Cap PO SCH (21:00)
[2024-02-29] MEDS ORDERED: Enoxaparin 150 MG/ML 1ML SYR SC SCH (21:00)
[2024-02-29 23:22] VITALS: BP 173/67
--- NOTE | 2024-02-29 23:41 | NUR ---
Called hospitalist re: lovenox pt arrived to this floor at 2300 and had a 2100 dose of lovenox due. She has a procedure tomorrow, I called Raul SORIANO asking if it's ok given the procedure to give lovenox tonight and he said yes.
[2024-03-01] MEDS ORDERED: HydrALAZINE HCl 20 MG / ML 1ML Vial IV ONE (00:30)
[2024-03-01] MEDS ORDERED: HYDROmorphone HCl/Pf 1MG SYR IV ONE (00:30)
[2024-03-01 00:52] VITALS: BP 149/92
[2024-03-01] MEDS ORDERED: Levothyroxine Sodium 0.075 MG Tab PO SCH (06:00)
[2024-03-01 06:03] LABS: BASOPHILS ABSOLUTE AUTO 0.05 K/mm3 (0.00-0.23); BASOPHILS PERCENT AUTO 1 % (0-2); EOSINOPHILS ABSOLUTE AUTO 0.21 K/mm3 (0.00-0.68); EOSINOPHILS PERCENT AUTO 2 % (0-6); Hematocrit 28.5 % (33.0-51.0); Hemoglobin 8.9 g/dL (11.5-16.0); IMMATURE GRAN ABSOLUTE AUTO 0.07 K/mm3 (0.00-0.10); IMMATURE GRAN PERCENT AUTO 1 % (0-1); LYMPHOCYTES ABSOLUTE AUTO 2.94 K/mm3 (0.84-5.20); LYMPHOCYTES PERCENT AUTO 27 % (21-46); MONOCYTES PERCENT AUTO 7 % (4-13); Mean Corpuscular HGB 22.7 pg (26.0-34.0); Mean Corpuscular HGB Conc 31.2 g/dL (31.5-36.5); Mean Corpuscular Volume 73 fL (80-100); Mean Platelet Volume 10.1 fL (9.1-12.4); NEUTROPHILS PERCENT AUTO 62 % (41-73); Platelet Count 358 K/mm3 (150-400); RDW Coefficient Variation 19.2 % (11.7-14.2); RDW Standard Deviation 48.4 fL (35.1-46.3); Red Blood Cell Count 3.92 M/mm3 (3.80-5.20); White Blood Cell Count 10.77 K/mm3 (4.00-11.30)
[2024-03-01 06:19] LABS: International Normalized Ratio 1.02; Prothrombin Time Results 10.9 Sec (9.7-11.5)
--- NOTE | 2024-03-01 06:20 | NUR ---
Shift Summary Pt admitted to this unit for hydronephrosis likely related to an obstructed L nephrostomy tube. R nephrostomy tube still has output of kishore urine. Pt has two diabetic foot ulcers on L foot, photos and consent in chart. She has a very painful L flank, I called the hospitalist once for more pain medication and got 1mg Dilauded IV x1 in addition to her ordered pain medications. Pain was between 7-9 t/o the night, pt was able to sleep for a few hours after diluaded. I placed a consult request with Dr. Mathis's answering service, they should be here to see pt this AM. Pt has been NPO since 0000 in anticipation of procedure. Pt is AOx4, 1 sba in the room,
[2024-03-01 06:25] LABS: Albumin, Blood 2.6 g/dL (3.4-5.0); Albumin/Globulin Ratio 0.7 (0.8-1.8); Bilirubin, Total 0.3 mg/dL (0.1-1.0); Bun/Creatinine Ratio 15.8 (12.0-20.0); Calcium, Blood 8.7 mg/dL (8.5-10.1); Creatinine, Blood 1.01 mg/dL (0.40-1.00); Globulin, Blood 3.8 g/dL (2.2-4.0); Total Protein, Blood 6.4 g/dL (6.4-8.2)
[2024-03-01 07:50] VITALS: BP 149/79
[2024-03-01] MEDS ORDERED: Insulin Regular, Human 500 UNIT/ML 3ML SYR SC SCH (09:00)
[2024-03-01] MEDS ORDERED: OxyCODONE HCL 5 MG TAB PO PRN (10:15)
[2024-03-01] MEDS ORDERED: FentaNYL 50 MCG Patch TOP SCH (10:15)
[2024-03-01] MEDS ORDERED: NS 500 ML IV ONE (11:06)
[2024-03-01] MEDS ORDERED: Midazolam HCl 1MG / ML 2ML Vial ONE (11:17)
[2024-03-01] MEDS ORDERED: FentaNYL Citrate 50 MCG/ML 2 ML Injection ONE (11:17)
[2024-03-01] MEDS ORDERED: NS 250 ML IV ONE (11:17)
[2024-03-01] MEDS ORDERED: Ondansetron HCl 2 MG / ML 2ML Vial ONE (11:22)
--- NOTE | 2024-03-01 11:24 | NUR ---
PATIENT LEFT UNIT AT 1115 WITH INTERVENTIONAL RADIOLOGY FOR PROCEDUER.
--- NOTE | 2024-03-01 14:09 | NUR ---
NEW FENTANYL PATCH IN PLACE WHEN PATIENT WENT TO SURGERY TO RIGHT UPPER ARM. PATIENT ARRIVED BACK TO UNIT AND THIS CRIMINALIST WAS GIVING INSULIN TO ARM, NO FENTANYL PATCH IN PLACE. THIS RN AND TE SUTTON RN AND GONZÁLEZ SALEH CHECKED PATIENT/GOWN AND BED. UNABLE TO FIND PATCH. ELMER IN INTERVENTIONAL RADIOLOGY STATES PATIENT VERBALIZED PLACEMENT BUT NO ONE VISUALIZED PRIOR TO SURGERY. PATICRUZ STATES SHE HAD TO BARREL ROLL ONTO TABLE THIS TIME AND THAT THERE WAS A DRAPE PLACED OVER HER ARM. CALL TO DR MORALEZ TO UPDATE AND NEW ORDER OBTAINED FOR ANOTHER PATCH.
[2024-03-01] MEDS ORDERED: FentaNYL 50 MCG Patch TOP ONE (14:15)
[2024-03-01 15:06] VITALS: BP 133/66
[2024-03-01] MEDS ORDERED: Nitrofurantoin100 M1 PO (15:09)
[2024-03-01] MEDS ORDERED: OMEP20ER PO (15:15)
--- NOTE | 2024-03-01 17:24 | NUR ---
Patient is lying in bed and alert and spouse, Pedro is bedside. Chaplain Esposito and I visit with them (Vaibhav speaking with Pedro and I with the patient). Mrs. Barakat tells me about her complicated medical issues and what has happened since her last admission to the hospital. She tells me that about how horrible certain medical issues have been, how terrible the situation that her daughter is in and that she has filled out a POLST. After she tells me these difficult to hear stories she says that her hope and sanjuana remain strong and that she still has some fight left in her. She is tearful after I say a prayer saying later that it is meaningful to her and it encourages her sanjuana even more. We provided therapeutic listening, reinforced helpful attitudes and practices and prayer with good result uplifting both the patient and Pedro. We will continue to remain available.
[2024-03-01] MEDS ORDERED: NS 250 ML IV PRN (18:20)
[2024-03-01 20:07] VITALS: BP 133/62
[2024-03-02 05:12] VITALS: BP 149/59
--- NOTE | 2024-03-02 06:12 | NUR ---
Shift Summary L nephrostomy output is looking better this AM than at the start of the shift. Less sediment. It is still yellow and cloudy with a pungent smell. Pt placed in contact isolation d/t hx of MRSA in the wound and having diabetic foot ulcers. Pt states she is back to her baseline pain of 5-7 which is currently managed to her satisifaction by the ordred medications and fentanyl patch. She slept on and off t/o the night.
[2024-03-02 07:54] VITALS: BP 142/71
[2024-03-02] MEDS ORDERED: VISBIOME 112.51 EACH PO (11:23)
[2024-03-02] MEDS ORDERED: CEPH500 PO (11:24)
[2024-03-02] MEDS ORDERED: Insulin Human Lispro 100 Units/ML 3ML Syringe SC SCH (11:30)
--- NOTE | 2024-03-02 15:43 | NUR ---
DISCHARGE SUMMARY PATIENT WITH NO ADVERSE EVENTS TODAY. SHE IS MEDICATED PER EMAR FOR PAIN WITH RELIEF TO 4/10 WHICH IS HER BASELINE. ANNE NEEDLE REMOVED FROM IMPLANTED PORT AFTER HEPARIN LOCK PER PROTOCOL. PATIENT MEDICATION AND EDUCATIO PACKET PRINTED AND REVIEWED WITH PATIENT AND . PATIENT VERBALIZES PLAN TO DO HER ON WOUND CARE WITH WHEN THEY GET HOME THIS AFTERNOON. SHE STATES THEY HAVE ALL THE SUPPLIES FOR WOUND CARE. DRESSINGS TO BILAT NEPH TUBES ORIGINAL AND CDI. ALL QUESTIONS ANSWERED AND SIGNATURE OBTAINED. PATIENT LEFT UNIT AT 1230 VIA TRANSPORT CHAIR WITH AND LEAVING HOSPITAL VIA PRIVATE VEHICLE.
== END 2024-03-02 14:10 | disposition home or self-care (01) ==
LOC: ER 12:09 → MEDS 12:10 → ERHOLD 12:10 → MEDS 22:56
PROVIDERS: Nurse Practitioner Acute Care; Student in an Organized Health Care Education/Training Program; ADMIT Internal Medicine
DX: T83.092A Other mechanical complication of nephrostomy catheter, initial encounter (principal); N13.30 Unspecified hydronephrosis; C54.1 Malignant neoplasm of endometrium; D64.9 Anemia, unspecified; I89.0 Lymphedema, not elsewhere classified; E03.9 Hypothyroidism, unspecified; I13.0 Hypertensive heart and chronic kidney disease with heart failure and stage 1 through stage 4 chronic kidney disease, or unspecified chronic kidney disease; I50.30 Unspecified diastolic (congestive) heart failure; N18.30 Chronic kidney disease, stage 3 unspecified; E11.22 Type 2 diabetes mellitus with diabetic chronic kidney disease; E66.01 Morbid (severe) obesity due to excess calories; Z88.5 Allergy status to narcotic agent; Z88.2 Allergy status to sulfonamides; Z88.8 Allergy status to other drugs, medicaments and biological substances; Y83.8 Other surgical procedures as the cause of abnormal reaction of the patient, or of later complication, without mention of misadventure at the time of the procedure
CPT/HCPCS: 50435; 76770; 80053; 82947; 83735; 85025; 85610; 87077; 87086; 87186; 94760; 96365; 96372; 96375; 96376; 99152; 99153; 99284-25; A9270; C1729; C1751; C1769; G0378; J0696; J1171; J1642; J1650; J1815; J2250; J2405; J3010; J7030; J7040; J7050; Q9967

== ENCOUNTER 2024-03-04 03:38 | Day surgery (SDC) | payer OTHER, MEDICARE ==
[~2024-03-04 03:38] MED LIST changes: +OMEP20ER PO
[2024-03-04 08:45] VITALS: BP 147/72
== END 2024-03-04 09:02 | disposition home or self-care (01) ==
LOC: ATC 03:38
DX: Z43.6 Encounter for attention to other artificial openings of urinary tract (principal); C54.1 Malignant neoplasm of endometrium
CPT/HCPCS: 99211

== ENCOUNTER 2024-03-04 03:56 | Day surgery (SDC) | payer OTHER, MEDICARE | END 2024-03-04 23:00 | disposition home or self-care (01) | LOC: WOUND 03:56 | DX: E11.621 Type 2 diabetes mellitus with foot ulcer (principal); L97.522 Non-pressure chronic ulcer of other part of left foot with fat layer exposed; L97.529 Non-pressure chronic ulcer of other part of left foot with unspecified severity; C54.1 Malignant neoplasm of endometrium | CPT/HCPCS: A6213; A9270 ==

== ENCOUNTER 2024-03-08 04:47 | Day surgery (SDC) | payer OTHER, MEDICARE ==
[2024-03-08 15:34] VITALS: BP 115/89
--- NOTE | 2024-03-08 16:24 | NUR ---
OLD DRESSINGS REMOVED. USING STERILE TECHNIQUE SITES BOTH CLEANSED WITH ALCOHOL FOLLOWED BY BETADINE AND THEN SKIN PREP. NEW STAYFIX DRESSINGS APPLIED FOLLOWED BY 2 TEGADERM DRESSINGS ON EACH SITE.
== END 2024-03-08 16:01 | disposition home or self-care (01) ==
LOC: ATC 04:47
DX: Z43.6 Encounter for attention to other artificial openings of urinary tract (principal); C54.1 Malignant neoplasm of endometrium; I25.10 Atherosclerotic heart disease of native coronary artery without angina pectoris; E11.9 Type 2 diabetes mellitus without complications; E66.01 Morbid (severe) obesity due to excess calories; Z68.43 Body mass index [BMI] 50.0-59.9, adult; Z79.4 Long term (current) use of insulin; Z79.899 Other long term (current) drug therapy; Z86.19 Personal history of other infectious and parasitic diseases; Z88.2 Allergy status to sulfonamides; Z88.5 Allergy status to narcotic agent; Z88.8 Allergy status to other drugs, medicaments and biological substances; Z90.710 Acquired absence of both cervix and uterus
CPT/HCPCS: 99212

== ENCOUNTER 2024-03-11 02:53 | Day surgery (SDC) | payer OTHER, MEDICARE ==
[2024-03-11 08:29] VITALS: BP 120/97
== END 2024-03-11 08:46 | disposition home or self-care (01) ==
LOC: ATC 02:53
DX: Z43.6 Encounter for attention to other artificial openings of urinary tract (principal); C54.1 Malignant neoplasm of endometrium; E11.9 Type 2 diabetes mellitus without complications; I25.10 Atherosclerotic heart disease of native coronary artery without angina pectoris; Z88.5 Allergy status to narcotic agent; Z88.8 Allergy status to other drugs, medicaments and biological substances; Z95.1 Presence of aortocoronary bypass graft
CPT/HCPCS: 99211

== ENCOUNTER 2024-03-11 03:21 | Day surgery (SDC) | payer OTHER, MEDICARE ==
[2024-03-11] MEDS ORDERED: Lidocaine HCl 4% Cream 5 GM ONE (08:28)
== END 2024-03-11 23:00 | disposition home or self-care (01) ==
LOC: WOUND 03:21
DX: E11.621 Type 2 diabetes mellitus with foot ulcer (principal); L97.425 Non-pressure chronic ulcer of left heel and midfoot with muscle involvement without evidence of necrosis; L97.522 Non-pressure chronic ulcer of other part of left foot with fat layer exposed; E11.65 Type 2 diabetes mellitus with hyperglycemia; Z86.31 Personal history of diabetic foot ulcer
CPT/HCPCS: A6213; A9270

== ENCOUNTER 2024-03-15 11:36 | Day surgery (SDC) | payer OTHER, MEDICARE ==
[2024-03-15 12:05] VITALS: BP 160/100
== END 2024-03-15 12:15 | disposition home or self-care (01) ==
LOC: ATC 11:36
DX: Z43.6 Encounter for attention to other artificial openings of urinary tract (principal); C54.1 Malignant neoplasm of endometrium; E11.9 Type 2 diabetes mellitus without complications; I25.10 Atherosclerotic heart disease of native coronary artery without angina pectoris; Z95.1 Presence of aortocoronary bypass graft; Z88.8 Allergy status to other drugs, medicaments and biological substances
CPT/HCPCS: 99211

== ENCOUNTER 2024-03-18 03:37 | Day surgery (SDC) | payer OTHER, MEDICARE ==
[2024-03-18 08:38] VITALS: BP 140/67
== END 2024-03-18 08:56 | disposition home or self-care (01) ==
LOC: ATC 03:37
DX: Z43.6 Encounter for attention to other artificial openings of urinary tract (principal); C54.1 Malignant neoplasm of endometrium; I25.10 Atherosclerotic heart disease of native coronary artery without angina pectoris; E11.9 Type 2 diabetes mellitus without complications; E66.01 Morbid (severe) obesity due to excess calories; Z68.43 Body mass index [BMI] 50.0-59.9, adult; Z86.19 Personal history of other infectious and parasitic diseases; Z79.4 Long term (current) use of insulin; Z79.899 Other long term (current) drug therapy; Z88.2 Allergy status to sulfonamides; Z88.1 Allergy status to other antibiotic agents; Z88.5 Allergy status to narcotic agent; Z88.8 Allergy status to other drugs, medicaments and biological substances; Z95.1 Presence of aortocoronary bypass graft; Z90.710 Acquired absence of both cervix and uterus
CPT/HCPCS: 99212

== ENCOUNTER 2024-03-18 03:41 | Day surgery (SDC) | payer OTHER, MEDICARE | END 2024-03-18 23:00 | disposition home or self-care (01) | LOC: WOUND 03:41 | DX: E11.621 Type 2 diabetes mellitus with foot ulcer (principal); L97.525 Non-pressure chronic ulcer of other part of left foot with muscle involvement without evidence of necrosis; L97.522 Non-pressure chronic ulcer of other part of left foot with fat layer exposed; E11.40 Type 2 diabetes mellitus with diabetic neuropathy, unspecified; Z89.422 Acquired absence of other left toe(s) | CPT/HCPCS: G0463 ==

== ENCOUNTER 2024-03-25 03:35 | Day surgery (SDC) | payer OTHER, MEDICARE ==
[2024-03-25 08:32] VITALS: BP 168/80
== END 2024-03-25 08:44 | disposition home or self-care (01) ==
LOC: ATC 03:35
DX: Z43.6 Encounter for attention to other artificial openings of urinary tract (principal); C54.1 Malignant neoplasm of endometrium; I25.10 Atherosclerotic heart disease of native coronary artery without angina pectoris; E11.9 Type 2 diabetes mellitus without complications; Z95.1 Presence of aortocoronary bypass graft; Z79.899 Other long term (current) drug therapy; Z88.5 Allergy status to narcotic agent; Z88.8 Allergy status to other drugs, medicaments and biological substances
CPT/HCPCS: 99212

== ENCOUNTER 2024-03-25 03:40 | Day surgery (SDC) | payer OTHER, MEDICARE | END 2024-03-25 23:00 | disposition home or self-care (01) | LOC: WOUND 03:40 | DX: E11.621 Type 2 diabetes mellitus with foot ulcer (principal); L97.525 Non-pressure chronic ulcer of other part of left foot with muscle involvement without evidence of necrosis | CPT/HCPCS: G0463 ==

== ENCOUNTER 2024-03-29 09:11 | Day surgery (SDC) | payer OTHER, MEDICARE ==
[2024-03-29 16:51] VITALS: BP 153/77
== END 2024-03-29 17:18 | disposition home or self-care (01) ==
LOC: ATC 09:11
DX: C54.1 Malignant neoplasm of endometrium (principal); N13.30 Unspecified hydronephrosis; E11.9 Type 2 diabetes mellitus without complications; I25.10 Atherosclerotic heart disease of native coronary artery without angina pectoris; E66.01 Morbid (severe) obesity due to excess calories; Z68.43 Body mass index [BMI] 50.0-59.9, adult; Z86.711 Personal history of pulmonary embolism; Z86.718 Personal history of other venous thrombosis and embolism; Z79.4 Long term (current) use of insulin; Z79.890 Hormone replacement therapy; Z79.899 Other long term (current) drug therapy; Z88.1 Allergy status to other antibiotic agents; Z88.2 Allergy status to sulfonamides; Z88.5 Allergy status to narcotic agent; Z88.8 Allergy status to other drugs, medicaments and biological substances; Z95.1 Presence of aortocoronary bypass graft; Z90.710 Acquired absence of both cervix and uterus; Z93.6 Other artificial openings of urinary tract status
CPT/HCPCS: 99212

== ENCOUNTER 2024-04-01 02:38 | Day surgery (SDC) | payer OTHER, MEDICARE ==
[2024-04-01 08:26] VITALS: BP 153/94
== END 2024-04-01 08:46 | disposition home or self-care (01) ==
LOC: ATC 02:38
DX: Z43.6 Encounter for attention to other artificial openings of urinary tract (principal); C54.1 Malignant neoplasm of endometrium; E11.9 Type 2 diabetes mellitus without complications; I25.10 Atherosclerotic heart disease of native coronary artery without angina pectoris; E66.01 Morbid (severe) obesity due to excess calories; Z68.43 Body mass index [BMI] 50.0-59.9, adult; Z79.01 Long term (current) use of anticoagulants; Z79.4 Long term (current) use of insulin; Z79.899 Other long term (current) drug therapy; Z88.2 Allergy status to sulfonamides; Z88.1 Allergy status to other antibiotic agents; Z88.5 Allergy status to narcotic agent; Z88.8 Allergy status to other drugs, medicaments and biological substances; Z86.19 Personal history of other infectious and parasitic diseases; Z86.718 Personal history of other venous thrombosis and embolism; Z86.711 Personal history of pulmonary embolism
CPT/HCPCS: 99211

== ENCOUNTER 2024-04-08 03:46 | Day surgery (SDC) | payer OTHER, MEDICARE ==
[2024-04-08 08:53] VITALS: BP 153/74
== END 2024-04-08 08:53 | disposition home or self-care (01) ==
LOC: ATC 03:46
DX: Z43.6 Encounter for attention to other artificial openings of urinary tract (principal); C54.1 Malignant neoplasm of endometrium; E11.9 Type 2 diabetes mellitus without complications; I25.10 Atherosclerotic heart disease of native coronary artery without angina pectoris; E66.01 Morbid (severe) obesity due to excess calories; Z68.43 Body mass index [BMI] 50.0-59.9, adult; Z79.4 Long term (current) use of insulin; Z79.01 Long term (current) use of anticoagulants; Z79.899 Other long term (current) drug therapy; Z86.19 Personal history of other infectious and parasitic diseases; Z86.718 Personal history of other venous thrombosis and embolism; Z86.711 Personal history of pulmonary embolism; Z95.1 Presence of aortocoronary bypass graft; Z88.2 Allergy status to sulfonamides; Z88.1 Allergy status to other antibiotic agents; Z88.5 Allergy status to narcotic agent; Z88.8 Allergy status to other drugs, medicaments and biological substances; Z90.710 Acquired absence of both cervix and uterus
CPT/HCPCS: 99211

== ENCOUNTER 2024-04-08 03:48 | Day surgery (SDC) | payer OTHER, MEDICARE ==
[2024-04-08] MEDS ORDERED: Lidocaine HCl 4% Cream 5 GM ONE (07:54)
== END 2024-04-08 23:00 | disposition home or self-care (01) ==
LOC: WOUND 03:48
DX: E11.621 Type 2 diabetes mellitus with foot ulcer (principal); L97.525 Non-pressure chronic ulcer of other part of left foot with muscle involvement without evidence of necrosis; E11.65 Type 2 diabetes mellitus with hyperglycemia; Z86.31 Personal history of diabetic foot ulcer
CPT/HCPCS: A9270

== ENCOUNTER 2024-04-12 00:12 | Day surgery (SDC) | payer OTHER, MEDICARE ==
[2024-04-12 10:27] VITALS: BP 142/90
== END 2024-04-12 10:47 | disposition home or self-care (01) ==
LOC: ATC 00:12
DX: Z43.6 Encounter for attention to other artificial openings of urinary tract (principal); C54.1 Malignant neoplasm of endometrium; E11.9 Type 2 diabetes mellitus without complications; I25.10 Atherosclerotic heart disease of native coronary artery without angina pectoris; E66.01 Morbid (severe) obesity due to excess calories; Z68.43 Body mass index [BMI] 50.0-59.9, adult; Z86.19 Personal history of other infectious and parasitic diseases; Z79.01 Long term (current) use of anticoagulants; Z79.4 Long term (current) use of insulin; Z79.899 Other long term (current) drug therapy; Z88.2 Allergy status to sulfonamides; Z88.5 Allergy status to narcotic agent; Z88.8 Allergy status to other drugs, medicaments and biological substances; Z86.718 Personal history of other venous thrombosis and embolism; Z86.711 Personal history of pulmonary embolism
CPT/HCPCS: 99211

== ENCOUNTER 2024-04-15 04:03 | Inpatient (IN) | payer OTHER, MEDICARE ==
[~2024-04-15] VITALS: Ht 170.2 cm; Wt 166.8 kg
[2024-04-15] MEDS ORDERED: NS 1,000 ML IV SCH ×3 (05:10→10:00)
[2024-04-15] MEDS ORDERED: Ketorolac Tromethamine 30mg Vial IV ONE (06:10)
[2024-04-15 06:21] LABS: Source, Urine Nephrostomy
[2024-04-15 06:42] LABS: BASOPHILS PERCENT AUTO 1 % (0-2); EOSINOPHILS ABSOLUTE AUTO 0.03 K/mm3 (0.00-0.68); EOSINOPHILS PERCENT AUTO 0 % (0-6); Hematocrit 28.6 % (33.0-51.0); Hemoglobin 8.7 g/dL (11.5-16.0); IMMATURE GRAN ABSOLUTE AUTO 0.07 K/mm3 (0.00-0.10); IMMATURE GRAN PERCENT AUTO 1 % (0-1); LYMPHOCYTES ABSOLUTE AUTO 1.63 K/mm3 (0.84-5.20); LYMPHOCYTES PERCENT AUTO 13 % (21-46); MONOCYTES ABSOLUTE AUTO 0.82 K/mm3 (0.16-1.47); MONOCYTES PERCENT AUTO 7 % (4-13); Mean Corpuscular HGB 21.8 pg (26.0-34.0); Mean Corpuscular HGB Conc 30.4 g/dL (31.5-36.5); Mean Corpuscular Volume 72 fL (80-100); Mean Platelet Volume 10.3 fL (9.1-12.4); NEUTROPHILS ABSOLUTE AUTO 10.06 K/mm3 (1.96-9.15); NEUTROPHILS PERCENT AUTO 79 % (41-73); Platelet Count 349 K/mm3 (150-400); RDW Coefficient Variation 18.6 % (11.7-14.2); RDW Standard Deviation 47.3 fL (35.1-46.3); White Blood Cell Count 12.71 K/mm3 (4.00-11.30)
[2024-04-15 06:48] LABS: Appearance, Urine Cloudy (Clear); Bilirubin, Urine Neg (Neg); Blood, Urine 4+ (Neg); Color, Urine Yellow (P-Yellow); Glucose Qualitative, Urine 3+ (Neg); Ketones, Urine 1+ (Neg); Leukocyte Esterase, Urine 3+ (Neg); Nitrite, Urine Neg (Neg); Protein, Urine 4+ (Neg); Urobilinogen, Urine NORM (Normal)
[2024-04-15 07:00] LABS: Hyaline Casts 0-2 /lpf (0-2); Squamous Epithelial Cells Not Seen /hpf (Few); White Blood Cells, Urine 50-100 /hpf (0-5)
[2024-04-15 07:01] LABS: Red Blood Cells, Urine 50-100 /hpf (0-2)
[2024-04-15 07:02] LABS: Albumin, Blood 2.8 g/dL (3.4-5.0); Albumin/Globulin Ratio 0.8 (0.8-1.8); Bilirubin, Total 0.6 mg/dL (0.1-1.0); Calcium, Blood 8.5 mg/dL (8.5-10.1); Creatinine, Blood 0.86 mg/dL (0.40-1.00); Globulin, Blood 3.6 g/dL (2.2-4.0); Potassium, Blood 4.1 mmol/L (3.5-5.5); Total Protein, Blood 6.4 g/dL (6.4-8.2)
[2024-04-15] MEDS ORDERED: HYDROmorphone HCl/Pf 1MG SYR IV ONE (07:05)
[2024-04-15 07:08] LABS: Bacteria Many /hpf; Yeast/Fungi Urine Rare /hpf
[2024-04-15] MEDS ORDERED: Ondansetron HCl 2 MG / ML 2ML Vial IV ONE (07:20)
[2024-04-15] MEDS ORDERED: HYDROmorphone HCl 0.5 MG/0.5 ML SYR IV ONE (07:30)
[2024-04-15] MEDS ORDERED: Ampicillin Sod/Sulbactam Sod 3 GM in NS 100 ML IV ONE (08:10)
[2024-04-15] MEDS ORDERED: Metoclopramide HCl 10 MG Tab PO PRN (09:35)
[2024-04-15] MEDS ORDERED: OxyCODONE HCL 5 MG TAB PO PRN (09:35)
[2024-04-15] MEDS ORDERED: Furosemide 40 MG Tab PO PRN ×2 (09:35→09:50)
[2024-04-15] MEDS ORDERED: FLU VACC TS2024-25(6MOS UP)/PF 45 MCG/0.5 ML SYRINGE IM ONE (09:45)
[2024-04-15] MEDS ORDERED: Meropenem 1,000 MG in NS 100 ML IV SCH (09:55)
[2024-04-15] MEDS ORDERED: LORazepam 1 MG Tab PO PRN ×2 (10:00→10:15)
[2024-04-15] MEDS ORDERED: LORazepam 1 MG Tab PO ONE ×2 (10:00→10:15)
[2024-04-15] MEDS ORDERED: Vancomycin HCL 2,500 MG in NS 500 ML IV ONE (10:05)
[2024-04-15] MEDS ORDERED: LORazepam 2 MG/ML 1ML Injection IV ONE (10:20)
[2024-04-15] MEDS ORDERED: Albuterol HFA200 ACT/6.7 GM INH INH PRN ×2 (12:20→17:15)
[2024-04-15] MEDS ORDERED: FentaNYL Citrate 50 MCG/ML 2 ML Injection IV PRN (14:20)
[2024-04-15] MEDS ORDERED: NS 1,000 ML IV ONE (14:50)
[2024-04-15] MEDS ORDERED: Insulin Human Lispro 100 Units/ML 3ML Syringe SC SCH (16:30)
[2024-04-15] MEDS ORDERED: FentaNYL 25 MCG Patch TOP SCH (16:45)
[2024-04-15 16:50] VITALS: BP 139/78
[2024-04-15] MEDS ORDERED: Metoprolol Tartrate 50 MG Tab PO SCH (17:00)
[2024-04-15] MEDS ORDERED: FentaNYL 50 MCG Patch TOP SCH (17:00)
[2024-04-15] MEDS ORDERED: Acetaminophen 325 MG TABLET PO PRN (17:15)
[2024-04-15] MEDS ORDERED: Insulin Human Regular 100 UNIT/ML 10ML Vial SC SCH (18:00)
[2024-04-15] MEDS ORDERED: Diazepam 5 MG / ML 2ML SYR IV PRN (19:25)
[2024-04-15 19:30] VITALS: BP 118/42
--- NOTE | 2024-04-15 19:30 | NUR ---
BVB-NQ-MBNQL SUMMARY: A&Ox4. PLEASANT AND COOPERATIVE c CARE. CALLS APPROPRIATELY AND IS ABLE TO ADVOCATE NEEDS EFFECTIVELY. CAME TO ER c C/O FEVER; WHILE IN ED STARTED HAVING SEVERE LEG PAIN UNLIKE ANY LEG PAIN SHE'S EVER HAD. LEGS c 2+ NON-PITTING EDEMA. BILATERAL PEDAL PULSES 2+. MEDIPORT ACCESSED; NS@ 150mL/hr. FENTANYL PATCHES (25MCG AND 50MCG) BOTH REPLACED TODAY. FEVER UPON ADMIT TO MEDICAL FLOOR; ORDER OBTAINED FOR APAP AND RECHECK STILL >100. C/O SOB; 2LPM/NC BEING ADMINISTERED, THOUGH RA @ BASELINE. BED IN LOWEST POSITION. CALL LIGHT WITHIN REACH. REPORT TO ONCOMING RN.
[2024-04-15] MEDS ORDERED: Insulin Regular 100 UNIT/ML 10ML Vial SC SCH (21:00)
[2024-04-15] MEDS ORDERED: Polyethylene Glycol 3350 17 gm PO SCH (21:00)
[2024-04-15] MEDS ORDERED: Enoxaparin 150 MG/ML 1ML SYR SC SCH (21:00)
[2024-04-15] MEDS ORDERED: Sennosides 8.6 MG Tab PO SCH (21:00)
[2024-04-15] MEDS ORDERED: Lactobacil 2-S.Thermo-Bifido 1 1 Cap PO SCH (21:00)
[2024-04-15] MEDS ORDERED: Vancomycin HCL 2,000 MG in NS 500 ML IV SCH (23:00)
[2024-04-16 04:51] VITALS: BP 106/63
[2024-04-16 05:46] LABS: BASOPHILS ABSOLUTE AUTO 0.07 K/mm3 (0.00-0.23); BASOPHILS PERCENT AUTO 1 % (0-2); EOSINOPHILS ABSOLUTE AUTO 0.01 K/mm3 (0.00-0.68); EOSINOPHILS PERCENT AUTO 0 % (0-6); Hematocrit 20.2 % (33.0-51.0); Hemoglobin 6.2 g/dL (11.5-16.0); IMMATURE GRAN ABSOLUTE AUTO 0.14 K/mm3 (0.00-0.10); IMMATURE GRAN PERCENT AUTO 1 % (0-1); LYMPHOCYTES ABSOLUTE AUTO 2.09 K/mm3 (0.84-5.20); LYMPHOCYTES PERCENT AUTO 16 % (21-46); MONOCYTES PERCENT AUTO 9 % (4-13); Mean Corpuscular HGB 22.1 pg (26.0-34.0); Mean Corpuscular HGB Conc 30.7 g/dL (31.5-36.5); Mean Corpuscular Volume 72 fL (80-100); Mean Platelet Volume 10.7 fL (9.1-12.4); NEUTROPHILS ABSOLUTE AUTO 9.26 K/mm3 (1.96-9.15); NEUTROPHILS PERCENT AUTO 73 % (41-73); Platelet Count 164 K/mm3 (150-400); RDW Coefficient Variation 18.9 % (11.7-14.2); Red Blood Cell Count 2.81 M/mm3 (3.80-5.20); White Blood Cell Count 12.77 K/mm3 (4.00-11.30)
[2024-04-16] MEDS ORDERED: Levothyroxine Sodium 0.075 MG Tab PO SCH (06:00)
[2024-04-16] MEDS ORDERED: Omeprazole 20 MG CapCR PO SCH (06:00)
--- NOTE | 2024-04-16 06:08 | NUR ---
PT A&O X4, VS WNL, NEPHROSTOMY TUBES DRAINING TEA COLORED URINE WHICH IS ALSO CLOUDY THIS AM, DRAINAGE DECREASED THIS AM IN R/T LAST NIGHTS OUTPUT. IVF RUNNING AT 150 MLS/ HR. PT CONTINUES TO HAVE SIGNIFICANT BILAT LE PAIN AND BUTTOCKS PAIN IS MEDICATED WITH FENTANYL PATCH 75 MCG, FENTANYL IVP, AND OXYCODONE PO. PT RECIEVED ATIVAN IN NIGHT FOR NAUSEA THIS WAS EFFECTIVE. PT WITH GOOD PO INTAKE. O2 AT 2L/ NC, THIS IS NOT BL. PT UP TO BSC WITH X1 ASSIST, EX-LG BM. CBG ELEVATED MOST LIKELY D/T INFECTION BECAUSE PO INTAKE OF SOLIDS IS VERY LOW. PT HAS FOOT WOUN ON THE PLANTAR SIDE OF LEFT FOOT, CHANGES DRESSING EVERY OTHER DAY, DUE ON 04/16. PLAN TO CONTINUE ABX.
[2024-04-16 06:43] LABS: BASOPHILS ABSOLUTE AUTO 0.11 K/mm3 (0.00-0.23); BASOPHILS PERCENT AUTO 1 % (0-2); EOSINOPHILS ABSOLUTE AUTO 0.02 K/mm3 (0.00-0.68); EOSINOPHILS PERCENT AUTO 0 % (0-6); Hematocrit 29.3 % (33.0-51.0); Hemoglobin 8.7 g/dL (11.5-16.0); IMMATURE GRAN ABSOLUTE AUTO 0.12 K/mm3 (0.00-0.10); IMMATURE GRAN PERCENT AUTO 1 % (0-1); LYMPHOCYTES ABSOLUTE AUTO 3.02 K/mm3 (0.84-5.20); LYMPHOCYTES PERCENT AUTO 17 % (21-46); MONOCYTES ABSOLUTE AUTO 1.53 K/mm3 (0.16-1.47); MONOCYTES PERCENT AUTO 9 % (4-13); Mean Corpuscular HGB 21.8 pg (26.0-34.0); Mean Corpuscular HGB Conc 29.7 g/dL (31.5-36.5); Mean Corpuscular Volume 73 fL (80-100); Mean Platelet Volume 10.8 fL (9.1-12.4); NEUTROPHILS ABSOLUTE AUTO 12.59 K/mm3 (1.96-9.15); NEUTROPHILS PERCENT AUTO 72 % (41-73); Platelet Count 292 K/mm3 (150-400); RDW Coefficient Variation 19.4 % (11.7-14.2); RDW Standard Deviation 50.4 fL (35.1-46.3); White Blood Cell Count 17.39 K/mm3 (4.00-11.30)
--- NOTE | 2024-04-16 06:49 | NUR ---
AM HGB UNUSUALLY LOW, FEAR MAY BE DILUTED, ORDERED REDRAW, AWAITING RESULT, ORDERED TO TRANSFUSE, TOLD HIM ABOUT REDRAW WILL AWAIIT RESULT BEFORE INITIATING TRANSFUSION.
[2024-04-16] MEDS ORDERED: NS 250 ML IV SCH (07:00)
[2024-04-16 07:29] VITALS: BP 156/72
[2024-04-16 08:21] LABS: Albumin, Blood 2.4 g/dL (3.4-5.0); Albumin/Globulin Ratio 0.6 (0.8-1.8); Bilirubin, Total 0.4 mg/dL (0.1-1.0); Bun/Creatinine Ratio 18.3 (12.0-20.0); Calcium, Blood 7.9 mg/dL (8.5-10.1); Creatinine, Blood 1.04 mg/dL (0.40-1.00); Globulin, Blood 3.9 g/dL (2.2-4.0); Potassium, Blood 3.7 mmol/L (3.5-5.5); Total Protein, Blood 6.3 g/dL (6.4-8.2)
[2024-04-16] MEDS ORDERED: LORazepam 1 MG Tab PO PRN ×2 (08:35→16:15)
[2024-04-16] MEDS ORDERED: Insulin Human Regular 100 UNIT/ML 10ML Vial SC SCH (09:00)
[2024-04-16] MEDS ORDERED: Ondansetron HCl 2 MG / ML 2ML Vial IV PRN (13:20)
--- NOTE | 2024-04-16 14:49 | NUR ---
ADMINISTERED VALIUM 5MG IV TO PT, THIS RN WENT TO WASTE REMAINING 5 MG IN PHARMACY. THIS RN RETURNED TO PT EYES CLOSED IN BED, CHEST RISING. INFORMING "SHE IS ASLEEP".
[2024-04-16 16:29] VITALS: BP 134/63
--- NOTE | 2024-04-16 16:51 | NUR ---
SHIFT SUMMARY PT AOX4, COOPERATIVE, ABLE TO MAKE NEEDS KNOWN. PT HAS BEEN IN ALOT OF PAIN TODAY RATING 7-9/10. MEDICATING FENTANYL, OXY, ATIVAN, TYLENOL WHEN APPROPRIATE. PT DID SPIKE 102F FEVER APPROX 1500. TOOK BLANKET OFF, PLACE ICE PACKS UNDER ARMS, IN GROIN, COLD TOWEL ON HEAD, MEDICATED WITH TYLENOL, PROVIDED COLD BEVERAGES AND FAN. SCHOOL PSYCHOMETRIST ASSESSED 30 MINS LATER, TEMP OF 98.2F. PALLIATIVE CARE ADDRESSED PAIN MEDICATION NEEDS WITH PT. NO OTHER ACUTE EVENTS TOOK PLACE. BED IN LOWEST POSITION, CALL LIGHT WITHIN REACH.
--- NOTE | 2024-04-16 16:53 | NUR ---
MET WITH SHERWIN AND HER SPOUSE RACHEL. CLARIFIED CODE STATUS. REVIEWED A BLANK POLST, THEY HAVE A COMPLETED ON AT HOME SPOUSE WILL BRING IN. THEY REPORT THAT SHE IS A DNR AND LIMITED INTERVENTION. UPDATED PROVIDER AND ORDERS CHANGED. DISCUSSED SYMPTOM MANAGMENT SHERWIN IS TYPICALLY A 4-5 PAIN BUT HAS BEEN EXPERIENCING 8-9 PAIN RECENTLY. SHE HAD SOME CONSTIPATION PRIOR TO ADMISSION. DISCUSSED MEDICATION REGIMINE WITH PHARMACY AND DISCUSSED WITH PROVIDER. MEDICATIONS CHANGED IN APR.
[2024-04-16] MEDS ORDERED: Acetaminophen 325 MG TABLET PO SCH (18:00)
[2024-04-16 19:27] VITALS: BP 109/66
[2024-04-16 22:57] LABS: Vancomycin, Trough 25.6 ug/mL (5.0-10.0)
[2024-04-16] MEDS ORDERED: Vancomycin HCL 1,500 MG in NS 250 ML IV SCH (23:00)
[2024-04-17 03:34] VITALS: BP 119/59
[2024-04-17 05:37] LABS: BASOPHILS ABSOLUTE AUTO 0.06 K/mm3 (0.00-0.23); BASOPHILS PERCENT AUTO 1 % (0-2); EOSINOPHILS ABSOLUTE AUTO 0.17 K/mm3 (0.00-0.68); EOSINOPHILS PERCENT AUTO 2 % (0-6); Hematocrit 26.5 % (33.0-51.0); Hemoglobin 7.9 g/dL (11.5-16.0); IMMATURE GRAN ABSOLUTE AUTO 0.06 K/mm3 (0.00-0.10); IMMATURE GRAN PERCENT AUTO 1 % (0-1); LYMPHOCYTES ABSOLUTE AUTO 1.08 K/mm3 (0.84-5.20); LYMPHOCYTES PERCENT AUTO 12 % (21-46); MONOCYTES ABSOLUTE AUTO 0.69 K/mm3 (0.16-1.47); MONOCYTES PERCENT AUTO 7 % (4-13); Mean Corpuscular HGB Conc 29.8 g/dL (31.5-36.5); Mean Corpuscular Volume 74 fL (80-100); Mean Platelet Volume 10.1 fL (9.1-12.4); NEUTROPHILS ABSOLUTE AUTO 7.25 K/mm3 (1.96-9.15); NEUTROPHILS PERCENT AUTO 78 % (41-73); Platelet Count 317 K/mm3 (150-400); RDW Coefficient Variation 19.3 % (11.7-14.2); RDW Standard Deviation 51.5 fL (35.1-46.3); Red Blood Cell Count 3.59 M/mm3 (3.80-5.20); White Blood Cell Count 9.31 K/mm3 (4.00-11.30)
[2024-04-17 06:22] LABS: Albumin, Blood 2.5 g/dL (3.4-5.0); Albumin/Globulin Ratio 0.6 (0.8-1.8); Bilirubin, Total 0.4 mg/dL (0.1-1.0); Bun/Creatinine Ratio 20.3 (12.0-20.0); Calcium, Blood 7.7 mg/dL (8.5-10.1); Creatinine, Blood 1.18 mg/dL (0.40-1.00); Globulin, Blood 4.3 g/dL (2.2-4.0); Potassium, Blood 3.9 mmol/L (3.5-5.5); Total Protein, Blood 6.8 g/dL (6.4-8.2)
--- NOTE | 2024-04-17 07:22 | NUR ---
CALLED MD REGARDING PT HGB RESULT OF 7.9, HAD TO LEAVE VOICEMAIL.
[2024-04-17 07:25] VITALS: BP 124/63
--- NOTE | 2024-04-17 07:30 | NUR ---
SHIFT SUMMARY PT IS A&OX4, PLEASANT AND APPRECIATIVE OF CARE. VSS ON 2L NC. C/O PAIN 9-10/10 IN HER LOW BACK, BOTTOM, UTERINE AREA AND BLE. MANAGED WITH PRN MEDICATIONS PER EMAR. TOLERATING A CONS CARB DIET, POOR PO INTAKE D/T BEING NAUSEOUS AND HAVING NO APPETITE. BILAT NEPHROSTOMY TUBES DRAINING PURULENT URINE. HAD THREE LOOSE BM'S THIS SHIFT. X1 ASSIST WITH FWW TO BSC. DRESSING TO LEFT FOOT C/D/I. BED IN LOWEST POSITION, CALL LIGHT WITHIN REACH. CONTACT PRECAUTIONS MAINTAINED.
[2024-04-17] MEDS ORDERED: Metoclopramide HCl 10 MG Tab PO PRN (09:35)
[2024-04-17] MEDS ORDERED: OxyCODONE HCL 20 MG TABCR PO SCH (10:00)
[2024-04-17] MEDS ORDERED: Ferrous Sulfate 325 MG Tab PO SCH (10:00)
[2024-04-17 11:30] LABS: Vancomycin, Random 19.3 ug/mL
[2024-04-17] MEDS ORDERED: Vancomycin HCL 2,000 MG in NS 500 ML IV SCH (12:00)
[2024-04-17 15:08] VITALS: BP 145/72
--- NOTE | 2024-04-17 16:46 | NUR ---
SHIFT SUMMARY PT AOX4, COOPERATIVE, ABLE TO MAKE NEEDS KNOWN. 2 PERSON ASSIST TO BEDSIDE COMMODE, INC OF BOWEL IN BED AT TIME. BILATERAL NEPHROSTOMIES INTACT. URINE IS NAOMI-LIKE AND HAS WHITE SEDIMENT DRAINING. GLORIA FEVER OF 102F AGAIN TODAY, TOOK BLANKETS OFF, ICE PACKS UNDER ARMPITS, COLD TOWEL ON FOREHEAD, REINFORCING DRINKING COLD BEVERAGES AND FAN IN FACE, TEMP CAME DOWN TO 100.2. PT PAIN MORE MANAGABLE TODAY WITH AVERAGE BEING 6/10 TODAY. NAUSEA IS UNDER CONTROL TODAY. NO OTHER ACUTE EVENTS TOOK PLACE THIS SHIFT. BED IN LOWEST POSITION, CALL LIGHT WITHIN REACH.
[2024-04-17] MEDS ORDERED: DiphenhydrAMINE HCL 25 MG Cap PO SCH (17:00)
[2024-04-17 17:14] VITALS: BP 131/68
[2024-04-17 19:21] VITALS: BP 122/55
[2024-04-17] MEDS ORDERED: Insulin Regular 100 UNIT/ML 10ML Vial SC SCH (21:00)
[2024-04-18 05:17] VITALS: BP 153/78
[2024-04-18 06:15] LABS: BASOPHILS ABSOLUTE AUTO 0.05 K/mm3 (0.00-0.23); BASOPHILS PERCENT AUTO 1 % (0-2); EOSINOPHILS ABSOLUTE AUTO 0.15 K/mm3 (0.00-0.68); EOSINOPHILS PERCENT AUTO 3 % (0-6); Hematocrit 24.2 % (33.0-51.0); Hemoglobin 7.4 g/dL (11.5-16.0); IMMATURE GRAN ABSOLUTE AUTO 0.06 K/mm3 (0.00-0.10); IMMATURE GRAN PERCENT AUTO 1 % (0-1); LYMPHOCYTES ABSOLUTE AUTO 1.24 K/mm3 (0.84-5.20); LYMPHOCYTES PERCENT AUTO 21 % (21-46); MONOCYTES ABSOLUTE AUTO 0.55 K/mm3 (0.16-1.47); MONOCYTES PERCENT AUTO 9 % (4-13); Mean Corpuscular HGB 22.2 pg (26.0-34.0); Mean Corpuscular HGB Conc 30.6 g/dL (31.5-36.5); Mean Corpuscular Volume 73 fL (80-100); Mean Platelet Volume 10.5 fL (9.1-12.4); NEUTROPHILS ABSOLUTE AUTO 3.95 K/mm3 (1.96-9.15); NEUTROPHILS PERCENT AUTO 66 % (41-73); Platelet Count 302 K/mm3 (150-400); RDW Coefficient Variation 19.6 % (11.7-14.2); RDW Standard Deviation 50.7 fL (35.1-46.3); Red Blood Cell Count 3.34 M/mm3 (3.80-5.20)
[2024-04-18 06:38] LABS: Albumin, Blood 2.3 g/dL (3.4-5.0); Albumin/Globulin Ratio 0.6 (0.8-1.8); Bilirubin, Total 0.2 mg/dL (0.1-1.0); Bun/Creatinine Ratio 20.6 (12.0-20.0); Calcium, Blood 7.6 mg/dL (8.5-10.1); Creatinine, Blood 1.07 mg/dL (0.40-1.00); Globulin, Blood 3.8 g/dL (2.2-4.0); Magnesium, Blood 1.9 mg/dL (1.6-2.4); Phosphorus, Blood 2.8 mg/dL (2.5-4.9); Potassium, Blood 3.5 mmol/L (3.5-5.5); Total Protein, Blood 6.1 g/dL (6.4-8.2)
--- NOTE | 2024-04-18 07:30 | NUR ---
SHIFT SUMMARY PT UP VISITING WITH AT START OF SHIFT. EXPRESSES PAIN. PT MEDICATED PER EMAR. PT REPOSITIONED Q2 AND PRN. PT HAS BEEN PLEASANT AND COOPERATIVE WITH MEDICATIONS AND CARE. WILL RELAY TO DAY SHIFT.
[2024-04-18 07:41] VITALS: BP 147/67
[2024-04-18] MEDS ORDERED: CefTRIAXone Sodium 2,000 MG in NS 100 ML IV SCH (09:00)
[2024-04-18] MEDS ORDERED: Micafungin Sodium 100 MG in NS 100 ML IV SCH (10:00)
[2024-04-18] MEDS ORDERED: Miconazole Nitrate 2% 85 GM PWD TOP PRN (11:55)
--- NOTE | 2024-04-18 16:17 | NUR ---
Spiritual care visit conducted. Patient is sitting on a chair and alert. She tells me about the suggested path of hospice given to her from oncologist. She is tearful and fearful and is encouraged by our discussion about how to reframe her thinking, about her sanjuana and about her the source of her fears. I provided therapeutic listening, normalization, gentle memorial counselor and prayer. Patient responded well and showed signs of being comforted and having an increased peace. I will continue to remain available to patient and family.
[2024-04-18 16:27] VITALS: BP 159/70
[2024-04-18] MEDS ORDERED: FentaNYL Citrate 50 MCG/ML 2 ML Injection IV PRN (17:05)
[2024-04-18] MEDS ORDERED: OXYCODONE 40 MG PO SCH (18:00)
--- NOTE | 2024-04-18 18:28 | NUR ---
PATIENT A/OX4, UP WITH FWW AND 1PA. NEPHROSTOMY TUBES DRAINING WELL TO GRAVITY. 3+ EDEMA TO BLE, SCD'S IN USE. PATIENT VERY PAINFUL TODAY, BUT HAS IMPROVED WITH INCREASED DOSE OF OXYCONTIN. VSS, ON RA. DRESSING TO FOOT WOUNDS REMAIN C/D/I. NS INFUSING AT 150ML/HR TO R CHEST MEDIPORT. PATIENT PLEASANT AND COOPERATIVE AND CALLS APPROPRIATELY FOR ASSISTANCE.
[2024-04-18 19:36] VITALS: BP 152/80
[2024-04-19 03:41] VITALS: BP 147/77
--- NOTE | 2024-04-19 05:39 | NUR ---
SHIFT SUMMARY PT HAS BEEN RESTING COMFORTABLY OVERNIGHT. PT HAS BEEN AOX4, CALM AND COOPERATIVE, PONCHO W/ SPOUSE AT BEDSIDE. SPOUSE LEFT AT APPROX 2300. PT HAS BEEN COMPLAINING OF PAIN IN BLE THAT INTENSIFIES WHEN UP AND MOVING. REST AND MEDICATIONS HAVE HELPED EASE PAIN FOR PT TO THE POINT WHERE SHE HAS GOTTEN REST. PT IS 1PA W/ FWW, BUT HAS ENORMOUS PAIN WHEN AMBULATING. PT HAD NO COMPLAINTS, OTHER THAN PAIN, OVERNIGHT. NO ACUTE EVENTS OVERNIGHT.
[2024-04-19 06:38] LABS: BASOPHILS ABSOLUTE AUTO 0.07 K/mm3 (0.00-0.23); BASOPHILS PERCENT AUTO 1 % (0-2); EOSINOPHILS ABSOLUTE AUTO 0.29 K/mm3 (0.00-0.68); EOSINOPHILS PERCENT AUTO 5 % (0-6); Hematocrit 24.3 % (33.0-51.0); Hemoglobin 7.5 g/dL (11.5-16.0); IMMATURE GRAN ABSOLUTE AUTO 0.09 K/mm3 (0.00-0.10); IMMATURE GRAN PERCENT AUTO 2 % (0-1); LYMPHOCYTES ABSOLUTE AUTO 1.73 K/mm3 (0.84-5.20); LYMPHOCYTES PERCENT AUTO 30 % (21-46); MONOCYTES ABSOLUTE AUTO 0.66 K/mm3 (0.16-1.47); MONOCYTES PERCENT AUTO 12 % (4-13); Mean Corpuscular HGB 22.3 pg (26.0-34.0); Mean Corpuscular HGB Conc 30.9 g/dL (31.5-36.5); Mean Corpuscular Volume 72 fL (80-100); Mean Platelet Volume 10.3 fL (9.1-12.4); NEUTROPHILS ABSOLUTE AUTO 2.91 K/mm3 (1.96-9.15); NEUTROPHILS PERCENT AUTO 51 % (41-73); Platelet Count 317 K/mm3 (150-400); RDW Coefficient Variation 19.4 % (11.7-14.2); RDW Standard Deviation 50.4 fL (35.1-46.3); Red Blood Cell Count 3.36 M/mm3 (3.80-5.20); White Blood Cell Count 5.75 K/mm3 (4.00-11.30)
[2024-04-19 06:54] LABS: Albumin, Blood 2.2 g/dL (3.4-5.0); Albumin/Globulin Ratio 0.6 (0.8-1.8); Bilirubin, Total 0.4 mg/dL (0.1-1.0); Bun/Creatinine Ratio 18.8 (12.0-20.0); Calcium, Blood 7.8 mg/dL (8.5-10.1); Creatinine, Blood 0.85 mg/dL (0.40-1.00); Globulin, Blood 3.9 g/dL (2.2-4.0); Potassium, Blood 3.7 mmol/L (3.5-5.5); Total Protein, Blood 6.1 g/dL (6.4-8.2)
[2024-04-19 07:49] VITALS: BP 137/62
[2024-04-19 16:19] VITALS: BP 126/68
--- NOTE | 2024-04-19 17:47 | NUR ---
PC INITIAL VISIT: PT REQUESTED INFORMATION ON HOSPICE SERVICES. MET WITH PT AND LUIS IN ROOM. PT IS ALERT AND ORIENTED AND ABLE TO PARTICIPATE IN MEANINGFUL DISCUSSION. DISCUSSED WHAT HOSPICE SERVICES WILL PROVIDE AND WHAT THEY WON'T. ALSO DISCUSSED MANAGEMENT OF NEPHROSTOMY TUBES THAT NEED REPLACED EVERY 2 MONTHS. CALLED ÁNGEL DIRECTOR OF [facility] TO GET CLARIFICATION ON COVERAGE. ACCORDING TO ÁNGEL PT CAN CONTINUE TO GET NEPHROSTOMY TUBES CHANGED EVERY TWO MONTHS LONG SHE CAN GO TO OUTPATIENT CLINIC. PT IS AGREEABLE TO HOSPICE SERVICES. SHE WILL DISCUSS WITH SPOUSE ABOUT WHEN SHE WOULD LIKE TO ELECT FOR HOSPICE SERVICES. UPDATED MELONY MOSER ABOUT OUR DISCUSSION. GAVE PATIENT PAMPHLETS ABOUT HOSPICE.
[2024-04-19] MEDS ORDERED: NS 250 ML IV PRN (18:15)
--- NOTE | 2024-04-19 18:24 | NUR ---
PATIENT A/OX4, UP IN CHAIR FOR MOST OF THE AFTERNOON. PAIN BETTER MANAGED TODAY. DRESSINGS CHANGED TO NEPHROSTOMY SITES AND L FOOT AND REMAIN C/D/I. [employer] ACCESSED AND IS RUNNING NS @ [facility]. PATIENT SPOKE WITH PALLIATIVE TODAY AND IS CONSIDERING HOSPICE AT DISCHARGE. PATIENT ABLE TO MAKE NEEDS KNOWN AND IS COOPERATIVE WITH CARE. NO NEW CONCERNS THIS SHIFT.
[2024-04-19 20:21] VITALS: BP 162/79
[2024-04-20 04:26] VITALS: BP 144/69
--- NOTE | 2024-04-20 05:59 | NUR ---
SHIFT SUMMARY 48 YR F ADMITTED ON 04/16/24. DNR. NO ACUTE CHANGES THIS SHIFT. PT MEDICATED FREQUENTLY FOR PAIN. NEPHROSTOMY BAGS DRAINING WELL. PT STATED SHE DOES NOT FEEL THAT SHE IS READY TO GO HOME TODAY BECAUSE SHE DOESN'T FEEL RIGHT. SHE WAS ADVISED TO HAVE THIS CONVERSATION WITH HER DOCTOR. SHE IS VERY PLEASANT AND COOPERATIVE WITH CARE. BED IN LOW POSITION AND CALL LIGHT IN REACH.
[2024-04-20 06:00] LABS: BASOPHILS ABSOLUTE AUTO 0.08 K/mm3 (0.00-0.23); BASOPHILS PERCENT AUTO 1 % (0-2); EOSINOPHILS ABSOLUTE AUTO 0.36 K/mm3 (0.00-0.68); EOSINOPHILS PERCENT AUTO 5 % (0-6); Hematocrit 26.9 % (33.0-51.0); Hemoglobin 8.2 g/dL (11.5-16.0); IMMATURE GRAN ABSOLUTE AUTO 0.18 K/mm3 (0.00-0.10); IMMATURE GRAN PERCENT AUTO 2 % (0-1); LYMPHOCYTES ABSOLUTE AUTO 2.19 K/mm3 (0.84-5.20); LYMPHOCYTES PERCENT AUTO 28 % (21-46); MONOCYTES ABSOLUTE AUTO 0.74 K/mm3 (0.16-1.47); MONOCYTES PERCENT AUTO 9 % (4-13); Mean Corpuscular HGB 21.7 pg (26.0-34.0); Mean Corpuscular HGB Conc 30.5 g/dL (31.5-36.5); Mean Corpuscular Volume 71 fL (80-100); Mean Platelet Volume 10.8 fL (9.1-12.4); NEUTROPHILS ABSOLUTE AUTO 4.33 K/mm3 (1.96-9.15); NEUTROPHILS PERCENT AUTO 55 % (41-73); Platelet Count 418 K/mm3 (150-400); RDW Coefficient Variation 19.7 % (11.7-14.2); RDW Standard Deviation 49.9 fL (35.1-46.3); Red Blood Cell Count 3.78 M/mm3 (3.80-5.20); White Blood Cell Count 7.88 K/mm3 (4.00-11.30)
[2024-04-20 06:23] LABS: Albumin, Blood 2.4 g/dL (3.4-5.0); Albumin/Globulin Ratio 0.6 (0.8-1.8); Bilirubin, Total 0.4 mg/dL (0.1-1.0); Calcium, Blood 8.5 mg/dL (8.5-10.1); Creatinine, Blood 0.71 mg/dL (0.40-1.00); Globulin, Blood 4.3 g/dL (2.2-4.0); Potassium, Blood 3.9 mmol/L (3.5-5.5); Total Protein, Blood 6.7 g/dL (6.4-8.2)
[2024-04-20] MEDS ORDERED: NS 1,000 ML IV SCH (07:00)
[2024-04-20 07:33] VITALS: BP 133/74
[2024-04-20] MEDS ORDERED: Ketorolac Tromethamine 15mg Vial IV PRN (11:05)
--- NOTE | 2024-04-20 14:53 | NUR ---
"Spiritual Care | Pt. Request (previous referral) Pt. is awake in bed and welcomed my visit. Pt. is pleasant. Facilitated a short life review and considered matters of sanjuana, belief, and the community. Pt. displayed evidence of engagement, awareness, and being encouraged. Prayed with the Pt. Pt. verbalized gratitude for the spiritual care visit. Will continue to be available."
[2024-04-20 15:44] VITALS: BP 129/62
--- NOTE | 2024-04-20 16:57 | NUR ---
CASE NOAM, DISCUSSED CASE WITH BEDSIDE RN. PATIENT IS CONSIDERING HOSPICE PER CONVERSATIONS YESTERDAY. HER PAIN IS BETTER MANAGED FROM MY LAST VISIT. PATIENT IS CURRENTLY ON THE PHONE. PC WILL CONTINUE TO PROVIDE SUPPORT
--- NOTE | 2024-04-20 18:22 | NUR ---
PATIENT A/OX4, UP IN CHAIR FOR A FEW HOURS THIS AFTERNOON. PATN MANAGED WITH SCHEDULED MEDICATIONS AND FENTANYL AND OXYCODONE PRN. PATIENT HAVING REGULAR BOWEL MOVEMENTS. 3+ EDEMA TO BLE, PRN LASIX GIVEN THIS EVENING. BILATERAL NEPHROSTOMY'S IN PLACE AND DRAINING WELL TO GRAVITY. PATIENT PLEASANT AND COOPERATIVE, ABLE TO MAKE NEEDS KNOWN.
[2024-04-20 19:37] VITALS: BP 153/78
[2024-04-21 03:14] VITALS: BP 161/85
--- NOTE | 2024-04-21 04:17 | NUR ---
SHIFT SUMMARY 48 YR F ADMITTED ON 04/16/24. DNR. PT IS REPORTING EXCRUTIATING PAIN IN HER UPPER LEFT LEG. SHE IS BEING MEDICATED WITH PAIN MEDS PER EMAR OFTEN PERMITTED W/ LITTLE TO NO RELIEF. SHE HAS BEEN YELLING OUT IN PAIN FREQUENTLY THROUGHOUT THE SHIFT. PT AND HER EXPRESSED THAT THEY ARE CONCERNED PT MAY HAVE A BLOOD CLOT IN HER LEG. HOSPITALIST WAS NOTIFIED AND ULTRA SOUND OF TWIN UPPER LEGS WAS ORDERED AND ADMINISTERED. PER ULTRA SOUND TECH, NO OBVIOUS BLOOD CLOTS WERE SEEN AND RESULTS WILL BE OFFICIALLY REVIEWED IN THE A.M. PT HAS BEEN ALTERNATING BETWEEN THE BED AND CHAIR BUT IS UNABLE TO GET COMFORTABLE.
[2024-04-21 06:33] LABS: BASOPHILS ABSOLUTE AUTO 0.06 K/mm3 (0.00-0.23); BASOPHILS PERCENT AUTO 1 % (0-2); EOSINOPHILS ABSOLUTE AUTO 0.23 K/mm3 (0.00-0.68); EOSINOPHILS PERCENT AUTO 2 % (0-6); Hematocrit 25.1 % (33.0-51.0); Hemoglobin 7.8 g/dL (11.5-16.0); IMMATURE GRAN ABSOLUTE AUTO 0.36 K/mm3 (0.00-0.10); IMMATURE GRAN PERCENT AUTO 4 % (0-1); LYMPHOCYTES ABSOLUTE AUTO 1.75 K/mm3 (0.84-5.20); LYMPHOCYTES PERCENT AUTO 18 % (21-46); MONOCYTES ABSOLUTE AUTO 0.59 K/mm3 (0.16-1.47); MONOCYTES PERCENT AUTO 6 % (4-13); Mean Corpuscular HGB 21.8 pg (26.0-34.0); Mean Corpuscular HGB Conc 31.1 g/dL (31.5-36.5); Mean Corpuscular Volume 70 fL (80-100); NEUTROPHILS ABSOLUTE AUTO 6.55 K/mm3 (1.96-9.15); NEUTROPHILS PERCENT AUTO 69 % (41-73); NRBC ABSOLUTE 0.02 K/mm3 (0.00-0.02); NRBC Auto 0.2 /100 WBC (0.0-0.2); Platelet Count 463 K/mm3 (150-400); RDW Coefficient Variation 19.4 % (11.7-14.2); RDW Standard Deviation 48.4 fL (35.1-46.3); Red Blood Cell Count 3.58 M/mm3 (3.80-5.20); White Blood Cell Count 9.54 K/mm3 (4.00-11.30)
[2024-04-21 06:51] LABS: Albumin, Blood 2.4 g/dL (3.4-5.0); Albumin/Globulin Ratio 0.5 (0.8-1.8); Bilirubin, Total 0.2 mg/dL (0.1-1.0); Bun/Creatinine Ratio 19.9 (12.0-20.0); Calcium, Blood 8.4 mg/dL (8.5-10.1); Creatinine, Blood 0.86 mg/dL (0.40-1.00); Globulin, Blood 4.4 g/dL (2.2-4.0); Potassium, Blood 4.1 mmol/L (3.5-5.5); Total Protein, Blood 6.8 g/dL (6.4-8.2)
[2024-04-21 07:44] VITALS: BP 161/79
[2024-04-21] MEDS ORDERED: Cyclobenzaprine HCl 10 MG Tab PO ONE (09:00)
[2024-04-21] MEDS ORDERED: Diazepam 5 MG Tab PO PRN (10:00)
[2024-04-21] MEDS ORDERED: OLANZapine ODT 5 MG Tab MM ONE (10:00)
[2024-04-21] MEDS ORDERED: OLANZapine ODT 5 MG Tab MM PRN (10:00)
[2024-04-21] MEDS ORDERED: Diazepam 5 MG Tab PO ONE (10:00)
[2024-04-21] MEDS ORDERED: Gabapentin 300 MG Cap PO SCH (11:00)
[2024-04-21] MEDS ORDERED: Gabapentin 100 MG Cap PO SCH (12:00)
[2024-04-21] MEDS ORDERED: Cyclobenzaprine HCl 10 MG Tab PO PRN (14:00)
[2024-04-21] MEDS ORDERED: HYDROmorphone HCl 2 MG Tab PO PRN (15:25)
[2024-04-21 15:58] LABS: Percent Saturation 9.4 % (15.0-50.0)
--- NOTE | 2024-04-21 16:06 | NUR ---
GOALS OF CARE VISIT WITH SHERWIN THIS MORNING PER DR. CORDOVA'S REQUEST. DR. CORDOVA REPORTS PT'S PAIN WAS DIFFICULT TO MANAGE OVERNIGHT. SHERWIN TALKED ABOUT HER CANCER JOURNEY OVER THE COURSE OF THE LAST 10 YEARS. SHE REPORTS HER ONCOLOGIST TOLD HER THERE IS ONE TREATMENT OPTION LEFT AND HER EXPECTED SUCCESS RATE IS 10-20%, SHERWIN EXPECTED FEELING DEFEATED AND TIRED. PT REQUESTS TO CONTINUE WITH TREATMENT WHILE IN THE HOSPITAL AND D/C HOME WITH HOSPICE SERVICES. SHERWIN REPORTS HER PAIN HAS BEEN 8-9/10 TO BLE, GLUTES AND LOWER BACK. WITH OXYCODONE, FENTANYL REGIMEN PAIN HAS DECREASED TO 6-7/10. GOAL IS 4-5/10. PROVIDER AGREEABLE TO ADJUSTING PAIN MEDICATIONS IN AN ATTEMPT FOR BETTER PAIN MANAGEMENT. TRANSITIONED FROM OXYCODONE/FENTANYL TO METHADONE AND DILAUDID. REVIEWED CARE PLAN WITH PRIMARY RN. ORDERS PLACED PER PROVIDER REQUEST.
--- NOTE | 2024-04-21 18:00 | NUR ---
SHIFT SUMMARY PATIENT ALERT AND INTERACTIVE. HAVING A LOT OF ISSUES WITH PAIN CONTROL AT START OF SHIFT. MEDICATIONS ADJUSTED AND CHANGED THROUGHOUT THE DAY. PALLIATIVE CARE INVOLVED WITH CHANGES. PATIENT STATES THAT SHE HAS HAD BETTER PAIN CONTROL TODAY WITH CHANGES. PATIENT ALSO STARTED SOME MOOD STABILIZERS AND MUSCLE RELAXERS ALONG WITH PAIN MEDS. EDUCATED PATIENT ON THE IMPORTANCE OF FEEDBACK WITH CHANGES TO BE SURE PAIN IS MANAGED. PATIENT CONTINUES TO HAVE BLOODY DRAINAGE FROM VAGINAL/GROIN AREA AT TIMES. DONUT CUSHION PROVIDED FOR COMFORT. PATIENT UP IN CHAIR MOST OF THE DAY.
[2024-04-21 19:24] VITALS: BP 128/65
[2024-04-21] MEDS ORDERED: Methadone HCL 5 MG TAB PO SCH (22:00)
[2024-04-21] MEDS ORDERED: HYDROmorphone HCl 0.5 MG/0.5 ML SYR IV PRN (23:50)
[2024-04-22] MEDS ORDERED: Metoclopramide HCl 5MG / ML 2ML Vial IV PRN (03:50)
[2024-04-22 03:52] VITALS: BP 164/94
--- NOTE | 2024-04-22 06:36 | NUR ---
SHIFT SUMMARY PT ALERT AND ORIENTED TIMES 4 . PT ADMITTED FOR COMPLICATED UTI. PT IS IN SEVERE PAIN WITH NAUSEA. HAVING TROUBLE KEEPING ORAL MEDICATION DOWN, LITTLE RELIEF FROM ZOFRAN. OBTAINED NEW ORDER FOR BRENDA GRAY S OLANZAPINE DUE TO CONTRAINDICATIONS, BED IN LOW POSITION, CALL LIGHT WITHIN REACH, RAILS TIMES 2.
[2024-04-22 07:48] VITALS: BP 140/73
[2024-04-22] MEDS ORDERED: HYDROmorphone HCl 0.5 MG/0.5 ML SYR IV PRN ×3 (09:20→13:35)
[2024-04-22] MEDS ORDERED: LORazepam 1 MG Tab PO PRN ×2 (09:30→15:05)
[2024-04-22] MEDS ORDERED: FentaNYL 50 MCG Patch TOP SCH (10:15)
[2024-04-22] MEDS ORDERED: HYDROmorphone HCl 2 MG Tab PO PRN (10:15)
[2024-04-22] MEDS ORDERED: Diazepam 5 MG Tab PO PRN (10:15)
--- NOTE | 2024-04-22 10:38 | NUR ---
Spiritual care visit conducated. Lora (pt) was awake and alert. Pt was conversational and showed signs of emotional distress. Pt verbalized battling cancer and had a difficult night followed by being put on comfort care measures today. Pt is particularly disturbed by the idea of being alone while dying. This energy and conservation technician as well as energy and conservation technician cruz provided compassionate listening, encouragment and conveyed availability to pt in the coming days. Prayed with pt. She appeared relieved by the vist and the support.
[2024-04-22] MEDS ORDERED: Methadone HCL 10 MG TAB PO SCH (14:00)
[2024-04-22] MEDS ORDERED: Melatonin 5 MG Tablet PO PRN (15:05)
[2024-04-22] MEDS ORDERED: HYDROmorphone 1 MG/ML 30 ML Bag IV PRN (15:15)
[2024-04-22] MEDS ORDERED: FentaNYL Citrate 50 MCG/ML 2 ML Injection IV PRN (15:40)
[2024-04-22] MEDS ORDERED: Hyoscyamine Sulfate 0.125 MG Tab PO PRN (17:00)
--- NOTE | 2024-04-22 17:30 | NUR ---
PC COMFORT CARE VISIT: PT WAS PLACED ON COMFORT CARE TODAY. PT DISCUSSED IN MORNING ROUNDS PT DID NOT TOLERATE METHADONE DUE TO ONSET OF N/V. METHADONE WAS DISCONTINUED AND DILAUDID WILL BE TRIALED THROUGH THE DAY TO MANAGE PAIN. APPROX 1500 I WAS NOTIFIED CURRENT DILAUDID DOSING WAS NOT EFFECTIVE. PT IS ALSO TAKING ATIVAN FOR ANXIETY. DISCUSSED WITH PHARMACIST/PT/RN/DR. THORPE TO COME UP WITH PAIN MANAGEMENT PLAN. PT TO BE SWITCHED TO DILAUDID ARTIST REPRESENTATIVE PT REPORTS DILAUDID LASTS LONGER THAN FENTANYL. FENTANYL WILL BE USED FOR BREAKTHROUGH PAIN. WE WILL CONTINUE HER FENTANYL PATCHES SHE HAS BEEN USING PATCHES FOR MANY MONTHS NOW. PHARMACY TO DOSE THE ARTIST REPRESENTATIVE DILAUDID BASED ON HER CURRENT USE AND TITRATE UP. PT ALSO TAKES HYOSCYAMINE FOR BLADDER SPASMS AT HOME AND STATED THEY HELP WITH CRAMPS SO THIS WAS ADDED. PT REQUESTING SLEEP AID WELL DUE TO INVASIVE THOUGHTS ABOUT DYING THAT PREVENT HER FROM SLEEPING AT NIGHT. PT STATES SHE DOES NOT NORMALLY TAKE A SLEEP AID. DR. THORPE INCREASED LORAZEPAM TO Q 2 HOURS FOR SLEEP/ANXIETY AND ADDED MELATONIN. DISCUSSED WITH PT CONCERNS FOR PAIN MANAGEMENT AT HOME MAY BE DIFFICULT. SHE AGREES SHE IS WILLING TO GO TO HOSPICE INPATIENT FACILITY IN [place] FOR CARE. CARE MANAGEMENT IS ALREADY WORKING ON THAT PLAN. ASSISTED MIKKI MOSER WITH GETTING ARTIST REPRESENTATIVE PUMP SET UP. POC IS TO CONTINUE TO TITRATE SETTINGS UNTIL PT IS COMFORTABLE.
--- NOTE | 2024-04-22 18:30 | NUR ---
SHIFT SUMMARY PATIENT ALERT AND INTERACTIVE. PATIENT VERBALIZING FEARS OF DYING ALONE. PATIENT UP IN CHAIR MOST OF DAY. VIKAS LIFT USED TO PUT PATIENT BACK IN BED. PATIENT CONTINUED TO HAVE ISSUES WITH PAIN CONTROL MOST OF THE DAY. PATIENT TRANSITIONED TO A ANIMAL SERVICES OFFICER. PAIN CONTROL IMPROVED AND MANAGED WITH CONTINUOUS AND ANIMAL SERVICES OFFICER. PATIENT CONTINUES TO HAVE VAGINAL/GROIN BLOODY DRAINAGE. UPDATED ON PLAN TO DISCHARGE TO HOSPICE HOUSE IN [place] BECAUSE OF NEEDING IV PAIN MEDICATION. TEARFULL BUT UNDERSTANDS. PLEASED TO SEE PATIENT NOT HURTING ANYMORE.
--- NOTE | 2024-04-22 23:38 | NUR ---
PT TRANSFERRED FROM MED 329 TO MED 364 @ 2300 WITH ALL BELONGINGS AND MEDICAL EQUIPMENT, [employer] PUMP.
--- NOTE | 2024-04-23 06:01 | NUR ---
SHIFT SUMMARY NOC PT A/O X 4 WHEN AWAKE. PT HAS SLEPT FOR ENTIRETY OF SHIFT AFTER SPOUSE REPORTED THAT PT HAD NOT SLEPT WELL FOR NEARLY THE LAST WEEK AND A HALF. PT WAS STARTED ON CHEMICAL TREATMENT OPERATOR DILAUDID 0.5 MG/HR YESTERDAY AFTERNOON WITH TOTAL DOSE @ 0600 9.73 MG ADMINISTERED THROUGH MEDIPORT IN [facility]. PT HAS BILATERAL NEPHROSTOMY WITH NAOMI URINE OUTPUT. PT ON 1L/NC FOR COMFORT. PT ON COMFORT CARE MEASURES. PT HAS BEEN TOO LETHARGIC TO TAKE ANY ORAL MEDICATIONS AND THEY HAVE BEEN HELD DUE TO ASPIRATION RISK/COMFORT MEASURES. DIABETIC FOOL ULCER WOUND ON BOTTOM OF LEFT FOOT REPACKED AND DRESSED AND IS C/D/I. PT SPOUSE REPORTS THAT PT IS LOOKING FOR HOSPICE PLACEMENT IN [place]. PT CURRENTLY RESTING WITH BED IN LOWEST POSITION, AND CALL LIGHT WITHIN REACH.
[2024-04-23] MEDS ORDERED: Insulin Human Lispro 100 Units/ML 3ML Syringe SC SCH (16:30)
--- NOTE | 2024-04-23 18:23 | NUR ---
SHIFT SUMMARY: PATIENT IS A&OX4/LIFT/2 MAX ASSIST. SHE IS PLEASANT AND COOPERATIVE WITH CARE. PATIENT PAIN WELL CONTROLLED WITH OUTSIDE B2B SALES DILAUDID. THE PLAN IS FOR THE PATIENT TO LEAVE AT 0900 TO THE HOSPICE HOUSE IN [place]. SHE IS IN BED, FAMILY AT BEDSIDE, CALL LIGHT AND OUTSIDE B2B SALES CONTROLLER WITHIN REACH, NO SIGNS OR SYMPTOMS OF DISTRESS, PLAN OF CARE ONGOING.
--- NOTE | 2024-04-24 05:14 | NUR ---
SHIFT SUMMARY NOC PT A/O X 4. PLEASANT AND COOPERATIVE WITH CARE. ON COMFORT CARE MEASURES, BUT STILL OPTING TO TAKE HOME RX AND INSULIN COMVERAGE. PT ON ALARM INSTALLER DILAUDID 0.5 MG/HR FOR PAIN MANAGEMENT WITH GOOD EFFECT. PT HAS BILATERAL NEPHROSTOMIES IN PLACE DRAINING YELLOW URINE. DIABETIC L FOOT ULCER DRESSED AND C/D/I. PT ON 1L/NC FOR COMFORT. HS CBG 272 CNI. PT WILL DISCHARGE @ 0900 TODAY WITH AMBULANCE TRANSPORTATION TO [facility] WILL REMAIN ACCESSED SO PT CAN RECEIVE IV PAIN RX EN ROUTE. PT CURRENTLY RESTING WITH BED IN LOWEST POSITION, AND CALL LIGHT WITHIN REACH.
--- NOTE | 2024-04-24 10:15 | NUR ---
DC-0940 PT LEFT VIA [facility] WITH ALL BELONGINGS. PT'S MEDIPORT IS STILL ACCESSED. HEP FLUSHED. FENT PATCH STILL PRESENT ON PT. REPORT CALLED TO [facility]HIN[facility]UM[facility] AND GIVEN TO ROCHELLE NURSE. PT ON 2 L O2.
== END 2024-04-24 09:40 | disposition hospice, home (50) | DRG 698 ==
LOC: ER 04:03 → MEDS 04:04 → ERHOLD 04:04 → MEDS 04:04 → ERHOLD 16:26 → MEDS 04-16 10:35 → ENPENDDIS 04-24 08:01 → MEDS 04-24 09:40
PROVIDERS: Emergency Medicine; Family Medicine; Internal Medicine; Registered Nurse; Surgery Pediatric Surgery; ADMIT Hospitalist
DX: T83.512A Infection and inflammatory reaction due to nephrostomy catheter, initial encounter (principal); A41.89 Other specified sepsis; C79.82 Secondary malignant neoplasm of genital organs; I50.32 Chronic diastolic (congestive) heart failure; Z68.43 Body mass index [BMI] 50.0-59.9, adult; C78.5 Secondary malignant neoplasm of large intestine and rectum; N13.30 Unspecified hydronephrosis; B37.49 Other urogenital candidiasis; C54.1 Malignant neoplasm of endometrium; Z51.5 Encounter for palliative care; I12.9 Hypertensive chronic kidney disease with stage 1 through stage 4 chronic kidney disease, or unspecified chronic kidney disease; E66.01 Morbid (severe) obesity due to excess calories; E03.9 Hypothyroidism, unspecified; K59.09 Other constipation; E11.621 Type 2 diabetes mellitus with foot ulcer; L97.529 Non-pressure chronic ulcer of other part of left foot with unspecified severity; D63.8 Anemia in other chronic diseases classified elsewhere; F41.9 Anxiety disorder, unspecified; G89.29 Other chronic pain; B96.1 Klebsiella pneumoniae [K. pneumoniae] as the cause of diseases classified elsewhere; C67.9 Malignant neoplasm of bladder, unspecified; Z88.5 Allergy status to narcotic agent; Z88.2 Allergy status to sulfonamides; Z88.8 Allergy status to other drugs, medicaments and biological substances; Z79.890 Hormone replacement therapy; Z79.891 Long term (current) use of opiate analgesic; Z79.51 Long term (current) use of inhaled steroids; Z79.899 Other long term (current) drug therapy; Z79.2 Long term (current) use of antibiotics; Z79.4 Long term (current) use of insulin; Z51.11 Encounter for antineoplastic chemotherapy; Z86.73 Personal history of transient ischemic attack (TIA), and cerebral infarction without residual deficits; Z87.440 Personal history of urinary (tract) infections; I25.2 Old myocardial infarction; Z90.710 Acquired absence of both cervix and uterus; Z90.49 Acquired absence of other specified parts of digestive tract; Z95.1 Presence of aortocoronary bypass graft; Z93.6 Other artificial openings of urinary tract status; Z89.421 Acquired absence of other right toe(s); Z86.14 Personal history of Methicillin resistant Staphylococcus aureus infection; Z95.828 Presence of other vascular implants and grafts; Z28.21 Immunization not carried out because of patient refusal
CPT/HCPCS: 36415; 74177; 80053; 80202; 81001; 82306; 82550; 82607; 82728; 82746; 82947; 83540; 83550; 83605; 83735; 84100; 85025; 87040; 87077; 87086; 87106; 87186; 93970; 94760; 96361; 96365; 96366; 96367; 96372; 96375; 96376; 97110; 97162; 97165; 97530; 97535; 99285-25; A9270; G0378; J0295; J0696; J1171; J1642; J1650; J1815; J1885; J2060; J2185; J2405; J2765; J3010; J3360; J3370; J7030; J7040; J7050; Q9967

== ENCOUNTER 2024-04-26 03:17 | Day surgery (SDC) | payer OTHER, MEDICARE | END 2024-04-26 23:11 | disposition home or self-care (01) | LOC: ATC 03:17 | DX: Z43.6 Encounter for attention to other artificial openings of urinary tract (principal); N13.30 Unspecified hydronephrosis; C54.1 Malignant neoplasm of endometrium ==

== ENCOUNTER 2024-08-03 08:30 | Inpatient (IN) | payer OTHER, MEDICARE ==
[~2024-08-03] VITALS: Ht 170.2 cm; Wt 150.0 kg
[~2024-08-03 08:30] MED LIST changes: +Anaspaz0.125 MG PO; +CALCIUM CARBON500 M1 PO; +DILAUDID1 MG/1 M1 PO; +DIPH50 PO; +DOCU100 PO; +GABA100 PO; +HALOPERIDOL2 MG/1 M1 PO; +HYDMOR2 PO; +MAGCIT300 PO; +METHADONE HCL1010 PO; +Magic Bullet10 MG; +ONDA4ODT PO; +Oxycodone HCl20 M1 PO; +PROM25; +QUET25 PO; +[UNRECOGNIZED DRUG - OTHER]
[2024-08-03 09:31] VITALS: BP 140/74
[2024-08-03] MEDS ORDERED: HYDROmorphone HCl 2 MG Tab PO PRN (10:20)
[2024-08-03] MEDS ORDERED: DiphenhydrAMINE HCl 50 MG/ML 1ML Vial IV PRN (10:20)
[2024-08-03] MEDS ORDERED: Ondansetron 4 MG SoluTab SL PRN (10:25)
[2024-08-03] MEDS ORDERED: NS 250 ML IV PRN (10:35)
[2024-08-03] MEDS ORDERED: Lidocaine HCl 4% Cream 5 GM TOP ONE (10:55)
[2024-08-03] MEDS ORDERED: NS 250 ML IV ONE (11:19)
[2024-08-03] MEDS ORDERED: Midazolam HCl 1MG / ML 2ML Vial ONE (11:40)
[2024-08-03] MEDS ORDERED: NS 1,000 ML IV ONE (11:40)
[2024-08-03] MEDS ORDERED: Ondansetron HCl 2 MG / ML 2ML Vial ONE (11:40)
[2024-08-03] MEDS ORDERED: FentaNYL Citrate 50 MCG/ML 2 ML Injection ONE (11:41)
[2024-08-03] MEDS ORDERED: Prochlorperazine Edisylate 10 mg Vial IV ONE (11:55)
[2024-08-03] MEDS ORDERED: OxyCODONE HCL 5 MG TAB PO SCH (12:00)
[2024-08-03 12:49] VITALS: BP 115/66
[2024-08-03] MEDS ORDERED: Methadone HCL 10 MG TAB PO SCH (14:00)
[2024-08-03] MEDS ORDERED: Doxycycline Hyclate 100 MG TAB PO ONE (14:00)
--- NOTE | 2024-08-03 15:02 | NUR ---
DISCHARGE SUMMARY: PATIENT DISCHARGED @1432 c [facility] BACK HOME. HOSPICE TO FOLLOW UP. DISCHARGE INSTRUCTIONS PROVIDED TO PATIENT AND GONE OVER. PATIENT EXPRESSED UNDERSTANDING. ALL PATIENT BELONGINGS GIVEN BACK TO PATIENT.
[2024-08-04] MEDS ORDERED: Methadone HCL 10 MG TAB PO SCH (09:00)
== END 2024-08-03 14:54 | disposition home or self-care (01) | DRG 699 ==
LOC: MEDS 08:30
PROVIDERS: ADMIT Internal Medicine
PROC: 0T25X0Z Change Drainage Device in Kidney, External Approach (ICD-10-PCS; principal; 2024-08-03)
DX: T83.022A Displacement of nephrostomy catheter, initial encounter (principal); C79.11 Secondary malignant neoplasm of bladder; N13.8 Other obstructive and reflux uropathy; Y73.2 Prosthetic and other implants, materials and accessory gastroenterology and urology devices associated with adverse incidents; C54.1 Malignant neoplasm of endometrium
CPT/HCPCS: 50435; 76937; 93005; 93010; A9270; C1729; C1769; C1887; J1200; J1642; J2250; J2405; J3010; J7030; J7050; Q9967